=== PATIENT | male | born 1965 | race Hispanic/Latino ===

== ENCOUNTER 2019-07-21 13:05 | Emergency (ER) | payer SELFPAY ==
--- NOTE | 2019-07-21 15:08 | RAD REPORT ---
EXAM DESCRIPTION: US - Scrotum Testicles - 07/21/2019 2:03 pm CLINICAL HISTORY: Left testicular pain COMPARISON: None FINDINGS: Right testicle measures 4.5 x 2.3 x 3.3 centimeters. Echotexture is homogeneous. Normal bl ood flow Left testicle measures 4.3 x 2 x 3.4 centimeters. Echotexture is homogeneous. Normal blood flow The epididymides are normal in size and echotexture. Normal blood flow is seen. 7 millimeter right spermatocele. 8 millimeter isoechoic structure is present between the right testic le and right epididymis. It likely represents the epididymal appendage. Increased vascularity surroun ding the periphery of this is not present. Also the patient does not have pain in this region. This i s not considered significant. Small bilateral hydroceles IMPRESSION: Small bilateral hydroceles 7 millimeter right spermatocele The exam was discussed with Vanessa Reed
--- NOTE | 2019-07-21 15:46 | EDPHYS ---
Physician Documentation [facility] Name: Quintin Koenig Age: 54 yrs Sex: Male : 1965 Arrival Date: 07/21/2019 Time: 13:07 Bed 14 Private MD: ED Physician Conrado Cosme HPI: 07/21 15:05 This 54 yrs old Male presents to ER via Ambulatory with complaints of kb Testicular Pain. 15:05 The patient presents with scrotal pain, of the left side, tenderness, that is moderate. kb Onset: The symptoms/episode began/occurred 2 week(s) ago. Modifying factors: The symptoms are alleviated by nothing, the symptoms are aggravated by nothing. Associated signs and symptoms: The patient has no apparent associated signs or symptoms. Severity of symptoms: At their worst the symptoms were moderate, in the emergency department the symptoms are unchanged. The patient has not experienced similar symptoms in the past. The patient has not recently seen a physician. Historical: - Allergies: 13:22 No Known Allergies; hb - PSHx: 13:22 None; hb - Immunization history:: Adult Immunizations up to date. - Social history:: Smoking status: Patient/guardian denies using tobacco. - Ebola Screening: : No symptoms or risks identified at this time. ROS: 15:03 Constitutional: Negative for fever, chills, and weight loss, Neck: Negative for injury, kb pain, and swelling, Cardiovascular: Negative for chest pain, palpitations, and edema, Respiratory: Negative for shortness of breath, cough, wheezing, and pleuritic chest pain, Abdomen/GI: Negative for abdominal pain, nausea, vomiting, diarrhea, and constipation, Back: Negative for injury and pain, MS/Extremity: Negative for injury and deformity, Skin: Negative for injury, rash, and discoloration, Neuro: Negative for headache, weakness, numbness, tingling, and seizure. 15:03 : Positive for testicular pain of the left testicle. Exam: 15:03 Constitutional: This is a well developed, well nourished patient who is awake, alert, kb and in no acute distress. Head/Face: Normocephalic, atraumatic. Neck: Trachea midline, no thyromegaly or masses palpated, and no cervical lymphadenopathy. Supple, full range of motion without nuchal rigidity, or vertebral point tenderness. No Meningismus. Chest/axilla: Normal chest wall appearance and motion. Nontender with no deformity. No lesions are appreciated. Cardiovascular: Regular rate and rhythm with a normal S1 and S2. No gallops, murmurs, or rubs. Normal PMI, no JVD. No pulse deficits. Respiratory: Lungs have equal breath sounds bilaterally, clear to auscultation and percussion. No rales, rhonchi or wheezes noted. No increased work of breathing, no retractions or nasal flaring. Abdomen/GI: Soft, non-tender, with normal bowel sounds. No distension or tympany. No guarding or rebound. No evidence of tenderness throughout. Back: No spinal tenderness. No costovertebral tenderness. Full range of motion. Skin: Warm, dry with normal turgor. Normal color with no rashes, no lesions, and no evidence of cellulitis. MS/ Extremity: Pulses equal, no cyanosis. Neurovascular intact. Full, normal range of motion. Neuro: Awake and alert, GCS 15, oriented to person, place, time, and situation. Cranial nerves II-XII grossly intact. Motor strength 5/5 in all extremities. Sensory grossly intact. Cerebellar exam normal. Normal gait. 15:03 : Male external genitalia: erythema, is absent, swelling, is not appreciated, tenderness, that is moderate. Vital Signs: 13:22 BP 125 / 85; Pulse 76; Resp 16; Temp 98.4; Pulse Ox 98% on R/A; Weight 122.92 kg; hb Height 5 ft. 10 in. (177.80 cm); Pain 8/10; 13:22 Body Mass Index 38.88 (122.92 kg, 177.80 cm) hb MDM: 13:26 Patient medically screened. kb 15:04 Data reviewed: vital signs, nurses notes. Data interpreted: Pulse oximetry: on room air kb is 98 %. Interpretation: normal. Counseling: I had a detailed discussion with the patient and/or guardian regarding: the historical points, exam findings, and any diagnostic results supporting the discharge/admit diagnosis, lab results, radiology results, the need for outpatient follow up, a urologist, to return to the emergency department if symptoms worsen or persist or if there are any questions or concerns that arise at home. 07/21 13:26 Order name: US Scrotum Testicles; Complete Time: 15:13 kb 07/21 15:01 Order name: Urine Dipstick-Ancillary (obtain specimen); Complete Time: 15:34 kb Administered Medications: No medications were administered Disposition: 07/22 07:21 Co-signature as Attending Physician, Conrado Cosme MD I agree with the assessment and kdr plan of care. Disposition: 07/21/19 15:46 Discharged to Home. Impression: Right Testicular Pain. - Condition is Stable. - Discharge Instructions: Scrotal Masses. - Medication Reconciliation Form, Thank You Letter, Antibiotic Education, Prescription Opioid Use form. - Follow up: Emergency Department; When: As needed; Reason: Worsening of condition. Follow up: Private Physician; When: 2 - 3 days; Reason: Recheck today's complaints, Continuance of care, Re-evaluation by your physician. Signatures: Dispatcher [employer] EDMS Vanessa Reed, KAMILLE-C KAMILLE-Zack Marcano RN RN sg Conrado Cosme MD MD [facility] Grisel Rucker RN RN Corrections: (The following items were deleted from the chart) 07/21 15:49 15:46 07/21/2019 15:46 Discharged to Home. Impression: Right Testicular Pain. Condition sg is Stable. Forms are Medication Reconciliation Form, Thank You Letter, Antibiotic Education, Prescription Opioid Use. Follow up: Emergency Department; When: As needed; Reason: Worsening of condition. Follow up: Private Physician; When: 2 - 3 days; Reason: Recheck today's complaints, Continuance of care, Re-evaluation by your physician. kb
--- NOTE | 2019-07-21 15:46 | ER ---
Nurse's Notes [facility] Name: Quintin Koenig Age: 54 yrs Sex: Male : 1965 Arrival Date: 07/21/2019 Time: 13:07 Bed 14 Private MD: Diagnosis: Right Testicular Pain Presentation: 07/21 13:21 Presenting complaint: Left sided testicular pain x 2 weeks. Denies swelling or injury. hb Transition of care: patient was not received from another setting of care. Onset of symptoms was June 2019. Risk Assessment: Do you want to hurt yourself or someone else? Patient reports no desire to harm self or others. Initial Sepsis Screen: Does the patient meet any 2 criteria? No. Patient's initial sepsis screen is negative. Does the patient have a suspected source of infection? No. Patient's initial sepsis screen is negative. Care prior to arrival: None. 13:21 Method Of Arrival: Ambulatory hb 13:21 Acuity: MIGUEL 3 hb Historical: - Allergies: 13:22 No Known Allergies; hb - PSHx: 13:22 None; hb - Immunization history:: Adult Immunizations up to date. - Social history:: Smoking status: Patient/guardian denies using tobacco. - Ebola Screening: : No symptoms or risks identified at this time. Screenin:00 Abuse screen: Denies threats or abuse. Denies injuries from another. Nutritional sg screening: No deficits noted. Tuberculosis screening: No symptoms or risk factors identified. Never had TB. Fall Risk None identified. Assessment: 14:00 General: Appears in no apparent distress. well groomed, well developed, well nourished, sg Behavior is calm, cooperative, appropriate for age. Pain: Complains of pain in left testicle Quality of pain is described as aching, tender. Neuro: Level of Consciousness is awake, alert, obeys commands, Oriented to person, place, time, situation, Moves all extremities. Speech is normal, Facial symmetry appears normal. Cardiovascular: Capillary refill is brisk in bilateral fingers Patient's skin is warm and dry. Chest pain is denied. Respiratory: Airway is patent Respiratory effort is even, unlabored, Respiratory pattern is regular, symmetrical. GI: Abdomen is flat, non-distended, Reports normal bowel habits, tolerance of fluids, tolerance of food. : Genitalia appear normal. : Reports pain in left testicle. EENT: No signs and/or symptoms were reported regarding the EENT system. Derm: Skin is pink, warm \T\ dry. Musculoskeletal: Circulation, motion, and sensation intact. Range of motion: intact in all extremities, Reports. Vital Signs: 13:22 BP 125 / 85; Pulse 76; Resp 16; Temp 98.4; Pulse Ox 98% on R/A; Weight 122.92 kg; hb Height 5 ft. 10 in. (177.80 cm); Pain 8/10; 13:22 Body Mass Index 38.88 (122.92 kg, 177.80 cm) hb ED Course: 13:07 Patient arrived in ED. mr 13:22 Triage completed. hb 13:22 Arm band placed on. hb 13:26 [facility]C [facility] kb 13:26 Conrado Cosme MD is Attending Physician. kb 14:00 Patient has correct armband on for positive identification. Bed in low position. Call sg light in reach. Side rails up X2. Pulse ox on. NIBP on. 14:02 Patient moved back from ultrasound. sg 14:06 US Scrotum Testicles In Process Unspecified. EDMS 14:07 Zack Bangura, RN is Primary Nurse. sg 15:46 No provider procedures requiring assistance completed. Patient did not have IV access sg during this emergency room visit. Administered Medications: No medications were administered Outcome: 15:46 Discharge ordered by MD. kb 15:46 Discharged to home ambulatory, with family. sg 15:46 Condition: good 15:46 Discharge instructions given to patient, Instructed on discharge instructions, follow up and referral plans. safety practices, Demonstrated understanding of instructions, follow-up care. 15:49 Patient left the ED. sg Signatures: Dispatcher [employer] EDMS Vanessa Reed FNP-C FNP-Zack Marcano, RN SHAWNA Florencia Vaca mr Grisel Rucker, SHAWNA MATOS
[2019-07-21 15:58] VITALS: BP 125/85; TEMP 98.4; O2SAT 98
[2019-07-21 16:19] LABS: Urine Blood NEGATIVE (NEG); Urine Glucose NEGATIVE (NEG); Urine Protein NEGATIVE (NEG); Urine pH 5.5 (5.0-7.0)
== END 2019-07-21 15:49 | disposition home or self-care (01) ==
LOC: ER 13:05
DX: N50.811 Right testicular pain (principal)
CPT/HCPCS: 76870; 81003; 99284

== ENCOUNTER 2019-11-09 10:09 | Emergency (ER) | payer SELFPAY ==
--- NOTE | 2019-11-09 10:57 | EDPHYS ---
Physician Documentation [facility] Name: Quintin Koenig Age: 54 yrs Sex: Male : 1965 Arrival Date: 11/09/2019 Time: 10:25 Bed 7 Private MD: ED Physician Behzad Durand HPI: 11/09 10:53 This 54 yrs old Male presents to ER via Wheelchair with complaints of Back ma2 Pain, Leg Pain. 10:53 The patient presents with pain that is acute. The symptoms are located in the low back. ma2 Onset: The symptoms/episode began/occurred gradually, 5 day(s) ago. Associated signs and symptoms: Pertinent positives: Pertinent negatives: chest pain, hematuria, nausea, tingling. Severity of symptoms: At their worst the symptoms were mild, in the emergency department the symptoms are unchanged. The patient has not experienced similar symptoms in the past. Historical: - Allergies: 10:34 No Known Allergies; hb - PSHx: 10:34 None; hb - Immunization history:: Adult Immunizations up to date. - Coronavirus screen:: The patient has NOT traveled to [place] in the past 14 days. The patient has NOT had contact with known/suspected case of Coronavirus? Proceed with normal triage procedures. - Social history:: Patient/guardian denies using alcohol, street drugs, The patient lives with family, Smoking status: Patient denies any tobacco usage or history of. - Family history:: not pertinent. - Ebola Screening: : No symptoms or risks identified at this time. ROS: 10:53 Constitutional: Negative for fever, chills, and weight loss. ma2 10:53 All other systems are negative. Exam: 10:53 Constitutional: This is a well developed, well nourished patient who is awake, alert, ma2 and in no acute distress. Chest/axilla: Normal chest wall appearance and motion. Nontender with no deformity. No lesions are appreciated. Cardiovascular: Regular rate and rhythm with a normal S1 and S2. No gallops, murmurs, or rubs. Normal PMI, no JVD. No pulse deficits. Respiratory: Lungs have equal breath sounds bilaterally, clear to auscultation and percussion. No rales, rhonchi or wheezes noted. No increased work of breathing, no retractions or nasal flaring. Abdomen/GI: Soft, non-tender, with normal bowel sounds. No distension or tympany. No guarding or rebound. No evidence of tenderness throughout. Back: left para spinal tenderness. No costovertebral tenderness. Full range of motion. Skin: Warm, dry with normal turgor. Normal color with no rashes, no lesions, and no evidence of cellulitis. MS/ Extremity: Pulses equal, no cyanosis. Neurovascular intact. Full, normal range of motion. Neuro: Awake and alert, GCS 15, oriented to person, place, time, and situation. Cranial nerves II-XII grossly intact. Motor strength 5/5 in all extremities. Sensory grossly intact. Cerebellar exam normal. Normal gait. Vital Signs: 10:34 BP 145 / 88; Pulse 97; Resp 16; Temp 97.9; Pulse Ox 100% on R/A; Weight 124.74 kg; hb Height 5 ft. 10 in. (177.80 cm); Pain 10/10; 10:34 Body Mass Index 39.46 (124.74 kg, 177.80 cm) hb MDM: 10:36 Patient medically screened. ma2 10:53 Differential diagnosis: Obesity Osteoarthritis sprain, vertebral fracture. Data ma2 reviewed: vital signs, nurses notes. Counseling: I had a detailed discussion with the patient and/or guardian regarding: the historical points, exam findings, and any diagnostic results supporting the discharge/admit diagnosis, the presence of at least one elevated blood pressure reading (>120/80) during this emergency department visit, the need for outpatient follow up. Response to treatment: the patient's symptoms have mildly improved after treatment. 11/09 11:07 Order name: Lumbar Spine 3 Views EDOR Administered Medications: 11:05 Drug: MethylPREDNISolone Sodium Succinate 125 mg Route: IM; Site: right gluteus; 11:56 Follow up: Response: No adverse reaction 11:06 Drug: TORadol 60 mg Route: IM; Site: left gluteus; 11:56 Follow up: Response: No adverse reaction Disposition: 11/09/19 10:55 Discharged to Home. Impression: Low back pain. - Condition is Stable. - Discharge Instructions: Back Pain, Adult. - Prescriptions for Tylenol- Codeine #3 300-30 mg Oral Tablet - take 2 tablet by ORAL route every 6 hours As needed; 30 tablet. Cyclobenzaprine 10 mg Oral Tablet - take 1 tablet by ORAL route every 8 hours As needed; 30 tablet. Medrol ([place]man) 4 mg Oral Tablets, Dose Pack - take 1 tablet by ORAL route as directed - follow package instructions; 1 packet. - Medication Reconciliation Form, Thank You Letter, Antibiotic Education, Prescription Opioid Use form. - Follow up: Private Physician; When: Tomorrow; Reason: Continuance of care. Signatures: Dispatcher [employer] [facility] Grisel Rucker, SHAWNA RN Behzad Durand MD MD ma2 Essie Goff RN RN Corrections: (The following items were deleted from the chart) 11:05 10:50 Lumbar Spine Single View+[email or web address] ordered. [facility] 11:57 10:55 11/09/2019 10:55 Discharged to Home. Impression: Low back pain. Condition is ah Stable. Forms are Medication Reconciliation Form, Thank You Letter, Antibiotic Education, Prescription Opioid Use. Follow up: Private Physician; When: Tomorrow; Reason: Continuance of care. ma2
--- NOTE | 2019-11-09 10:57 | ER ---
Nurse's Notes [facility] Name: Quintin Koenig Age: 54 yrs Sex: Male : 1965 Arrival Date: 11/09/2019 Time: 10:25 Bed 7 Private MD: Diagnosis: Low back pain Presentation: 11/09 10:33 Presenting complaint: Left sided low back pain that radiates to left leg x 1 week, hb worse over last 3 days. Reports he is having difficulty walking today. Denies injury. Transition of care: patient was not received from another setting of care. Onset of symptoms was November 03, 2019. Risk Assessment: Do you want to hurt yourself or someone else? Patient reports no desire to harm self or others. Care prior to arrival: Medication(s) given: Aleve at 0800. 10:33 Method Of Arrival: Wheelchair hb 10:33 Acuity: MIGUEL 3 hb 11:15 Initial Sepsis Screen: Does the patient meet any 2 criteria? No. Patient's initial sepsis screen is negative. Does the patient have a suspected source of infection? No. Patient's initial sepsis screen is negative. Historical: - Allergies: 10:34 No Known Allergies; hb - PSHx: 10:34 None; hb - Immunization history:: Adult Immunizations up to date. - Coronavirus screen:: The patient has NOT traveled to [place] in the past 14 days. The patient has NOT had contact with known/suspected case of Coronavirus? Proceed with normal triage procedures. - Social history:: Patient/guardian denies using alcohol, street drugs, The patient lives with family, Smoking status: Patient denies any tobacco usage or history of. - Family history:: not pertinent. - Ebola Screening: : No symptoms or risks identified at this time. Screenin:30 Abuse screen: Denies threats or abuse. Nutritional screening: No deficits noted. Tuberculosis screening: No symptoms or risk factors identified. Fall Risk None identified. Assessment: 11:05 General: Appears uncomfortable, Behavior is calm, cooperative. Pain: Complains of pain ah in left flank and left low back Pain radiates to down left buttocks and left leg Pain at worst was 9 out of 10 on a pain scale. Quality of pain is described as sharp, Pain began 1 weekk ago, getting worse the last 2 days Is intermittent. Neuro: Level of Consciousness is awake, alert, Oriented to person, place, time, situation, [employer] are equal bilaterally. Cardiovascular: Heart tones S1 S2 present Capillary refill < 3 seconds Patient's skin is warm and dry. Respiratory: Airway is patent Respiratory effort is even, unlabored, Respiratory pattern is regular, symmetrical, Breath sounds are clear bilaterally. GI: No signs and/or symptoms were reported involving the gastrointestinal system. : No signs and/or symptoms were reported regarding the genitourinary system. EENT:. Derm: Skin is intact, is fragile. Musculoskeletal: Circulation, motion, and sensation intact. Capillary refill < 3 seconds. Vital Signs: 10:34 BP 145 / 88; Pulse 97; Resp 16; Temp 97.9; Pulse Ox 100% on R/A; Weight 124.74 kg; hb Height 5 ft. 10 in. (177.80 cm); Pain 10/10; 10:34 Body Mass Index 39.46 (124.74 kg, 177.80 cm) hb ED Course: 10:25 Patient arrived in ED. mr 10:34 Triage completed. hb 10:34 Arm band placed on. hb 10:36 Behzad Durand MD is Attending Physician. ma 10:55 Essie Goff, RN is Primary Nurse. ah 11:00 Patient has correct armband on for positive identification. Bed in low position. Call light in reach. Side rails up X 1. Adult w/ patient. 11:27 Lumbar Spine 3 Views In Process Unspecified. EDMS 11:54 No provider procedures requiring assistance completed. Patient did not have IV access during this emergency room visit. Administered Medications: 11:05 Drug: MethylPREDNISolone Sodium Succinate 125 mg Route: IM; Site: right gluteus; 11:56 Follow up: Response: No adverse reaction 11:06 Drug: TORadol 60 mg Route: IM; Site: left gluteus; 11:56 Follow up: Response: No adverse reaction Outcome: 10:55 Discharge ordered by . ma2 11:20 Discharged to home via wheelchair. 11:20 Condition: good 11:20 Discharge instructions given to patient, family, Instructed on discharge instructions, follow up and referral plans. medication usage, Demonstrated understanding of instructions, follow-up care, medications, Prescriptions given X 1, 2, 3. 11:57 Patient left the ED. Signatures: Dispatcher [employer] Florencia Hayden Heather, RN RN Behzad Durand MD MD sc2 Essie Goff RN RN
[2019-11-09] MEDS ORDERED: METHYLPREDNISOLONE 125 MG INJ ONE (11:03)
[2019-11-09] MEDS ORDERED: KETOROLAC 30 MG/ML INJ ONE (11:03)
--- NOTE | 2019-11-09 11:30 | RAD REPORT ---
EXAM DESCRIPTION: RAD - Lumbar Spine 3 Views - 11/09/2019 11:23 am CLINICAL HISTORY: PAIN Radiculopathy COMPARISON: No comparisons FINDINGS: Vertebral body heights appear maintained. No compression fracture noted. Mild disc thinnin g with posterior osteophyte formation is present L3-4, L4-5 and L5-S1. No spondylolysis or spondyloli sthesis. Facet arthrosis is present at L5-S1. IMPRESSION: Mild lower lumbar spondylosis.
[2019-11-09 12:21] VITALS: BP 145/88; TEMP 97.9; O2SAT 100
== END 2019-11-09 11:57 | disposition home or self-care (01) ==
LOC: ER 10:09
DX: M54.5 Low back pain (principal)
CPT/HCPCS: 72100; 96372; 99283; J2930

== ENCOUNTER 2020-01-03 12:46 | Emergency (ER) | payer SELFPAY ==
[2020-01-03] MEDS ORDERED: MEPERIDINE HCL 50 MG/ML ONE (13:09)
[2020-01-03] MEDS ORDERED: dexAMETHasone 10 MG/ML VIAL ONE (13:09)
--- NOTE | 2020-01-03 13:09 | ER ---
Nurse's Notes [facility] Name: Quintin Koenig Age: 54 yrs Sex: Male : 1965 Arrival Date: 01/03/2020 Time: 12:48 Bed 7 Private MD: Diagnosis: Radiculopathy, lumbosacral region Presentation: 01/02 12:56 Chief complaint: Patient states: right low back pain radiating to right leg X 3 weeks, iw worse since Saturday, had a diclofenac shot yesterday from a friend. Coronavirus screen: Proceed with normal triage. Patient denies a cough. Patient denies shortness of breath or difficulty breathing. Patient denies measured and/or subjective temperature greater than 100.4F prior to today's visit. Patient denies travel on a cruise ship or to a country the [facility] currently lists as an affected area. Patient denies contact with known and/or suspected case of COVID-19. Ebola Screen: Patient negative for fever greater than or equal to 101.5 degrees Fahrenheit, and additional compatible Ebola Virus Disease symptoms Patient denies exposure to infectious person. Patient denies travel to an Ebola-affected area in the 21 days before illness onset. No symptoms or risks identified at this time. Initial Sepsis Screen: Does the patient meet any 2 criteria? No. Patient's initial sepsis screen is negative. Does the patient have a suspected source of infection? No. Patient's initial sepsis screen is negative. Risk Assessment: Do you want to hurt yourself or someone else? Patient reports no desire to harm self or others. Onset of symptoms was December 12, 2019. 12:56 Method Of Arrival: Ambulatory iw 12:56 Acuity: MIGUEL 4 iw Historical: - Allergies: 13:01 No Known Allergies; iw - Home Meds: 13: metformin 500 mg Oral Tb24 1 tab 2 times per day [Active]; Lisinopril 15 mg Oral once iw daily [Active]; - PMHx: 13:01 Diabetes - NIDDM; Hypertension; iw - Immunization history:: Adult Immunizations not up to date. - Social history:: Smoking status: Patient denies any tobacco usage or history of. - Family history:: not pertinent. - Hospitalizations: : No recent hospitalization is reported. Screenin:00 Abuse screen: Denies threats or abuse. Denies injuries from another. Nutritional jl7 screening: No deficits noted. Tuberculosis screening: No symptoms or risk factors identified. Fall Risk None identified. Assessment: 13:00 General: Appears in no apparent distress. uncomfortable, Behavior is calm, cooperative, jl7 appropriate for age. Pain: Complains of pain in right low back Pain radiates to right leg Pain currently is 9 out of 10 on a pain scale. Pain began 2-3 days ago. Is continuous. Neuro: Level of Consciousness is awake, alert, obeys commands, Oriented to person, place, time, situation. Cardiovascular: Patient's skin is warm and dry. Respiratory: Airway is patent Respiratory effort is even, unlabored, Respiratory pattern is regular, symmetrical. Derm: Skin is pink, warm \T\ dry. 13:12 Reassessment: Pt will be discharged once shot time is up. jl7 Vital Signs: 12:56 BP 159 / 93; Pulse 78; Resp 16; Temp 97.6; Pulse Ox 99% on R/A; Weight 127.01 kg; iw Height 5 ft. 10 in. (177.80 cm); Pain 9/10; 13:30 BP 137 / 91; Pulse 70; Resp 19 S; Pulse Ox 98% on R/A; jl7 12:56 Body Mass Index 40.18 (127.01 kg, 177.80 cm) ED Course: 12:48 Patient arrived in ED. ag5 12:55 Donnie Cantu MD is Attending Physician. rn 12:55 Joi Hilario, SHAWNA is Primary Nurse. ca1 13:00 Triage completed. iw 13:00 Patient has correct armband on for positive identification. Bed in low position. Call jl7 light in reach. Side rails up X 1. Pulse ox on. NIBP on. 13:01 Arm band placed on. iw 13:10 Raffi Samson, SHAWNA is Primary Nurse. jl7 13:40 No provider procedures requiring assistance completed. Patient did not have IV access jl7 during this emergency room visit. Administered Medications: 13:09 Drug: Decadron 10 mg Route: IM; Site: right deltoid; jl7 13:40 Follow up: Response: No adverse reaction; Pain is decreased jl7 13:10 Drug: Demerol 50 mg Route: IM; Site: left deltoid; jl7 13:40 Follow up: Response: No adverse reaction; Pain is decreased jl7 Outcome: 13:08 Discharge ordered by . rn 13:41 Discharged to home via wheelchair. sunil 13:41 Condition: stable 13:41 Discharge instructions given to patient, Instructed on discharge instructions, follow up and referral plans. medication usage, Demonstrated understanding of instructions, follow-up care, medications, Prescriptions given X 3. 13:41 Patient left the ED. jl7 Signatures: Ivory Holden RN RN iw Nieto, Roman, MD MD rn Leal, Jahala, RN RN jl7 Joi Hilario RN RN ca1 [place], Ajare [facility]
--- NOTE | 2020-01-03 13:09 | EDPHYS ---
Physician Documentation [facility] Name: Quintin Koenig Age: 54 yrs Sex: Male : 1965 Arrival Date: 01/03/2020 Time: 12:48 Bed 7 Private MD: ED Physician Donnie Cantu HPI: 01/02 13:02 This 54 yrs old Male presents to ER via Ambulatory with complaints of Leg rn Pain, Low Back Pain. 13:03 The patient presents with pain that is chronic. The symptoms are located in the low rn back. Onset: The symptoms/episode began/occurred at an unknown time. The pain radiates to the right leg. Associated signs and symptoms: Pertinent negatives: abdominal pain, constipation, dysuria, fever, incontinence, nausea, numbness, tingling, urinary retention, vomiting, weakness. Modifying factors: The patient symptoms are alleviated by nothing, the patient symptoms are aggravated by any movement. Severity of symptoms: At their worst the symptoms were moderate, in the emergency department the symptoms are unchanged. The patient has experienced similar episodes in the past. Reports has been having problems with sciatica on left side for some time, now more recently having pain down right leg, no trauma, no fever, no bowel/bladder incontinence. No weakness of legs.. Historical: - Allergies: 13:01 No Known Allergies; iw - Home Meds: 13:01 metformin 500 mg Oral Tb24 1 tab 2 times per day [Active]; Lisinopril 15 mg Oral once iw daily [Active]; - PMHx: 13:01 Diabetes - NIDDM; Hypertension; iw - Immunization history:: Adult Immunizations not up to date. - Social history:: Smoking status: Patient denies any tobacco usage or history of. - Family history:: not pertinent. - Hospitalizations: : No recent hospitalization is reported. ROS: 13:03 Constitutional: Negative for fever, chills, and weight loss, Eyes: Negative for injury, rn pain, redness, and discharge, Neck: Negative for injury, pain, and swelling, Cardiovascular: Negative for chest pain, palpitations, and edema, Respiratory: Negative for shortness of breath, cough, wheezing, and pleuritic chest pain, Abdomen/GI: Negative for abdominal pain, nausea, vomiting, diarrhea, and constipation, Back: + low back pain : Negative for injury, bleeding, discharge, and swelling, MS/Extremity: Negative for injury and deformity, Skin: Negative for injury, rash, and discoloration, Neuro: Negative for headache, weakness, numbness, tingling, and seizure. Exam: 13:03 Constitutional: This is a well developed, well nourished patient who is awake, alert, rn and in no acute distress. Abdomen/GI: soft, non-tender Skin: Warm, dry MS/ Extremity: Pulses equal, no cyanosis. Neurovascular intact. Full, normal range of motion. Equal circumference. Neuro: Awake and alert, GCS 15, oriented to person, place, time, and situation. Cranial nerves II-XII grossly intact. Motor strength 5/5 in all extremities. Sensory grossly intact. Cerebellar exam normal. Ambulatory to bed. Vital Signs: 12:56 BP 159 / 93; Pulse 78; Resp 16; Temp 97.6; Pulse Ox 99% on R/A; Weight 127.01 kg; iw Height 5 ft. 10 in. (177.80 cm); Pain 9/10; 13:30 BP 137 / 91; Pulse 70; Resp 19 S; Pulse Ox 98% on R/A; jl7 12:56 Body Mass Index 40.18 (127.01 kg, 177.80 cm) iw MDM: 12:55 Patient medically screened. rn 13:03 Differential diagnosis: arthritis, chronic back pain, radiculopathy, disc rn bulge/herniation, neuropathy. Data reviewed: vital signs, nurses notes, and as a result, I will discharge patient. Counseling: I had a detailed discussion with the patient and/or guardian regarding: the historical points, exam findings, and any diagnostic results supporting the discharge/admit diagnosis, the need for outpatient follow up, to return to the emergency department if symptoms worsen or persist or if there are any questions or concerns that arise at home. 13:07 ED course: [place] score 120/060/000/200. No active prescriptions, has had this rn problem before, will dc home with muscle relaxers and pain meds with pcp f/u for MRI.No signs of cord compression. . Administered Medications: 13:09 Drug: Decadron 10 mg Route: IM; Site: right deltoid; jl7 13:40 Follow up: Response: No adverse reaction; Pain is decreased jl7 13:10 Drug: Demerol 50 mg Route: IM; Site: left deltoid; jl7 13:40 Follow up: Response: No adverse reaction; Pain is decreased jl7 Disposition: 01/03/20 13:08 Discharged to Home. Impression: Radiculopathy, lumbosacral region. - Condition is Stable. - Discharge Instructions: Lumbosacral Radiculopathy. - Prescriptions for Ultram 50 mg Oral Tablet - take 1 tablet by ORAL route every 6 hours As needed; 15 tablet. Cyclobenzaprine 10 mg Oral Tablet - take 1 tablet by ORAL route every 8 hours As needed; 15 tablet. Medrol (Osman) 4 mg Oral Tablets, Dose Pack - take 1 tablet by ORAL route as directed - follow package instructions; 1 packet. - Medication Reconciliation Form, Thank You Letter, Antibiotic Education, Prescription Opioid Use form. - Follow up: Private Physician; When: As needed; Reason: Recheck today's complaints, Re-evaluation by your physician. - Problem is an ongoing problem. - Symptoms have improved. Signatures: Ivory Holden RN RN iw Nieto, Roman, MD MD rn Leal, Jahala, RN RN jl7 Corrections: (The following items were deleted from the chart) 13:41 13:08 01/03/2020 13:08 Discharged to Home. Impression: Radiculopathy, lumbosacral jl7 region. Condition is Stable. Forms are Medication Reconciliation Form, Thank You Letter, Antibiotic Education, Prescription Opioid Use. Follow up: Private Physician; When: As needed; Reason: Recheck today's complaints, Re-evaluation by your physician. Problem is an ongoing problem. Symptoms have improved. rn
[2020-01-03 13:47] VITALS: TEMP 97.6
[2020-01-03 13:48] VITALS: BP 137/91; O2SAT 98
== END 2020-01-03 13:41 | disposition home or self-care (01) ==
LOC: ER 12:46
DX: M54.17 Radiculopathy, lumbosacral region (principal); I10 Essential (primary) hypertension; E11.9 Type 2 diabetes mellitus without complications
CPT/HCPCS: 96372; 99283; J1100; J2175

== ENCOUNTER 2020-04-26 20:03 | Inpatient (IN) | payer OTHER, SELFPAY ==
[2020-04-26] MEDS ORDERED: NA CHLORIDE 0.9% 1,000 ML ONE (20:49)
[2020-04-26 20:59] LABS: Absolute Lymphocytes (CBC) 2.3 K/uL (0.7-4.9); Basophils % 1.2 % (0-1.3); Hematocrit 43.5 % (39.6-49.0); Lymphocytes % 15.8 % (15.3-44.8); MPV 10.7 fL (7.6-11.3); RBC Red Blood Cell Count 5.03 M/uL (4.33-5.43)
[2020-04-26 21:04] LABS: Protime INR 1.02
[2020-04-26 21:32] LABS: ALT/SGPT 33 U/L (12-78); AST/SGOT 27 U/L (15-37); Albumin 4.4 g/dL (3.4-5.0); Alkaline Phosphatase 67 U/L (45-117); BUN Blood Urea Nitrogen 23 mg/dL (7-18); Bicarbonate 22 mmol/L (21-32); Bilirubin Direct 0.2 mg/dL (0-0.2); Bilirubin Total 1.2 mg/dL (0.2-1.0); Ferritin 449.2 ng/mL (26-388); Glucose Level 107 mg/dL (74-106); Lipase 196 U/L (73-393); Potassium 4.8 mmol/L (3.5-5.1); Protein, Total 8.6 g/dL (6.4-8.2); Sodium Level 139 mmol/L (136-145); Troponin (Emerg Dept Use Only) < 0.02 ng/mL (0.0-0.045)
[2020-04-26 21:39] LABS: Urine Blood NEGATIVE (NEG); Urine Glucose NEGATIVE (NEG); Urine Protein 2+ (NEG)
[2020-04-26 21:40] LABS: C-Reactive Protein < 2.90 mg/L (<3.00)
--- NOTE | 2020-04-26 21:42 | RAD REPORT ---
EXAM DESCRIPTION: RAD - Chest Single View - 04/26/2020 9:33 pm CLINICAL HISTORY: COUGH Chest pain. COMPARISON: CHEST SINGLE VIEW dated 01/13/2015; CHEST SINGLE VIEW dated 09/12/2011 FINDINGS: Portable technique limits examination quality. The lungs are grossly clear. The heart is normal in size. No displaced fractures. IMPRESSION: No acute intrathoracic process suspected.
--- NOTE | 2020-04-26 21:57 | EDPHYS ---
Physician Documentation [facility] Name: Quintin Koenig Age: 54 yrs Sex: Male : 1965 Arrival Date: 04/26/2020 Time: 20:05 Bed 13 Private MD: ED Physician Remberto Woodall HPI: 04/26 20:26 This 54 yrs old Male presents to ER via Ambulatory with complaints of covid +, tw4 Breathing Difficulty. 20:26 The patient has shortness of breath with light activity. Onset: The symptoms/episode tw4 began/occurred today. Duration: The symptoms are continuous, and are unchanged since they started. The patient's shortness of breath has no apparent modifying factors. Associated signs and symptoms: The patient has no apparent associated signs or symptoms. Severity of symptoms: At their worst the symptoms were moderate in the emergency department the symptoms are unchanged. The patient has not experienced similar symptoms in the past. Historical: - Allergies: 20:08 No Known Drug Allergies; jd3 - PMHx: 20:08 Diabetes - NIDDM; Hypertension; jd3 - Immunization history:: Adult Immunizations up to date. - Social history:: Smoking status: unknown. ROS: 20:26 Constitutional: Negative for fever, chills, and weight loss, Eyes: Negative for injury, tw4 pain, redness, and discharge, Cardiovascular: Negative for chest pain, palpitations, and edema, Abdomen/GI: Negative for abdominal pain, nausea, vomiting, diarrhea, and constipation, Back: Negative for injury and pain, MS/Extremity: Negative for injury and deformity, Skin: Negative for injury, rash, and discoloration, Neuro: Negative for headache, weakness, numbness, tingling, and seizure. 20:26 Respiratory: Positive for cough, shortness of breath. Exam: 20:26 Constitutional: This is a well developed, well nourished patient who is awake, alert, tw4 and in no acute distress. Head/Face: Normocephalic, atraumatic. Chest/axilla: Normal chest wall appearance and motion. Nontender with no deformity. No lesions are appreciated. Cardiovascular: Regular rate and rhythm with a normal S1 and S2. No gallops, murmurs, or rubs. Normal PMI, no JVD. No pulse deficits. Respiratory: Lungs have equal breath sounds bilaterally, clear to auscultation and percussion. No rales, rhonchi or wheezes noted. No increased work of breathing, no retractions or nasal flaring. Abdomen/GI: Soft, non-tender, with normal bowel sounds. No distension or tympany. No guarding or rebound. No evidence of tenderness throughout. Back: No spinal tenderness. No costovertebral tenderness. Full range of motion. MS/ Extremity: Pulses equal, no cyanosis. Neurovascular intact. Full, normal range of motion. Neuro: Awake and alert, GCS 15, oriented to person, place, time, and situation. Cranial nerves II-XII grossly intact. Motor strength 5/5 in all extremities. Sensory grossly intact. Cerebellar exam normal. Normal gait. Vital Signs: 20:09 BP 88 / 69; Pulse 103; Resp 18; Temp 98.3; Pulse Ox 98% on R/A; Pain 8/10; jd3 21:03 BP 98 / 72; Pulse 86; Resp 19 S; Pulse Ox 97% on R/A; Weight 113.4 kg (R); jd3 22:05 BP 101 / 80; Pulse 84; Resp 18 S; Pulse Ox 100% on R/A; jd3 22:40 BP 115 / 71; Pulse 89; Resp 19 S; Temp 97.9(O); Pulse Ox 100% on R/A; jd3 08/12 12:43 BP 120 / 77; Pulse 76; Resp 18; Temp 98.2(O); Pulse Ox 94% on R/A; Pain 0/10; jr10 MDM: 04/26 20:09 Patient medically screened. tw4 23:11 Differential diagnosis: Anemia Myocardial Infarction pneumonia, reactive airway tw4 disease, Unstable Angina. Data reviewed: vital signs, nurses notes, EMS record. Data interpreted: Pulse oximetry: Interpretation: normal. Counseling: I had a detailed discussion with the patient and/or guardian regarding: the historical points, exam findings, and any diagnostic results supporting the discharge/admit diagnosis, the presence of at least one elevated blood pressure reading (>120/80) during this emergency department visit, lab results. Special discussion: I discussed with the patient/guardian in detail that at this point there is no indication for admission to the hospital. It is understood, however, that if the symptoms persist or worsen the patient needs to return immediately for re-evaluation. 04/26 20:10 Order name: Blood Culture Adult (2) 04/26 20:10 Order name: BMP; Complete Time: 21:48 04/26 21:48 Interpretation: Normal except: GLUC 107; GFR 27; CRE 2.52; BUN 23. 04/26 20:10 Order name: C-Reactive Protein; Complete Time: 21:48 04/26 21:49 Interpretation: Within normal limits: C-REACTIVE PROT < 2.90. 04/26 20:10 Order name: CBC with Diff; Complete Time: 21:48 04/26 21:49 Interpretation: Normal except: WBC 14.4; JOANA% 74.2; NEUT A 10.7. 04/26 20:10 Order name: COVID-19 04/26 20:10 Order name: D-Dimer; Complete Time: 21:48 04/26 21:50 Interpretation: Within normal limits: D-DIMER 292. 04/26 20:10 Order name: Ferritin; Complete Time: 21:48 04/26 21:49 Interpretation: Normal except: ERNESTO 449.2. 04/26 20:10 Order name: Flu; Complete Time: 21:48 [facility] 04/26 20:10 Order name: Lactate; Complete Time: 21:48 04/26 21:49 Interpretation: LAC 2.5. 04/26 20:10 Order name: LFT's; Complete Time: 21:48 [facility] 04/26 21:49 Interpretation: Normal except: BILIT 1.2; TP 8.6; GLOB 4.2; A/G 1.0. 04/26 20:10 Order name: Lipase; Complete Time: 21:48 04/26 20:10 Order name: Procalcitonin 04/26 20:10 Order name: PT-INR; Complete Time: 21:48 04/26 20:10 Order name: Ptt, Activated; Complete Time: 21:48 04/26 20:10 Order name: Strep 04/26 20:10 Order name: Troponin (emerg Dept Use Only); Complete Time: 21:48 04/26 20:10 Order name: CXR XRAY; Complete Time: 21:48 tw4 04/26 21:31 Order name: Urine Microscopic Only tt3 04/26 21:31 Order name: Urine Dipstick--Ancillary (enter results); Complete Time: 21:48 tt3 04/26 21:49 Interpretation: Normal except: UKET 1+; UPROT 2+; UESTR TRACE. tw4 04/26 21:49 Order name: Throat Culture EDMD 04/27 00:23 Order name: Lactate Sepsis 2 HR Follow-up EDMD 04/27 04:40 Order name: CBC with Automated Diff EDMS 04/27 04:43 Order name: Hemoglobin A1c EDMD 04/27 04:48 Order name: Basic Metabolic Panel EDMD 04/27 04:48 Order name: Magnesium EDMD 04/27 09:13 Order name: Glucose, Ancillary Testing EDMD 04/27 11:53 Order name: Basic Metabolic Panel EDMD 04/26 20:10 Order name: EKG; Complete Time: 20:11 tw4 04/26 20:10 Order name: Cardiac monitoring; Complete Time: 21:02 tw4 04/26 20:10 Order name: Document PUI#; Complete Time: 21:02 tw4 04/26 20:10 Order name: Droplet/Contact Precautions; Complete Time: 20:34 tw4 04/26 20:10 Order name: EKG - Nurse/Tech; Complete Time: 21:25 tw4 04/26 20:10 Order name: IV Start; Complete Time: 20:34 tw4 04/26 20:10 Order name: Labs collected and sent; Complete Time: 20:34 tw4 04/26 20:10 Order name: Notify Health Dept [phone]/ ; Complete Time: 21:01 tw4 04/26 20:10 Order name: O2 Per Protocol; Complete Time: 21:01 tw4 04/26 20:10 Order name: O2 Sat Monitoring; Complete Time: 20:34 tw4 04/26 20:10 Order name: Urine Dipstick-Ancillary (obtain specimen); Complete Time: 21:02 tw4 04/26 23:09 Order name: CONS Physician Consult EDMS EC:12 Rate is 84 beats/min. Rhythm is regular. QRS [place] is Normal. [place] interval is normal. QRS tw4 interval is normal. QT interval is normal. No Q waves. T waves are Inverted in lead III. No ST changes noted. Clinical impression: NSR w/ Non-specific ST/T Changes. Interpreted by me. Reviewed by me. Administered Medications: 20:45 Drug: NS 0.9% 1000 ml Route: IV; Rate: 1 bolus; Site: right antecubital; jd3 21:45 Follow up: Response: No adverse reaction; IV Status: Completed infusion; IV Intake: jd3 1000ml 22:05 Drug: NS 0.9% (30 ml/kg) 30 ml/kg Route: IV; Rate: bolus; Site: right antecubital; jd3 22:39 Drug: Rocephin - (cefTRIAXone) 1 grams Route: IVPB; Infused Over: 30 mins; Site: right jd3 antecubital; 22:39 Follow up: Response: No adverse reaction; IV Status: Completed infusion; IV Intake: jd3 10ml ; given IV push per verbal order 22:39 Drug: AZITHromycin 500 mg Route: IVPB; Infused Over: 1 hrs; Site: right antecubital; jd3 Disposition: 04/26/20 21:56 Hospitalization ordered by Bk Koroma for Inpatient Admission. Preliminary diagnosis is Sepsis, unspecified organism. - Bed requested for [facility] ER HOLD. - Status is Inpatient Admission. jr10 - Condition is Stable. - Problem is new. - Symptoms are unchanged. Signatures: Dispatcher [employer] EDMS Jasmine Garcia RN RN kl Garcia, Cindy, RN RN cg Davies, Jonathon, RN RN jd3 Wadley, Terrence, MD MD tw Humera Vaca RN RN jr10 Corrections: (The following items were deleted from the chart) 21:24 20:10 Hassan ordered. tw4 jd3 04/27 00:10 04/26 21:56 Hospitalization Ordered by Bk ZIMMERMAN for Inpatient Admission. Preliminary diagnosis is Sepsis, unspecified organism. Bed requested for Telemetry/MedSurg (Inpatient). Status is Inpatient Admission. Condition is Stable. Problem is new. Symptoms are unchanged. tw4 04/27 08:39 00:10 04/26/2020 21:56 Hospitalization Ordered by Bk ZIMMERMAN for Inpatient kl Admission. Preliminary diagnosis is Sepsis, unspecified organism. Bed requested for [facility] ER HOLD. Status is Inpatient Admission. Condition is Stable. Problem is new. Symptoms are unchanged. 09:05 08:39 04/26/2020 21:56 Hospitalization Ordered by Bk ZIMMERMAN for Inpatient kl Admission. Preliminary diagnosis is Sepsis, unspecified organism. Bed requested for Intensive Care Unit. Status is Inpatient Admission. Condition is Stable. Problem is new. Symptoms are unchanged. kl 09:05 09:05 04/26/2020 21:56 Hospitalization Ordered by Bk ZIMMERMAN for Inpatient kl Admission. Preliminary diagnosis is Sepsis, unspecified organism. Bed requested for [facility] ER HOLD. Status is Inpatient Admission. Condition is Stable. Problem is new. Symptoms are unchanged. 14:08 09:05 04/26/2020 21:56 Hospitalization Ordered by Bk ZIMMERMAN for Inpatient jr10 Admission. Preliminary diagnosis is Sepsis, unspecified organism. Bed requested for [facility] ER HOLD. Status is Inpatient Admission. Condition is Stable. Problem is new. Symptoms are unchanged.
--- NOTE | 2020-04-26 21:57 | ER ---
Nurse's Notes [facility] Name: Quintin Koenig Age: 54 yrs Sex: Male : 1965 Arrival Date: 04/26/2020 Time: 20:05 Bed 13 [facility] MD: Diagnosis: Sepsis, unspecified organism Presentation: 04/26 20:09 Chief complaint: Patient states: SOB started today while working out in the heat. SOB jd3 continues, even now with rest. No cough or fevers recently. Had 3 positive covid tests since March 26. Coronavirus screen: Client denies travel out of the [place] in the last 14 days. Client presents with at least one sign or symptom that may indicate coronavirus-19. Standard/surgical mask placed on the client. Client reports previous positive COVID test result. Ebola Screen: Patient denies travel to an Ebola-affected area in the 21 days before illness onset. Initial Sepsis Screen: Does the patient meet any 2 criteria?. Initial Sepsis Screen: Does the patient meet any 2 criteria? Systolic BP < 90 mmHg. HR > 90 bpm. Yes Does the patient have a suspected source of infection? Yes: Other: covid positive. Risk Assessment: Do you want to hurt yourself or someone else? Patient reports no desire to harm self or others. Onset of symptoms is unknown. 20:09 Method Of Arrival: Ambulatory jd3 20:09 Acuity: MIGUEL 2 jd3 Historical: - Allergies: 20:08 No Known Drug Allergies; jd3 - PMHx: 20:08 Diabetes - NIDDM; Hypertension; jd3 - Immunization history:: Adult Immunizations up to date. - Social history:: Smoking status: unknown. Screenin:09 Abuse screen: Denies threats or abuse. Nutritional screening: No deficits noted. jd3 Tuberculosis screening: No symptoms or risk factors identified. Fall Risk Ambulatory Aid- None/Bed Rest/Nurse Assist (0 pts). Gait- Normal/Bed Rest/Wheelchair (0 pts) Mental Status- Oriented to own ability (0 pts). Total Hernandez Fall Scale indicates No Risk (0-24 pts). Assessment: 21:06 General: Appears in no apparent distress. uncomfortable, Behavior is calm, cooperative, jd3 appropriate for age. Pain: Complains of pain in chest. Neuro: Level of Consciousness is awake, alert, obeys commands, Oriented to person, place, time, situation. Cardiovascular: Capillary refill < 3 seconds Patient's skin is warm and dry. Rhythm is regular. Respiratory: Reports shortness of breath at rest Airway is patent Respiratory effort is even, labored, Respiratory pattern is regular, symmetrical, Denies cough. GI: No signs and/or symptoms were reported involving the gastrointestinal system. : No signs and/or symptoms were reported regarding the genitourinary system. EENT: No signs and/or symptoms were reported regarding the EENT system. Derm: Skin is intact, Skin is dry, Skin is normal, Skin temperature is warm. Musculoskeletal: Circulation, motion, and sensation intact. Range of motion: intact in all extremities. 22:09 Reassessment: No changes from previously documented assessment. Patient and/or family jd3 updated on plan of care and expected duration. Pain level reassessed. Patient is alert, oriented x 3, equal unlabored respirations, skin warm/dry/pink. Vital Signs: 20:09 BP 88 / 69; Pulse 103; Resp 18; Temp 98.3; Pulse Ox 98% on R/A; Pain 8/10; jd3 21:03 BP 98 / 72; Pulse 86; Resp 19 S; Pulse Ox 97% on R/A; Weight 113.4 kg (R); jd3 22:05 BP 101 / 80; Pulse 84; Resp 18 S; Pulse Ox 100% on R/A; jd3 22:40 BP 115 / 71; Pulse 89; Resp 19 S; Temp 97.9(O); Pulse Ox 100% on R/A; jd3 0812 12:43 BP 120 / 77; Pulse 76; Resp 18; Temp 98.2(O); Pulse Ox 94% on R/A; Pain 0/10; jr10 ED Course: 04/26 20:05 Patient arrived in ED. am2 20:08 Arm band placed on Patient placed in an exam room, on a stretcher. jd3 20:09 Remberto Woodall MD is Attending Physician. tw4 20:19 Triage completed. jd3 20:35 Inserted saline lock: 20 gauge in right antecubital area, using aseptic technique. jd3 Blood collected. placed by Ada MATOS. 21:01 Herbert Diehl RN is Primary Nurse. jd3 21:10 Patient has correct armband on for positive identification. Bed in low position. Call jd3 light in reach. Side rails up X 1. environmental monitoring technician on. Pulse ox on. NIBP on. 21:32 CXR XRAY In Process Unspecified. EDMD 21:54 Bk Koroma PA is Hospitalizing Provider. tw4 04/27 14:02 No provider procedures requiring assistance completed. IV discontinued, intact, jr10 bleeding controlled, No redness/swelling at site. Pressure dressing applied. Administered Medications: 04/26 20:45 Drug: NS 0.9% 1000 ml Route: IV; Rate: 1 bolus; Site: right antecubital; jd3 21:45 Follow up: Response: No adverse reaction; IV Status: Completed infusion; IV Intake: jd3 1000ml 22:05 Drug: NS 0.9% (30 ml/kg) 30 ml/kg Route: IV; Rate: bolus; Site: right antecubital; jd3 22:39 Drug: Rocephin - (cefTRIAXone) 1 grams Route: IVPB; Infused Over: 30 mins; Site: right jd3 antecubital; 22:39 Follow up: Response: No adverse reaction; IV Status: Completed infusion; IV Intake: jd3 10ml ; given IV push per verbal order 22:39 Drug: AZITHromycin 500 mg Route: IVPB; Infused Over: 1 hrs; Site: right antecubital; jd3 Intake: 21:45 IV: 1000ml; Total: 1000ml. jd3 22:39 IV: 10ml; Total: 1010ml. jd3 Outcome: 21:56 Decision to Hospitalize by Provider. tw4 04/27 14:02 Discharged to home ambulatory. jr10 Condition: improved Discharge instructions given to patient, Instructed on discharge instructions, follow up and referral plans. Demonstrated understanding of instructions, follow-up care, medications, see [facility] charting for additional documentation 14:08 Patient left the ED. jr10 Signatures: Dispatcher [employer] EDMD Kylie Bella Jonathon, RN RN jd3 Remberto Woodall MD MD tw4 Tammy Barnes RN RN ks7 Humera Vaca RN RN jr10 Corrections: (The following items were deleted from the chart) 04/26 21:58 21:03 BP 98 / 72; Pulse 86bpm; Resp 19bpm; Spontaneous; Pulse Ox 97% RA; jd3 jd3 22:42 22:40 Pulse 89bpm; Resp 19bpm; Spontaneous; Pulse Ox 100% RA; Temp 97.9F Oral; jd3 jd3 04/27 14:09 12:43 BP 120 / 77; Pulse 48bpm; Resp 18bpm; Pulse Ox 94% RA; Temp 98.2F Oral; Pain jr10 0/10; ks7
[2020-04-26] MEDS ORDERED: NA CHLORIDE 0.9% 2,000 ML ONE (22:10)
[2020-04-26 22:13] LABS: Calcium Oxalate Crystals- Ur MANY (NONE SEEN); Urine Amorphous Sediment 2+ /HPF (NONE SEEN); Urine Bacteria <20 /HPF (NONE SEEN); Urine Culture Reflex Order NOT NEEDED; Urine Mucus 3+ /HPF (NONE SEEN); Urine RBC <5 /HPF (NONE SEEN)
[2020-04-26] MEDS ORDERED: NA CHLORIDE 0.9% 250 ML ONE (22:24)
[2020-04-26] MEDS ORDERED: AZITHROMYCIN 500 MG INJ IVPB ONE (22:24)
[2020-04-26] MEDS ORDERED: CEFTRIAXONE/SWI 1gm 1 GM/10 ML SYR ONE (22:25)
--- NOTE | 2020-04-27 00:07 | P.HP ---
Certification for Inpatient With expected LOS: >2 Midnights Patient will require the following post-hospital care: None Practitioner: I am a practitioner with admitting privileges, knowledge of patient current condition, hospital course, and medical plan of care. Services: Services provided to patient in accordance with Admission requirements found in Title 42 Section 412.3 of the Code of Federal Regulations <Bk Koroma - Last Filed: 04/27/20 00:00> Patient History Date of Service: 04/27/20 Reason for admission: Covid pneumonia/sepsis/hypotension History of Present Illness: 54-year-old male with a past medical history of diabetes and hypertension presents to the emergency room complaining of shortness of breath that started today after working outside in the heat. Patient states that he had 3 positive covid tests since March 26. With his last test at the beginning of April. He was told to quarantine for 21 days. Patient's has also tested positive. In the emergency room patient is found to be hypotensive with initial blood pressure of 88/69, pulse rate of 103, respiratory rate of 18 and a temperature of 98.3. Room air oxygen saturations are 98%. Sepsis protocol was started in the emergency room on this patient. He received IV fluids per protocol. Patient improved after fluid bolus and on latest vitals patient's blood pressure has remained stable did 98/72 with a pulse rate of 86 and a respiratory rate of 19. Oxygen saturations of 97% on room air. Chest x-ray shows no acute pathology but patient has been on oral antibiotics prior to the arrival to the ED. Emergency room blood work shows a white cell count of 14.4, lactic acid of 2.5. Normal procalcitonin and normal CRP. Creatinine level is 2.52 with a GFR of 27. Patient denies any prior renal issues. On exam patient is calm and pleasant. He is alert and oriented and in no distress. He states he was working outside today and started feeling nauseous. Came in the lowers. Drank some water. Took a shower and lay down. States he could not feel better and kept feeling worse. Patient came to the emergency room. Patient will be admitted and further evaluated. Home medications list reviewed: No - Past Medical/Surgical History Has patient received pneumonia vaccine in the past: No Diabetic: Yes -: Type 2 diabetes -: Essential hypertension -: None Psychosocial/ Personal History: . Lives at home with . - Family History Family History: Reviewed- Non-Contributory - Social History Smoking Status: Never smoker Alcohol use: No CD- Drugs: No Caffeine use: No Place of Residence: Home <Bk Koroma - Last Filed: 04/27/20 00:00> Date of Service: 04/27/20 <Babatunde Fontana - Last Filed: 04/27/20 06:09> Allergies No Known Drug Allergies Allergy (Verified 04/27/20 04:20) Unknown Home Medications: Atorvastatin Calcium [Lipitor*] 10 04/27/20 Lisinopril [Zestril] 10 mg PO BID 04/27/20 Metformin HCl [Glucophage*] 500 mg PO BID 04/27/20 Review of Systems General: As per HPI Eyes: Unremarkable ENT: Unremarkable Cardiovascular: Unremarkable Gastrointestinal: Nausea, As per HPI Genitourinary: Unremarkable Musculoskeletal: Unremarkable Integumentary: Unremarkable Neurological: Weakness, As per HPI Lymphatics: Unremarkable <Bk Koroma - Last Filed: 04/27/20 00:00> Physical Examination - Vital Signs Temperature: 98.3 F Blood Pressure: 88/69 Pulse: 103 Respirations: 18 Pulse Ox (%): 97 (RA) - Physical Exam General: Alert, In no apparent distress, Oriented x3 HEENT: Atraumatic, Normocephalic, PERRLA Neck: Supple, Other (Trachea midline) Respiratory: Clear to auscultation bilaterally, Normal air movement Cardiovascular: No edema, Normal pulses, Other (Tachycardia) Capillary refill: <2 Seconds Gastrointestinal: Normal bowel sounds, Soft and benign, Non-distended Musculoskeletal: No swelling, No contractures, No erythema Integumentary: No rashes, No breakdown, No significant lesion Neurological: Normal gait, Normal speech, Normal strength at 5/5 x4 extr, Normal tone - Studies Laboratory Data (last 24 hrs) 04/26/20 20:25: PT 12.0, INR 1.02, APTT 29.0 04/26/20 20:25: WBC 14.4 H, Hgb 14.5, Hct 43.5, Plt Count 208 04/26/20 20:25: Sodium 139, Potassium 4.8, BUN 23 H, Creatinine 2.52 H, Glucose 107 H, Total Bilirubin 1.2 H, AST 27, ALT 33, Alkaline Phosphatase 67, Lipase 196 Microbiology Data (last 24 hrs): 04/26/20 20:40 Throat Group A Streptococcus Rapid Screen - Final 04/26/20 20:40 Nasopharnyx Influenza Type A Antigen Screen - Final 04/26/20 20:40 Nasopharnyx Influenza Type B Antigen Screen - Final <Bk Koroma - Last Filed: 04/27/20 00:00> - Studies Laboratory Data (last 24 hrs) 04/26/20 20:25: PT 12.0, INR 1.02, APTT 29.0 04/26/20 20:25: WBC 14.4 H, Hgb 14.5, Hct 43.5, Plt Count 208 04/26/20 20:25: Sodium 139, Potassium 4.8, BUN 23 H, Creatinine 2.52 H, Glucose 107 H, Total Bilirubin 1.2 H, AST 27, ALT 33, Alkaline Phosphatase 67, Lipase 196 Microbiology Data (last 24 hrs): 04/26/20 20:40 Throat Group A Streptococcus Rapid Screen - Final 04/26/20 20:40 Nasopharnyx Influenza Type A Antigen Screen - Final 04/26/20 20:40 Nasopharnyx Influenza Type B Antigen Screen - Final <Babatunde Fontana - Last Filed: 04/27/20 06:09> Assessment and Plan - Plan Impression: Sepsis likely secondary to Covid pneumonia complicated by hypotension: Acute renal failure: Type 2 diabetes mellitus: Essential hypertension: Plan: Sepsis likely secondary to Covid pneumonia complicated by hypotension: Patient was found to have an elevated white cell count of 14.4, elevated pulse rate of 103, hypotensive on arrival to ED in a lactic acid of 2.5. Patient had also been on oral antibiotics prior to arrival to ED. Chest x-ray does not show significant pathology. Sepsis protocol was initiated in the ED. Patient received IV fluids and his blood pressure improved. Will continue IV fluids. Will start IV antibiotics of IV Rocephin and IV azithromycin. Will monitor vitals. Patient has had 3 positive Covid tests with the latest 1 being at the beginning of April. Patient was instructed to quarantine for 21 days. Acute renal failure: Patient has no history of renal disease. In the ED creatinine levels were noted to be 2.5. Will consult Nephrology. Continue gentle IV hydration. Type 2 diabetes mellitus: History of type 2 diabetes. Will continue Accu-Cheks a.c. HS and moderate sliding scale insulin. Will order hemoglobin A1c. Essential hypertension: Will resume all medications as verified. Discharge Plan: Home Plan to discharge in: Greater than 2 days - Advance Directives Does patient have a Living Will: No Does patient have a Durable POA for Healthcare: No - Code Status/Comfort Care Code Status Assessed: Yes Time Spent Managing Pts Care (In Minutes): 55 <Bk Koroma - Last Filed: 04/27/20 00:00> - Plan Case discussed in detail with physician branch assistant. Agree with evaluation, assessment and plan of care. Will continued to monitor the patient closely. Will reassess today. <Babatunde Fontana - Last Filed: 04/27/20 06:09>
[2020-04-27 00:35] VITALS: BMI 36.6
[2020-04-27] MEDS ORDERED: NA CHLORIDE 0.9% 1,000 ML IV SCH (00:43)
[2020-04-27] MEDS ORDERED: ACETAMINOPHEN 500 MG TAB PO PRN (00:43)
[2020-04-27] MEDS ORDERED: METHYLPREDNISOLONE 40 MG INJ IV SCH (01:00)
[2020-04-27] MEDS ORDERED: NA CHLORIDE 0.9% 1,000 ML ONE (02:00)
[2020-04-27] MEDS ORDERED: METHYLPREDNISOLONE 40 MG INJ ONE (02:00)
[2020-04-27] MEDS ORDERED: HEPARIN 5000 UNIT/ML 1 ML VIAL ONE (02:00)
[2020-04-27] MEDS: HEPARIN 5000 UNIT/ML 1 ML VIAL SQ SCH ×2 (02:30→09:00)
[2020-04-27 04:38] LABS: Absolute Lymphocytes (CBC) 1.4 K/uL (0.7-4.9); Basophils % 0.5 % (0-1.3); Hematocrit 39.7 % (39.6-49.0); Lymphocytes % 18.3 % (15.3-44.8); MPV 10.1 fL (7.6-11.3); RBC Red Blood Cell Count 4.59 M/uL (4.33-5.43)
[2020-04-27 04:46] LABS: Magnesium 2.1 mg/dL (1.8-2.4); Potassium 4.7 mmol/L (3.5-5.1)
--- NOTE | 2020-04-27 05:31 | P.INFCA ---
Sepsis Focused Assessment - Focused Assessment Complete? Sepsis Focused Assessment Completed?: Yes - Sepsis Screen Result Severe Sepsis: Negative Septic Shock: Negative - Evaluation Current stage of sepsis: Severe sepsis - Vital Signs Reviewed: Yes Temperature: 97.2 F Heart rate: 77 Blood Pressure: 130/62 Respiratory Rate: 18 O2 Sat by Pulse Oximetry: 98 - Examination Date exam was performed: 04/27/20 (0350) Heart: Regular rate/rhythm Lungs: Clear bilaterally Peripheral pulses: 3+ Normal Peripheral pulse location: Posterior tibial Capillary refill: <2 Seconds Skin examination: Normal turgor, Unremarkable
[2020-04-27] MEDS: INSULIN -REGULAR HUMAN 50 UNIT/0.5 ML ML SQ SCH ×2 (07:30→11:30)
[2020-04-27] MEDS ORDERED: PNEUMOCOCCAL VACCINE 0.5 ML IMVAC ONE ×2 (08:00→13:49)
[2020-04-27] MEDS ORDERED: CEFTRIAXONE 1 GM/NS 50 ML 1 GM/50 ML BAG IV SCH (09:00)
[2020-04-27] MEDS ORDERED: AZITHROMYCIN IV 500 MG in NA CHLORIDE 0.9% 250 ML IVPB SCH (09:00)
[2020-04-27] MEDS ORDERED: THIAMINE HCL 100 MG TABLET PO SCH (09:00)
[2020-04-27] MEDS ORDERED: ASCORBIC ACID 500 MG TABLET PO SCH (09:00)
[2020-04-27 11:52] LABS: Potassium 4.9 mmol/L (3.5-5.1)
--- NOTE | 2020-04-27 12:11 | P.DS ---
Admission Date: 04/26/20 Discharge Date: 04/27/20 Primary Care Provider: none Disposition: ROUTINE DISCHARGE Discharge Condition: GOOD Reason for Admission: Covid pneumonia/sepsis/hypotension Consultations: none Procedures: CXR: FINDINGS: Portable technique limits examination quality. The lungs are grossly clear. The heart is normal in size. No displaced fractures. IMPRESSION: No acute intrathoracic process suspected. Medical Problem List: Acute renal insufficiency secondary to dehydration/medication complicated likely from heat exhaustion Diabetes mellitus type 2 [id number] Hypertension Hyperlipidemia History of COVID 19, currently asymptomatic Brief History of Present Illness: 54-year-old male with history of diabetes, hypertension. Patient also with history of COVID 19 diagnosis March 26. Patient reported that he was outside yesterday in the heat. He was mowing the grass. The patient became severely dehydrated. He fell very weak and tired. He came to the ER for further evaluation. Patient found to have acute renal failure likely from severe dehydration and heat exhaustion. Patient also takes medications including lisinopril and metformin. Hospital Course: Patient presented with acute renal insufficiency secondary to dehydration and medications. This was likely from heat exhaustion. There was some suspicion of sepsis. But this was ruled out. Patient received IV fluids during the course of his stay with improvement. At discharge patient without significant abnormalities. Renal function near baseline. At discharge will recommend to continue to hold metformin and lisinopril for at least 1 week. He is to keep track of his blood pressures closely. Recommend to maintain blood pressure less than 140/90. If consistently above 140/90 then the patient can restart lisinopril at 10 mg daily. As for his metformin, his A1c is very well controlled at 6.0. Patient may continue with a 2000 ADA diet. Recommend to monitor blood sugars at least twice daily. Recommend to maintain blood sugar less than 140 fasting and less than 200 after meals. If his blood sugars remain above 200 then metformin can be restarted at 500 mg twice daily. I will recommend that the patient establish care with a PCP to follow up this hospitalization. Will recommend to recheck lab-BMP in 1 week monitor resolution. Education on heat exhaustion will be provided. Encourage oral intake. Encourage to take multiple breaks when working outside. Recommend to limit exposure to the sun especially if hot outside. Patient with hypertension. As recommended above. Lisinopril has been held. This was due to his acute renal insufficiency. Recommend to monitor his blood pressures at least once daily. Recommend to maintain blood pressure less 140/90. If his blood pressures remain above 140/90 then lisinopril 10 mg can be restarted. Recommend to follow up with a PCP to further monitor and adjust medication. Patient with diabetes mellitus type 2 [id number]. A1c 6.0. At discharge will recommend to hold metformin as recommended above due to renal insufficiency. Recommend to monitor blood sugar at least twice daily. Recommend to maintain blood sugar less than 140 fasting and less than 200 after meals. If his blood sugars remain above 200 consistently then metformin can be restarted at 500 mg 1 pill twice daily. Recommend follow up with a PCP to further monitor and address. Patient with hyperlipidemia. At discharge patient may continue with Lipitor 10 mg daily. Recommend follow up with PCP to further monitor and adjust. Patient with history of COVID 19. He was diagnosed March 26. He had symptoms for about 5 days. Since that time the Department of Health has been following up on his progress. His follow up tests have come back positive. He is to be retested here soon. Patient asymptomatic at this time. Recommend follow up with the health department as directed. Recommend CDC guidelines which includes face mask, hand washing and social distancing. Vital Signs/Physical Exam: Temp Pulse Resp BP Pulse Ox 97.2 F 77 18 130/62 98 04/27/20 05:31 04/27/20 05:31 04/27/20 05:31 04/27/20 05:31 04/27/20 05:31 General: Alert, In no apparent distress, Oriented x3, Cooperative HEENT: Atraumatic Neck: Supple Respiratory: Clear to auscultation bilaterally, Normal air movement Cardiovascular: Normal pulses, Regular rate/rhythm Gastrointestinal: Normal bowel sounds, Soft and benign, Non-distended, No masses, No rebound, No guarding Neurological: Normal speech, Normal strength at 5/5 x4 extr, Normal tone, Normal affect Laboratory Data at Discharge: WBC 7.7 K/uL (4.3-10.9) D 04/27/20 04:13 Hgb 13.4 g/dL (13.6-17.9) L 04/27/20 04:13 Hct 39.7 % (39.6-49.0) 04/27/20 04:13 Plt Count 142 K/uL (152-406) L D 04/27/20 04:13 PT 12.0 SECONDS (9.5-12.5) 04/26/20 20:25 INR 1.02 04/26/20 20:25 APTT 29.0 SECONDS (24.3-36.9) 04/26/20 20:25 Sodium 139 mmol/L (136-145) 04/27/20 11:19 Potassium 4.9 mmol/L (3.5-5.1) 04/27/20 11:19 BUN 19 mg/dL (7-18) H 04/27/20 11:19 Creatinine 1.38 mg/dL (0.55-1.3) H 04/27/20 11:19 Glucose 134 mg/dL (74-106) H 04/27/20 11:19 Magnesium 2.1 mg/dL (1.8-2.4) 04/27/20 04:13 Total Bilirubin 1.2 mg/dL (0.2-1.0) H 04/26/20 20:25 AST 27 U/L (15-37) 04/26/20 20:25 ALT 33 U/L (12-78) 04/26/20 20:25 Alkaline Phosphatase 67 U/L (45-117) 04/26/20 20:25 Lipase 196 U/L (73-393) 04/26/20 20:25 Home Medications: Atorvastatin Calcium [Lipitor*] 10 04/27/20 Lisinopril [Zestril] 10 mg PO DAILY #30 04/27/20 Metformin HCl [Glucophage*] 500 mg PO BID 04/27/20 New Medications: Lisinopril [Zestril] 10 mg PO DAILY #30 Patient Discharge Instructions: 1. Recommend follow up with PCP in 1 week. 2. Patient presented with acute renal insufficiency secondary to dehydration and medications. This was likely from heat exhaustion. There was some suspicion of sepsis. But this was ruled out. Patient received IV fluids during the course of his stay with improvement. At discharge patient without significant abnormalities. Renal function near baseline. At discharge will recommend to continue to hold metformin, lisinopril for at least 1 week. He is to keep track of his blood pressures closely. Recommend to maintain blood pressure less than 140/90. If consistently above 140/90 then the patient can restart lisinopril at 10 mg daily. As for his metformin his A1c is very well controlled at 6.0. Patient may continue with a 2000 ADA diet. Recommend to monitor blood sugars at least twice daily. Recommend to maintain blood sugar less than 140 fasting and less than 200 after meals. If his blood sugars remain above 200 then metformin can be restarted at 500 mg twice daily. I will recommend that the patient establish care with a PCP. Will recommend to recheck lab-BMP in 1 week monitor resolution. Education on heat exhaustion will be provided. Encourage oral intake. Encourage to take multiple breaks when working outside. Recommend to limit exposure to the sun especially if hot outside. 3. Patient with hypertension. As recommended above. Lisinopril has been held. This was due to his acute renal insufficiency. Recommend to monitor his blood pressures at least once daily. Recommend to maintain blood pressure less 140/90. If his blood pressures remain above 140/90 then lisinopril 10 mg can be restarted. Recommend to follow up with a PCP to further monitor and adjust medication. 4. Patient with diabetes mellitus type 2 [id number]. A1c 6.0. At discharge will recommend to hold metformin as recommended above due to renal insufficiency. Recommend to monitor blood sugar at least twice daily. Recommend to maintain blood sugar less than 140 fasting and less than 200 after meals. If his blood sugars remain above 200 consistently then metformin can be restarted at 500 mg 1 pill twice daily. Recommend follow up with a PCP to further monitor and address. 5. Patient with hyperlipidemia. At discharge patient may continue with Lipitor 10 mg daily. Recommend follow up with PCP to further monitor and adjust. 6. Patient with history of COVID 19. He was diagnosed March 26. He had symptoms for about 5 days. Since that time the Department of Health has been following up on his progress. His follow up tests have come back positive. He is to be retested here soon. Patient asymptomatic at this time. Recommend follow up with the health department as directed. Recommend CDC guidelines which includes face mask, hand washing and social distancing. Diet: ADA Activity: Ad fabienne Time spent managing pt's care (in minutes): 55
--- NOTE | 2020-04-27 12:36 | EKG ---
Test Date: 2020-04-26 Test Time: 21:10:24 Horticultural Nursery Assistant: RONDA MEASUREMENT RESULTS: Intervals: Rate: 84 MD: 190 QRSD: 92 QT: 352 QTc: 415 Riggins: P: 0 MD: 190 QRS: 2 T: 14 INTERPRETIVE STATEMENTS: Normal sinus rhythm Inferior infarct, age undetermined Possible Anterior infarct, age undetermined Abnormal ECG Compared to ECG 01/13/2015 18:51:12 Myocardial infarct finding now present First degree AV block no longer present Left bundle-branch block no longer present Electronically Signed On 04-27-20 12:35:26 CDT by Apolinar Warren
[2020-04-27 14:06] VITALS: BP 120/77; TEMP 98.2
[2020-04-27 14:20] VITALS: O2SAT 94
[2020-04-27] MEDS ORDERED: MELATONIN 3 MG TABLET PO SCH (21:00)
== END 2020-04-27 14:07 | disposition home or self-care (01) | DRG 684 ==
LOC: ER 20:03 → ERHOLD 23:07
PROVIDERS: ADMIT Family Medicine; ATTEND Family Medicine
DX: N17.9 Acute kidney failure, unspecified (principal); E11.9 Type 2 diabetes mellitus without complications; I10 Essential (primary) hypertension; E86.0 Dehydration; E78.5 Hyperlipidemia, unspecified; T50.905A Adverse effect of unspecified drugs, medicaments and biological substances, initial encounter; T67.5XXA Heat exhaustion, unspecified, initial encounter; Z79.84 Long term (current) use of oral hypoglycemic drugs; Z79.899 Other long term (current) drug therapy; Z86.19 Personal history of other infectious and parasitic diseases
CPT/HCPCS: 36415; 71045; 80048; 80076; 81003; 81015; 82728; 82947; 83036; 83605; 83690; 83735; 84145; 84484; 85025; 85379; 85610; 85730; 86140; 87040; 87070; 87081; 87804; 90471; 90670; 93005; 96361; 96374; 96375; 99284; J0456; J0696; J1644; J2920; J7030; J7050

== ENCOUNTER 2021-12-06 21:01 | Emergency (ER) | payer SELFPAY ==
--- OUTSIDE RECORDS SUMMARY | 2021-12-06 21:03 | XMS REPORT | Continuity of Care Document ---
:1965 Author Organization [facility] t Address [address] [place] [address] Care Team Providers Name Role Phone Unavailable Unavailable Unavailable Problems This patient has no known problems. Allergies, Adverse Reactions, Alerts This patient has no known allergies or adverse reactions. Medications This patient has no known medications. Procedures This patient has no known procedures. Results Test Description Test Time Test Comments Results Result Comments Source PSA, TOTAL 2021-11-20 01:49:26 Test Item Value Reference Range Interpretation Comme nts PSA, TOTAL (test code 1.38 NG/ML See_Comment NO TE: Methodology is Fabian Stephania = 2606) Electrochemilum inescence Immunoassay traceable to O reference standard 96/760. UNLESS OTHERWISE INDICATED, ALL TESTING PERFORMED [employer] [facility]. [address] [place] [address] LABORATORY DIR CHERYL: Porfirio MORANIA NUMBER [id number] [place]. [id number] [Autom ated message] The system which generated this result transmitted reference range : <=4.00. The reference range was not u sed to interpret this result as betty l/abnormal. HIV 1/2 4TH GEN, RFLX [id number] 04:36:58 Test Item Value Reference Range Interpretation Comments HIV 1/2 4TH GEN, NON-REACTIVE NON-REACTIVE UNLE SS OTHERWISE RFLX CONF (test INDICATED, A LL TESTING code = 3514) PER[facility]MED [facility]. [address] [place] [address] 4 LABORATORY DIRE CTOR: STORM HERNANDEZ M.D. CLIA NUMBER [id number] [place]. [id number] LIPID [id number] 02:49:15 Test Item Value Reference Range Interpretation Comments CHOLESTEROL (test 147 MG/DL <200 code = 2210) TRIGLYCERIDES (test 228 MG/DL <150 H code = 2232) HDL CHOLESTEROL (test 33 MG/DL >39 L code = 2220) CALC LDL CHOL (test 82 MG/DL <100 NOTE: C ALCULATED LDL code = 2237) IS BASED ON ARTHUR-WYNN METHOD WHICHINCLUDES ADJUSTABLE TRIGLYCERIDE:VL DL CHOLESTEROL RAT IO.THIS FACTOR VARIES B Y MEASURED TRIGLY CERIDE AND NON-HDLCHOL ESTEROL CONCENTRATIONS WITH INCREASED CALCU LATED LDL SEENIN HIGH ER TRIGLYCERIDE OR LOWER NON-HDL SPECIME NS. FOR MOREINFORMATION , SEE CLIENT ANNOUNCE MENT AT [email or web address] RISK RATIO LDL/HDL 2.48 RATIO <3.55 (test code = 2238) COMPREHENSIVE METABOLIC [id number] 02:49:15 Test Item Value Reference Range Interpretation Comments GLUCOSE (test code = 97 MG/DL 70-99 2216) BUN (test code = 21 MG/DL 6-20 H 2207) CREATININE (test 1.28 MG/DL 0.80-1.40 code = 2214) eGFR (2020 CKD-EPI) 67 ML/MIN/1.73 >60 (test code = 11366) CALC BUN/CREAT (test 16 RATIO 6-28 code = 2235) SODIUM (test code = 141 MEQ/L 370-046 1657) POTASSIUM (test code 4.3 MEQ/L 3.5-5.4 = 2227) CHLORIDE (test code 101 MEQ/L 95-107 = 2215) CARBON DIOXIDE (test 22 MEQ/L 19-31 code = 2206) CALCIUM (test code = 9.4 MG/DL 8.5-10.5 2208) PROTEIN, TOTAL (test 7.9 G/DL 6.1-8.3 code = 2229) ALBUMIN (test code = 4.6 G/DL 3.5-5.2 2200) CALC GLOBULIN (test 3.3 G/DL 1.9-3.7 code = 2240) CALC A/G RATIO (test 1.4 RATIO 1.0-2.6 code = 2234) BILIRUBIN, TOTAL 0.5 MG/DL See_Comment [Automated message] (test code = 2207) The syste m which generated this result transmit jerrod reference range : <=1.2. The refe rence range was not u sed to interpret th is result as normal/abnormal . ALKALINE PHOSPHATASE 102 U/L 40-121 (test code = 2204) AST (test code = 28 U/L 2217) ALT (test code = 26 U/L 2218) HEMOGLOBIN [id number] 05:50:17 Test Item Value Reference Range Interpretation Comments HEMOGLOBIN A1c (test 6.7 % 4.2-5.6 H TUVALUAN DIABETES code = 67676) ASSOCIATION IDELINES FOR HGB A1C: PREDIABETES/INC REASED RISK . . . . . . . 5.7 -6.4% DIAGNOSIS OF D IABETES . . . . . . . . . > =6.5% WITH CONFIRM ATION OR APPROPRIATE SYM PTOMS NOTE: ASSAY MAY BE AFFECTED BY HEMOGLOBINOP ATHIES (SICKLE ROGER L ANEMIA, S-C DISEASE, OTHERS ) OR ARTIFICIALLY LO WERED BY DECREASED RED C ELL SURVIVAL (HEMOLYTIC ANEM IAS, BLOOD LOSS, ETC.) . CONSIDER ALTERNATE TESTI NG OR LABORATORY CONS ULTATION. SARS-CoV-2 (COVID-19), RT-PCR/[id number] 15:44:19 Test Item Value Reference Interpretation Comments Range SARS-CoV-2 POSITIVE SEE NOTE A SARS-CoV-2 RNA INTERPRETATION DETECTEDPosit bruce results (test code = 78328) are bety cative of the presence of CHAPO S-CoV-2 RNA;clinical co rrelation with patient hi story and other diagnosticinfor mation is necessary to de termine patient infecti on status.Positive results do not rule out bacterial infection or co-infectionwit h other viruses. Positi ve and negative predic tive values oftestin g are highly dependen t on prevalence. SOURCE (test code = NOT SPECIFIED Note: [place] [address]) Fabian Stephania Kate l-Time RT-PCR. The exp ected result or refer ence range is NEGATIVE (No t Detected). For more information reg arding COVID-19 testin g to include clinicalinforma tion, methodology det ail, intended use, F DA authorization andrecommended fact sheets for candice ents or healthcare prov iders, see NewTest Announc ement: SARS-CoV-2 (COV ID-19) by NAAT at URL bel ow (note,fact shee ts are provided by [facility] [place] given in report:[email or web address] [email or web address] Alternatively, see downloadable PD F fact sheet at:[email or web address] CR UNLESS OTHERWIS E INDICATED, ALL TESTING PERFORMED [facility]Y [facility], [facility]. [address] [place] [address] 4 LABORATORY DIRE CTOR: STORM HERNANDEZ M.D. CLIA NUMBER [id number] [facility] [place]. [id number]
[2021-12-06 23:59] LABS: Absolute Lymphocytes (CBC) 2.5 K/uL (0.7-4.9); Hematocrit 44.6 % (39.6-49.0); Lymphocytes % 23.7 % (15.3-44.8); MPV 9.6 fL (7.6-11.3); RBC Red Blood Cell Count 5.25 M/uL (4.33-5.43)
[2021-12-07] LABS: Protime INR 1.05
[2021-12-07] MEDS ORDERED: CEFTRIAXONE 1000 MG/VIAL ONE (00:07)
[2021-12-07] MEDS ORDERED: LORazepam 2 MG/ML VIAL ONE (00:07)
[2021-12-07] MEDS ORDERED: NA CHLORIDE 0.9% 1,000 ML ONE ×2 (00:07→01:18)
[2021-12-07 00:16] LABS: Albumin 4.1 g/dL (3.4-5.0); Bilirubin Direct 0.2 mg/dL (0-0.2); Bilirubin Total 0.6 mg/dL (0.2-1.0); Potassium 4.6 mmol/L (3.5-5.1); Protein, Total 8.4 g/dL (6.4-8.2); Troponin High Sensitivity 11.5 pg/mL (<58.9)
[2021-12-07] MEDS ORDERED: Levofloxacin 750mg IV 750 MG/150 ML BAG IV ONE (00:29)
[2021-12-07] MEDS ORDERED: metroNIDAZOLE 500 MG TABLET ONE (00:29)
[2021-12-07] MEDS ORDERED: ACETYLCYST 6,000 MG/30 ML VIAL ONE (00:33)
[2021-12-07 02:02] LABS: Urine Blood Negative (Negative); Urine Glucose Negative (Negative); Urine Protein Negative (Negative); Urine pH 5.5 (5.0-7.0)
[2021-12-07] MEDS ORDERED: TAMSULOSIN 0.4 MG SR CAP ONE (02:17)
--- NOTE | 2021-12-07 02:35 | ER ---
Nurse's Notes [facility] Name: Quintin Koenig Age: 56 yrs Sex: Male : 1965 Arrival Date: 12/06/2021 Time: 21:02 Bed 8 Private MD: Diagnosis: Pelvic and perineal pain-CYST;Bipolar disorder, unspecified;Type 2 diabetes mellitus with hyperglycemia;Unspecified kidney failure-INSUFFICENCY;Hydrocele, unspecified;Hydronephrosis with renal and ureteral calculous obstruction-7 MM UVJ, MILD RIGHT HYDRO Presentation: 12/06 21:30 Chief complaint: Patient states: "I've got pain in my testicles." Pt states it has been ab2 going on for months, but getting worse. Pt states there is an abscess like growth on his testicles that is getting bigger. Pt states he is also having kidney pain. Coronavirus screen: Vaccine status: Patient reports receiving the 2nd dose of the covid vaccine. Client denies travel out of the [place] in the last 14 days. At this time, the client does not indicate any symptoms associated with coronavirus-19. Ebola Screen: Patient negative for fever greater than or equal to 101.5 degrees Fahrenheit, and additional compatible Ebola Virus Disease symptoms Patient denies exposure to infectious person. Patient denies travel to an Ebola-affected area in the 21 days before illness onset. No symptoms or risks identified at this time. Initial Sepsis Screen: Does the patient meet any 2 criteria? No. Patient's initial sepsis screen is negative. Does the patient have a suspected source of infection? No. Patient's initial sepsis screen is negative. Risk Assessment: Do you want to hurt yourself or someone else? Patient reports no desire to harm self or others. Onset of symptoms is unknown. 21:30 Method Of Arrival: Ambulatory ab2 21:30 Acuity: MIGUEL 3 ab2 Triage Assessment: 21:33 General: Appears in no apparent distress. uncomfortable, Behavior is calm, cooperative, ab2 appropriate for age. Pain: Complains of pain in pelvis Pain currently is 10 out of 10 on a pain scale. Historical: - Allergies: 21:33 No Known Allergies; ab2 - Home Meds: 12/07 01:32 Lisinopril 15 mg Oral once daily [Active]; metformin 500 mg Oral Tb24 1 tab 2 times per kd3 day [Active]; - PMHx: 12/06 21:33 Diabetes - NIDDM; Hypertension; ab2 12/07 01:32 Bipolar disorder; kd3 - PSHx: 12/06 21:33 None; ab2 - Immunization history:: Adult Immunizations up to date. - Social history:: Smoking status: Patient denies any tobacco usage or history of. - Family history:: not pertinent. Screenin:24 Abuse screen: Denies threats or abuse. Denies injuries from another. Nutritional kd3 screening: No deficits noted. Tuberculosis screening: No symptoms or risk factors identified. 12/07 01:32 Fall Risk IV access (20 points). kd3 Vital Signs: 12/06 21:30 BP 134 / 93; Pulse 93; Resp 18; Temp 98.3; Pulse Ox 99% on R/A; Weight 125.65 kg; ab2 Height 5 ft. 10 in. (177.80 cm); Pain 10/10; 12/07 03:24 BP 145 / 85; Pulse 84; Resp 17; Pulse Ox 100% on R/A; kd3 12/06 21:30 Body Mass Index 39.74 (125.65 kg, 177.80 cm) ab2 ED Course: 12/06 21:02 Patient arrived in ED. ja2 21:33 Triage completed. ab2 21:33 Arm band placed on right wrist. ab2 22:24 Kiersten Dunn, RN is Primary Nurse. kd3 22:31 Mateo Bray MD is Attending Physician. wilfrido 22:57 XRAY Chest (1 view) In Process Unspecified. EDMS 12/07 00:01 US Scrotum Testicles In Process Unspecified. EDMS 00:47 CT Abd/Pelvis - IV Contrast Only: THROUGH SCROTUM In Process Unspecified. EDMS 01:32 Patient has correct armband on for positive identification. Bed in low position. Call kd3 light in reach. 02:33 Angelo Olea MD is Referral Physician. wilfrido 02:34 Sanjeev De Jesus PA is PHCP. jr8 03:11 US Extremity Venous W Compression Tino In Process Unspecified. EDMS 03:23 No provider procedures requiring assistance completed. IV discontinued, intact, kd3 bleeding controlled, No redness/swelling at site. Pressure dressing applied. Administered Medications: 00:17 Drug: Rocephin (cefTRIAXone) 1 grams Route: IV; Rate: per protocol; Site: right 3 antecubital; 03:26 Follow up: IV Status: Completed infusion kd3 00:19 Drug: Ativan (LORazepam) 1 mg Route: IVP; Site: right antecubital; kd3 03:26 Follow up: Response: No adverse reaction kd3 00:22 CANCELLED (Duplicate Order): NS 0.9% 500 ml IV at bolus once wilfrido 00:46 Drug: Flagyl (metroNIDAZOLE) 500 mg Route: PO; kd3 03:25 Follow up: Response: No adverse reaction kd3 00:46 Drug: NS 0.9% 1000 ml Route: IV; Rate: 1 bolus; Site: right antecubital; kd3 03:25 Follow up: Rate change 1000 ml; IV Status: Completed infusion kd3 00:46 Drug: Mucomyst - Acetylcysteine 600 mg Route: PO; kd3 03:25 Follow up: Response: No adverse reaction kd3 00:47 Drug: levofloxacin 750 mg Volume: 150 ml; Route: IVPB; Infused Over: 90 mins; Site: [facility] right antecubital; 03:25 Follow up: Response: No adverse reaction; IV Status: Completed infusion kd3 01:15 Drug: NS 0.9% 1000 ml Route: IV; Rate: 75 ml/hr; Site: right antecubital; kd3 03:26 Follow up: IV Status: Completed infusion kd3 02:38 Drug: Flomax (tamsulosin) 0.4 mg Route: PO; kd3 03:25 Follow up: Response: No adverse reaction kd3 Outcome: 02:34 Discharge ordered by MD. anna 03:24 Discharged to home ambulatory. kd3 03:24 Condition: stable 03:24 Discharge instructions given to patient, family, Instructed on discharge instructions, follow up and referral plans. Demonstrated understanding of instructions, follow-up care, medications, Prescriptions given X 4. 03:26 Patient left the ED. kd3 Signatures: Dispatcher [employer] EDMateo Marie MD MD cha Roszak, Josh, PA PA jr8 Humera Pearl2 Kiersten Dunn RN RN kd3 Russell Loaiza2 Corrections: (The following items were deleted from the chart) 00:47 00:17 NS 0.9% 1000 ml IV at 75 ml/hr in right antecubital kd3 kd3
--- NOTE | 2021-12-07 02:35 | EDPHYS ---
Physician Documentation [facility] Name: Quintin Koenig Age: 56 yrs Sex: Male : 1965 Arrival Date: 12/06/2021 Time: 21:02 Bed 8 Private MD: ED Physician Mateo Bray HPI: 12/07 00:04 This 56 yrs old Male presents to ER via Ambulatory with complaints of wilfrido Testicular Pain. 00:04 The patient presents with swelling, that is moderate, of the perineum. Onset: The wilfrido symptoms/episode began/occurred 3 year(s) ago. Modifying factors: The symptoms are alleviated by nothing, the symptoms are aggravated by nothing. Associated signs and symptoms: The patient has no apparent associated signs or symptoms. Severity of symptoms: At their worst the symptoms were mild, in the emergency department the symptoms are unchanged. The patient has experienced similar episodes in the past, multiple times. Historical: - Allergies: 12/06 21:33 No Known Allergies; ab2 - Home Meds: 12/07 01:32 Lisinopril 15 mg Oral once daily [Active]; metformin 500 mg Oral Tb24 1 tab 2 times per kd3 day [Active]; - PMHx: 12/06 21:33 Diabetes - NIDDM; Hypertension; ab2 12/07 01:32 Bipolar disorder; kd3 - PSHx: 12/06 21:33 None; ab2 - Immunization history:: Adult Immunizations up to date. - Social history:: Smoking status: Patient denies any tobacco usage or history of. - Family history:: not pertinent. ROS: 12/07 00:04 Constitutional: Negative for fever, chills, and weight loss, Eyes: Negative for injury, wilfrido pain, redness, and discharge, ENT: Negative for injury, pain, and discharge, Neck: Negative for injury, pain, and swelling, Cardiovascular: Negative for chest pain, palpitations, and edema, Respiratory: Negative for shortness of breath, cough, wheezing, and pleuritic chest pain, Abdomen/GI: Negative for abdominal pain, nausea, vomiting, diarrhea, and constipation, Back: Negative for injury and pain, : Negative for injury, bleeding, discharge, and swelling, MS/Extremity: Negative for injury and deformity, Neuro: Negative for headache, weakness, numbness, tingling, and seizure, Psych: Negative for depression, anxiety, suicide ideation, homicidal ideation, and hallucinations, Allergy/Immunology: Negative for hives, rash, and allergies, Endocrine: Negative for neck swelling, polydipsia, polyuria, polyphagia, and marked weight changes, Hematologic/Lymphatic: Negative for swollen nodes, abnormal bleeding, and unusual bruising. Skin: Positive for swelling, of the perineum. 02:30 MS/extremity: Negative for acute changes, pain, swelling, tenderness. wilfrido Exam: 00:04 Constitutional: This is a well developed, well nourished patient who is awake, alert, wilfrido and in no acute distress. Head/Face: Normocephalic, atraumatic. Eyes: Pupils equal round and reactive to light, extra-ocular motions intact. Lids and lashes normal. Conjunctiva and sclera are non-icteric and not injected. Cornea within normal limits. Periorbital areas with no swelling, redness, or edema. ENT: Nares patent. No nasal discharge, no septal abnormalities noted. Tympanic membranes are normal and external auditory canals are clear. Oropharynx with no redness, swelling, or masses, exudates, or evidence of obstruction, uvula midline. Mucous membranes moist. Neck: Trachea midline, no thyromegaly or masses palpated, and no cervical lymphadenopathy. Supple, full range of motion without nuchal rigidity, or vertebral point tenderness. No Meningismus. Chest/axilla: Normal chest wall appearance and motion. Nontender with no deformity. No lesions are appreciated. Cardiovascular: Regular rate and rhythm with a normal S1 and S2. No gallops, murmurs, or rubs. Normal PMI, no JVD. No pulse deficits. Respiratory: Lungs have equal breath sounds bilaterally, clear to auscultation and percussion. No rales, rhonchi or wheezes noted. No increased work of breathing, no retractions or nasal flaring. Abdomen/GI: Soft, non-tender, with normal bowel sounds. No distension or tympany. No guarding or rebound. No evidence of tenderness throughout. Back: No spinal tenderness. No costovertebral tenderness. Full range of motion. Skin: Warm, dry with normal turgor. Normal color with no rashes, no lesions, and no evidence of cellulitis. MS/ Extremity: Pulses equal, no cyanosis. Neurovascular intact. Full, normal range of motion. Neuro: Awake and alert, GCS 15, oriented to person, place, time, and situation. Cranial nerves II-XII grossly intact. Motor strength 5/5 in all extremities. Sensory grossly intact. Cerebellar exam normal. Normal gait. Psych: Awake, alert, with orientation to person, place and time. Behavior, mood, and affect are within normal limits. 00:04 : CVA tenderness, is absent, Male external genitalia: normal, Bladder: is normal, Rectal exam: is normal, Sexual behavior: the patient is sexually active, and reports a single partner. 00:10 ECG was reviewed by the Attending Physician. wilfrido 02:30 Musculoskeletal/extremity: ROM: no acute changes, intact in all extremities, full wilfrido active range of motion, full passive range of motion, Circulation is intact in all extremities. Sensation intact. Compartment Syndrome exam of affected extremity: is normal. no pain, no numbness, no tingling, no sensation deficit, no palor, no weak pulses, DVT Exam: No signs of deep vein thrombosis. no pain, no swelling, no tenderness, negative Homans' sign noted on exam, no appreciated bluish discoloration, no erythema, no increased warmth. Vital Signs: 12/06 21:30 BP 134 / 93; Pulse 93; Resp 18; Temp 98.3; Pulse Ox 99% on R/A; Weight 125.65 kg; ab2 Height 5 ft. 10 in. (177.80 cm); Pain 10/10; 12/07 03:24 BP 145 / 85; Pulse 84; Resp 17; Pulse Ox 100% on R/A; kd3 12/06 21:30 Body Mass Index 39.74 (125.65 kg, 177.80 cm) ab2 MDM: 12/06 22:31 Patient medically screened. wilfrido 12/07 00:04 Differential diagnosis: nonspecific abdominal pain, prostatitis, urethritis. Data [facility] reviewed: vital signs, nurses notes, lab test result(s), EKG, radiologic studies, CT scan, plain films, ultrasound. Data interpreted: monitoring and evaluation advisor: not applicable for this patient encounter. rate is 93 beats/min, Pulse oximetry: on room air is 99 %. Test interpretation: by ED physician or midlevel provider: ECG, plain radiologic studies. Counseling: I had a detailed discussion with the patient and/or guardian regarding: the historical points, exam findings, and any diagnostic results supporting the discharge/admit diagnosis, lab results, radiology results, the need for outpatient follow up, for definitive care, a family practitioner, a urologist. 02:31 ED course: NO HOMANS , NO CORDS, N0 HX PE, NO HX DVT , NO TRAUMA, NO STASIS, NO CP AND wilfrido NO SOB. 12/06 22:32 Order name: Basic Metabolic Panel; Complete Time: 00:21 [facility] 12/06 22:32 Order name: CBC with Diff; Complete Time: 00:21 [facility] 12/06 22:32 Order name: LFT's; Complete Time: 00:21 [facility] 12/06 22:32 Order name: Magnesium; Complete Time: 00:21 [facility] 12/06 22:32 Order name: NT PRO-BNP; Complete Time: 00:21 [facility] 12/06 22:32 Order name: PT-INR; Complete Time: 00:02 [facility] 12/06 22:32 Order name: Troponin HS; Complete Time: 00:21 [facility] 12/06 22:32 Order name: XRAY Chest (1 view) [facility] 12/06 22:32 Order name: US Scrotum Testicles [facility] 12/06 22:32 Order name: Urine Culture [facility] 12/06 22:32 Order name: AMMONIA; Complete Time: 00:52 [facility] 12/07 00:04 Order name: CT Abd/Pelvis - IV Contrast Only: THROUGH SCROTUM [facility] 12/07 01:55 Order name: US Extremity Venous W Compression Tino [facility] 12/07 02:02 Order name: Urine Dipstick-Ancillary [facility] 12/06 22:32 Order name: EKG; Complete Time: 22:33 [facility] 12/06 22:32 Order name: Cardiac monitoring; Complete Time: 00:57 [facility] 12/06 22:32 Order name: EKG - Nurse/Tech; Complete Time: 00:20 [facility] 12/06 22:32 Order name: IV Saline Lock; Complete Time: 00:20 [facility] 12/06 22:32 Order name: Labs collected and sent; Complete Time: 00:20 [facility] 12/06 22:32 Order name: O2 Per Protocol; Complete Time: 02:15 [facility] 12/06 22:32 Order name: O2 Sat Monitoring; Complete Time: 00:57 [facility] 12/06 22:32 Order name: Urine Dipstick-Ancillary (obtain specimen); Complete Time: 02:15 wilfrido EC:10 Rate is 100 beats/min. Rhythm is regular. QRS [place] is Normal. UT interval is normal. wilfrido QRS interval is normal. QT interval is normal. No Q waves. T waves are Normal. No ST changes noted. Clinical impression: Normal ECG and No evidence of ischemia. Interpreted by me. Reviewed by me. Administered Medications: 00:17 Drug: Rocephin (cefTRIAXone) 1 grams Route: IV; Rate: per protocol; Site: right kd3 antecubital; 03:26 Follow up: IV Status: Completed infusion kd3 00:19 Drug: Ativan (LORazepam) 1 mg Route: IVP; Site: right antecubital; kd3 03:26 Follow up: Response: No adverse reaction kd3 00:22 CANCELLED (Duplicate Order): NS 0.9% 500 ml IV at bolus once wilfrido 00:46 Drug: Flagyl (metroNIDAZOLE) 500 mg Route: PO; kd3 03:25 Follow up: Response: No adverse reaction kd3 00:46 Drug: NS 0.9% 1000 ml Route: IV; Rate: 1 bolus; Site: right antecubital; kd3 03:25 Follow up: Rate change 1000 ml; IV Status: Completed infusion kd3 00:46 Drug: Mucomyst - Acetylcysteine 600 mg Route: PO; kd3 03:25 Follow up: Response: No adverse reaction kd3 00:47 Drug: levofloxacin 750 mg Volume: 150 ml; Route: IVPB; Infused Over: 90 mins; Site: kd3 right antecubital; 03:25 Follow up: Response: No adverse reaction; IV Status: Completed infusion kd3 01:15 Drug: NS 0.9% 1000 ml Route: IV; Rate: 75 ml/hr; Site: right antecubital; kd3 03:26 Follow up: IV Status: Completed infusion kd3 02:38 Drug: Flomax (tamsulosin) 0.4 mg Route: PO; kd3 03:25 Follow up: Response: No adverse reaction kd3 Disposition Summary: 12/07/21 02:34 Discharge Ordered Location: Home wilfrido Problem: new wilfrido Symptoms: have improved wilfrido Condition: Stable wilfrido Diagnosis - Pelvic and perineal pain - CYST wilfrido - Bipolar disorder, unspecified wilfrido - Type 2 diabetes mellitus with hyperglycemia wilfrido - Unspecified kidney failure - INSUFFICENCY wilfrido - Hydrocele, unspecified wilfrido - Hydronephrosis with renal and ureteral calculous obstruction - 7 MM UVJ, MILD RIGHT wilfrido HYDRO Followup: wilfrido - With: Private Physician - When: 2 - 3 days - Reason: Recheck today's complaints, Continuance of care, Re-evaluation by your physician Followup: wilfrido - With: - When: 2 - 3 days - Reason: Recheck today's complaints, Re-evaluation by your physician Discharge Instructions: - Discharge Summary Sheet wilfrido - Type 2 Diabetes Mellitus, Diagnosis, Adult wilfrido - Hyperglycemia wilfrido - Bipolar 1 Disorder wilfrido - How to Take a Sitz Bath wilfrido - Kidney Stones wilfrido - Scrotal Swelling wilfrido - Kidney Stones, Qlad-kc-Lpar wilfrido - Hydronephrosis wilfrido Forms: - Medication Reconciliation Form wilfrido - Thank You Letter wilfrido - Antibiotic Education wilfrido - Prescription Opioid Use wilfrido Prescriptions: - Flagyl 500 mg Oral Tablet - take 1 tablet by ORAL route every 6 hours for 10 days; 40 tablet; Refills: 0, wilfrido Product Selection Permitted - levofloxacin 750 mg Oral Tablet - take 1 tablet by ORAL route once daily; 9 tablet; Refills: 0, Product Selection wilfrido Permitted - Flomax 0.4 mg Oral capsule - take 1 capsule by ORAL route once daily 1/2 hour following the same meal each jr8 day; 30 capsule; Refills: 0, Product Selection Permitted - Tylenol-Codeine #3 300 mg-30 mg Oral - take 2 tablet by ORAL route every 6 hours; 20 tablet; Refills: 0, Product wilfrido Selection Permitted Signatures: Dispatcher [employer] EDMateo Marie MD MD cha Doucette, Kyli RN RN kd3 Russell Loaiza2 Corrections: (The following items were deleted from the chart) 00:22 00:04 NS 0.9% 500 ml IV at bolus once ordered. wilfrido wilfrido
[2021-12-07 04:06] VITALS: TEMP 98.3
[2021-12-07 04:07] VITALS: BP 145/85; O2SAT 100
--- NOTE | 2021-12-07 07:43 | EKG ---
Test Date: 2021-12-06 Test Time: 23:48:50 Barometers Calibrator: MEASUREMENT RESULTS: Intervals: Rate: 100 KS: 172 QRSD: 98 QT: 334 QTc: 430 [place]: P: -9 KS: 172 QRS: 57 T: -18 INTERPRETIVE STATEMENTS: Normal sinus rhythm T wave abnormality, consider inferior ischemia Abnormal ECG Compared to ECG 12/06/2021 23:47:32 T-wave abnormality now present Possible ischemia now present Myocardial infarct finding no longer present Electronically Signed On 12-07-21 07:41:18 CDT by Apolinar Warren
--- NOTE | 2021-12-07 07:43 | EKG ---
Test Date: 2021-12-06 Test Time: 23:47:32 [employer]: MEASUREMENT RESULTS: Intervals: Rate: 89 GA: 182 QRSD: 100 QT: 350 QTc: 425 Constantia: P: -7 GA: 182 QRS: 33 T: -23 INTERPRETIVE STATEMENTS: Normal sinus rhythm Inferior infarct, age undetermined Abnormal ECG Compared to ECG 04/26/2020 21:10:24 No significant changes Electronically Signed On 12-07-21 07:41:19 CDT by Apolinar Warren
--- NOTE | 2021-12-07 16:14 | RAD REPORT ---
EXAM DESCRIPTION: RAD - Chest Single View - 12/06/2021 10:55 pm CLINICAL HISTORY: COUGH COMPARISON: None. FINDINGS: Single frontal radiograph view of the chest. Cardiomediastinal silhouette: Normal size and contour. Lungs: No consolidation, pneumothorax, or pleural effusion. Bones: No acute osseous abnormality. Upper abdomen: No abnormality identified. IMPRESSION: 1. No acute pulmonary process identified. Electronically signed by: Virgil Agosto 12/06/2021 11:13 PM CDT Due to temporary technical issues with the PACS/Fluency reporting system, reports are being signed by the in house radiologists without review as a courtesy to insure prompt reporting. The interpreting radiologist is fully responsible for the content of the report.
--- NOTE | 2021-12-07 18:26 | RAD REPORT ---
EXAM DESCRIPTION: CT - Abdomen Pelvis W Contrast - 12/07/2021 6:31 am ADDENDUM #1 Results were verbally communicated to ELSIE De Jesus by Ravi Gaspar and report receipt was conf irmed by ELSIE De Jesus on 12/07/2021 1:43 AM CDT. Electronically signed by: Nathanael Kaiser MD 12/07/2021 1:56 AM CDT EXAM DESCRIPTION: CT Abdomen and Pelvis With Intravenous Contrast CLINICAL HISTORY: The patient is 56 years old and is Male; ABD PAIN TECHNIQUE: Axial computed tomography images of the abdomen and pelvis with intravenous contrast. S agittal and coronal reformatted images were created and reviewed. This CT exam was performed using one or more of the following dose reduction techniques: automated exposure control, adjustment of t he mA and/or kV according to patient size, and/or use of iterative reconstruction technique. COMPARISON: No relevant prior studies available. FINDINGS: Lung bases: See below. ABDOMEN: Liver: Unremarkable. No mass. Gallbladder and bile ducts: Unremarkable. No calcified stones. No ductal dilation. Pancreas: Unremarkable. No mass. No ductal dilation. Spleen: Unremarkable. No splenomegaly. Adrenals: Unremarkable. No mass. Kidneys and ureters: 7 mm stone in the lower right ureter near the right UVJ. Mild right hydronep hrosis. Nonobstructing calcification in the right kidney. Stomach and bowel: Scattered colonic diverticula. No obstruction. No mucosal thickening. PELVIS: Appendix: No findings to suggest acute appendicitis. Bladder: Unremarkable. No mass. Reproductive: There is a 5 x 9 x 10 cm cystic lesion possibly with a small septum inferiorly whic h is located in the scrotal region posterior to the testicles. Bilateral hydroceles. ABDOMEN and PELVIS: Intraperitoneal space: Unremarkable. No free air. No significant fluid collection. Bones/joints: Disc space narrowing with degenerative endplate changes in the spine. No acute fracture. No dislocation. Soft tissues: 3.5 cm nonspecific subcutaneous cystic lesion in the soft tissues of the medial lef t thigh. Vasculature: There is the suggestion of a possible filling defect in one pulmonary arterial branc hes of the right lower lobe which is partially visualized, series 401 image 9. No abdominal aortic aneurysm. Lymph nodes: Unremarkable. No enlarged lymph nodes. IMPRESSION: 1. 7 mm stone in the lower right ureter near the right UVJ. Mild right hydronephrosis. 2. There is the suggestion of a possible filling defect in one pulmonary arterial branches of the r ight lower lobe which is partially visualized, series [address] angiography of the c hest to evaluate for pulmonary embolism if clinically indicated. 3. 3.5 cm nonspecific subcutaneous cystic lesion in the soft tissues of the medial left thigh. 4. There is a 5 x 9 x 10 cm cystic lesion possibly with a small septum inferiorly which is located in the scrotal region posterior to the testicles. 5. Bilateral hydroceles. 6. Scattered colonic diverticula. Electronically signed by: Nathanael Kaiser MD 12/07/2021 1:36 AM CDT Due to temporary technical issues with the PACS/Fluency reporting system, reports are being signed by the in house radiologists without review as a courtesy to insure prompt reporting. The interpreting radiologist is fully responsible for the content of the report.
--- NOTE | 2021-12-07 19:49 | RAD REPORT ---
EXAM DESCRIPTION: US - Extrem Venous W Compress Tino - 12/07/2021 3:09 am CLINICAL HISTORY: The patient is 56 years old and is Male; PAIN TECHNIQUE: Real-time duplex ultrasound scan of the bilateral lower extremity veins integrating B-mod e two-dimensional vascular structure, Doppler spectral analysis, color flow Doppler imaging and compr ession. COMPARISON: No relevant prior studies available. FINDINGS: RIGHT DEEP VEINS: Unremarkable. No DVT in the right common femoral, femoral, proximal deep femoral, popliteal, or posterior tibial veins. The veins demonstrate normal color flow, are no rmally compressible, with normal phasic flow and/or augmentation response. RIGHT SUPERFICIAL VEINS: Unremarkable. No thrombus in the visualized right great saphenous vein . LEFT DEEP VEINS: Unremarkable. No DVT in the left common femoral, femoral, proximal deep femora l, popliteal, or posterior tibial veins. The veins demonstrate normal color flow, are normally comp ressible, with normal phasic flow and/or augmentation response. LEFT SUPERFICIAL VEINS: Unremarkable. No thrombus in the visualized left great saphenous vein. SOFT TISSUES: No acute findings. No popliteal cyst. IMPRESSION: Normal bilateral lower extremity duplex venous ultrasound. Electronically signed by: Medina Fuentes MD 12/07/2021 3:58 AM CDT Due to temporary technical issues with the PACS/Fluency reporting system, reports are being signed by the in house radiologists without review as a courtesy to insure prompt reporting. The interpreting radiologist is fully responsible for the content of the report.
== END 2021-12-07 03:26 | disposition home or self-care (01) ==
LOC: ER 21:01
DX: N13.2 Hydronephrosis with renal and ureteral calculous obstruction (principal); N43.3 Hydrocele, unspecified; E11.65 Type 2 diabetes mellitus with hyperglycemia; N19 Unspecified kidney failure; F31.9 Bipolar disorder, unspecified; I10 Essential (primary) hypertension
CPT/HCPCS: 36415; 71045; 74177; 76870; 80048; 80076; 81003; 82140; 83735; 83880; 84484; 85025; 85610; 87086; 87088; 93005; 93970; 96365; 96366; 96375; 99283; J7030; Q9967

== ENCOUNTER 2021-12-10 16:28 | Emergency (ER) | payer SELFPAY ==
--- OUTSIDE RECORDS SUMMARY | 2021-12-10 16:31 | XMS REPORT | Continuity of Care Document ---
:1965 Author Organization [facility] t Address [address] [place] [address] [address]. [address] [place] [address] Care Team Providers Name Role Phone Unavailable [...] 96/760. UNLESS OTHERWISE INDICATED, ALL TESTING PERFORMED [facility] [employer]. [address] [place] [address] LABORATORY DIR CHERYL: STORM FONTANEZ M.D. CLIA NUMBER [id number] [place]. [id number] [Autom ated message] The system which generated this result transmitted reference range : <=4.00. The reference range was not u sed to interpret this result as betty l/abnormal. HIV 1/2 4TH GEN, RFLX [id number] 04:36:58 Test Item Value Reference Range Interpretation Comments HIV 1/2 4TH GEN, NON-REACTIVE NON-REACTIVE UNLE SS OTHERWISE RFLX CONF (test INDICATED, A LL TESTING code = 3514) [facility] [employer]. [address] [place] [address] LABORATORY DIRE CTOR: STORM HERNANDEZ M.D. CLIA NUMBER [id number] [place]. [id number] LIPID [id number] 02:49:15 Test Item Value Reference Range Interpretation [...] MOREINFORMATION , SEE CLIENT ANNOUNCE MENT AT [email or web address] RISK RATIO LDL/HDL 2.48 RATIO <3.55 (test code = 2238) COMPREHENSIVE METABOLIC [id number] 02:49:15 Test Item Value Reference Range Interpretation Comments GLUCOSE (test code = 97 MG/DL 70-99 2216) BUN (test code = 21 MG/DL 6-20 H 2207) CREATININE (test 1.28 MG/DL 0.80-1.40 code = 2214) eGFR (2020 CKD-EPI) 67 ML/MIN/1.73 >60 (test code = 43822) CALC BUN/CREAT (test 16 RATIO 6-28 code = 2235) SODIUM (test code = 141 MEQ/L [phone]) POTASSIUM (test code 4.3 MEQ/L 3.5-5.4 = 222) CHLORIDE (test code 101 MEQ/L 95-107 = [...] (test code = 26 U/L 2218) HEMOGLOBIN [id number] 05:50:17 Test Item Value Reference Range Interpretation Comments HEMOGLOBIN A1c (test 6.7 % 4.2-5.6 H AZERBAIJANI DIABETES code = 59488) ASSOCIATION [employer] FOR HGB A1C: PREDIABETES/INC REASED [...] NG OR LABORATORY CONS ULTATION. SARS-CoV-2 (COVID-19), RT-PCR/[id number] 15:44:19 Test Item Value Reference Interpretation Comments Range SARS-CoV-2 POSITIVE SEE NOTE A SARS-CoV-2 RNA INTERPRETATION DETECTEDPosit bruce results (test code = 20381) are bety cative of the presence of [...] code = NOT SPECIFIED Note: [place] [address]) Fabian Stephania Kate l-Time RT-PCR. The exp [...] (note,fact shee ts are provided by met hod given in report:https:// www.[email or web address]/clinician s/client-c ommunications/ Alternatively, see downloadable PD F fact sheet at:https://www. [employer] [email or web address] CR UNLESS OTHERWIS E INDICATED, ALL TESTING PERFORMED [facility] NICAL PATHOLOGY [facility], [facility]. [address] [place] [address] 4 LABORATORY DIRE CTOR: STORM HERNANDEZ M.D. CLIA NUMBER [id number] [facility] [place]. [id number]
[2021-12-10 17:15] LABS: Absolute Lymphocytes (CBC) 1.5 K/uL (0.7-4.9); Hematocrit 40.6 % (39.6-49.0); Lymphocytes % 16.2 % (15.3-44.8); MPV 9.8 fL (7.6-11.3); RBC Red Blood Cell Count 4.78 M/uL (4.33-5.43)
[2021-12-10] MEDS ORDERED: NA CHLORIDE 0.9% 1,000 ML ONE (17:42)
[2021-12-10 17:49] LABS: Protime INR 1.11
[2021-12-10 17:58] LABS: SARS-COV-2 RT PCR NEGATIVE (NEGATIVE)
[2021-12-10 18:04] LABS: Albumin 3.5 g/dL (3.4-5.0); Bilirubin Direct 0.3 mg/dL (0-0.2); Bilirubin Total 0.8 mg/dL (0.2-1.0); Magnesium 2.1 mg/dL (1.8-2.4); Potassium 4.5 mmol/L (3.5-5.1); Protein, Total 7.2 g/dL (6.4-8.2)
--- NOTE | 2021-12-10 19:46 | RAD REPORT ---
EXAM DESCRIPTION: Kandy Single View12/10/2021 6:39 pm CLINICAL HISTORY: Hypertension COMPARISON: December 06, 2021 FINDINGS: The lungs appear clear of acute infiltrate. The heart is normal size IMPRESSION: No acute abnormalities displayed
[2021-12-10 20:32] LABS: Urine Blood Negative (Negative); Urine Glucose Negative (Negative); Urine Protein Negative (Negative); Urine Specific Gravity >=1.030 (1.005-1.030)
--- NOTE | 2021-12-10 21:18 | ER ---
Nurse's Notes [facility] Name: Quintin Koenig Age: 56 yrs Sex: Male : 1965 Arrival Date: 12/10/2021 Time: 16:30 Bed 3 Private MD: Diagnosis: Hypotension due to drugs Presentation: 12/10 16:35 Chief complaint: Patient states: "I've been keeping a log of my BP and today it was ab2 low." Pt c/o headache, SOB and dizziness. Coronavirus screen: Vaccine status: Patient reports receiving the 2nd dose of the covid vaccine. Client denies travel out of the [place] in the last 14 days. At this time, the client does not indicate any symptoms associated with coronavirus-19. Ebola Screen: Patient negative for fever greater than or equal to 101.5 degrees Fahrenheit, and additional compatible Ebola Virus Disease symptoms Patient denies exposure to infectious person. Patient denies travel to an Ebola-affected area in the 21 days before illness onset. No symptoms or risks identified at this time. Initial Sepsis Screen: Does the patient meet any 2 criteria? Systolic BP < 90 mmHg. No. Patient's initial sepsis screen is negative. Does the patient have a suspected source of infection? No. Patient's initial sepsis screen is negative. Risk Assessment: Do you want to hurt yourself or someone else? Patient reports no desire to harm self or others. Onset of symptoms is unknown. 16:35 Method Of Arrival: Ambulatory ab2 16:35 Acuity: MIGUEL 3 ab2 Triage Assessment: 16:37 General: Appears in no apparent distress. uncomfortable, Behavior is calm, cooperative, ab2 appropriate for age. Pain: Complains of pain in head. 16:37 Neuro: Reports dizziness, headache. Respiratory: Reports shortness of breath. ab2 Historical: - Allergies: 16:37 No Known Allergies; ab2 - PMHx: 16:37 Bipolar disorder; Hypertension; Diabetes - NIDDM; ab2 - PSHx: 16:37 None; ab2 - Immunization history:: Adult Immunizations up to date. - Social history:: Smoking status: Patient denies any tobacco usage or history of. Screenin:50 Abuse screen: Denies threats or abuse. Nutritional screening: No deficits noted. 6 Tuberculosis screening: No symptoms or risk factors identified. Fall Risk None identified. Assessment: 16:48 General: Appears in no apparent distress. Behavior is calm, cooperative. Pain: jh6 Complains of pain in forehead Pain currently is 3 out of 10 on a pain scale. Quality of pain is described as dull, Pain began suddenly. Neuro: Reports headache frontal area. 18:02 Reassessment: No changes from previously documented assessment. Patient and/or family 6 updated on plan of care and expected duration. Pain level reassessed. 19:24 General: Appears in no apparent distress. Behavior is cooperative, appropriate for age. sm5 Pain: Denies pain. Neuro: No deficits noted. Level of Consciousness is awake, alert, obeys commands, Oriented to person, place, time, situation. Cardiovascular: No deficits noted. Capillary refill < 3 seconds Patient's skin is warm and dry. Respiratory: No deficits noted. Airway is patent Trachea midline Respiratory effort is even, unlabored. 22:07 Reassessment: Patient is alert, oriented x 3, equal unlabored respirations, skin bb warm/dry/pink. BP is 107/60 Mateo ZIMMERMAN at bedside for discussion of recommendations pt to monitor blood pressure if it stays low return to the ED otherwise call his PCP in the morning to notify of his ED visit. Pt verbalized understanding of and agrees to plan of care discharge instructions given pt ambulated with steady gait to exit accompanied by family. Vital Signs: 16:35 BP 88 / 51; Pulse 78; Resp 17; Temp 98.1; Pulse Ox 98% on R/A; Weight 123.83 kg; Height ab2 5 ft. 10 in. (177.80 cm); Pain 8/10; 16:49 BP 114 / 44; Pulse 77; Resp 18; Pulse Ox 98% ; Weight 2.27 kg; jh6 18:02 BP 92 / 56; Pulse 68; Resp 17; Pulse Ox 100% ; Pain 0/10; jh6 19:30 BP 116 / 84; Pulse 72; Resp 17; Pulse Ox 100% on R/A; sm5 20:16 BP 113 / 85; Pulse 66; Resp 16 S; Pulse Ox 100% on R/A; bb 22:10 BP 107 / 60; Pulse 71; Resp 16 S; Temp 97.6(TE); Pulse Ox 100% on R/A; bb 16:49 Body Mass Index 0.72 (2.27 kg, 177.80 cm) 6 Vitals: 16:49 Cardiac Rhythm Assessment Regular Sinus rhythm. 6 ED Course: 16:30 Patient arrived in ED. ds1 16:37 Triage completed. ab2 16:37 Arm band placed on right wrist. ab2 16:44 Mateo Gamino PA is PHCP. cp 16:44 Mateo Bray MD is Attending Physician. cp 16:50 No provider procedures requiring assistance completed. Initial lab(s) drawn, by fl, jh6 sent to lab. EKG done, by ED staff, reviewed by Mateo Bray MD. 18:02 Sharon De La Rosa, SHAWNA is Primary Nurse. 6 18:41 XRAY Chest (1 view) In Process Unspecified. EDWY 19:16 Primary Nurse role handed off by Sharon De La Rosa, SHAWNA mw2 19:17 Lisa Downs RN is Primary Nurse. 5 20:24 Urine collected: clean catch specimen, clear. bb 22:11 Patient has correct armband on for positive identification. Adult w/ patient. bb 22:11 IV discontinued, intact, bleeding controlled, No redness/swelling at site. Pressure bb dressing applied. Administered Medications: 17:41 Drug: NS 0.9% 1000 ml Route: IV; Rate: 1 bolus; Site: right antecubital; 6 19:19 Follow up: IV Status: Completed infusion; IV Intake: 1000ml sm5 Intake: 19:19 IV: 1000ml; Total: 1000ml. 5 Outcome: 21:18 Discharge ordered by MD. cp 22:11 Discharged to home ambulatory, with family. bb 22:11 Condition: stable 22:11 Discharge instructions given to patient, Instructed on discharge instructions, follow up and referral plans. Demonstrated understanding of instructions, follow-up care. 22:11 Patient left the ED. bb Signatures: Dispatcher [employer] [facility] WynnStephania ds1 Nilam Louis RN RN bb Mateo Gamino PA PA cp Bo Soler mw2 Sharon De La Rosa RN RN 6 Lisa Downs RN RN 5 Russell Loaiza ab2 Corrections: (The following items were deleted from the chart) 16:38 16:35 Chief complaint: Patient states: "I've been keeping a log of my BP and today it ab2 was low." Pt c/o headache and dizziness. ab2
--- NOTE | 2021-12-10 21:18 | EDPHYS ---
Physician Documentation [facility] Name: Quintin Koenig Age: 56 yrs Sex: Male : 1965 Arrival Date: 12/10/2021 Time: 16:30 Bed 3 Private MD: ED Physician Mateo Bray HPI: 12/10 16:50 This 56 yrs old Male presents to ER via Ambulatory with complaints of Low cp Blood Pressure. 16:50 Onset: The symptoms/episode began/occurred today. cp 16:50 Associated signs and symptoms: Pertinent positives: dizziness, headache, cp lightheadedness, weakness, Pertinent negatives: chest pain, visual changes, vomiting. Severity of symptoms: in the emergency department the blood pressure is unchanged, despite EMS interventions. Patient reports he was recently started on propanolol blood pressure medication with first dose last night. Historical: - Allergies: 16:37 No Known Allergies; ab2 - PMHx: 16:37 Bipolar disorder; Hypertension; Diabetes - NIDDM; ab2 - PSHx: 16:37 None; ab2 - Immunization history:: Adult Immunizations up to date. - Social history:: Smoking status: Patient denies any tobacco usage or history of. ROS: 16:55 Constitutional: Negative for body aches, chills, fever, poor PO intake. cp 16:55 Eyes: Negative for injury, pain, redness, and discharge. cp 16:55 ENT: Negative for drainage from ear(s), ear pain, sore throat, difficulty swallowing, difficulty handling secretions. 16:55 Cardiovascular: Negative for chest pain, edema, palpitations. 16:55 Respiratory: Negative for cough, shortness of breath, wheezing. 16:55 Abdomen/GI: Negative for abdominal pain, vomiting, diarrhea, constipation. 16:55 Back: Negative for pain at rest, pain with movement. 16:55 : Negative for urinary symptoms. 16:55 Neuro: Positive for dizziness, headache, weakness, Negative for altered mental status, numbness, seizure activity, syncope. 16:55 All other systems are negative. Exam: 16:52 ECG was reviewed by the Attending Physician. cp 17:00 Constitutional: The patient appears in no acute distress, alert, awake, cp non-diaphoretic, non-toxic, well developed, well nourished. 17:00 Head/Face: Normocephalic, atraumatic. cp 17:00 Eyes: Periorbital structures: appear normal, Pupils: equal, round, and reactive to light and accomodation, Extraocular movements: intact throughout, Conjunctiva: normal, no exudate, no injection, Sclera: no appreciated abnormality, Lids and lashes: appear normal, bilaterally. 17:00 ENT: External ear(s): are unremarkable, Nose: is normal, Mouth: Lips: moist, Oral mucosa: pink and intact, moist, Posterior pharynx: is normal, airway is patent, no erythema, no exudate. 17:00 Neck: ROM/movement: is normal, is supple, without pain, no range of motions limitations, no meningismus. 17:00 Chest/axilla: Inspection: normal, Palpation: is normal, no crepitus, no tenderness. 17:00 Cardiovascular: Rate: normal, Rhythm: regular, Edema: is not appreciated, JVD: is not appreciated. 17:00 Respiratory: the patient does not display signs of respiratory distress, Respirations: normal, no use of accessory muscles, no retractions, labored breathing, is not present, Breath sounds: are clear throughout, no decreased breath sounds, no stridor, no wheezing. 17:00 Abdomen/GI: Inspection: abdomen appears normal, Palpation: abdomen is soft and non-tender, in all quadrants. 17:00 Back: pain, is absent, ROM is normal. 17:00 Skin: cellulitis, is not appreciated, no rash present. 17:00 Neuro: Orientation: to person, place \\T\\ time. Mentation: is normal, Cerebellar function: Romberg testing is negative, Motor: moves all fours, strength is normal, Sensation: is normal. Vital Signs: 16:35 BP 88 / 51; Pulse 78; Resp 17; Temp 98.1; Pulse Ox 98% on R/A; Weight 123.83 kg; Height ab2 5 ft. 10 in. (177.80 cm); Pain 8/10; 16:49 BP 114 / 44; Pulse 77; Resp 18; Pulse Ox 98% ; Weight 2.27 kg; jh6 18:02 BP 92 / 56; Pulse 68; Resp 17; Pulse Ox 100% ; Pain 0/10; jh6 19:30 BP 116 / 84; Pulse 72; Resp 17; Pulse Ox 100% on R/A; sm5 20:16 BP 113 / 85; Pulse 66; Resp 16 S; Pulse Ox 100% on R/A; bb 22:10 BP 107 / 60; Pulse 71; Resp 16 S; Temp 97.6(TE); Pulse Ox 100% on R/A; bb 16:49 Body Mass Index 0.72 (2.27 kg, 177.80 cm) 6 MDM: 16:52 Patient medically screened. [facility] 21:18 Data reviewed: vital signs, nurses notes, lab test result(s), EKG, radiologic studies, cp CT scan, plain films. 21:18 Test interpretation: by ED physician or midlevel provider: ECG, plain radiologic cp studies. Counseling: I had a detailed discussion with the patient and/or guardian regarding: the historical points, exam findings, and any diagnostic results supporting the discharge/admit diagnosis, lab results, radiology results, the need for outpatient follow up, a family practitioner, an mannequin decorator, to return to the emergency department if symptoms worsen or persist or if there are any questions or concerns that arise at home. Response to treatment: the patient's symptoms have markedly improved after treatment, VSS. Patient instructed to stop propanolol and continue to monitor blood pressure and f/u with pcp. 12/10 16:46 Order name: Basic Metabolic Panel; Complete Time: 19: 12/10 19:01 Interpretation: Normal except: GLUC 117; BUN 34; CRE 1.60; GFR 45; CA 8.4. 12/10 16:46 Order name: CBC with Diff; Complete Time: 18:04 12/10 18:04 Interpretation: Normal except: EOSINOPHIL % 5.9. 12/10 16:46 Order name: LFT's; Complete Time: 19:01 12/10 20:13 Interpretation: Normal except: AST 74; BILID 0.3; GLOB 3.7; A/G 0.9. 12/10 16:46 Order name: Magnesium; Complete Time: 19:01 cp 12/10 16:46 Order name: NT PRO-BNP; Complete Time: 19:01 12/10 16:46 Order name: PT-INR; Complete Time: 18:04 cp 12/10 16:46 Order name: Troponin HS; Complete Time: 19: cp 12/10 16:46 Order name: XRAY Chest (1 view); Complete Time: 20:12 12/10 20:12 Interpretation: Report review. 12/10 16:46 Order name: COVID-19/FLU A+B (Document "Date of Onset" if Symptomatic); Complete Time: cp 18:04 12/10 16:56 Order name: Procalcitonin; Complete Time: 18:04 12/10 16:56 Order name: Lactate; Complete Time: 18:04 12/10 16:56 Order name: Blood Culture Adult (2) 12/10 20:32 Order name: Urine Dipstick-Ancillary; Complete Time: 20:49 EDMS 12/10 20:50 Interpretation: Reviewed. 12/10 16:46 Order name: Urine Dipstick-Ancillary (obtain specimen); Complete Time: 20:23 12/10 16:46 Order name: Cardiac monitoring; Complete Time: 19:20 12/10 16:46 Order name: EKG - Nurse/Tech; Complete Time: 19:22 12/10 16:46 Order name: IV Saline Lock; Complete Time: 19:20 12/10 16:46 Order name: Labs collected and sent; Complete Time: 19:20 12/10 16:46 Order name: O2 Per Protocol; Complete Time: 19:20 12/10 16:46 Order name: O2 Sat Monitoring; Complete Time: 19:20 12/10 17:18 Order name: Labs - recollect needed: recollect the blue top and green top/ hemolyzed; eb Complete Time: 17:41 EC:52 Rate is 70 beats/min. Rhythm is regular. AL interval is normal. QRS interval is cp prolonged at 102 msec. QT interval is normal. T waves are Inverted in leads III, aVR. Interpreted by me. Reviewed by me. Administered Medications: 17:41 Drug: NS 0.9% 1000 ml Route: IV; Rate: 1 bolus; Site: right antecubital; jh6 19:19 Follow up: IV Status: Completed infusion; IV Intake: 1000ml sm5 Disposition Summary: 12/10/21 21:18 Discharge Ordered Location: Home cp Problem: new cp Symptoms: have improved cp Condition: Stable cp Diagnosis - Hypotension due to drugs cp Followup: cp - With: Private Physician - When: 1 - 2 days - Reason: Recheck today's complaints Discharge Instructions: - Discharge Summary Sheet cp - Hypotension cp Forms: - Medication Reconciliation Form cp - Thank You Letter cp - Antibiotic Education cp - Prescription Opioid Use cp Addendum: 12/13/2021 07:18 Co-signature as Attending Physician, Mateo Bray MD I agree with the assessment and c phelps plan of care. Signatures: Dispatcher [employer] EDMateo Marie MD MD cha Page, Corey, PA PA cp Botello, Elizabeth eb Hastedt, Jennifer RN RN jh6 Russell Loaiza Lisa Downs RN sm5 Corrections: (The following items were deleted from the chart) 12/11 16:48 12/10 16:50 Associated signs and symptoms: Pertinent positives: dizziness, cp lightheadedness, weakness, Pertinent negatives: chest pain, headache, vomiting, cp
[2021-12-10 23:09] VITALS: O2SAT 100
[2021-12-10 23:13] VITALS: BP 107/60; TEMP 97.6
== END 2021-12-10 22:11 | disposition home or self-care (01) ==
LOC: ER 16:28
DX: I95.89 Other hypotension (principal); I10 Essential (primary) hypertension; E11.9 Type 2 diabetes mellitus without complications; F31.9 Bipolar disorder, unspecified; Z20.822 Contact with and (suspected) exposure to COVID-19
CPT/HCPCS: 0240U; 36415; 71045; 80048; 80076; 81003; 83605; 83735; 83880; 84145; 84484; 85025; 85610; 87040; 87205; 96360; 96361; 99284; J7030

== ENCOUNTER 2021-12-11 17:05 | Emergency (ER) | payer SELFPAY ==
--- OUTSIDE RECORDS SUMMARY | 2021-12-11 17:07 | XMS REPORT | Continuity of Care Document ---
:1965 Author Organization [facility] t Address [address] [place] [address] Care Team Providers Name Role Phone Unavailable [...] 96/760. UNLESS OTHERWISE INDICATED, ALL TESTING PERFORMED [facility]. [address] [place] [id number] LABORATORY DIR CHERYL: Porfirio MORANIA NUMBER [id number] [place]. [id number] [Autom ated message] The system which generated this result transmitted reference range : <=4.00. The reference range was not u sed to interpret this result as betty l/abnormal. HIV 1/2 4TH GEN, RFLX [id number] 04:36:58 Test Item Value Reference Range Interpretation Comments HIV 1/2 4TH GEN, NON-REACTIVE NON-REACTIVE UNLE SS OTHERWISE RFLX CONF (test INDICATED, A LL TESTING code = 3514) PERFORMED [facility]. [address] [place] [address] 4 LABORATORY DIRE CTOR: STORM HERNANDEZ M.D. CLIA NUMBER [id number] [place] [id number] LIPID [id number] 02:49:15 Test Item Value Reference Range Interpretation [...] MOREINFORMATION , SEE CLIENT ANNOUNCE MENT AT [email or web address] RISK RATIO LDL/HDL 2.48 RATIO <3.55 (test code = 2238) COMPREHENSIVE METABOLIC [id number] 02:49:15 Test Item Value Reference Range Interpretation Comments GLUCOSE (test code = 97 MG/DL 70-99 2216) BUN (test code = 21 MG/DL 6-20 H 2207) CREATININE (test 1.28 MG/DL 0.80-1.40 code = 2214) eGFR (2020 CKD-EPI) 67 ML/MIN/1.73 >60 (test code = 47148) CALC BUN/CREAT (test 16 RATIO 6-28 code = 2235) SODIUM (test code = 141 MEQ/L 945-242 5876) POTASSIUM (test code 4.3 MEQ/L 3.5-5.4 = [...] (test code = 26 U/L 2218) HEMOGLOBIN [id number] 05:50:17 Test Item Value Reference Range Interpretation Comments HEMOGLOBIN A1c (test 6.7 % 4.2-5.6 H [facility] DI[facility]ETES code = 59803) ASSOCIATION [employer] FOR HGB A1C: PREDIABETES/INC REASED [...] NG OR LABORATORY CONS ULTATION. SARS-CoV-2 (COVID-19), RT-[id number] 15:44:19 Test Item Value Reference Interpretation Comments Range SARS-CoV-2 POSITIVE SEE NOTE A SARS-CoV-2 RNA INTERPRETATION DETECTEDPosit bruce results (test code = 62079) are bety cative of the presence of [...] code = NOT SPECIFIED Note: [place] [address]) Fabian Stephania Kate l-Time RT-PCR. The exp [...] provided by [facility] given in report:https:// [email or web address]/clinician s/client-c ommunications/ Alternatively, see downloadable PD F fact sheet at:https://www. [employer].Intellution m/[email or web address] CR UNLESS OTHERWIS E INDICATED, ALL TESTING PERFORMED [facility], [facility]. [address] [place] [address] 4 LABORATORY DIRE CTOR: STORM HERNANDEZ M.D. CLIA NUMBER [id number] [facility] [place]. [id number]
--- NOTE | 2021-12-11 18:02 | RAD REPORT ---
EXAM DESCRIPTION: CT - Head Brain Wo Cont - 12/11/2021 5:51 pm CLINICAL HISTORY: DIZZINESS COMPARISON: No comparisons TECHNIQUE: Axial 5 mm thick images of the head were obtained without IV contrast. All CT scans are performed using dose optimization technique as appropriate and may include automated exposure control or mA/KV adjustment according to patient size. FINDINGS: No intracranial hemorrhage, mass, edema or shift of mid-line structures. No acute infarcti on changes seen. No abnormal extra-axial fluid collections. Ventricles are normal. Mastoid air cells and visualized portions of the paranasal sinuses are clear. No acute bony findings. IMPRESSION: Negative non-contrast CT head examination.
[2021-12-11 18:22] LABS: Hematocrit 40.4 % (39.6-49.0); Lymphocytes % 24.8 % (15.3-44.8); MPV 9.7 fL (7.6-11.3); RBC Red Blood Cell Count 4.67 M/uL (4.33-5.43)
[2021-12-11 18:40] LABS: Protime INR 1.12
[2021-12-11 18:55] LABS: Albumin 3.5 g/dL (3.4-5.0); Bilirubin Direct 0.2 mg/dL (0-0.2); Bilirubin Total 0.7 mg/dL (0.2-1.0); CKMB Creatine Kinase MB 24.6 ng/mL (1.0-3.6); Potassium 3.6 mmol/L (3.5-5.1); Protein, Total 7.3 g/dL (6.4-8.2)
[2021-12-11] MEDS ORDERED: NA CHLORIDE 0.9% 2,000 ML ONE (19:29)
[2021-12-11 19:45] LABS: Urine Blood Negative (Negative); Urine Glucose Negative (Negative); Urine Protein Negative (Negative); Urine pH 5.5 (5.0-7.0)
--- NOTE | 2021-12-11 20:28 | ER ---
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 i am very sleepy. 17:14 Coronavirus screen: At this time, the client does not indicate any symptoms associated tw2 with coronavirus-19. Ebola Screen: Patient denies travel to an Ebola-affected area in the 21 days before illness onset. Initial Sepsis Screen: Does the patient meet any 2 criteria? No. Patient's initial sepsis screen is negative. Does the patient have a suspected source of infection? No. Patient's initial sepsis screen is negative. Risk Assessment: Do you want to hurt yourself or someone else? Patient reports no desire to harm self or others. Onset of symptoms was December 11, 2021. 17:14 Method Of Arrival: Ambulatory tw2 17:14 Acuity: MIGUEL 3 tw2 Triage Assessment: 17:15 General: Appears in no apparent distress. Behavior is calm, cooperative, appropriate tw2 for age. Pain: Denies pain. Neuro: Reports dizziness, "sleepy". Respiratory: Reports shortness of breath at rest. Respiratory: Onset: The symptoms/episode began/occurred today, the patient has mild shortness of breath. Historical: - Allergies: 17:15 No Known Drug Allergies; tw2 - Home Meds: 17:15 Hydrocodone-Acetaminophen 300 mg - 30 mg Oral 1 cap every 4-6 hours [Active]; tw2 metronidazole 500 mg Oral tab 1 tab every 6 hours [Active]; Lisinopril 15 mg Oral once daily [Active]; metformin 500 mg Oral Tb24 1 tab 2 times per day [Active]; - PMHx: 17:15 Bipolar disorder; Diabetes - NIDDM; Hypertension; abscess on my testicles; tw2 - Immunization history:: Client reports receiving the 2nd dose of the Covid vaccine. - Social history:: Smoking status: Patient denies any tobacco usage or history of. Patient uses alcohol, occasionally. Screenin:42 Abuse screen: Denies threats or abuse. Nutritional screening: No deficits noted. tw2 Tuberculosis screening: No symptoms or risk factors identified. Fall Risk None identified. Assessment: 18:10 General: Appears in no apparent distress. comfortable, Behavior is calm, cooperative. jh6 Pain: Complains of pain in right leg and left leg Pain radiates to right leg and left leg Pain currently is 6 out of 10 on a pain scale. Quality of pain is described as aching, shooting, Pain began 2-3 days ago. 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 Cardiovascular: Reports fatigue, Rhythm is regular. Respiratory: Airway is patent Trachea midline Respiratory effort is even, unlabored, Respiratory pattern is regular, symmetrical, Breath sounds are clear. 19:35 Pain: Complains of pain in right knee and left knee Pain currently is 7 out of 10 on a tw5 pain scale. Neuro: No deficits noted. 20:40 Reassessment: Patient states feeling better. Patient states symptoms have improved. tw5 Vital Signs: 17:14 BP 127 / 84; Pulse 74; Resp 17; Temp 97.8(TE); Pulse Ox 98% on R/A; tw2 18:00 BP 113 / 68; Pulse 70; Resp 18; Pulse Ox 100% ; jh6 19:05 BP 116 / 77 Supine; Pulse 61; ll1 19:05 BP 119 / 76 Sitting; Pulse 66; ll1 19:05 BP 117 / 66 Standing; Pulse 68; ll1 19:34 BP 111 / 72; Pulse 63; Resp 18; Pulse Ox 100% on R/A; Pain 7/10; tw5 20:17 BP 113 / 82; Pulse 74; Resp 18; Pulse Ox 100% on R/A; kd3 20:40 BP 122 / 66; Pulse 72; Resp 18; Pulse Ox 100% on R/A; tw5 ED Course: 17:05 Patient arrived in ED. as 17:18 Arm band placed on. tw2 17:19 Bed in low position. Call light in reach. tw2 17:23 Patient placed in an exam room, on a stretcher. ll1 17:27 Vanessa Reed FNP-C is [facility]. kb 17:27 Mateo Bray MD is Attending Physician. kb 17:38 Homa Garcia RN is Primary Nurse. ll1 17:39 Triage completed. tw2 17:40 X-ray(s) taken. jh6 17:40 No provider procedures requiring assistance completed. jh6 17:53 CT Head Brain wo Cont In Process Unspecified. EDMS 18:00 Patient moved back from CT. jh6 18:00 Inserted saline lock: 22 gauge in left hand, using aseptic technique. Blood collected. jh6 19:09 Primary Nurse role handed off by Homa Garcai, RN tw5 19:09 Gila Ayala is Primary Nurse. tw5 19:28 Attending Physician role handed off by Mateo Bray MD rn 19:28 Donnie Cantu MD is Attending Physician. rn 19:34 Awaiting: awaiting on NS infusion. tw5 19:35 Pulse ox on. NIBP on. Door closed. Noise minimized. Moved to private room. Warm blanket tw5 given. Verbal reassurance given. 20:40 IV discontinued, intact, bleeding controlled, No redness/swelling at site. Pressure tw5 dressing applied. Administered Medications: 19:34 Drug: NS 0.9% 1000 ml Route: IV; Rate: 1000 ml; Site: left hand; tw5 20:40 Follow up: Response: No adverse reaction; IV Status: Order to discontinue infusion; IV tw5 Intake: 300ml 19:34 Drug: NS 0.9% 1000 ml Route: IV; Rate: 1000 ml; Site: left hand; tw5 20:39 Follow up: Response: No adverse reaction; IV Status: Completed infusion; IV Intake: tw5 1000ml Intake: 20:39 IV: 1000ml; Total: 1000ml. tw5 20:40 IV: 300ml; Total: 1300ml. tw5 Outcome: 20:28 Discharge ordered by . kb 20:40 Discharged to home ambulatory, with family. tw5 20:40 Condition: improved 20:40 Discharge instructions given to patient, Instructed on discharge instructions, follow up and referral plans. increase fluids Demonstrated understanding of instructions, follow-up care. 20:43 Patient left the ED. tw5 Signatures: Dispatcher [employer] EDME Vanessa Reed FNP-C FNP-Anna Alfonso Roman, MD MD rn Maurice, Bina, RN RN tw2 Homa Garcia, RN RN ll1 Gila Ayala tw5 Kiersten Dunn RN RN kd3 Sharon De La Rosa RN RN jh6
--- NOTE | 2021-12-11 20:29 | EDPHYS ---
Physician Documentation [facility] Name: Quintin Koenig Age: 56 yrs Sex: Male : 1965 Arrival Date: 12/11/2021 Time: 17:05 Bed 7 Private MD: ED Physician Donnie Cantu HPI: 12/11 19:11 This 56 yrs old Male presents to ER via Ambulatory with complaints of kb Dizziness, Shortness Of Breath. 19:11 The patient presents with dizziness, lightheadedness. Onset: The symptoms/episode kb began/occurred at 15:30. Context: occurred at work, occurred while the patient was working, just prior to the episode the patient experienced no apparent symptoms. Modifying factors: The symptoms are alleviated by nothing, the symptoms are aggravated by nothing. Associated signs and symptoms: Pertinent positives: dizziness, lightheadedness, shortness of breath, fatigue. Severity of symptoms: At their worst the symptoms were moderate in the emergency department the symptoms are unchanged. Patient's baseline: Neuro: alert and fully oriented, Motor: no deficits, Ambulation: walks without assistance, Speech: normal. The patient has not experienced similar symptoms in the past. The patient has been recently seen at the [facility] Emergency Department, yesterday. Pt reports fatigue, dizziness, shortness of breath that started around 1530. States he has been working outside all day, took 2 tylenol with codeine around 1100 for joint pain and then symptoms began this afternoon. States he was having a hard time staying awake at work, but that seems to be better now. Historical: - Allergies: 17:15 No Known Drug Allergies; tw2 - Home Meds: 17:15 Hydrocodone-Acetaminophen 300 mg - 30 mg Oral 1 cap every 4-6 hours [Active]; tw2 metronidazole 500 mg Oral tab 1 tab every 6 hours [Active]; Lisinopril 15 mg Oral once daily [Active]; metformin 500 mg Oral Tb24 1 tab 2 times per day [Active]; - PMHx: 17:15 Bipolar disorder; Diabetes - NIDDM; Hypertension; abscess on my testicles; tw2 - Immunization history:: Client reports receiving the 2nd dose of the Covid vaccine. - Social history:: Smoking status: Patient denies any tobacco usage or history of. Patient uses alcohol, occasionally. ROS: 19:11 Cardiovascular: Negative for chest pain, palpitations, and edema. kb 19:11 Constitutional: Positive for fatigue. 19:11 Respiratory: Positive for shortness of breath. 19:11 Neuro: Positive for dizziness. 19:11 All other systems are negative. Exam: 19:10 Constitutional: This is a well developed, well nourished patient who is awake, alert, kb and in no acute distress. Head/Face: Normocephalic, atraumatic. Eyes: Pupils equal round and reactive to light, extra-ocular motions intact. Lids and lashes normal. Conjunctiva and sclera are non-icteric and not injected. Cornea within normal limits. Periorbital areas with no swelling, redness, or edema. ENT: Moist Mucous membranes Cardiovascular: Regular rate and rhythm with a normal S1 and S2. No gallops, murmurs, or rubs. No pulse deficits. Respiratory: Respirations even and unlabored. No increased work of breathing. Talking in full sentences Abdomen/GI: Soft, non-tender. No distention Skin: Warm, dry with normal turgor. Normal color. MS/ Extremity: Pulses equal, no cyanosis. Neurovascular intact. Full, normal range of motion. Neuro: Awake and alert, GCS 15, oriented to person, place, time, and situation. Moves all extremities. Normal gait. Psych: Awake, alert, with orientation to person, place and time. Behavior, mood, and affect are within normal limits. 19:10 ECG was reviewed by the Attending Physician. Vital Signs: 17:14 BP 127 / 84; Pulse 74; Resp 17; Temp 97.8(TE); Pulse Ox 98% on R/A; tw2 18:00 BP 113 / 68; Pulse 70; Resp 18; Pulse Ox 100% ; jh6 19:05 BP 116 / 77 Supine; Pulse 61; ll1 19:05 BP 119 / 76 Sitting; Pulse 66; ll1 19:05 BP 117 / 66 Standing; Pulse 68; ll1 19:34 BP 111 / 72; Pulse 63; Resp 18; Pulse Ox 100% on R/A; Pain 7/10; tw5 20:17 BP 113 / 82; Pulse 74; Resp 18; Pulse Ox 100% on R/A; kd3 20:40 BP 122 / 66; Pulse 72; Resp 18; Pulse Ox 100% on R/A; tw5 MDM: 17:28 Patient medically screened. kb 19:11 Data reviewed: vital signs, nurses notes. Data interpreted: Pulse oximetry: on room air kb is 100 %. Interpretation: normal. 20:24 Counseling: I had a detailed discussion with the patient and/or guardian regarding: the kb historical points, exam findings, and any diagnostic results supporting the discharge/admit diagnosis, lab results, radiology results, the need for outpatient follow up, a family practitioner, to return to the emergency department if symptoms worsen or persist or if there are any questions or concerns that arise at home. ED course: Pt is feeling better. Discussed HPI and diagnostics with ERP, recommends hydration and discharge. 12/11 17:34 Order name: Basic Metabolic Panel; Complete Time: 19:08 kb 12/11 17:34 Order name: CBC with Diff; Complete Time: 18:28 kb 12/11 17:34 Order name: CPK; Complete Time: 19:08 kb 12/11 17:34 Order name: Ckmb; Complete Time: 19:08 kb 12/11 17:34 Order name: Hepatic Function; Complete Time: 19:08 kb 12/11 17:34 Order name: Lipase; Complete Time: 19:08 kb 12/11 17:34 Order name: Magnesium; Complete Time: 19:08 kb 12/11 17:34 Order name: Protime (+inr); Complete Time: 18:41 kb 12/11 17:34 Order name: Ptt, Activated; Complete Time: 18:41 kb 12/11 17:34 Order name: CT Head Brain wo Cont; Complete Time: 18:05 kb 12/11 19:45 Order name: Urine Dipstick-Ancillary; Complete Time: 19:52 EDMS 12/11 17:34 Order name: EKG; Complete Time: 17:35 kb 12/11 17:34 Order name: Cardiac monitoring; Complete Time: 19:02 kb 12/11 17:34 Order name: EKG - Nurse/Tech; Complete Time: 19:02 kb 12/11 17:34 Order name: IV Saline Lock; Complete Time: 18:25 kb 12/11 17:34 Order name: Labs collected and sent; Complete Time: 18:25 kb 12/11 17:34 Order name: NPO; Complete Time: 18:25 kb 12/11 17:34 Order name: O2 Per Protocol; Complete Time: 18:25 kb 12/11 17:34 Order name: O2 Sat Monitoring; Complete Time: 18:25 kb 12/11 17:34 Order name: Urine Dipstick-Ancillary (obtain specimen); Complete Time: 19:39 kb 12/11 17:34 Order name: Orthostatics; Complete Time: 19:02 kb EC:10 Rate is 66 beats/min. Rhythm is regular. QRS [place] is Normal. DE interval is normal at kb 212 msec. QRS interval is normal at 106 msec. QT interval is normal at 394 msec. Administered Medications: 19:34 Drug: NS 0.9% 1000 ml Route: IV; Rate: 1000 ml; Site: left hand; tw5 20:40 Follow up: Response: No adverse reaction; IV Status: Order to discontinue infusion; IV tw5 Intake: 300ml 19:34 Drug: NS 0.9% 1000 ml Route: IV; Rate: 1000 ml; Site: left hand; tw5 20:39 Follow up: Response: No adverse reaction; IV Status: Completed infusion; IV Intake: tw5 1000ml Disposition: 21:47 Co-signature as Attending Physician, Donnie Cantu MD I agree with the assessment and rn plan of care. Attestation: The patient's history, exam findings, diagnostics, and a summary of any interventions or procedures was reviewed in detail with Vanessa SLOAN. Disposition Summary: 12/11/21 20:28 Discharge Ordered Location: Home kb Condition: Stable kb Diagnosis - Rhabdomyolysis kb - Dehydration kb Followup: kb - With: Emergency Department - When: As needed - Reason: Worsening of condition Followup: kb - With: Private Physician - When: 2 - 3 days - Reason: Recheck today's complaints, Continuance of care, Re-evaluation by your physician Discharge Instructions: - Discharge Summary Sheet kb - Rhabdomyolysis kb - Dehydration, Adult, Adtu-vz-Fiky kb Forms: - Medication Reconciliation Form kb - Thank You Letter kb - Antibiotic Education kb - Prescription Opioid Use kb Signatures: Dispatcher [employer] Vanessa Mcgrath FNP-C FNP-Donnie Alvarado MD MD rn Wise, Tara, RN RN leslie2 Gila Ayala tw5 Corrections: (The following items were deleted from the chart) 18:02 17:35 COVID-19/FLU A+B+MOL.LAB.BRZ ordered. EDMS EDMS
[2021-12-11 21:56] VITALS: TEMP 97.8
[2021-12-11 21:58] VITALS: O2SAT 100
[2021-12-11 22:09] VITALS: BP 122/66
--- NOTE | 2021-12-12 12:34 | EKG ---
Test Date: 2021-12-11 Test Time: 19:01:42 Special Education Professor: ALECIA MEASUREMENT RESULTS: Intervals: Rate: 66 CO: 212 QRSD: 106 QT: 394 QTc: 413 [place]: P: -2 CO: 212 QRS: 45 T: -11 INTERPRETIVE STATEMENTS: Sinus rhythm with 1st degree AV block Incomplete left bundle branch block T wave abnormality, consider inferior ischemia Abnormal ECG Compared to ECG 12/06/2021 23:48:50 First degree AV block now present Left bundle-branch block now present T-wave abnormality still present Possible ischemia still present Electronically Signed On 12-12-21 12:33:09 CDT by Apolinar Warren
--- NOTE | 2021-12-12 12:38 | EKG ---
Test Date: 2021-12-10 Test Time: 16:45:31 Skate Shop Attendant: XANDER MEASUREMENT RESULTS: Intervals: Rate: 70 VT: 192 QRSD: 102 QT: 388 QTc: 419 [place]: P: 8 VT: 192 QRS: 15 T: 15 INTERPRETIVE STATEMENTS: Normal sinus rhythm Cannot rule out Anterior infarct, age undetermined Abnormal ECG Compared to ECG 12/06/2021 23:48:50 Myocardial infarct finding now present T-wave abnormality no longer present Possible ischemia no longer present Electronically Signed On 12-12-21 12:33:37 CDT by Apolinar Warren
== END 2021-12-11 20:43 | disposition home or self-care (01) ==
LOC: ER 17:05
DX: E86.0 Dehydration (principal); M62.82 Rhabdomyolysis; E11.9 Type 2 diabetes mellitus without complications; F31.9 Bipolar disorder, unspecified; I10 Essential (primary) hypertension
CPT/HCPCS: 36415; 70450; 80048; 80076; 81003; 82550; 82553; 83690; 83735; 85025; 85610; 85730; 93005; 96360; 99284; J7030

== ENCOUNTER 2022-01-03 13:45 | Emergency (ER) | payer SELFPAY ==
--- OUTSIDE RECORDS SUMMARY | 2022-01-03 13:48 | XMS REPORT | Continuity of Care Document ---
:1965 Author Organization [facility] t Address [address] [place] [address] Care Team Providers Name Role Phone Unavailable [...] 96/760. UNLESS OTHERWISE INDICATED, ALL TESTING PERFORMED [email or web address] [facility]. [address] [place] [id number] LABORATORY DIR CHERYL: Porfirio MORANIA NUMBER [id number] [place]. [id number] [Autom ated message] The system which generated this result transmitted reference range : <=4.00. The reference range was not u sed to interpret this result as betty l/abnormal. HIV 1/2 4TH GEN, RFLX [id number] 04:36:58 Test Item Value Reference Range Interpretation Comments HIV 1/2 4TH GEN, NON-REACTIVE NON-REACTIVE UNLE SS OTHERWISE RFLX CONF (test INDICATED, A LL TESTING code = 3514) PERFORMED [facility]. [address] [place] [address] LABORATORY DIRE CTOR: STORM HERNANDEZ M.D. CLIA NUMBER [id number] [place]. [id number] LIPID [id number] 02:49:15 Test Item Value Reference Range Interpretation [...] MOREINFORMATION , SEE CLIENT ANNOUNCE MENT AT [email or web address] [email or web address] RATIO LDL/HDL 2.48 RATIO <3.55 (test code = 2238) COMPREHENSIVE METABOLIC [id number] 02:49:15 Test Item Value Reference Range Interpretation Comments GLUCOSE (test code = 97 MG/DL 70-99 2216) BUN (test code = 21 MG/DL 6-20 H 2207) CREATININE (test 1.28 MG/DL 0.80-1.40 code = 2214) eGFR (2020 CKD-EPI) 67 ML/MIN/1.73 >60 (test code = 41428) CALC BUN/CREAT (test 16 RATIO 6-28 code = 2235) SODIUM (test code = 141 MEQ/L [phone]) POTASSIUM (test code 4.3 MEQ/L 3.5-5.4 = [...] (test code = 26 U/L 2218) HEMOGLOBIN [id number] 05:50:17 Test Item Value Reference Range Interpretation Comments HEMOGLOBIN A1c (test 6.7 % 4.2-5.6 H [employer]ES code = 55879) ASSOCIATION IDELINES FOR HGB A1C: PREDIABETES/INC REASED [...] NG OR LABORATORY CONS ULTATION. SARS-CoV-2 (COVID-19), RT-PCR/[id number] 15:44:19 Test Item Value Reference Interpretation Comments Range SARS-CoV-2 POSITIVE SEE NOTE A SARS-CoV-2 RNA INTERPRETATION DETECTEDPosit bruce results (test code = 43083) are bety cative of the presence of [...] code = NOT SPECIFIED Note: [place] [address]) Fabian Stephania Kate l-Time RT-PCR. The exp [...] provided by [facility] [place] given in report:[email or web address] [email or web address]/ Alternatively, see downloadable PD F fact sheet at:[email or web address] CR UNLESS OTHERWIS E INDICATED, ALL TESTING PERFORMED [facility]. [address] [place] [address] 4 LABORATORY DIRE CTOR: STORM HERNANDEZ M.D. CLIA NUMBER [id number] [facility] [place]. [id number]
[2022-01-03] MEDS ORDERED: NA CHLORIDE 0.9% 0 ML ONE (14:07)
[2022-01-03] MEDS ORDERED: NA CHLORIDE 0.9% 1,000 ML ONE ×2 (14:36→15:34)
[2022-01-03] MEDS ORDERED: ACETAMINOPHEN 500 MG TAB ONE (14:36)
[2022-01-03] MEDS ORDERED: ONDANSETRON 4 MG/2 ML VIAL ONE (14:36)
[2022-01-03 14:37] LABS: Absolute Lymphocytes (CBC) 1.4 K/uL (0.7-4.9); Hematocrit 41.9 % (39.6-49.0); MPV 9.5 fL (7.6-11.3)
[2022-01-03 15:20] LABS: Magnesium 2.1 mg/dL (1.8-2.4); Potassium 4.1 mmol/L (3.5-5.1); Troponin High Sensitivity 12.6 pg/mL (<58.9)
--- NOTE | 2022-01-03 16:09 | RAD REPORT ---
EXAM DESCRIPTION: Kandy Single View01/03/2022 3:39 pm CLINICAL HISTORY: sob COMPARISON: November 2021 FINDINGS: The lungs appear clear of acute infiltrate. The heart is normal size IMPRESSION: No acute abnormalities displayed
--- NOTE | 2022-01-03 17:04 | ER ---
Nurse's Notes [facility] Name: Quintin Koenig Age: 56 yrs Sex: Male : 1965 Arrival Date: 01/03/2022 Time: 13:46 Bed 11 Private MD: Diagnosis: Rhabdomyolysis;Dehydration Presentation: 01/03 14:04 Chief complaint: Patient states: was at work on a ladder when had a sudden onset of vg1 dizziness and SOB; also states nausea and Left sided flank pain. Denies chest pain. Coronavirus screen: Vaccine status: Patient reports receiving the 2nd dose of the covid vaccine. Client denies travel out of the [place] in the last 14 days. Ebola Screen: Patient negative for fever greater than or equal to 101.5 degrees Fahrenheit, and additional compatible Ebola Virus Disease symptoms. Initial Sepsis Screen: Does the patient meet any 2 criteria? No. Patient's initial sepsis screen is negative. Does the patient have a suspected source of infection? No. Patient's initial sepsis screen is negative. Risk Assessment: Do you want to hurt yourself or someone else? Patient reports no desire to harm self or others. Onset of symptoms was January 03, 2022. 14:04 Method Of Arrival: Ambulatory vg1 14:04 Acuity: MIGUEL 3 vg1 Triage Assessment: 14:07 General: Appears in no apparent distress. uncomfortable, Behavior is calm, cooperative. vg1 Pain: Complains of pain in left mid back. Musculoskeletal: Circulation, motion, and sensation intact. Historical: - Allergies: 14:07 No Known Allergies; vg1 - Home Meds: 14:07 Lisinopril 15 mg Oral once daily [Active]; metformin 500 mg Oral Tb24 1 tab 2 times per vg1 day [Active]; atorvastatin oral [Active]; - PMHx: 14:07 abscess on my testicles; Bipolar disorder; Diabetes - NIDDM; Hypertension; vg1 - Immunization history:: Client reports receiving the 2nd dose of the Covid vaccine. - Social history:: Smoking status: Patient denies any tobacco usage or history of. Screenin:18 Abuse screen: Denies threats or abuse. Denies injuries from another. Nutritional ab2 screening: No deficits noted. Tuberculosis screening: No symptoms or risk factors identified. Fall Risk None identified. Assessment: 14:17 General: Appears in no apparent distress. comfortable, Behavior is calm, cooperative, ab2 appropriate for age. Pain: Complains of pain in left mid back. Neuro: Level of Consciousness is awake, alert, obeys commands, Oriented to person, place, time, situation, Appropriate for age Kettle Tender are equal bilaterally Moves all extremities. Gait is steady, Speech is normal, Facial symmetry appears normal, Intact. Cardiovascular: Reports lightheadedness, shortness of breath, Heart tones S1 S2 present Patient's skin is warm and dry. Respiratory: No deficits noted. Airway is patent Respiratory effort is even, unlabored, Respiratory pattern is regular, symmetrical, Breath sounds are clear bilaterally. GI: Abdomen is round obese. : No deficits noted. No signs and/or symptoms were reported regarding the genitourinary system. EENT: No deficits noted. No signs and/or symptoms were reported regarding the EENT system. Derm: Skin is intact, is healthy with good turgor, Skin is pink, warm \T\ dry. 15:53 Reassessment: Patient appears in no apparent distress at this time. No changes from ab2 previously documented assessment. Vital Signs: 14:04 BP 119 / 84; Pulse 79; Resp 16; Temp 98.3; Pulse Ox 99% on R/A; Weight 115.67 kg; vg1 Height 5 ft. 10 in. (177.80 cm); Pain 8/10; 15:49 BP 132 / 85; Pulse 77; Resp 18; Pulse Ox 100% on R/A; ab2 16:53 BP 122 / 70; Pulse 78; Resp 17; Pulse Ox 100% ; ab2 14:04 Body Mass Index 36.59 (115.67 kg, 177.80 cm) vg1 NIH Stroke Scale Scores: 14:42 NIHSS Score: 0 la1 ED Course: 13:46 Patient arrived in ED. am2 13:47 Jared Nino FNP-C is [facility]. la1 13:47 Mateo Bray MD is Attending Physician. la1 14:07 Triage completed. vg1 14:07 Arm band placed on. vg1 14:12 Russell Loaiza is Primary Nurse. ab2 14:18 No provider procedures requiring assistance completed. ab2 14:19 Patient has correct armband on for positive identification. Bed in low position. Call ab2 light in reach. Side rails up X2. 15:41 XRAY Chest (1 view) In Process Unspecified. EDMS Administered Medications: 14:34 Drug: Zofran (Ondansetron) 4 mg Route: IVP; Site: right antecubital; ab2 15:53 Follow up: Response: No adverse reaction ab2 14:35 Drug: NS 0.9% 1000 ml Route: IV; Rate: 1000 ml; Site: right antecubital; ab2 15:53 Follow up: Response: No adverse reaction; IV Status: Completed infusion ab2 14:35 Drug: Tylenol 1000 mg Route: PO; ab2 15:53 Follow up: Response: No adverse reaction ab2 15:32 Drug: NS 0.9% 1000 ml Route: IV; Rate: 1000 ml; Site: right antecubital; ab2 Outcome: 17:04 Discharge ordered by MD. hogue 17:45 Patient left the ED. iw NIH Stroke Scale - NIH Stroke Score Date: 01/03/2022 Time: 14:42 Total Score = 0 1a. Level of Consciousness (LOC) - 0(Alert) 1b. Level of Consciousness (LOC) (Month \T\ Age) - 0(Both) 1c. LOC Commands (Open \T\ Closes Eyes/Business Office Director) - 0(Both) 2. Best Gaze (Lateral Gaze Paresis) - 0(Normal) 3. Visual Field Loss - 0(No visual loss) 4. Facial Palsy - 0(Normal) 5a. Left Arm: Motor (10-second hold) - 0(No drift) 5b. Right Arm: Motor (10-second hold) - 0(No drift) 6a. Left Leg: Motor (5-second hold - always test supine) - 0(No drift) 6b. Right Leg: Motor (5-second hold - always test supine) - 0(No drift) 7. Limb Ataxia (finger/nose \T\ heel/ferris - test with eyes open) - 0(Absent) 8. Sensory Loss (pinprick arms/legs/face) - 0(Normal) 9. Best Language: Aphasia (description/naming/reading) - 0(No aphasia) 10. Dysarthria (speech clarity - read or repeat words) - 0(Normal) 11. Extinction and Inattention (visual/tactile/auditory/spatial/personal) - 0(No abnormality) Initials: lennie Signatures: Dispatcher [employer] Ivory López, RN RN iw Jared Nino, YEAST WASHER-C YEAST WASHER-Cla1 Kylie Bella Victoria, RN RN vg1 Russell Loaiza
--- NOTE | 2022-01-03 17:04 | EDPHYS ---
Physician Documentation [facility] Name: Quintin Koenig Age: 56 yrs Sex: Male : 1965 Arrival Date: 01/03/2022 Time: 13:46 Bed 11 Private MD: JULIETH Physician Mateo Bray HPI: 01/03 14:40 This 56 yrs old Male presents to ER via Ambulatory with complaints of Back la1 Pain, Dizziness, Shortness Of Breath. 14:40 The patient presents with pain that is acute, with no known mechanism of injury. The la1 symptoms are located in the Left flank area. Onset: The symptoms/episode began/occurred today. The pain does not radiate. Associated signs and symptoms: Pertinent positives: nausea. 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 Modifying factors: The patient symptoms are alleviated by remaining still, the patient symptoms are aggravated by movement. Severity of symptoms: At their worst the symptoms were moderate, in the emergency department the symptoms have improved. The patient has not experienced similar symptoms in the past. 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 Patient reports that this time his dizziness has greatly improved almost subsided, feels like his breathing is improved as well as the left flank pain.. Historical: - Allergies: 14:07 No Known Allergies; vg1 - Home Meds: 14:07 Lisinopril 15 mg Oral once daily [Active]; metformin 500 mg Oral Tb24 1 tab 2 times per vg1 day [Active]; atorvastatin oral [Active]; - PMHx: 14:07 abscess on my testicles; Bipolar disorder; Diabetes - NIDDM; Hypertension; vg1 - Immunization history:: Client reports receiving the 2nd dose of the Covid vaccine. - Social history:: Smoking status: Patient denies any tobacco usage or history of. ROS: 14:42 Constitutional: Negative for fever, chills, and weight loss, Eyes: Negative for injury, la1 pain, redness, and discharge, ENT: Negative for injury, pain, and discharge. 14:42 Back: Negative for injury and pain, MS/Extremity: Negative for injury and deformity, Skin: Negative for injury, rash, and discoloration, Neuro: Positive for dizziness, lightheadedness 14:42 Cardiovascular: Negative for chest pain, orthopnea. 14:42 Respiratory: Positive for shortness of breath. 14:42 Abdomen/GI: Positive for Left flank pain. Exam: 14:42 Constitutional: This is a well developed, well nourished patient who is awake, alert, la1 and in no acute distress. Head/Face: Normocephalic, atraumatic. Eyes: Pupils equal round and reactive to light, extra-ocular motions intact. Lids and lashes normal. Conjunctiva and sclera are non-icteric and not injected. Cornea within normal limits. Periorbital areas with no swelling, redness, or edema. ENT: Nares patent. No nasal discharge, no septal abnormalities noted. Neck: Trachea midline, no thyromegaly or masses palpated, and no cervical lymphadenopathy. Supple, full range of motion without nuchal rigidity, or vertebral point tenderness. No Meningismus. Chest/axilla: Normal chest wall appearance and motion. Nontender with no deformity. No lesions are appreciated. Cardiovascular: Regular rate and rhythm with a normal S1 and S2. No gallops, murmurs, or rubs. Normal PMI, no JVD. No pulse deficits. Respiratory: Lungs have equal breath sounds bilaterally, clear to auscultation and percussion. Abdomen/GI: Soft, non-tender, with normal bowel sounds. Back: No spinal tenderness. No costovertebral tenderness. Full range of motion. 14:42 Skin: Appearance: Moisture: dry. 14:42 Neuro: Orientation: is normal, to person, place, time \T\ situation. Mentation: is normal, Memory: is normal, Cranial nerves: CN II- XII are normal as tested, extraocular movements are intact, Facial palsy and sensory deficits are absent. Nystagmus is absent. Cerebellar function: is grossly normal, normal finger to nose testing, Sensation: is normal. Vital Signs: 14:04 BP 119 / 84; Pulse 79; Resp 16; Temp 98.3; Pulse Ox 99% on R/A; Weight 115.67 kg; vg1 Height 5 ft. 10 in. (177.80 cm); Pain 8/10; 15:49 BP 132 / 85; Pulse 77; Resp 18; Pulse Ox 100% on R/A; ab2 16:53 BP 122 / 70; Pulse 78; Resp 17; Pulse Ox 100% ; ab2 14:04 Body Mass Index 36.59 (115.67 kg, 177.80 cm) vg1 NIH Stroke Scale Scores: 14:42 NIHSS Score: 0 la1 MDM: 14:13 Patient medically screened. la1 16:12 Data reviewed: vital signs, nurses notes, lab test result(s), EKG, radiologic studies. la1 Data interpreted: Pulse oximetry: on room air is 100 %. Interpretation: normal. Counseling: I had a detailed discussion with the patient and/or guardian regarding: the historical points, exam findings, and any diagnostic results supporting the discharge/admit diagnosis, lab results, radiology results, the need for outpatient follow up, a family practitioner, to return to the emergency department if symptoms worsen or persist or if there are any questions or concerns that arise at home. 01/03 14:18 Order name: Basic Metabolic Panel; Complete Time: 15:26 01/03 14:18 Order name: CBC with Diff; Complete Time: 14:44 01/03 14:18 Order name: Magnesium; Complete Time: 15:26 01/03 14:18 Order name: Troponin HS; Complete Time: 15:26 01/03 14:18 Order name: XRAY Chest (1 view); Complete Time: 16:11 01/03 14:18 Order name: CPK; Complete Time: 15:26 01/03 14:18 Order name: EKG; Complete Time: 14:19 01/03 14:18 Order name: Cardiac monitoring; Complete Time: 14:34 01/03 14:18 Order name: EKG - Nurse/Tech; Complete Time: 14:34 01/03 14:18 Order name: IV Saline Lock; Complete Time: 14:34 01/03 14:18 Order name: Labs collected and sent; Complete Time: 14:34 01/03 14:18 Order name: O2 Per Protocol; Complete Time: 14:34 01/03 14:18 Order name: O2 Sat Monitoring; Complete Time: 14:34 la Administered Medications: 14:34 Drug: Zofran (Ondansetron) 4 mg Route: IVP; Site: right antecubital; ab2 15:53 Follow up: Response: No adverse reaction ab2 14:35 Drug: NS 0.9% 1000 ml Route: IV; Rate: 1000 ml; Site: right antecubital; ab2 15:53 Follow up: Response: No adverse reaction; IV Status: Completed infusion ab2 14:35 Drug: Tylenol 1000 mg Route: PO; ab2 15:53 Follow up: Response: No adverse reaction ab2 15:32 Drug: NS 0.9% 1000 ml Route: IV; Rate: 1000 ml; Site: right antecubital; ab2 Disposition Summary: 01/03/22 17:04 Discharge Ordered Location: Home la1 Problem: new la1 Symptoms: have improved la1 Condition: Stable la1 Diagnosis - Rhabdomyolysis la1 - Dehydration la1 Followup: la1 - With: Private Physician - When: 2 - 3 days - Reason: Recheck today's complaints, Re-evaluation by your physician Followup: la1 - With: Emergency Department - When: As needed - Reason: If symptoms return, Worsening of condition Discharge Instructions: - Discharge Summary Sheet la1 - Dehydration, Adult la1 - Rhabdomyolysis la1 Forms: - Medication Reconciliation Form la1 - Thank You Letter la1 - Work release form la1 NIH Stroke Scale - NIH Stroke Score Date: 01/03/2022 Time: 14:42 Total Score = 0 1a. Level of Consciousness (LOC) - 0(Alert) 1b. Level of Consciousness (LOC) (Month \T\ Age) - 0(Both) 1c. LOC Commands (Open \T\ Closes Eyes/Adobe Block Maker) - 0(Both) 2. Best Gaze (Lateral Gaze Paresis) - 0(Normal) 3. Visual Field Loss - 0(No visual loss) 4. Facial Palsy - 0(Normal) 5a. Left Arm: Motor (10-second hold) - 0(No drift) 5b. Right Arm: Motor (10-second hold) - 0(No drift) 6a. Left Leg: Motor (5-second hold - always test supine) - 0(No drift) 6b. Right Leg: Motor (5-second hold - always test supine) - 0(No drift) 7. Limb Ataxia (finger/nose \T\ heel/ferris - test with eyes open) - 0(Absent) 8. Sensory Loss (pinprick arms/legs/face) - 0(Normal) 9. Best Language: Aphasia (description/naming/reading) - 0(No aphasia) 10. Dysarthria (speech clarity - read or repeat words) - 0(Normal) 11. Extinction and Inattention (visual/tactile/auditory/spatial/personal) - 0(No abnormality) Initials: la1 Addendum: 01/05/2022 07:49 Co-signature as Attending Physician, Mateo Bray MD I agree with the wilfrido assessment and plan of care. Signatures: Dispatcher [employer] EDMateo Marie MD MD cha Attema, Lee, PADDED PRODU[employer] FINISHER-C P[employer]ED [employer]ODUCTS FINISHER-Cla1 Brianda Adams, RN RN vg1 Russell Loaiza
[2022-01-04 00:45] VITALS: TEMP 98.3
[2022-01-04 00:46] VITALS: O2SAT 100
[2022-01-04 00:48] VITALS: BP 122/70
== END 2022-01-03 17:45 | disposition home or self-care (01) ==
LOC: ER 13:45
DX: M62.82 Rhabdomyolysis (principal); E86.0 Dehydration; E11.9 Type 2 diabetes mellitus without complications; I10 Essential (primary) hypertension; F31.9 Bipolar disorder, unspecified; R29.700 NIHSS score 0
CPT/HCPCS: 36415; 71045; 80048; 82550; 83735; 84484; 85025; 93005; 96361; 96374; 99283; J2405; J7030

== ENCOUNTER 2022-03-30 07:48 | Observation (INO) | payer SELFPAY ==
[2022-03-30 08:38] LABS: Urine Blood Negative (Negative); Urine Glucose Negative (Negative); Urine Protein 1+ (Negative); Urine pH 6.5 (5.0-7.0)
[2022-03-30] MEDS ORDERED: ONDANSETRON 4 MG/2 ML VIAL ONE (08:44)
[2022-03-30] MEDS ORDERED: NA CHLORIDE 0.9% 1,000 ML ONE ×2 (08:44→13:00)
--- NOTE | 2022-03-30 09:00 | RAD REPORT ---
EXAM DESCRIPTION: CT - Abdomen Pelvis Wo Contrast - 03/30/2022 8:40 am CLINICAL HISTORY: Abdominal pain, post-op COMPARISON: Abdomen Pelvis W Contrast dated 12/07/2021; CTSTONE PROTOCOL dated 01/17/2014 TECHNIQUE: Axial [address] imaging of the abdomen and pelvis was performed without IV contrast. No IV contrast was given because of allergy, abnormal renal function, patient refusal or physician re quest. No oral contrast was administered. All CT scans are performed using dose optimization technique as appropriate and may include automated exposure control or mA/KV adjustment according to patient size. FINDINGS: No suspicious findings in the lung bases. The liver, spleen and pancreas show no suspicious focal findings on non-contrast imaging. A few promi nent veins are seen in the upper abdomen. There is subtle nodularity to the liver capsule. This is no t clearly different. Liver capsule appearance is a subtle finding but could reflect underlying hepati c parenchymal disease. Correlation can be made with any abnormal liver function studies. Gallbladder and biliary tree are also without suspicious finding. No splenic abnormality. No hydronephrosis is present. A 5 mm calcification is present lower pole calyx right kidney unchanged from November examination. In the pelvic floor at or near the UVJ there is an 8 millimeter calcificatio n. Calcification measured 7 mm on the November examination. This calcification was not present on the comparison. This could be a nonobstructing distal right ureteral calcification. The right ureter i s not dilated. There is no edema or stranding around the right kidney. No left-sided kidney or ureter finding. No significant adrenal finding. Isodense renal masses and pyelonephritis cannot be excluded in the absence of IV contrast. The urinary bladder is without significant finding. No dilated bowel loops or bowel wall thickening. Appendix is normal. A few small nonspecific mesenter ic lymph nodes are present. No free air, free fluid or inflammatory stranding. No new hernia, mass or bulky lymphadenopathy. No suspicious bony findings. IMPRESSION: CT abdomen and pelvis imaging shows no acute or emergent finding. The suspected distal right ureteral calcification detailed on the November CT examination has enlarged s lightly. There is no dilatation of the right ureter to indicate obstruction. A few small nonspecific mesenteric lymph nodes are present. No acute bowel finding. Full assessment is limited is the absence of IV contrast.
[2022-03-30 09:10] LABS: Absolute Lymphocytes (CBC) 1.2 K/uL (0.7-4.9); Hematocrit 45.6 % (39.6-49.0); Lymphocytes % 13.6 % (15.3-44.8); MCV 85.6 fL (80-100); MPV 8.8 fL (7.6-11.3); RBC Red Blood Cell Count 5.32 M/uL (4.33-5.43)
[2022-03-30 09:12] LABS: Protime INR 1.07
[2022-03-30 09:36] LABS: Albumin 4.2 g/dL (3.4-5.0); Bilirubin Direct 0.3 mg/dL (0-0.2); Bilirubin Total 1.1 mg/dL (0.2-1.0); Magnesium 2.6 mg/dL (1.8-2.4); Potassium 4.1 mmol/L (3.5-5.1); Protein, Total 8.5 g/dL (6.4-8.2); Troponin High Sensitivity 5.9 pg/mL (<58.9)
[2022-03-30 09:44] LABS: Urine Bacteria 20-50 /HPF (<20); Urine RBC <5 /HPF (None Seen)
--- NOTE | 2022-03-30 09:49 | RAD REPORT ---
EXAM DESCRIPTION: RAD - Chest Single View - 03/30/2022 8:50 am CLINICAL HISTORY: ABDOMINAL DISTENTION COMPARISON: Portable 01/03/2022 TECHNIQUE: AP portable chest image was obtained 03/30/2022 8:50 am . FINDINGS: Lungs are clear. Heart and vasculature are normal. No measurable pleural effusion and no p neumothorax. No acute bony abnormality seen. No acute aortic findings suspected. IMPRESSION: No acute cardiopulmonary process. No significant change from comparison study.
[2022-03-30] MEDS ORDERED: FAMOTIDINE 20 MG/2 ML VIAL IV ONE (10:05)
--- NOTE | 2022-03-30 10:08 | ER ---
Nurse's Notes [facility] Name: Quintin Koenig Age: 56 yrs Sex: Male : 1965 Arrival Date: 03/30/2022 Time: 07:50 Bed 13 Private MD: Diagnosis: Epigastric abdominal tenderness;Type 2 diabetes mellitus with hyperglycemia;Vomiting;Hypotension, unspecified;Bradycardia, unspecified;Bipolar disorder, unspecified-stable;Acute kidney failure, unspecified-on chronic Presentation: 03/30 07:54 Chief complaint: Patient states: been having upper abd pain and vomiting X 3 days. iw Coronavirus screen: At this time, the client does not indicate any symptoms associated with coronavirus-19. Ebola Screen: Patient negative for fever greater than or equal to 101.5 degrees Fahrenheit, and additional compatible Ebola Virus Disease symptoms Patient denies exposure to infectious person. Patient denies travel to an Ebola-affected area in the 21 days before illness onset. No symptoms or risks identified at this time. Initial Sepsis Screen: Does the patient meet any 2 criteria? No. Patient's initial sepsis screen is negative. Does the patient have a suspected source of infection? No. Patient's initial sepsis screen is negative. Risk Assessment: Do you want to hurt yourself or someone else?. Onset of symptoms was March 27, 2022. 07:54 Method Of Arrival: Ambulatory iw 07:54 Acuity: MIGUEL 3 iw Historical: - Allergies: 07:56 No Known Allergies; iw - PMHx: 07:56 abscess on my testicles; Bipolar disorder; Diabetes - NIDDM; Hypertension; iw - Immunization history:: Client reports receiving the 2nd dose of the Covid vaccine. - Social history:: Smoking status: Patient denies any tobacco usage or history of. Screenin:00 Abuse screen: Denies threats or abuse. Denies injuries from another. Nutritional jl7 screening: No deficits noted. Tuberculosis screening: No symptoms or risk factors identified. Fall Risk IV access (20 points). Total Hernandez Fall Scale indicates No Risk (0-24 pts). Assessment: 08:20 General: Appears in no apparent distress. uncomfortable, Behavior is calm, cooperative, jl7 appropriate for age. Pain: Complains of pain in abdomen diffusely Pain currently is 8 out of 10 on a pain scale. Quality of pain is described as sharp, Pain began x1 week. Neuro: Level of Consciousness is awake, alert, obeys commands, Oriented to person, place, time, situation. Cardiovascular: Patient's skin is warm and dry. Respiratory: Airway is patent Respiratory effort is even, unlabored, Respiratory pattern is regular, symmetrical. GI: Abdomen is round non-distended, Reports nausea, vomiting. Derm: Skin is pink, warm \T\ dry. 09:41 Reassessment: Pt refused COVID swab, reports he was tested yesterday and it was jl7 negative, ERD notified. 19:27 Reassessment: report called to Karine RN for room 224. bb Vital Signs: 07:54 BP 99 / 68; Pulse 79; Resp 16; Temp 97.4; Pulse Ox 100% on R/A; Weight 108.41 kg; iw Height 5 ft. 10 in. (177.80 cm); Pain 8/10; 09:00 BP 96 / 59; Pulse 71; Resp 15; Pulse Ox 100% ; jl7 09:59 BP 97 / 72; Pulse 49; Resp 15; Pulse Ox 100% ; jl7 10:37 BP 106 / 65; Pulse 57; Resp 15; Pulse Ox 100% ; jl7 07:54 Body Mass Index 34.29 (108.41 kg, 177.80 cm) iw ED Course: 07:50 Patient arrived in ED. mr 07:56 Triage completed. iw 07:57 Arm band placed on. iw 08:04 Mateo Bray MD is Attending Physician. wilfrido 08:16 Raffi Samson, SHAWNA is Primary Nurse. jl7 08:40 CT Abd/Pelvis - Without Contrast In Process Unspecified. EDMS 08:51 XRAY Chest (1 view) In Process Unspecified. EDMS 09:00 Patient has correct armband on for positive identification. Placed in gown. Bed in low jl7 position. Call light in reach. Side rails up X 1. Client placed on continuous cardiac and pulse oximetry monitoring. NIBP monitoring applied. 09:00 Initial lab(s) drawn, by me, sent to lab. Urine collected: clean catch specimen, clear, jl7 EKG done, by ED staff, reviewed by Mateo Bray MD. Inserted saline lock: 20 gauge in right antecubital area, using aseptic technique. Blood collected. 10:06 Behzad Quiroz MD is Hospitalizing Provider. wilfrido 10:23 US Abdomen Limited In Process Unspecified. EDMS Administered Medications: 08:56 Drug: NS 0.9% 500 ml Route: IV; Rate: bolus; Site: right antecubital; jl7 10:00 Follow up: Response: No adverse reaction; IV Status: Completed infusion; IV Intake: jl7 500ml 08:56 Drug: Zofran (Ondansetron) 4 mg Route: IVP; Site: right antecubital; jl7 09:15 Follow up: Response: No adverse reaction; Nausea is decreased jl7 09:59 Drug: Pepcid (famotidine) 20 mg Route: IVP; Site: right antecubital; jl7 10:36 Follow up: Response: No adverse reaction jl7 10:00 Drug: NS 0.9% 1000 ml Route: IV; Rate: 125 ml/hr; Site: right antecubital; jl7 10:37 Follow up: Response: No adverse reaction; IV Status: Infusion continued upon admission jl7 Medication: 09:00 VIS not applicable for this client. jl7 Intake: 10:00 IV: 500ml; Total: 500ml. jl7 Outcome: 10:07 Decision to Hospitalize by Provider. wilfrido 19:57 Patient left the ED. kd3 Signatures: Dispatcher [employer] EDMS Mateo Bray MD MD cha Rivera, Florencia mr LouisNilam, RN Ivory Lopez, Raffi Dubose RN, RN RN jl7 Doucette, Kyli, RN RN kd3
--- NOTE | 2022-03-30 10:08 | EDPHYS ---
Physician Documentation [facility] Name: Quintin Koenig Age: 56 yrs Sex: Male : 1965 Arrival Date: 03/30/2022 Time: 07:50 Bed 13 Private MD: JULIETH Physician Mateo Bray HPI: 03/30 10:02 This 56 yrs old Male presents to ER via Ambulatory with complaints of wilfrido Abdominal Pain, Vomiting. 10:02 The patient presents to the emergency department with nausea, vomiting, that is wilfrido intermittent, described as clear fluid. Onset: The symptoms/episode began/occurred 3 day(s) ago. Possible causes: unknown. The symptoms are aggravated by food , The symptoms are alleviated by nothing. Associated signs and symptoms: Pertinent positives: abdominal pain, nausea, vomiting. Severity of symptoms: At their worst the symptoms were moderate in the emergency department the symptoms have improved mildly. The patient has not experienced similar symptoms in the past. Historical: - Allergies: 07:56 No Known Allergies; iw - PMHx: 07:56 abscess on my testicles; Bipolar disorder; Diabetes - NIDDM; Hypertension; iw - Immunization history:: Client reports receiving the 2nd dose of the Covid vaccine. - Social history:: Smoking status: Patient denies any tobacco usage or history of. ROS: 10:03 Constitutional: Negative for fever, chills, and weight loss, Eyes: Negative for injury, wilfrido pain, redness, and discharge, ENT: Negative for injury, pain, and discharge, Neck: Negative for injury, pain, and swelling, Cardiovascular: Negative for chest pain, palpitations, and edema, Respiratory: Negative for shortness of breath, cough, wheezing, and pleuritic chest pain, Back: Negative for injury and pain, : Negative for injury, bleeding, discharge, and swelling, MS/Extremity: Negative for injury and deformity, Skin: Negative for injury, rash, and discoloration, Neuro: Negative for headache, weakness, numbness, tingling, and seizure, Psych: Negative for depression, anxiety, suicide ideation, homicidal ideation, and hallucinations, Allergy/Immunology: Negative for hives, rash, and allergies, Endocrine: Negative for neck swelling, polydipsia, polyuria, polyphagia, and marked weight changes, Hematologic/Lymphatic: Negative for swollen nodes, abnormal bleeding, and unusual bruising. 10:03 Abdomen/GI: Positive for abdominal pain, of the epigastric area, right upper quadrant and left upper quadrant. Exam: 10:03 Constitutional: This is a well developed, well nourished patient who is awake, alert, wilfrido and in no acute distress. Head/Face: Normocephalic, atraumatic. Eyes: Pupils equal round and reactive to light, extra-ocular motions intact. Lids and lashes normal. Conjunctiva and sclera are non-icteric and not injected. Cornea within normal limits. Periorbital areas with no swelling, redness, or edema. ENT: Nares patent. No nasal discharge, no septal abnormalities noted. Tympanic membranes are normal and external auditory canals are clear. Oropharynx with no redness, swelling, or masses, exudates, or evidence of obstruction, uvula midline. Mucous membranes moist. Neck: Trachea midline, no thyromegaly or masses palpated, and no cervical lymphadenopathy. Supple, full range of motion without nuchal rigidity, or vertebral point tenderness. No Meningismus. Chest/axilla: Normal chest wall appearance and motion. Nontender with no deformity. No lesions are appreciated. Cardiovascular: Regular rate and rhythm with a normal S1 and S2. No gallops, murmurs, or rubs. Normal PMI, no JVD. No pulse deficits. Respiratory: Lungs have equal breath sounds bilaterally, clear to auscultation and percussion. No rales, rhonchi or wheezes noted. No increased work of breathing, no retractions or nasal flaring. Back: No spinal tenderness. No costovertebral tenderness. Full range of motion. Male : Normal genitalia with no discharge or lesions. Skin: Warm, dry with normal turgor. Normal color with no rashes, no lesions, and no evidence of cellulitis. MS/ Extremity: Pulses equal, no cyanosis. Neurovascular intact. Full, normal range of motion. Neuro: Awake and alert, GCS 15, oriented to person, place, time, and situation. Cranial nerves II-XII grossly intact. Motor strength 5/5 in all extremities. Sensory grossly intact. Cerebellar exam normal. Normal gait. Psych: Awake, alert, with orientation to person, place and time. Behavior, mood, and affect are within normal limits. 10:03 ECG was reviewed by the Attending Physician. 10:03 Abdomen/GI: Inspection: abdomen appears normal, Bowel sounds: normal, Palpation: mild abdominal tenderness, in the epigastric area, right upper quadrant and left upper quadrant, Liver: no appreciated palpable abnormalities, Hernia: not appreciated. Vital Signs: 07:54 BP 99 / 68; Pulse 79; Resp 16; Temp 97.4; Pulse Ox 100% on R/A; Weight 108.41 kg; iw Height 5 ft. 10 in. (177.80 cm); Pain 8/10; 09:00 BP 96 / 59; Pulse 71; Resp 15; Pulse Ox 100% ; jl7 09:59 BP 97 / 72; Pulse 49; Resp 15; Pulse Ox 100% ; jl7 10:37 BP 106 / 65; Pulse 57; Resp 15; Pulse Ox 100% ; jl7 07:54 Body Mass Index 34.29 (108.41 kg, 177.80 cm) iw MDM: 08:04 Patient medically screened. wilfrido 10:05 Differential diagnosis: Nonspecific abd pain, gastritis, cholecystitis, pancreatitis, wilfrido viral gastroenteritis, gastroenteritis. Data reviewed: vital signs, nurses notes, lab test result(s), EKG, radiologic studies, CT scan, plain films, ultrasound. Data interpreted: monitoring manager: rate is 49 beats/min, rhythm is regular, Pulse oximetry: on room air is 100 %. Test interpretation: by ED physician or midlevel provider: ECG, plain radiologic studies. Counseling: I had a detailed discussion with the patient and/or guardian regarding: the historical points, exam findings, and any diagnostic results supporting the discharge/admit diagnosis, lab results, radiology results, the need for further work-up and treatment in the hospital. 03/30 08:06 Order name: Basic Metabolic Panel; Complete Time: 09:50 wilfrido 03/30 08:06 Order name: CBC with Diff; Complete Time: 09:50 [facility] 03/30 08:06 Order name: LFT's; Complete Time: 09:50 [facility] 03/30 08:06 Order name: Magnesium; Complete Time: 09:50 [facility] 03/30 08:06 Order name: NT PRO-BNP; Complete Time: 09:50 [facility] 03/30 08:06 Order name: PT-INR; Complete Time: 09:50 [facility] 03/30 08:06 Order name: Troponin HS; Complete Time: 09:50 [facility] 03/30 08:06 Order name: Lipid Profile; Complete Time: 09:50 [facility] 03/30 08:06 Order name: SARS-COV-2 RT PCR (Document "Date of Onset" if Symptomatic) [facility] 03/30 08:39 Order name: Urine Dipstick-Ancillary [facility] 03/30 08:46 Order name: Urine Microscopic Only; Complete Time: 09:50 jl7 03/30 09:47 Order name: Urine Culture [facility] 03/30 09:53 Order name: Urine Dipstick--Ancillary (enter results) 03/30 10:47 Order name: CBC with Automated Diff [facility] 03/30 08:06 Order name: XRAY Chest (1 view); Complete Time: 09:50 [facility] 03/30 08:06 Order name: CT Abd/Pelvis - Without Contrast; Complete Time: 09:50 [facility] 03/30 09:51 Order name: US Abdomen Limited [facility] 03/30 10:47 Order name: CBC with Automated Diff [facility] 03/30 10:47 Order name: Comprehensive Metabolic Panel [facility] 03/30 10:47 Order name: Comprehensive Metabolic Panel [facility] 03/30 10:47 Order name: Lipid Profile [facility] 03/30 10:47 Order name: Lipid Profile [facility] 03/30 10:47 Order name: Hemoglobin A1c [facility] 03/30 10:47 Order name: Lipase [facility] 03/30 10:47 Order name: Magnesium [facility] 03/30 10:47 Order name: NT PRO-BNP [facility] 03/30 10:47 Order name: Troponin High Sensitivity [facility] 03/30 10:48 Order name: Vitamin B12 Level [facility] 03/30 08:06 Order name: EKG; Complete Time: 08:07 [facility] 03/30 08:06 Order name: Cardiac monitoring; Complete Time: 09:13 [facility] 03/30 08:06 Order name: EKG - Nurse/Tech; Complete Time: 09:13 [facility] 03/30 08:06 Order name: IV Saline Lock; Complete Time: 09:13 [facility] 03/30 08:06 Order name: Labs collected and sent; Complete Time: 09:13 [facility] 03/30 08:06 Order name: O2 Per Protocol; Complete Time: 09:13 [facility] 03/30 08:06 Order name: O2 Sat Monitoring; Complete Time: 09:13 [facility] 03/30 08:06 Order name: Urine Dipstick-Ancillary (obtain specimen); Complete Time: 09:13 [facility] 03/30 10:47 Order name: CONS Physician Consult [facility] 03/30 10:47 Order name: Clear Liquid [facility] EC:03 Rate is 53 beats/min. Rhythm is regular. QRS [place] is Normal. FL interval is normal. QRS wilfrido interval is normal. QT interval is normal. No Q waves. T waves are Normal. No ST changes noted. Clinical impression: 1st degree heart block, Sinus bradycardia, and No evidence of ischemia. Interpreted by me. Reviewed by me. Administered Medications: 08:56 Drug: NS 0.9% 500 ml Route: IV; Rate: bolus; Site: right antecubital; jl7 10:00 Follow up: Response: No adverse reaction; IV Status: Completed infusion; IV Intake: jl7 500ml 08:56 Drug: Zofran (Ondansetron) 4 mg Route: IVP; Site: right antecubital; jl7 09:15 Follow up: Response: No adverse reaction; Nausea is decreased jl7 09:59 Drug: Pepcid (famotidine) 20 mg Route: IVP; Site: right antecubital; jl7 10:36 Follow up: Response: No adverse reaction jl7 10:00 Drug: NS 0.9% 1000 ml Route: IV; Rate: 125 ml/hr; Site: right antecubital; jl7 10:37 Follow up: Response: No adverse reaction; IV Status: Infusion continued upon admission jl7 Disposition Summary: 03/30/22 10:07 Hospitalization Ordered Hospitalization Status: Observation wilfrido Provider: Behzad Quiroz wilfrido Condition: Fair wilfrido Problem: new wilfrido Symptoms: have improved wilfrido Bed/Room Type: Standard wilfrido Location: Telemetry/MedSurg (observation)(03/30/22 18:37) Room Assignment: 224(03/30/22 18:37) Diagnosis - Epigastric abdominal tenderness wilfrido - Type 2 diabetes mellitus with hyperglycemia wilfrido - Vomiting wilfrido - Hypotension, unspecified wilfrido - Bradycardia, unspecified wilfrido - Bipolar disorder, unspecified - stable wilfrido - Acute kidney failure, unspecified - on chronic wilfrido Forms: - Medication Reconciliation Form wilfrido - SBAR form wilfrido Signatures: Dispatcher [employer] [facility] Adrianne Olmstead RN RN dw Anderson, Corey, MD MD cha Williams, Irene, RN RN iw Leal, Jahala, RN RN jl7 Botello Jolynn eb Corrections: (The following items were deleted from the chart) 15:44 10:07 Telemetry/MedSurg (observation) [facility] 15:44 10:07 [facility] 15:45 15:44 eb 18:37 15:44 [facility] ER HOLD eb dw 18:37 15:45 ERHOLD- eb dw
--- NOTE | 2022-03-30 10:30 | RAD REPORT ---
EXAM DESCRIPTION: US - Abdomen Exam Limited - 03/30/2022 10:21 am CLINICAL HISTORY: ABD PAIN COMPARISON: Abdomen Pelvis Wo Contrast dated 03/30/2022 FINDINGS: No gallstones, sludge or other abnormalities within the gallbladder lumen. There is no wal l thickening or pericholecystic fluid. No common duct stone or biliary tree dilatation identified. IMPRESSION: Normal gallbladder and biliary tree ultrasound.
[2022-03-30] MEDS ORDERED: ACETAMINOPHEN 500 MG TAB PO PRN (10:43)
[2022-03-30] MEDS ORDERED: MORPHINE 2 MG/ML SYR IV PRN (10:43)
--- NOTE | 2022-03-30 10:49 | P.HP ---
Certification for Inpatient Patient admitted to: Observation With expected LOS: <2 Midnights Patient will require the following post-hospital care: None Practitioner: I am a practitioner with admitting privileges, knowledge of patient current condition, hospital course, and medical plan of care. Services: Services provided to patient in accordance with Admission requirements found in Title 42 Section 412.3 of the Code of Federal Regulations Patient History Date of Service: 03/30/22 Reason for admission: Epigastric tenderness; intractable nausea vomiting History of Present Illness: Patient is a 56-year-old gentleman with a history of diabetes and hypertension. Patient states his diabetes is well controlled. He has been having intractable nausea and vomiting over the last few days. He states his symptoms started on Saturday. He uses ibuprofen for pain but he states that he does go some days without taking it. He denies drinking alcohol. The pain was mainly in the epigastric region and he started having nausea and vomiting. He decided to come into the emergency room as his symptoms were not improving and he was feeling really dehydrated. Patient has been giving IV hydration in the ER. He still not able to keep anything down. He had a food challenge but he was unsuccessful on drinking his liquids. At this time, he will be admitted to the hospital for IV hydration. He is in acute renal insufficiency. We will hydrate him aggressively and get GI consultation as well. We will put him on Protonix twice a day as well. Patient will be admitted for observation. Allergies No Known Drug Allergies Allergy (Verified 04/27/20 04:20) Unknown Home Medications: Atorvastatin Calcium [Lipitor*] 10 04/27/20 Lisinopril [Zestril] 10 mg PO DAILY #30 04/27/20 Metformin HCl [Glucophage*] 500 mg PO BID 04/27/20 - Past Medical/Surgical History Diabetic: Yes -: Type 2 diabetes -: Essential hypertension -: High Cholesterol -: None Psychosocial/ Personal History: . Lives at home with . - Social History Smoking Status: Former smoker Alcohol use: No CD- Drugs: No Caffeine use: No Review of Systems 10-point ROS is otherwise unremarkable Physical Examination - Vital Signs Temperature: 98 F Blood Pressure: 140/70 Pulse: 88 Respirations: 18 Pulse Ox (%): 98 - Physical Exam General: Alert, In no apparent distress, Oriented x3 HEENT: Atraumatic, PERRLA, Mucous membr. moist/pink, EOMI, Sclerae nonicteric Neck: Supple, 2+ carotid pulse no bruit, No LAD, Without JVD or thyroid abnormality Respiratory: Clear to auscultation bilaterally, Normal air movement Cardiovascular: Regular rate/rhythm, Normal S1 S2 Gastrointestinal: Normal bowel sounds, Non-distended, No rebound, No guarding, Tenderness Musculoskeletal: No clubbing, No swelling, No tenderness Integumentary: No rashes Neurological: Normal gait, Normal speech, Normal strength at 5/5 x4 extr, Normal tone, Normal affect Lymphatics: No axilla or inguinal lymphadenopathy - Studies Laboratory Data (last 24 hrs) 03/30/22 08:45: PT 11.8, INR 1.07 03/30/22 08:45: WBC 9.0, Hgb 15.5, Hct 45.6, Plt Count 183 03/30/22 08:45: Sodium 134 L, Potassium 4.1, BUN 36 H, Creatinine 1.75 H, Glucose 112 H, Magnesium 2.6 H D, Total Bilirubin 1.1 H, AST 14 L, ALT 20, Alkaline Phosphatase 77, Triglycerides 130, Cholesterol 114, HDL Cholesterol 41, Cholesterol/HDL Ratio 2.78 Assessment & Plan - Problems (Diagnosis) (1) Abdominal pain Current Visit: Yes Status: Acute (2) Intractable nausea and vomiting Current Visit: Yes Status: Acute (3) History of diabetes mellitus Current Visit: Yes Status: Acute (4) Patient takes NSAID (non-steroid anti-inflammatory drug) Current Visit: Yes Status: Acute (5) History of hypertension Current Visit: Yes Status: Acute - Plan -Pain control -IV fluids -GI consultation -CBC, CMP, lipase, stool cultures -Clear liquid diet -Monitor renal function closely -Antiemetics Discharge Plan: Home Plan to discharge in: 24 Hours - Advance Directives Does patient have a Living Will: No Does patient have a Durable POA for Healthcare: No - Code Status/Comfort Care Code Status Assessed: Yes Code Status: Full Code Critical Care: No Time Spent Managing PTS Care (In Minutes): 45
[2022-03-30] MEDS ORDERED: SODIUM CHLORIDE 0.9% 10ML INJ IV PRN (10:50)
[2022-03-30] MEDS ORDERED: PANTOPRAZOLE 40 MG INJ IVP ONE (10:50)
[2022-03-30] MEDS: NA CHLORIDE 0.9% 1,000 ML IV SCH ×2 (11:00→21:00)
[2022-03-30] MEDS ORDERED: PANTOPRAZOLE 40 MG INJ ONE (12:59)
[2022-03-30 13:19] VITALS: BMI 34.2
[2022-03-30 14:50] LABS: Urine pH 6.5 (5.0-7.0)
[2022-03-30] MEDS: ONDANSETRON 4 MG/2 ML VIAL IV PRN (21:08)
[2022-03-30] MEDS: D5 0.45 NS 1,000 ML IV SCH (22:31)
[2022-03-31 02:57] VITALS: O2SAT 94
[2022-03-31] MEDS: ONDANSETRON 4 MG/2 ML VIAL IV PRN (04:39)
[2022-03-31 06:30] LABS: Absolute Lymphocytes (CBC) 1.1 K/uL (0.7-4.9); Hematocrit 40.6 % (39.6-49.0); Lymphocytes % 11.5 % (15.3-44.8); MCV 85.5 fL (80-100); MPV 8.8 fL (7.6-11.3); RBC Red Blood Cell Count 4.75 M/uL (4.33-5.43)
[2022-03-31 06:47] LABS: Albumin 3.5 g/dL (3.4-5.0); Bilirubin Total 1.1 mg/dL (0.2-1.0); Potassium 3.7 mmol/L (3.5-5.1); Protein, Total 7.2 g/dL (6.4-8.2)
[2022-03-31 07:13] LABS: Troponin High Sensitivity 6.6 pg/mL (<58.9)
[2022-03-31] MEDS ORDERED: PANTOPRAZOLE 40 MG INJ IVP SCH (09:00)
[2022-03-31] MEDS: D5 0.45 NS 1,000 ML IV SCH (09:47)
[2022-03-31] MEDS ORDERED: METOCLOPRAMIDE 10 MG/2mL INJ IV ONE (10:00)
[2022-03-31] MEDS: METOCLOPRAMIDE 10 MG/2mL INJ IV SCH ×2 (12:07→16:17)
--- NOTE | 2022-03-31 13:47 | P.DS ---
Discharge Date: 03/31/22 Disposition: ROUTINE DISCHARGE Discharge Condition: GOOD Reason for Admission: Epigastric tenderness; intractable nausea vomiting - Problems (1) Abdominal pain Current Visit: Yes Status: Acute (2) Intractable nausea and vomiting Current Visit: Yes Status: Acute (3) History of diabetes mellitus Current Visit: Yes Status: Acute (4) Patient takes NSAID (non-steroid anti-inflammatory drug) Current Visit: Yes Status: Acute (5) History of hypertension Current Visit: Yes Status: Acute Brief History of Present Illness: Patient is a 56-year-old gentleman with a history of diabetes and hypertension. Patient states his diabetes is well controlled. He has been having intractable nausea and vomiting over the last few days. He states his symptoms started on Saturday. He uses ibuprofen for pain but he states that he does go some days without taking it. He denies drinking alcohol. The pain was mainly in the epigastric region and he started having nausea and vomiting. He decided to come into the emergency room as his symptoms were not improving and he was feeling really dehydrated. Patient has been giving IV hydration in the ER. He still not able to keep anything down. He had a food challenge but he was unsuccessful on drinking his liquids. At this time, he will be admitted to the hospital for IV hydration. He is in acute renal insufficiency. We will hydrate him aggressively and get GI consultation as well. We will put him on Protonix twice a day as well. Patient will be admitted for observation. Hospital Course: Patient is tolerating diet today. He is done well with his clear liquid diet. We will advance him to a soft diet. If he does well with this we will discharge him home. Vital Signs/Physical Exam: Temp Pulse Resp BP Pulse Ox 97.5 F 57 16 108/61 98 03/31/22 12:00 03/31/22 12:00 03/31/22 12:00 03/31/22 12:00 03/31/22 12:00 General: Alert, In no apparent distress, Oriented x3 Laboratory Data at Discharge: WBC 9.4 K/uL (4.3-10.9) 03/31/22 06:00 Hgb 13.8 g/dL (13.6-17.9) 03/31/22 06:00 Hct 40.6 % (39.6-49.0) 03/31/22 06:00 Plt Count 175 K/uL (152-406) 03/31/22 06:00 PT 11.8 SECONDS (9.5-12.5) 03/30/22 08:45 INR 1.07 03/30/22 08:45 Sodium 133 mmol/L (136-145) L 03/31/22 06:00 Potassium 3.7 mmol/L (3.5-5.1) 03/31/22 06:00 BUN 26 mg/dL (7-18) H 03/31/22 06:00 Creatinine 1.31 mg/dL (0.55-1.3) H 03/31/22 06:00 Glucose 116 mg/dL (74-106) H 03/31/22 06:00 Magnesium Cancelled 03/30/22 10:45 Total Bilirubin 1.1 mg/dL (0.2-1.0) H 03/31/22 06:00 AST 14 U/L (15-37) L 03/31/22 06:00 ALT 17 U/L (12-78) 03/31/22 06:00 Alkaline Phosphatase 72 U/L (45-117) 03/31/22 06:00 Triglycerides 102 mg/dL (<150) 03/31/22 06:00 Cholesterol 99 mg/dL (<200) 03/31/22 06:00 HDL Cholesterol 36 mg/dL (40-60) L 03/31/22 06:00 Cholesterol/HDL Ratio 2.75 03/31/22 06:00 Lipase 293 U/L (73-393) 03/31/22 06:00 Home Medications: Atorvastatin Calcium [Lipitor*] 10 mg PO DAILY 04/27/20 Trazodone [Desyrel*] 50 mg PO BEDTIME 03/30/22 Metoclopramide HCl [Reglan] 5 mg PO ACHS #120 tablet 03/31/22 Ondansetron [Zofran] 4 mg PO Q6H PRN #30 tab 03/31/22 Pantoprazole [Protonix Tab] 40 mg PO DAILY #30 tab 03/31/22 New Medications: Pantoprazole [Protonix Tab] 40 mg PO DAILY #30 tab Metoclopramide HCl [Reglan] 5 mg PO ACHS #120 tablet Ondansetron [Zofran] 4 mg PO Q6H PRN #30 tab PRN Reason: Nausea / Vomiting Physician Discharge Instructions: -DC IV and DC home -Follow-up with PCP in 1 to 2 weeks -Follow-up with, GI, Dr. Almendarez, in 1 to 2 weeks -Please call Dr. Quiroz at [phone] if any questions regarding hospital stay -Please call nursing station at [phone] if any nursing or medication questions -Return to the emergency room if symptoms worsen Diet: soft Activity: Fall precautions Followup: NONE,NONE [Primary Care Provider] - Time spent managing pt's care (in minutes): 35
[2022-03-31 16:53] VITALS: BP 92/50; TEMP 97.9
--- NOTE | 2022-04-01 14:43 | EKG ---
Test Date: 2022-03-30 Test Time: 09:05:25 Rail Track Layer: CINDY MEASUREMENT RESULTS: Intervals: Rate: 53 PA: 260 QRSD: 126 QT: 424 QTc: 397 [place]: P: 25 PA: 260 QRS: 23 T: 42 INTERPRETIVE STATEMENTS: Sinus bradycardia with 1st degree AV block Nonspecific intraventricular block Abnormal ECG Compared to ECG 01/03/2022 14:19:53 First degree AV block now present Sinus rhythm no longer present Left bundle-branch block no longer present Electronically Signed On 04-01-22 14:41:26 CDT by Apolinar Warren
--- OUTSIDE RECORDS SUMMARY | 2022-04-05 06:39 | XMS REPORT | Continuity of Care Document ---
:1965 Author Organization [facility] t Address [address] [place] [address] Care Team Providers Name Role Phone PCP, DOES NOT HAVE A Primary Care Physician Unavailable Mo HARRIS, S Attending Clinician Marlys CHEUNG Attending Clinician Unavailable Payers Payer Name Policy Type Policy Number Effective Date Expiration Date S ource Problems Condition Condition Condition Status Onset Resolution Last Treating Co mments Source Name Details Category Date Date Treatment Clinician Date No known No known Disease Unive rs active active ity of problems problems [facility] Allergies, Adverse Reactions, Alerts Allergy Allergy Status Severity Reaction(s) Onset Inactive Treating Comm ents Source Name Type Date Date Clinician No Known DA Active U [facility] Drug 5-21 Allergie 00:00: s 00 NO KNOWN Drug Active Univers ALLERGIE Class ity of S [facility] Social History Social Habit Start Date Stop Date Quantity Comments Source Exposure to 2021-12-30 2022-01-09 Not sure [facility] SARS-CoV-2 (event) 00:00:00 10:34:00 Medica l Branch Tobacco use and 2015-01-15 2015-01-15 Never used [facility] [employer] [facility] exposure 00:00:00 00:00:00 Medical Branch Sex Ass[birth year] At [birth year] [facility] 00:00:00 00:00:00 Medical Branch Smoking Status Start Date Stop Date Source Never smoker [facility] Medications Ordered Filled Start Stop Current Ordering Indication Dosage Frequency Signature Comments Components Source Medication Medication Date Date Medication? Clinician (SIG) Name Name TAKE 1 2021-0 No 800 TABLET 3 7-14 TIMES DAILY 00:00: WITH FOOD 00 NEEDED. Dose 2021-0 No Unknown 7-14 00:00: 00 TAKE 1 2021-0 No 8 TABLET 7-14 EVERY 8 00:00: HOURS 00 NEEDED FOR NAUSEA AND VOMITING. TAKE 1 2021-0 No 250 TABLET 7-01 DAILY. 00:00: 00 TAKE 1 2-0 No 250 TABLET 7-01 DAILY. 00:00: 00 triamcinolo 2022-0 No 1% ne 5-17 acetonide 00:00: 0.1 % 00 topical cream Risperdal 2-0 No 1mg 0.5 mg 5-17 tablet 00:00: 00 triamcinolo 2022-0 No 1% ne 5-17 acetonide 00:00: 0.1 % 00 topical cream Risperdal 2-0 No 1mg 0.5 mg 5-17 tablet 00:00: 00 Seroquel 2022-0 No 1mg 200 mg 5-05 tablet 00:00: 00 Dose 2022-0 No Unknown 5-05 00:00: 00 Seroquel 2022-0 No 1mg 200 mg 5-05 tablet 00:00: 00 Dose 2022-0 No Unknown 5-05 00:00: 00 Dose 2022-0 No Unknown 5-02 00:00: 00 Dose 2022-0 No Unknown 5-02 00:00: 00 Dose 2022-0 No Unknown 5-02 00:00: 00 Dose 2022-0 No Unknown 5-02 00:00: 00 Dose 2022-0 No Unknown 5-02 00:00: 00 Dose 2022-0 No Unknown 5-02 00:00: 00 Dose 2022-0 No Unknown 5-01 00:00: 00 Dose 2022-0 No Unknown 5-01 00:00: 00 Dose 2022-0 No Unknown 5-01 00:00: 00 Dose 2022-0 No Unknown 5-01 00:00: 00 Dose 2022-0 No Unknown 5-01 00:00: 00 Dose 2022-0 No Unknown 5- 00:00: 00 Dose 2022-0 No Unknown 5- 00:00: 00 Dose 2022-0 No Unknown 5- 00:00: 00 Dose 2022-0 No Unknown 5- 00:00: 00 Dose 2022-0 No Unknown 5- 00:00: 00 Seroquel 2022-0 No 1mg 100 mg 4-27 tablet 00:00: 00 Dose 2022-0 No Unknown 4-27 00:00: 00 Seroquel 2022-0 No 1mg 100 mg 4-27 tablet 00:00: 00 Dose 2022-0 No Unknown 4-27 00:00: 00 triamcinolo 2022-0 No 1% ne 4-26 acetonide 00:00: 0.1 % 00 topical cream ezetimibe 2-0 No 1mg 10 mg 4-26 tablet 00:00: 00 metformin 2022-0 No 1mg 500 mg 4-26 tablet 00:00: 00 lisinopril 2022-0 No 1mg 10 mg 4-26 tablet 00:00: 00 hydrochloro 2022-0 No 1mg thiazide 4-26 12.5 mg 00:00: capsule 00 Dose 2022-0 No Unknown 4-26 00:00: 00 Dose 2022-0 No Unknown 4-26 00:00: 00 Dose 2022-0 No Unknown 4-26 00:00: 00 Dose 2022-0 No Unknown 4-26 00:00: 00 Dose 2022-0 No Unknown 4-26 00:00: 00 Dose 2022-0 No Unknown 4-26 00:00: 00 Dose 2022-0 No Unknown 4-26 00:00: 00 Dose 2022-0 No Unknown 4-26 00:00: 00 Dose 2022-0 No Unknown 4-26 00:00: 00 Dose 2022-0 No Unknown 4-26 00:00: 00 Dose 2022-0 No Unknown 4-26 00:00: 00 Dose 2022-0 No Unknown 4-26 00:00: 00 Dose 2022-0 No Unknown 4-26 00:00: 00 Dose 2022-0 No Unknown 4-26 00:00: 00 Dose 2022-0 No Unknown 4-26 00:00: 00 Dose 2022-0 No Unknown 4- 00:00: 00 Dose 2022-0 No Unknown 4- 00:00: 00 Dose 2022-0 No Unknown 4- 00:00: 00 Dose 2022-0 No Unknown 4- 00:00: 00 Dose 2022-0 No Unknown 4- 00:00: 00 Dose 2022-0 No Unknown 4- 00:00: 00 Dose 2022-0 No Unknown 4- 00:00: 00 Dose 2022-0 No Unknown 4- 00:00: 00 Dose 2022-0 No Unknown 4- 00:00: 00 Dose 2022-0 No Unknown 4- 00:00: 00 Dose 2022-0 No Unknown 4- 00:00: 00 Dose 2022-0 No Unknown 4- 00:00: 00 Dose 2022-0 No Unknown 4- 00:00: 00 Dose 2022-0 No Unknown 4- 00:00: 00 Dose 2022-0 No Unknown 4- 00:00: 00 Dose 2022-0 No Unknown 4- 00:00: 00 Dose 2022-0 No Unknown 4- 00:00: 00 Dose 2022-0 No Unknown 4- 00:00: 00 Dose 2022-0 No Unknown 4- 00:00: 00 Dose 2022-0 No Unknown 4- 00:00: 00 Dose 2022-0 No Unknown 4- 00:00: 00 Dose 2022-0 No Unknown 4- 00:00: 00 Dose 2022-0 No Unknown 4- 00:00: 00 Dose 2022-0 No Unknown 4- 00:00: 00 Dose 2022-0 No Unknown 4- 00:00: 00 Dose 2022-0 No Unknown 4- 00:00: 00 Dose 2022-0 No Unknown 4- 00:00: 00 Dose 2022-0 No Unknown 4- 00:00: 00 Dose 2022-0 No Unknown 4- 00:00: 00 Dose 2022-0 No Unknown 4- 00:00: 00 Dose 2022-0 No Unknown 4- 00:00: 00 Dose 2022-0 No Unknown 4- 00:00: 00 Dose 2022-0 No Unknown 4- 00:00: 00 Dose 2022-0 No Unknown 4-26 00:00: 00 Dose 2022-0 No Unknown 4- 00:00: 00 Dose 2022-0 No Unknown 4- 00:00: 00 Dose 2022-0 No Unknown 4- 00:00: 00 Dose 2022-0 No Unknown 4- 00:00: 00 Dose 2022-0 No Unknown 4- 00:00: 00 Dose 2022-0 No Unknown 4- 00:00: 00 Dose 2022-0 No Unknown 4- 00:00: 00 Dose 2022-0 No Unknown 4- 00:00: 00 Dose 2022-0 No Unknown 4- 00:00: 00 Dose 2022-0 No Unknown 4- 00:00: 00 Dose 2022-0 No Unknown 4- 00:00: 00 Dose 2022-0 No Unknown 4- 00:00: 00 Dose 2022-0 No Unknown 4- 00:00: 00 Dose 2022-0 No Unknown 4- 00:00: 00 Dose 2022-0 No Unknown 4- 00:00: 00 Dose 2022-0 No Unknown 4- 00:00: 00 Dose 2022-0 No Unknown 4- 00:00: 00 Dose 2022-0 No Unknown 4- 00:00: 00 Dose 2022-0 No Unknown 4- 00:00: 00 Dose 2022-0 No Unknown 4- 00:00: 00 Dose 2022-0 No Unknown 4- 00:00: 00 Dose 2022-0 No Unknown 4- 00:00: 00 Dose 2022-0 No Unknown 4- 00:00: 00 Dose 2022-0 No Unknown 4- 00:00: 00 Dose 2022-0 No Unknown 4- 00:00: 00 Dose 2022-0 No Unknown 4- 00:00: 00 Dose 2022-0 No Unknown 4- 00:00: 00 Dose 2022-0 No Unknown 4- 00:00: 00 Dose 2022-0 No Unknown 4- 00:00: 00 Dose 2022-0 No Unknown 4- 00:00: 00 Dose 2022-0 No Unknown 4- 00:00: 00 Dose 2022-0 No Unknown 4- 00:00: 00 Dose 2022-0 No Unknown 4- 00:00: 00 Dose 2022-0 No Unknown 4- 00:00: 00 Dose 2022-0 No Unknown 4- 00:00: 00 Dose 2022-0 No Unknown 4- 00:00: 00 Dose 2022-0 No Unknown 4- 00:00: 00 Dose 2022-0 No Unknown 4- 00:00: 00 Dose 2022-0 No Unknown 4- 00:00: 00 Dose 2022-0 No Unknown 4- 00:00: 00 Dose 2022-0 No Unknown 4- 00:00: 00 Dose 2022-0 No Unknown 4- 00:00: 00 Dose 2022-0 No Unknown 4- 00:00: 00 Dose 2022-0 No Unknown 4- 00:00: 00 Dose 2022-0 No Unknown 4- 00:00: 00 Dose 2022-0 No Unknown 4- 00:00: 00 Dose 2022-0 No Unknown 4- 00:00: 00 Dose 2022-0 No Unknown 4- 00:00: 00 Dose 2022-0 No Unknown 4- 00:00: 00 Dose 2022-0 No Unknown 4- 00:00: 00 Dose 2022-0 No Unknown 4- 00:00: 00 Dose 2022-0 No Unknown 4- 00:00: 00 Dose 2022-0 No Unknown 4- 00:00: 00 Dose 2022-0 No Unknown 4- 00:00: 00 Dose 2022-0 No Unknown 4- 00:00: 00 Dose 2022-0 No Unknown 4- 00:00: 00 Dose 2022-0 No Unknown 4- 00:00: 00 Dose 2022-0 No Unknown 4- 00:00: 00 Dose 2022-0 No Unknown 4- 00:00: 00 Dose 2022-0 No Unknown 4- 00:00: 00 Dose 2022-0 No Unknown 4- 00:00: 00 Dose 2022-0 No Unknown 4- 00:00: 00 Dose 2022-0 No Unknown 4- 00:00: 00 Dose 2022-0 No Unknown 4- 00:00: 00 Dose 2022-0 No Unknown 4- 00:00: 00 Dose 2022-0 No Unknown 4- 00:00: 00 Dose 2022-0 No Unknown 4-26 00:00: 00 Dose 2022-0 No Unknown 4-26 00:00: 00 Dose 2022-0 No Unknown 4-26 00:00: 00 Dose 2022-0 No Unknown 4-26 00:00: 00 Dose 2022-0 No Unknown 4-26 00:00: 00 triamcinolo 2022-0 No 1% ne 4-26 acetonide 00:00: 0.1 % 00 topical cream ezetimibe 2-0 No 1mg 10 mg 4-26 tablet 00:00: 00 metformin 2022-0 No 1mg 500 mg 4-26 tablet 00:00: 00 lisinopril 2022-0 No 1mg 10 mg 4-26 tablet 00:00: 00 hydrochloro 2022-0 No 1mg thiazide 26 12.5 mg 00:00: capsule 00 Dose 2022-0 No Unknown 4- 00:00: 00 Dose 2022-0 No Unknown 4-26 00:00: 00 Dose 2022-0 No Unknown 4-26 00:00: 00 Dose 2022-0 No Unknown 4-26 00:00: 00 Dose 2022-0 No Unknown 4- 00:00: 00 Dose 2022-0 No Unknown 4-26 00:00: 00 Dose 2022-0 No Unknown 4-26 00:00: 00 Dose 2022-0 No Unknown 4-26 00:00: 00 Dose 2022-0 No Unknown 4- 00:00: 00 Dose 2022-0 No Unknown 4-26 00:00: 00 Dose 2022-0 No Unknown 4-26 00:00: 00 Dose 2022-0 No Unknown 4-26 00:00: 00 Dose 2022-0 No Unknown 4-26 00:00: 00 Dose 2022-0 No Unknown 4-26 00:00: 00 Dose 2022-0 No Unknown 4-26 00:00: 00 Dose 2022-0 No Unknown 4-26 00:00: 00 Dose 2022-0 No Unknown 4-26 00:00: 00 Dose 2022-0 No Unknown 4-26 00:00: 00 Dose 2022-0 No Unknown 4-26 00:00: 00 Dose 2022-0 No Unknown 4-26 00:00: 00 Dose 2022-0 No Unknown 4-26 00:00: 00 Dose 2022-0 No Unknown 4- 00:00: 00 Dose 2022-0 No Unknown 4- 00:00: 00 Dose 2022-0 No Unknown 4- 00:00: 00 Dose 2022-0 No Unknown 4- 00:00: 00 Dose 2022-0 No Unknown 4- 00:00: 00 Dose 2022-0 No Unknown 4- 00:00: 00 Dose 2022-0 No Unknown 4- 00:00: 00 Dose 2022-0 No Unknown 4- 00:00: 00 Dose 2022-0 No Unknown 4- 00:00: 00 Dose 2022-0 No Unknown 4- 00:00: 00 Dose 2022-0 No Unknown 4- 00:00: 00 Dose 2022-0 No Unknown 4- 00:00: 00 Dose 2022-0 No Unknown 4- 00:00: 00 Dose 2022-0 No Unknown 4- 00:00: 00 Dose 2022-0 No Unknown 4- 00:00: 00 Dose 2022-0 No Unknown 4- 00:00: 00 Dose 2022-0 No Unknown 4- 00:00: 00 Dose 2022-0 No Unknown 4- 00:00: 00 Dose 2022-0 No Unknown 4- 00:00: 00 Dose 2022-0 No Unknown 4- 00:00: 00 Dose 2022-0 No Unknown 4- 00:00: 00 Dose 2022-0 No Unknown 4- 00:00: 00 Dose 2022-0 No Unknown 4- 00:00: 00 Dose 2022-0 No Unknown 4- 00:00: 00 Dose 2022-0 No Unknown 4- 00:00: 00 Dose 2022-0 No Unknown 4- 00:00: 00 Dose 2022-0 No Unknown 4- 00:00: 00 Dose 2022-0 No Unknown 4- 00:00: 00 Dose 2022-0 No Unknown 4- 00:00: 00 Dose 2022-0 No Unknown 4- 00:00: 00 Dose 2022-0 No Unknown 4- 00:00: 00 Dose 2022-0 No Unknown 4- 00:00: 00 Dose 2022-0 No Unknown 4- 00:00: 00 Dose 2022-0 No Unknown 4- 00:00: 00 Dose 2022-0 No Unknown 4- 00:00: 00 Dose 2022-0 No Unknown 4- 00:00: 00 Dose 2022-0 No Unknown 4- 00:00: 00 Dose 2022-0 No Unknown 4- 00:00: 00 Dose 2022-0 No Unknown 4- 00:00: 00 Dose 2022-0 No Unknown 4- 00:00: 00 Dose 2022-0 No Unknown 4- 00:00: 00 Dose 2022-0 No Unknown 4- 00:00: 00 Dose 2022-0 No Unknown 4- 00:00: 00 Dose 2022-0 No Unknown 4- 00:00: 00 Dose 2022-0 No Unknown 4- 00:00: 00 Dose 2022-0 No Unknown 4- 00:00: 00 Dose 2022-0 No Unknown 4- 00:00: 00 Dose 2022-0 No Unknown 4- 00:00: 00 Dose 2022-0 No Unknown 4- 00:00: 00 Dose 2022-0 No Unknown 4- 00:00: 00 Dose 2022-0 No Unknown 4- 00:00: 00 Dose 2022-0 No Unknown 4- 00:00: 00 Dose 2022-0 No Unknown 4- 00:00: 00 Dose 2022-0 No Unknown 4- 00:00: 00 Dose 2022-0 No Unknown 4- 00:00: 00 Dose 2022-0 No Unknown 4- 00:00: 00 Dose 2022-0 No Unknown 4- 00:00: 00 Dose 2022-0 No Unknown 4- 00:00: 00 Dose 2022-0 No Unknown 4- 00:00: 00 Dose 2022-0 No Unknown 4- 00:00: 00 Dose 2022-0 No Unknown 4- 00:00: 00 Dose 2022-0 No Unknown 4- 00:00: 00 Dose 2022-0 No Unknown 4- 00:00: 00 Dose 2022-0 No Unknown 4- 00:00: 00 Dose 2022-0 No Unknown 4- 00:00: 00 Dose 2022-0 No Unknown 4- 00:00: 00 Dose 2022-0 No Unknown 4-26 00:00: 00 Dose 2022-0 No Unknown 4-26 00:00: 00 Dose 2022-0 No Unknown 4-26 00:00: 00 Dose 2022-0 No Unknown 4- 00:00: 00 Dose 2022-0 No Unknown 4- 00:00: 00 Dose 2022-0 No Unknown 4- 00:00: 00 Dose 2022-0 No Unknown 4- 00:00: 00 Dose 2022-0 No Unknown 4- 00:00: 00 Dose 2022-0 No Unknown 4- 00:00: 00 Dose 2022-0 No Unknown 4- 00:00: 00 Dose 2022-0 No Unknown 4- 00:00: 00 Dose 2022-0 No Unknown 4- 00:00: 00 Dose 2022-0 No Unknown 4- 00:00: 00 Dose 2022-0 No Unknown 4- 00:00: 00 Dose 2022-0 No Unknown 4- 00:00: 00 Dose 2022-0 No Unknown 4- 00:00: 00 Dose 2022-0 No Unknown 4- 00:00: 00 Dose 2022-0 No Unknown 4- 00:00: 00 Dose 2022-0 No Unknown 4- 00:00: 00 Dose 2022-0 No Unknown 4- 00:00: 00 Dose 2022-0 No Unknown 4- 00:00: 00 Dose 2022-0 No Unknown 4- 00:00: 00 Dose 2022-0 No Unknown 4- 00:00: 00 Dose 2022-0 No Unknown 4- 00:00: 00 Dose 2022-0 No Unknown 4- 00:00: 00 Dose 2022-0 No Unknown 4- 00:00: 00 Dose 2022-0 No Unknown 4- 00:00: 00 Dose 2022-0 No Unknown 4-26 00:00: 00 Dose 2022-0 No Unknown 4-26 00:00: 00 Dose 2022-0 No Unknown 4- 00:00: 00 Dose 2022-0 No Unknown 4- 00:00: 00 Dose 2022-0 No Unknown 4-26 00:00: 00 Dose 2022-0 No Unknown 4-26 00:00: 00 tamsulosin 2022-0 No 1mg 0.4 mg 4-02 capsule 00:00: 00 tamsulosin 2022-0 No 1mg 0.4 mg 4-02 capsule 00:00: 00 Dose 2022-0 No Unknown 3-24 00:00: 00 Dose 2022-0 No Unknown 3-24 00:00: 00 Dose 2022-0 No Unknown 3-24 00:00: 00 Dose 2022-0 No Unknown 3-24 00:00: 00 Dose 2022-0 No Unknown 3-23 00:00: 00 Dose 2022-0 No Unknown 3-23 00:00: 00 Dose 2022-0 No Unknown 3-23 00:00: 00 Dose 2022-0 No Unknown 3-23 00:00: 00 Dose 2-0 No Unknown 3-19 00:00: 00 Dose 2-0 No Unknown 3-19 00:00: 00 Dose 2022-0 No Unknown 3-19 00:00: 00 Dose 2022-0 No Unknown 3-19 00:00: 00 Dose 2-0 No Unknown 3-19 00:00: 00 Dose 2-0 No Unknown 3-19 00:00: 00 Dose 2022-0 No Unknown 3-19 00:00: 00 Dose 2022-0 No Unknown 3-19 00:00: 00 Dose 2-0 No Unknown 3-19 00:00: 00 Dose 2-0 No Unknown 3-19 00:00: 00 Dose 2022-0 No Unknown 3-19 00:00: 00 Dose 2022-0 No Unknown 3-19 00:00: 00 Dose 2022-0 No Unknown 3-19 00:00: 00 Dose 2022-0 No Unknown 3-19 00:00: 00 Dose 2022-0 No Unknown 3-19 00:00: 00 Dose 2022-0 No Unknown 3-19 00:00: 00 Dose 2022-0 No Unknown 3-19 00:00: 00 Dose 2022-0 No Unknown 3-19 00:00: 00 Dose 2022-0 No Unknown 3-19 00:00: 00 Dose 2022-0 No Unknown 3-19 00:00: 00 Dose 2022-0 No Unknown 3-19 00:00: 00 Dose 2022-0 No Unknown 3-19 00:00: 00 Dose 2022-0 No Unknown 3-19 00:00: 00 Dose 2022-0 No Unknown 3-19 00:00: 00 Dose 2022-0 No Unknown 3-19 00:00: 00 Dose 2022-0 No Unknown 3-19 00:00: 00 Dose 2022-0 No Unknown 3-19 00:00: 00 Dose 2022-0 No Unknown 3-19 00:00: 00 Dose 2022-0 No Unknown 3-19 00:00: 00 Dose 2022-0 No Unknown 3-19 00:00: 00 Dose 2022-0 No Unknown 3-19 00:00: 00 Dose 2022-0 No Unknown 3-19 00:00: 00 Dose 2022-0 No Unknown 3-19 00:00: 00 Dose 2022-0 No Unknown 3-19 00:00: 00 Dose 2022-0 No Unknown 3-19 00:00: 00 Dose 2022-0 No Unknown 3-19 00:00: 00 Dose 2022-0 No Unknown 3-19 00:00: 00 Dose 2022-0 No Unknown 3-19 00:00: 00 Dose 2022-0 No Unknown 3-19 00:00: 00 Dose 2022-0 No Unknown 3-19 00:00: 00 Dose 2022-0 No Unknown 3-19 00:00: 00 Dose 2022-0 No Unknown 3-19 00:00: 00 Dose 2022-0 No Unknown 3-19 00:00: 00 Dose 2022-0 No Unknown 3-19 00:00: 00 Dose 2022-0 No Unknown 3-19 00:00: 00 Dose 2022-0 No Unknown 3-19 00:00: 00 Dose 2022-0 No Unknown 3-19 00:00: 00 Dose 2022-0 No Unknown 3-19 00:00: 00 Dose 2022-0 No Unknown 3-19 00:00: 00 Dose 2022-0 No Unknown 3-19 00:00: 00 Dose 2022-0 No Unknown 3-19 00:00: 00 Dose 2022-0 No Unknown 3-19 00:00: 00 Dose 2022-0 No Unknown 3-19 00:00: 00 Dose 2022-0 No Unknown 3-19 00:00: 00 Dose 2022-0 No Unknown 3-19 00:00: 00 Dose 2022-0 No Unknown 3-19 00:00: 00 Dose 2022-0 No Unknown 3-19 00:00: 00 Dose 2022-0 No Unknown 3-19 00:00: 00 Dose 2022-0 No Unknown 3-19 00:00: 00 Dose 2022-0 No Unknown 3-19 00:00: 00 Dose 2022-0 No Unknown 3-19 00:00: 00 Dose 2022-0 No Unknown 3-19 00:00: 00 Dose 2022-0 No Unknown 3-19 00:00: 00 Dose 2022-0 No Unknown 3-19 00:00: 00 Dose 2022-0 No Unknown 3-19 00:00: 00 Dose 2022-0 No Unknown 3-19 00:00: 00 Dose 2022-0 No Unknown 3-19 00:00: 00 Dose 2022-0 No Unknown 3-19 00:00: 00 Dose 2022-0 No Unknown 3-19 00:00: 00 Dose 2022-0 No Unknown 3-19 00:00: 00 Dose 2022-0 No Unknown 3-19 00:00: 00 Dose 2022-0 No Unknown 3-19 00:00: 00 Dose 2022-0 No Unknown 3-19 00:00: 00 Dose 2022-0 No Unknown 3-19 00:00: 00 Dose 2022-0 No Unknown 3-19 00:00: 00 Dose 2022-0 No Unknown 3-19 00:00: 00 Dose 2022-0 No Unknown 3-19 00:00: 00 Dose 2022-0 No Unknown 3-19 00:00: 00 Dose 2022-0 No Unknown 3-19 00:00: 00 Dose 2022-0 No Unknown 3-19 00:00: 00 Dose 2022-0 No Unknown 3-19 00:00: 00 Dose 2022-0 No Unknown 3-19 00:00: 00 Dose 2022-0 No Unknown 3-19 00:00: 00 Dose 2022-0 No Unknown 3-19 00:00: 00 Dose 2022-0 No Unknown 3-19 00:00: 00 Dose 2022-0 No Unknown 3-19 00:00: 00 Dose 2022-0 No Unknown 3-19 00:00: 00 Dose 2022-0 No Unknown 3-19 00:00: 00 Dose 2022-0 No Unknown 3-19 00:00: 00 Dose 2022-0 No Unknown 3-19 00:00: 00 Dose 2022-0 No Unknown 3-19 00:00: 00 Dose 2022-0 No Unknown 3-19 00:00: 00 metformin 2022-0 No 1mg 500 mg 3-19 tablet 00:00: 00 hydroxyzine 2022-0 No 1mg HCl 25 mg 3-19 tablet 00:00: 00 Dose 2022-0 No Unknown 3-19 00:00: 00 hydrochloro 2022-0 No 1mg thiazide 3-19 12.5 mg 00:00: capsule 00 Dose 2022-0 No Unknown 3-19 00:00: 00 Dose 2022-0 No Unknown 3-19 00:00: 00 Dose 2022-0 No Unknown 3-19 00:00: 00 Dose 2022-0 No Unknown 3-19 00:00: 00 Dose 2022-0 No Unknown 3-19 00:00: 00 Dose 2022-0 No Unknown 3-19 00:00: 00 metformin 2022-0 No 1mg 500 mg 3-19 tablet 00:00: 00 hydroxyzine 2022-0 No 1mg HCl 25 mg 3-19 tablet 00:00: 00 Dose 2022-0 No Unknown 3-19 00:00: 00 hydrochloro 2022-0 No 1mg thiazide 3-19 12.5 mg 00:00: capsule 00 Dose 2022-0 No Unknown 3-19 00:00: 00 Dose 2022-0 No Unknown 3-19 00:00: 00 Dose 2022-0 No Unknown 3-19 00:00: 00 Dose 2022-0 No Unknown 3-19 00:00: 00 Dose 2022-0 No Unknown 3-19 00:00: 00 Dose 2022-0 No Unknown 3-19 00:00: 00 Dose 2022-0 No Unknown 3-19 00:00: 00 Dose 2022-0 No Unknown 3-19 00:00: 00 Dose 2022-0 No Unknown 3-19 00:00: 00 Dose 2022-0 No Unknown 3-19 00:00: 00 Dose 2022-0 No Unknown 3-19 00:00: 00 Dose 2022-0 No Unknown 3-19 00:00: 00 Dose 2022-0 No Unknown 3-19 00:00: 00 Dose 2022-0 No Unknown 3-19 00:00: 00 Dose 2022-0 No Unknown 3-19 00:00: 00 Dose 2022-0 No Unknown 3-19 00:00: 00 Dose 2022-0 No Unknown 3-19 00:00: 00 Dose 2022-0 No Unknown 3-19 00:00: 00 Dose 2022-0 No Unknown 3-19 00:00: 00 Dose 2022-0 No Unknown 3-19 00:00: 00 Dose 2022-0 No Unknown 3-19 00:00: 00 Dose 2022-0 No Unknown 3-19 00:00: 00 Dose 2022-0 No Unknown 3-19 00:00: 00 Dose 2022-0 No Unknown 3-19 00:00: 00 Dose 2022-0 No Unknown 3-19 00:00: 00 Dose 2022-0 No Unknown 3-19 00:00: 00 Dose 2022-0 No Unknown 3-19 00:00: 00 Dose 2022-0 No Unknown 3-19 00:00: 00 Dose 2022-0 No Unknown 3-19 00:00: 00 Dose 2022-0 No Unknown 3-19 00:00: 00 Dose 2022-0 No Unknown 3-19 00:00: 00 Dose 2022-0 No Unknown 3-19 00:00: 00 Dose 2022-0 No Unknown 3-19 00:00: 00 Dose 2022-0 No Unknown 3-19 00:00: 00 Dose 2022-0 No Unknown 3-19 00:00: 00 Dose 2022-0 No Unknown 3-19 00:00: 00 Dose 2022-0 No Unknown 3-19 00:00: 00 Dose 2022-0 No Unknown 3-19 00:00: 00 Dose 2022-0 No Unknown 3-19 00:00: 00 Dose 2022-0 No Unknown 3-19 00:00: 00 Dose 2022-0 No Unknown 3-19 00:00: 00 Dose 2022-0 No Unknown 3-19 00:00: 00 Dose 2022-0 No Unknown 3-19 00:00: 00 Dose 2022-0 No Unknown 3-19 00:00: 00 Dose 2022-0 No Unknown 3-19 00:00: 00 Dose 2022-0 No Unknown 3-19 00:00: 00 Dose 2022-0 No Unknown 3-19 00:00: 00 Dose 2022-0 No Unknown 3-19 00:00: 00 Dose 2022-0 No Unknown 3-19 00:00: 00 Dose 2022-0 No Unknown 3-19 00:00: 00 Dose 2022-0 No Unknown 3-19 00:00: 00 Dose 2022-0 No Unknown 3-19 00:00: 00 Dose 2022-0 No Unknown 3-19 00:00: 00 Dose 2022-0 No Unknown 3-19 00:00: 00 Dose 2022-0 No Unknown 3-19 00:00: 00 Dose 2022-0 No Unknown 3-19 00:00: 00 Dose 2022-0 No Unknown 3-19 00:00: 00 Dose 2022-0 No Unknown 3-19 00:00: 00 Dose 2022-0 No Unknown 3-19 00:00: 00 Dose 2022-0 No Unknown 3-19 00:00: 00 Dose 2022-0 No Unknown 3-19 00:00: 00 Dose 2022-0 No Unknown 3-19 00:00: 00 Dose 2022-0 No Unknown 3-19 00:00: 00 Dose 2022-0 No Unknown 3-19 00:00: 00 Dose 2022-0 No Unknown 3-19 00:00: 00 Dose 2022-0 No Unknown 3-19 00:00: 00 Dose 2022-0 No Unknown 3-19 00:00: 00 Dose 2022-0 No Unknown 3-19 00:00: 00 Dose 2022-0 No Unknown 3-19 00:00: 00 Dose 2022-0 No Unknown 3-19 00:00: 00 Dose 2022-0 No Unknown 3-19 00:00: 00 Dose 2022-0 No Unknown 3-19 00:00: 00 Dose 2022-0 No Unknown 3-19 00:00: 00 Dose 2022-0 No Unknown 3-19 00:00: 00 Dose 2022-0 No Unknown 3-19 00:00: 00 Dose 2022-0 No Unknown 3-19 00:00: 00 Dose 2022-0 No Unknown 3-19 00:00: 00 Dose 2022-0 No Unknown 3-19 00:00: 00 Dose 2022-0 No Unknown 3-19 00:00: 00 Dose 2022-0 No Unknown 3-19 00:00: 00 Dose 2022-0 No Unknown 3-19 00:00: 00 Dose 2022-0 No Unknown 3-19 00:00: 00 Dose 2022-0 No Unknown 3-19 00:00: 00 Dose 2022-0 No Unknown 3-19 00:00: 00 Dose 2022-0 No Unknown 3-19 00:00: 00 Dose 2022-0 No Unknown 3-19 00:00: 00 Dose 2022-0 No Unknown 3-19 00:00: 00 Dose 2022-0 No Unknown 3-19 00:00: 00 Dose 2022-0 No Unknown 3-19 00:00: 00 Dose 2022-0 No Unknown 3-19 00:00: 00 Dose 2022-0 No Unknown 3-19 00:00: 00 Dose 2022-0 No Unknown 3-19 00:00: 00 Dose 2022-0 No Unknown 3-19 00:00: 00 Dose 2022-0 No Unknown 3-19 00:00: 00 Dose 2022-0 No Unknown 3-19 00:00: 00 Dose 2022-0 No Unknown 3-19 00:00: 00 Dose 2022-0 No Unknown 3-19 00:00: 00 Dose 2022-0 No Unknown 3-19 00:00: 00 Dose 2022-0 No Unknown 3-19 00:00: 00 Dose 2022-0 No Unknown 3-19 00:00: 00 Dose 2022-0 No Unknown 3-19 00:00: 00 Dose 2022-0 No Unknown 3-19 00:00: 00 Dose 2022-0 No Unknown 3-19 00:00: 00 Dose 2022-0 No Unknown 3-19 00:00: 00 Dose 2022-0 No Unknown 3-19 00:00: 00 Dose 2022-0 No Unknown 3-19 00:00: 00 Dose 2022-0 No Unknown 3-19 00:00: 00 Dose 2022-0 No Unknown 3-19 00:00: 00 Dose 2022-0 No Unknown 3-19 00:00: 00 Dose 2022-0 No Unknown 3-19 00:00: 00 Dose 2022-0 No Unknown 3-19 00:00: 00 Dose 2022-0 No Unknown 3-19 00:00: 00 Dose 2022-0 No Unknown 3-19 00:00: 00 Dose 2022-0 No Unknown 3-19 00:00: 00 Dose 2022-0 No Unknown 3-19 00:00: 00 Dose 2022-0 No Unknown 3-19 00:00: 00 Dose 2022-0 No Unknown 3-19 00:00: 00 Dose 2022-0 No Unknown 3-19 00:00: 00 Dose 2022-0 No Unknown 3-19 00:00: 00 Dose 2022-0 No Unknown 3-19 00:00: 00 Dose 2022-0 No Unknown 3-19 00:00: 00 Dose 2022-0 No Unknown 3-19 00:00: 00 Dose 2022-0 No Unknown 3-19 00:00: 00 Dose 2022-0 No Unknown 3-19 00:00: 00 Dose 2022-0 No Unknown 3-19 00:00: 00 Dose 2022-0 No Unknown 3-19 00:00: 00 Dose 2022-0 No Unknown 3-19 00:00: 00 Dose 2022-0 No Unknown 3-19 00:00: 00 Dose 2022-0 No Unknown 3-19 00:00: 00 Dose 2022-0 No Unknown 3-19 00:00: 00 Dose 2022-0 No Unknown 3-19 00:00: 00 Dose 2022-0 No Unknown 3-19 00:00: 00 Dose 2022-0 No Unknown 3-19 00:00: 00 Dose 2022-0 No Unknown 3-19 00:00: 00 Dose 2022-0 No Unknown 3-19 00:00: 00 Dose 2022-0 No Unknown 3-19 00:00: 00 Dose 2022-0 No Unknown 3-19 00:00: 00 Dose 2022-0 No Unknown 3-19 00:00: 00 Dose 2022-0 No Unknown 3-19 00:00: 00 Dose 2022-0 No Unknown 3-19 00:00: 00 Dose 2022-0 No Unknown 3-19 00:00: 00 Dose 2022-0 No Unknown 3-19 00:00: 00 Dose 2022-0 No Unknown 3-19 00:00: 00 Dose 2022-0 No Unknown 3-19 00:00: 00 Dose 2022-0 No Unknown 3-19 00:00: 00 Dose 2022-0 No Unknown 3-19 00:00: 00 Dose 2022-0 No Unknown 3-19 00:00: 00 Dose 2022-0 No Unknown 3-19 00:00: 00 Dose 2022-0 No Unknown 3-19 00:00: 00 Dose 2022-0 No Unknown 3-19 00:00: 00 Dose 2022-0 No Unknown 3-19 00:00: 00 Dose 2022-0 No Unknown 3-19 00:00: 00 Dose 2022-0 No Unknown 3-19 00:00: 00 Dose 2022-0 No Unknown 3-19 00:00: 00 Dose 2022-0 No Unknown 3-19 00:00: 00 Dose 2022-0 No Unknown 3-19 00:00: 00 Dose 2022-0 No Unknown 3-19 00:00: 00 Dose 2022-0 No Unknown 3-19 00:00: 00 Dose 2022-0 No Unknown 3-19 00:00: 00 Dose 2022-0 No Unknown 3-19 00:00: 00 Dose 2022-0 No Unknown 3-19 00:00: 00 Dose 2022-0 No Unknown 3-19 00:00: 00 Dose 2022-0 No Unknown 3-19 00:00: 00 Dose 2022-0 No Unknown 3-19 00:00: 00 Dose 2022-0 No Unknown 3-19 00:00: 00 Dose 2022-0 No Unknown 3-19 00:00: 00 Dose 2022-0 No Unknown 3-19 00:00: 00 Dose 2022-0 No Unknown 3-19 00:00: 00 Dose 2022-0 No Unknown 3-19 00:00: 00 Dose 2022-0 No Unknown 3-19 00:00: 00 Dose 2022-0 No Unknown 3-19 00:00: 00 Dose 2022-0 No Unknown 3-19 00:00: 00 Dose 2022-0 No Unknown 3-19 00:00: 00 Dose 2022-0 No Unknown 3-19 00:00: 00 Dose 2022-0 No Unknown 3-19 00:00: 00 Dose 2022-0 No Unknown 3-19 00:00: 00 Dose 2022-0 No Unknown 3-19 00:00: 00 Dose 2022-0 No Unknown 3-19 00:00: 00 Dose 2022-0 No Unknown 3-19 00:00: 00 Dose 2022-0 No Unknown 3-19 00:00: 00 Dose 2022-0 No Unknown 3-19 00:00: 00 Dose 2022-0 No Unknown 3-19 00:00: 00 Dose 2022-0 No Unknown 3-19 00:00: 00 Dose 2022-0 No Unknown 3-19 00:00: 00 Dose 2022-0 No Unknown 3-19 00:00: 00 Dose 2022-0 No Unknown 3-19 00:00: 00 Dose 2022-0 No Unknown 3-19 00:00: 00 Dose 2022-0 No Unknown 3-19 00:00: 00 Dose 2022-0 No Unknown 3-19 00:00: 00 Dose 2022-0 No Unknown 3-19 00:00: 00 Dose 2022-0 No Unknown 3-19 00:00: 00 Dose 2022-0 No Unknown 3-19 00:00: 00 Dose 2022-0 No Unknown 3-19 00:00: 00 Dose 2022-0 No Unknown 3-19 00:00: 00 Dose 2022-0 No Unknown 3-19 00:00: 00 Dose 2022-0 No Unknown 3-19 00:00: 00 Dose 2022-0 No Unknown 3-19 00:00: 00 Dose 2022-0 No Unknown 3-19 00:00: 00 Dose 2022-0 No Unknown 3-19 00:00: 00 Dose 2022-0 No Unknown 3-19 00:00: 00 Dose 2022-0 No Unknown 3-19 00:00: 00 Dose 2022-0 No Unknown 3-19 00:00: 00 Dose 2022-0 No Unknown 3-19 00:00: 00 Dose 2022-0 No Unknown 3-19 00:00: 00 Dose 2022-0 No Unknown 3-19 00:00: 00 Dose 2022-0 No Unknown 3-19 00:00: 00 Dose 2022-0 No Unknown 3-19 00:00: 00 Dose 2022-0 No Unknown 3-19 00:00: 00 Dose 2022-0 No Unknown 3-19 00:00: 00 Dose 2022-0 No Unknown 3-19 00:00: 00 Dose 2022-0 No Unknown 3-19 00:00: 00 Dose 2022-0 No Unknown 3-19 00:00: 00 Dose 2022-0 No Unknown 3-19 00:00: 00 Dose 2022-0 No Unknown 3-19 00:00: 00 Dose 2022-0 No Unknown 3-19 00:00: 00 Dose 2022-0 No Unknown 3-19 00:00: 00 Dose 2022-0 No Unknown 3-19 00:00: 00 Dose 2022-0 No Unknown 3-19 00:00: 00 Dose 2022-0 No Unknown 3-19 00:00: 00 Dose 2022-0 No Unknown 3-19 00:00: 00 Dose 2022-0 No Unknown 3-19 00:00: 00 Dose 2022-0 No Unknown 3-19 00:00: 00 Dose 2022-0 No Unknown 3-19 00:00: 00 Dose 2022-0 No Unknown 3-19 00:00: 00 Dose 2022-0 No Unknown 3-19 00:00: 00 Dose 2022-0 No Unknown 3-19 00:00: 00 Dose 2022-0 No Unknown 3-19 00:00: 00 Dose 2022-0 No Unknown 3-19 00:00: 00 Dose 2022-0 No Unknown 3-19 00:00: 00 Dose 2022-0 No Unknown 3-19 00:00: 00 Dose 2022-0 No Unknown 3-19 00:00: 00 Dose 2022-0 No Unknown 3-19 00:00: 00 Dose 2022-0 No Unknown 3-19 00:00: 00 Dose 2022-0 No Unknown 3-19 00:00: 00 Dose 2022-0 No Unknown 3-19 00:00: 00 Dose 2022-0 No Unknown 3-19 00:00: 00 Dose 2022-0 No Unknown 3-19 00:00: 00 Dose 2022-0 No Unknown 3-19 00:00: 00 Dose 2022-0 No Unknown 3-19 00:00: 00 Dose 2022-0 No Unknown 3-19 00:00: 00 Dose 2022-0 No Unknown 3-19 00:00: 00 Dose 2022-0 No Unknown 3-19 00:00: 00 Dose 2022-0 No Unknown 3-19 00:00: 00 Dose 2022-0 No Unknown 3-19 00:00: 00 Dose 2022-0 No Unknown 3-19 00:00: 00 Dose 2022-0 No Unknown 3-19 00:00: 00 Dose 2022-0 No Unknown 3-19 00:00: 00 Dose 2022-0 No Unknown 3-19 00:00: 00 Dose 2022-0 No Unknown 3-19 00:00: 00 Dose 2022-0 No Unknown 3-19 00:00: 00 Dose 2022-0 No Unknown 3-19 00:00: 00 Dose 2022-0 No Unknown 3-19 00:00: 00 Dose 2022-0 No Unknown 3-19 00:00: 00 Dose 2022-0 No Unknown 3-19 00:00: 00 Dose 2022-0 No Unknown 3-19 00:00: 00 Dose 2022-0 No Unknown 3-19 00:00: 00 Dose 2022-0 No Unknown 3-19 00:00: 00 Dose 2022-0 No Unknown 3-19 00:00: 00 Dose 2022-0 No Unknown 3-19 00:00: 00 Dose 2022-0 No Unknown 3-19 00:00: 00 Dose 2022-0 No Unknown 3-19 00:00: 00 Dose 2022-0 No Unknown 3-19 00:00: 00 Dose 2022-0 No Unknown 3-19 00:00: 00 Dose 2022-0 No Unknown 3-19 00:00: 00 Dose 2022-0 No Unknown 3-19 00:00: 00 Dose 2022-0 No Unknown 3-19 00:00: 00 Dose 2022-0 No Unknown 3-19 00:00: 00 Dose 2022-0 No Unknown 3-19 00:00: 00 Dose 2022-0 No Unknown 3-19 00:00: 00 Dose 2022-0 No Unknown 3-19 00:00: 00 Dose 2022-0 No Unknown 3-19 00:00: 00 Dose 2022-0 No Unknown 3-19 00:00: 00 Dose 2022-0 No Unknown 3-19 00:00: 00 Dose 2022-0 No Unknown 3-19 00:00: 00 Dose 2022-0 No Unknown 3-19 00:00: 00 Dose 2022-0 No Unknown 3-19 00:00: 00 Dose 2022-0 No Unknown 3-19 00:00: 00 Dose 2022-0 No Unknown 3-19 00:00: 00 Dose 2022-0 No Unknown 3-19 00:00: 00 Dose 2022-0 No Unknown 3-19 00:00: 00 Dose 2022-0 No Unknown 3-19 00:00: 00 Dose 2022-0 No Unknown 3-19 00:00: 00 Dose 2022-0 No Unknown 3-19 00:00: 00 Dose 2022-0 No Unknown 3-19 00:00: 00 Dose 2022-0 No Unknown 3-19 00:00: 00 Dose 2022-0 No Unknown 3-19 00:00: 00 Dose 2022-0 No Unknown 3-19 00:00: 00 Dose 2022-0 No Unknown 3-19 00:00: 00 Dose 2022-0 No Unknown 3-19 00:00: 00 Dose 2022-0 No Unknown 3-19 00:00: 00 Dose 2022-0 No Unknown 3-19 00:00: 00 Dose 2022-0 No Unknown 3-19 00:00: 00 Dose 2022-0 No Unknown 3-19 00:00: 00 Dose 2022-0 No Unknown 3-19 00:00: 00 Dose 2022-0 No Unknown 3-19 00:00: 00 Dose 2022-0 No Unknown 3-19 00:00: 00 Dose 2022-0 No Unknown 3-19 00:00: 00 Dose 2022-0 No Unknown 3-19 00:00: 00 Dose 2022-0 No Unknown 3-19 00:00: 00 Dose 2022-0 No Unknown 3-19 00:00: 00 Dose 2022-0 No Unknown 3-19 00:00: 00 Dose 2022-0 No Unknown 3-19 00:00: 00 Dose 2022-0 No Unknown 3-19 00:00: 00 Dose 2022-0 No Unknown 3-19 00:00: 00 Dose 2022-0 No Unknown 3-19 00:00: 00 Dose 2022-0 No Unknown 3-19 00:00: 00 Dose 2022-0 No Unknown 3-19 00:00: 00 Dose 2022-0 No Unknown 3-19 00:00: 00 Dose 2022-0 No Unknown 3-19 00:00: 00 Dose 2022-0 No Unknown 3-19 00:00: 00 Dose 2022-0 No Unknown 3-19 00:00: 00 Dose 2022-0 No Unknown 3-19 00:00: 00 Dose 2022-0 No Unknown 3-19 00:00: 00 Dose 2022-0 No Unknown 3-19 00:00: 00 Dose 2022-0 No Unknown 3-19 00:00: 00 Dose 2022-0 No Unknown 3-19 00:00: 00 Dose 2022-0 No Unknown 3-19 00:00: 00 Dose 2022-0 No Unknown 3-19 00:00: 00 Dose 2022-0 No Unknown 3-19 00:00: 00 Dose 2022-0 No Unknown 3-19 00:00: 00 Dose 2022-0 No Unknown 3-19 00:00: 00 Dose 2022-0 No Unknown 3-19 00:00: 00 Dose 2022-0 No Unknown 3-19 00:00: 00 Dose 2022-0 No Unknown 3-19 00:00: 00 Dose 2022-0 No Unknown 3-19 00:00: 00 Dose 2022-0 No Unknown 3-19 00:00: 00 Dose 2022-0 No Unknown 3-19 00:00: 00 Dose 2022-0 No Unknown 3-19 00:00: 00 Dose 2022-0 No Unknown 3-19 00:00: 00 Dose 2022-0 No Unknown 3-19 00:00: 00 Dose 2022-0 No Unknown 3-19 00:00: 00 Dose 2022-0 No Unknown 3-19 00:00: 00 Dose 2022-0 No Unknown 3-19 00:00: 00 Dose 2022-0 No Unknown 3-19 00:00: 00 Dose 2022-0 No Unknown 3-19 00:00: 00 Dose 2022-0 No Unknown 3-19 00:00: 00 Dose 2022-0 No Unknown 3-19 00:00: 00 Dose 2022-0 No Unknown 3-19 00:00: 00 Dose 2022-0 No Unknown 3-19 00:00: 00 Dose 2022-0 No Unknown 3-19 00:00: 00 Dose 2022-0 No Unknown 3-19 00:00: 00 Dose 2022-0 No Unknown 3-19 00:00: 00 Dose 2022-0 No Unknown 3-19 00:00: 00 Dose 2022-0 No Unknown 3-19 00:00: 00 Dose 2022-0 No Unknown 3-19 00:00: 00 Dose 2022-0 No Unknown 3-19 00:00: 00 Dose 2022-0 No Unknown 3-19 00:00: 00 Dose 2022-0 No Unknown 3-19 00:00: 00 Dose 2022-0 No Unknown 3-19 00:00: 00 Dose 2022-0 No Unknown 3-19 00:00: 00 Dose 2022-0 No Unknown 3-19 00:00: 00 Dose 2022-0 No Unknown 3-19 00:00: 00 Dose 2022-0 No Unknown 3-19 00:00: 00 Dose 2022-0 No Unknown 3-19 00:00: 00 Dose 2022-0 No Unknown 3-19 00:00: 00 Dose 2022-0 No Unknown 3-19 00:00: 00 Dose 2022-0 No Unknown 3-19 00:00: 00 Dose 2022-0 No Unknown 3-19 00:00: 00 Dose 2022-0 No Unknown 3-19 00:00: 00 Dose 2022-0 No Unknown 3-19 00:00: 00 Dose 2022-0 No Unknown 3-19 00:00: 00 Dose 2022-0 No Unknown 3-19 00:00: 00 Dose 2022-0 No Unknown 3-19 00:00: 00 Dose 2022-0 No Unknown 3-19 00:00: 00 Dose 2022-0 No Unknown 3-19 00:00: 00 Dose 2022-0 No Unknown 3-19 00:00: 00 Dose 2022-0 No Unknown 3-19 00:00: 00 Dose 2022-0 No Unknown 3-19 00:00: 00 Dose 2022-0 No Unknown 3-19 00:00: 00 Dose 2022-0 No Unknown 3-19 00:00: 00 Dose 2022-0 No Unknown 3-19 00:00: 00 Dose 2022-0 No Unknown 3-19 00:00: 00 Dose 2022-0 No Unknown 3-19 00:00: 00 Dose 2022-0 No Unknown 3-19 00:00: 00 Dose 2022-0 No Unknown 3-19 00:00: 00 Dose 2022-0 No Unknown 3-19 00:00: 00 Dose 2022-0 No Unknown 3-19 00:00: 00 Dose 2022-0 No Unknown 3-19 00:00: 00 Dose 2022-0 No Unknown 3-19 00:00: 00 Dose 2022-0 No Unknown 3-19 00:00: 00 Dose 2022-0 No Unknown 3-19 00:00: 00 Dose 2022-0 No Unknown 3-19 00:00: 00 Dose 2022-0 No Unknown 3-19 00:00: 00 Dose 2022-0 No Unknown 3-19 00:00: 00 Dose 2022-0 No Unknown 3-19 00:00: 00 Dose 2022-0 No Unknown 3-19 00:00: 00 Dose 2022-0 No Unknown 3-19 00:00: 00 Dose 2022-0 No Unknown 3-19 00:00: 00 Dose 2022-0 No Unknown 3-19 00:00: 00 Dose 2022-0 No Unknown 3-19 00:00: 00 Dose 2022-0 No Unknown 3-19 00:00: 00 Dose 2022-0 No Unknown 3-19 00:00: 00 Dose 2022-0 No Unknown 3-19 00:00: 00 Dose 2022-0 No Unknown 3-19 00:00: 00 Dose 2022-0 No Unknown 3-19 00:00: 00 Dose 2022-0 No Unknown 3-19 00:00: 00 Dose 2022-0 No Unknown 3-19 00:00: 00 Dose 2022-0 No Unknown 3-19 00:00: 00 Dose 2022-0 No Unknown 3-19 00:00: 00 Dose 2022-0 No Unknown 3-19 00:00: 00 Dose 2022-0 No Unknown 3-19 00:00: 00 Dose 2022-0 No Unknown 3-19 00:00: 00 Dose 2022-0 No Unknown 3-19 00:00: 00 Dose 2022-0 No Unknown 3-19 00:00: 00 Dose 2022-0 No Unknown 3-19 00:00: 00 Dose 2022-0 No Unknown 3-19 00:00: 00 Dose 2022-0 No Unknown 3-19 00:00: 00 Dose 2022-0 No Unknown 3-19 00:00: 00 Dose 2022-0 No Unknown 3-19 00:00: 00 Dose 2022-0 No Unknown 3-19 00:00: 00 Dose 2022-0 No Unknown 3-19 00:00: 00 Dose 2022-0 No Unknown 3-19 00:00: 00 Dose 2022-0 No Unknown 3-19 00:00: 00 Dose 2022-0 No Unknown 3-19 00:00: 00 Dose 2022-0 No Unknown 3-19 00:00: 00 Dose 2022-0 No Unknown 3-19 00:00: 00 Dose 2022-0 No Unknown 3-19 00:00: 00 Dose 2022-0 No Unknown 3-19 00:00: 00 Dose 2022-0 No Unknown 3-19 00:00: 00 Dose 2022-0 No Unknown 3-19 00:00: 00 Dose 2022-0 No Unknown 3-19 00:00: 00 Dose 2022-0 No Unknown 3-19 00:00: 00 Dose 2022-0 No Unknown 3-19 00:00: 00 Dose 2022-0 No Unknown 3-19 00:00: 00 Dose 2022-0 No Unknown 3-19 00:00: 00 Dose 2022-0 No Unknown 3-19 00:00: 00 Dose 2022-0 No Unknown 3-19 00:00: 00 Dose 2022-0 No Unknown 3-19 00:00: 00 Dose 2022-0 No Unknown 3-19 00:00: 00 Dose 2022-0 No Unknown 3-19 00:00: 00 Dose 2022-0 No Unknown 3-19 00:00: 00 Dose 2022-0 No Unknown 3-19 00:00: 00 Dose 2022-0 No Unknown 3-19 00:00: 00 Dose 2022-0 No Unknown 3-19 00:00: 00 Dose 2022-0 No Unknown 3-19 00:00: 00 Dose 2022-0 No Unknown 3-19 00:00: 00 Dose 2022-0 No Unknown 3-19 00:00: 00 Dose 2022-0 No Unknown 3-19 00:00: 00 Dose 2022-0 No Unknown 3-19 00:00: 00 Dose 2022-0 No Unknown 3-19 00:00: 00 Dose 2022-0 No Unknown 3-19 00:00: 00 Dose 2022-0 No Unknown 3-19 00:00: 00 Dose 2022-0 No Unknown 3-19 00:00: 00 Dose 2022-0 No Unknown 3-19 00:00: 00 Dose 2022-0 No Unknown 3-19 00:00: 00 Dose 2022-0 No Unknown 3-19 00:00: 00 Dose 2022-0 No Unknown 3-19 00:00: 00 Dose 2022-0 No Unknown 3-19 00:00: 00 Dose 2022-0 No Unknown 3-19 00:00: 00 Dose 2022-0 No Unknown 3-19 00:00: 00 Dose 2022-0 No Unknown 3-19 00:00: 00 Dose 2022-0 No Unknown 3-19 00:00: 00 Dose 2022-0 No Unknown 3-19 00:00: 00 Dose 2022-0 No Unknown 3-19 00:00: 00 Dose 2022-0 No Unknown 3-19 00:00: 00 Dose 2022-0 No Unknown 3-19 00:00: 00 Dose 2022-0 No Unknown 3-19 00:00: 00 Dose 2022-0 No Unknown 3-19 00:00: 00 Dose 2022-0 No Unknown 3-19 00:00: 00 Dose 2022-0 No Unknown 3-19 00:00: 00 Dose 2022-0 No Unknown 3-19 00:00: 00 Dose 2022-0 No Unknown 3-19 00:00: 00 Dose 2022-0 No Unknown 3-19 00:00: 00 Dose 2022-0 No Unknown 3-19 00:00: 00 Dose 2022-0 No Unknown 3-19 00:00: 00 Dose 2022-0 No Unknown 3-19 00:00: 00 Dose 2022-0 No Unknown 3-19 00:00: 00 Dose 2022-0 No Unknown 3-19 00:00: 00 Dose 2022-0 No Unknown 3-19 00:00: 00 Dose 2022-0 No Unknown 3-19 00:00: 00 Dose 2022-0 No Unknown 3-19 00:00: 00 Dose 2022-0 No Unknown 3-19 00:00: 00 Dose 2022-0 No Unknown 3-19 00:00: 00 Dose 2022-0 No Unknown 3-19 00:00: 00 Dose 2022-0 No Unknown 3-19 00:00: 00 Dose 2022-0 No Unknown 3-19 00:00: 00 Dose 2022-0 No Unknown 3-19 00:00: 00 Dose 2022-0 No Unknown 3-19 00:00: 00 Dose 2022-0 No Unknown 3-19 00:00: 00 Dose 2022-0 No Unknown 3-19 00:00: 00 Dose 2022-0 No Unknown 3-19 00:00: 00 Dose 2022-0 No Unknown 3-19 00:00: 00 Dose 2022-0 No Unknown 3-19 00:00: 00 Dose 2022-0 No Unknown 3-19 00:00: 00 Dose 2022-0 No Unknown 3-19 00:00: 00 Dose 2022-0 No Unknown 3-19 00:00: 00 Dose 2022-0 No Unknown 3-19 00:00: 00 Dose 2022-0 No Unknown 3-19 00:00: 00 Dose 2022-0 No Unknown 3-19 00:00: 00 Dose 2022-0 No Unknown 3-19 00:00: 00 Dose 2022-0 No Unknown 3-19 00:00: 00 Dose 2022-0 No Unknown 3-19 00:00: 00 Dose 2022-0 No Unknown 3-19 00:00: 00 Dose 2022-0 No Unknown 3-19 00:00: 00 Dose 2022-0 No Unknown 3-19 00:00: 00 Dose 2022-0 No Unknown 3-19 00:00: 00 Dose 2022-0 No Unknown 3-19 00:00: 00 Dose 2022-0 No Unknown 3-19 00:00: 00 Dose 2022-0 No Unknown 3-19 00:00: 00 Dose 2022-0 No Unknown 3-19 00:00: 00 Dose 2022-0 No Unknown 3-19 00:00: 00 Dose 2022-0 No Unknown 3-19 00:00: 00 Dose 2022-0 No Unknown 3-19 00:00: 00 Dose 2022-0 No Unknown 3-19 00:00: 00 Dose 2022-0 No Unknown 3-19 00:00: 00 Dose 2022-0 No Unknown 3-19 00:00: 00 Dose 2022-0 No Unknown 3-19 00:00: 00 Dose 2022-0 No Unknown 3-19 00:00: 00 Dose 2022-0 No Unknown 3-19 00:00: 00 Dose 2022-0 No Unknown 3-19 00:00: 00 Dose 2022-0 No Unknown 3-19 00:00: 00 Dose 2022-0 No Unknown 3-19 00:00: 00 Dose 2022-0 No Unknown 3-19 00:00: 00 Dose 2022-0 No Unknown 3-19 00:00: 00 Dose 2022-0 No Unknown 3-19 00:00: 00 Dose 2022-0 No Unknown 3-19 00:00: 00 Dose 2022-0 No Unknown 3-19 00:00: 00 Dose 2022-0 No Unknown 3-19 00:00: 00 Dose 2022-0 No Unknown 3-19 00:00: 00 Dose 2022-0 No Unknown 3-19 00:00: 00 Dose 2022-0 No Unknown 3-19 00:00: 00 Dose 2022-0 No Unknown 3-19 00:00: 00 Dose 2022-0 No Unknown 3-19 00:00: 00 Dose 2022-0 No Unknown 3-19 00:00: 00 Dose 2022-0 No Unknown 3-19 00:00: 00 Dose 2022-0 No Unknown 3-19 00:00: 00 Dose 2022-0 No Unknown 3-19 00:00: 00 Dose 2022-0 No Unknown 3-19 00:00: 00 Dose 2022-0 No Unknown 3-19 00:00: 00 Dose 2022-0 No Unknown 3-19 00:00: 00 Dose 2022-0 No Unknown 3-19 00:00: 00 Dose 2022-0 No Unknown 3-19 00:00: 00 Dose 2022-0 No Unknown 3-19 00:00: 00 Dose 2022-0 No Unknown 3-19 00:00: 00 Dose 2022-0 No Unknown 3-19 00:00: 00 Dose 2022-0 No Unknown 3-19 00:00: 00 Dose 2022-0 No Unknown 3-19 00:00: 00 Dose 2022-0 No Unknown 3-19 00:00: 00 Dose 2022-0 No Unknown 3-19 00:00: 00 Dose 2022-0 No Unknown 3-19 00:00: 00 Dose 2022-0 No Unknown 3-19 00:00: 00 Dose 2022-0 No Unknown 3-19 00:00: 00 Dose 2022-0 No Unknown 3-19 00:00: 00 Dose 2022-0 No Unknown 3-19 00:00: 00 Dose 2022-0 No Unknown 3-19 00:00: 00 Dose 2022-0 No Unknown 3-19 00:00: 00 Dose 2022-0 No Unknown 3-19 00:00: 00 Dose 2022-0 No Unknown 3-19 00:00: 00 Dose 2022-0 No Unknown 3-19 00:00: 00 Dose 2022-0 No Unknown 3-19 00:00: 00 Dose 2022-0 No Unknown 3-19 00:00: 00 Dose 2022-0 No Unknown 3-19 00:00: 00 Dose 2022-0 No Unknown 3-19 00:00: 00 Dose 2022-0 No Unknown 3-19 00:00: 00 Dose 2022-0 No Unknown 3-19 00:00: 00 Dose 2022-0 No Unknown 3-19 00:00: 00 Dose 2022-0 No Unknown 3-19 00:00: 00 Dose 2022-0 No Unknown 3-19 00:00: 00 Dose 2022-0 No Unknown 3-19 00:00: 00 Dose 2022-0 No Unknown 3-19 00:00: 00 Dose 2022-0 No Unknown 3-19 00:00: 00 Dose 2022-0 No Unknown 3-19 00:00: 00 Dose 2022-0 No Unknown 3-19 00:00: 00 Dose 2022-0 No Unknown 3-19 00:00: 00 Dose 2022-0 No Unknown 3-19 00:00: 00 Dose 2022-0 No Unknown 3-19 00:00: 00 Dose 2022-0 No Unknown 3-19 00:00: 00 Dose 2022-0 No Unknown 3-19 00:00: 00 Dose 2022-0 No Unknown 3-19 00:00: 00 Dose 2022-0 No Unknown 3-19 00:00: 00 Dose 2022-0 No Unknown 3-19 00:00: 00 Dose 2022-0 No Unknown 3-19 00:00: 00 Dose 2022-0 No Unknown 3-19 00:00: 00 Dose 2022-0 No Unknown 3-19 00:00: 00 Dose 2022-0 No Unknown 3-19 00:00: 00 Dose 2022-0 No Unknown 3-19 00:00: 00 Dose 2022-0 No Unknown 3-19 00:00: 00 Dose 2022-0 No Unknown 3-19 00:00: 00 Dose 2022-0 No Unknown 3-19 00:00: 00 Dose 2022-0 No Unknown 3-19 00:00: 00 Dose 2022-0 No Unknown 3-19 00:00: 00 Dose 2022-0 No Unknown 3-19 00:00: 00 Dose 2022-0 No Unknown 3-19 00:00: 00 Dose 2022-0 No Unknown 3-19 00:00: 00 Dose 2022-0 No Unknown 3-19 00:00: 00 Dose 2022-0 No Unknown 3-19 00:00: 00 Dose 2022-0 No Unknown 3-19 00:00: 00 Dose 2022-0 No Unknown 3-19 00:00: 00 Dose 2022-0 No Unknown 3-19 00:00: 00 Dose 2022-0 No Unknown 3-19 00:00: 00 Dose 2022-0 No Unknown 3-19 00:00: 00 Dose 2022-0 No Unknown 3-19 00:00: 00 Dose 2022-0 No Unknown 3-19 00:00: 00 Dose 2022-0 No Unknown 3-19 00:00: 00 Dose 2022-0 No Unknown 3-19 00:00: 00 Dose 2022-0 No Unknown 3-19 00:00: 00 Dose 2022-0 No Unknown 3-19 00:00: 00 Dose 2022-0 No Unknown 3-19 00:00: 00 Dose 2022-0 No Unknown 3-19 00:00: 00 Dose 2022-0 No Unknown 3-19 00:00: 00 Dose 2022-0 No Unknown 3-19 00:00: 00 Dose 2022-0 No Unknown 3-19 00:00: 00 Dose 2022-0 No Unknown 3-19 00:00: 00 Dose 2022-0 No Unknown 3-19 00:00: 00 Dose 2022-0 No Unknown 3-19 00:00: 00 Dose 2022-0 No Unknown 3-19 00:00: 00 Dose 2022-0 No Unknown 3-19 00:00: 00 Dose 2022-0 No Unknown 3-19 00:00: 00 Dose 2022-0 No Unknown 3-19 00:00: 00 Dose 2022-0 No Unknown 3-19 00:00: 00 Dose 2022-0 No Unknown 3-19 00:00: 00 Dose 2022-0 No Unknown 3-19 00:00: 00 Dose 2022-0 No Unknown 3-19 00:00: 00 Dose 2022-0 No Unknown 3-19 00:00: 00 Dose 2022-0 No Unknown 3-19 00:00: 00 Dose 2022-0 No Unknown 3-19 00:00: 00 Dose 2022-0 No Unknown 3-19 00:00: 00 Dose 2022-0 No Unknown 3-19 00:00: 00 Dose 2022-0 No Unknown 3-19 00:00: 00 Dose 2022-0 No Unknown 3-19 00:00: 00 Dose 2022-0 No Unknown 3-19 00:00: 00 Dose 2022-0 No Unknown 3-19 00:00: 00 Dose 2022-0 No Unknown 3-19 00:00: 00 Dose 2022-0 No Unknown 3-19 00:00: 00 Dose 2022-0 No Unknown 3-19 00:00: 00 Dose 2022-0 No Unknown 3-19 00:00: 00 Dose 2022-0 No Unknown 3-19 00:00: 00 Dose 2022-0 No Unknown 3-19 00:00: 00 Dose 2022-0 No Unknown 3-19 00:00: 00 Dose 2022-0 No Unknown 3-19 00:00: 00 Dose 2022-0 No Unknown 3-19 00:00: 00 Dose 2022-0 No Unknown 3-19 00:00: 00 Dose 2022-0 No Unknown 3-19 00:00: 00 Dose 2022-0 No Unknown 3-19 00:00: 00 Dose 2022-0 No Unknown 3-19 00:00: 00 Dose 2022-0 No Unknown 3-19 00:00: 00 Dose 2022-0 No Unknown 3-19 00:00: 00 Dose 2022-0 No Unknown 3-19 00:00: 00 Dose 2022-0 No Unknown 3-19 00:00: 00 Dose 2022-0 No Unknown 3-19 00:00: 00 Dose 2022-0 No Unknown 3-19 00:00: 00 Dose 2022-0 No Unknown 3-19 00:00: 00 Dose 2022-0 No Unknown 3-19 00:00: 00 Dose 2022-0 No Unknown 3-19 00:00: 00 Dose 2022-0 No Unknown 3-19 00:00: 00 Dose 2022-0 No Unknown 3-19 00:00: 00 Dose 2022-0 No Unknown 3-19 00:00: 00 Dose 2022-0 No Unknown 3-19 00:00: 00 Dose 2022-0 No Unknown 3-19 00:00: 00 Dose 2022-0 No Unknown 3-19 00:00: 00 Dose 2022-0 No Unknown 3-19 00:00: 00 Dose 2022-0 No Unknown 3-19 00:00: 00 Dose 2022-0 No Unknown 3-19 00:00: 00 Dose 2022-0 No Unknown 3-19 00:00: 00 Dose 2022-0 No Unknown 3-19 00:00: 00 Dose 2022-0 No Unknown 3-19 00:00: 00 Dose 2022-0 No Unknown 3-19 00:00: 00 Dose 2022-0 No Unknown 3-19 00:00: 00 Dose 2022-0 No Unknown 3-15 00:00: 00 Dose 2022-0 No Unknown 3-15 00:00: 00 Dose 2022-0 No Unknown 3-15 00:00: 00 Dose 2022-0 No Unknown 3-15 00:00: 00 Dose 2022-0 No Unknown 3-15 00:00: 00 Dose 2022-0 No Unknown 3-15 00:00: 00 lisinopril 2022-0 No 1mg 10 mg 3-05 tablet 00:00: 00 lisinopril 2022-0 No 1mg 10 mg 3-05 tablet 00:00: 00 lisinopril 2022-0 No 1mg 10 mg 2-19 tablet 00:00: 00 metformin 2022-0 No 1mg 500 mg 2-19 tablet 00:00: 00 Dose 2022-0 No Unknown 2-19 00:00: 00 hydrochloro 2022-0 No 1mg thiazide 2-19 12.5 mg 00:00: capsule 00 lisinopril 2022-0 No 1mg 10 mg 2-19 tablet 00:00: 00 metformin 2022-0 No 1mg 500 mg 2-19 tablet 00:00: 00 Dose 2022-0 No Unknown 2-19 00:00: 00 hydrochloro 2022-0 No 1mg thiazide 2-19 12.5 mg 00:00: capsule 00 Dose 2021-1 No Unknown 2-27 00:00: 00 Dose 2021-1 No Unknown 2-27 00:00: 00 Dose 2021-1 No Unknown 2-27 00:00: 00 Dose 2021-1 No Unknown 2-27 00:00: 00 Dose 2021-1 No Unknown 2- 00:00: 00 Dose 2021-1 No Unknown 2- 00:00: 00 Dose 2021-1 No Unknown 2- 00:00: 00 Dose 1-1 No Unknown 2- 00:00: 00 lisinopril 2021-0 No 1mg 10 mg 9-23 tablet 00:00: 00 metformin 2021-0 No 1mg 500 mg 9-23 tablet 00:00: 00 atorvastati 2021-0 No 1mg n 80 mg 9-23 tablet 00:00: 00 hydrochloro 2021-0 No 1mg thiazide 9-23 12.5 mg 00:00: capsule 00 lisinopril 2021-0 No 1mg 10 mg 9-23 tablet 00:00: 00 metformin 2021-0 No 1mg 500 mg 9-23 tablet 00:00: 00 atorvastati 2021-0 No 1mg n 80 mg 9-23 tablet 00:00: 00 hydrochloro 2021-0 No 1mg thiazide 9-23 12.5 mg 00:00: capsule 00 atorvastati 2021-0 No 1mg n 80 mg 6-22 tablet 00:00: 00 atorvastati 2021-0 No 1mg n 80 mg 6-22 tablet 00:00: 00 atorvastati 2021-0 No 1mg n 20 mg 6-19 tablet 00:00: 00 lisinopril 2021-0 No 1mg 10 mg 6-19 tablet 00:00: 00 metformin 2021-0 No 1mg 500 mg 6-19 tablet 00:00: 00 lisinopril 2021-0 No 1mg 5 mg tablet 6-19 00:00: 00 hydrochloro 2021-0 No 1mg thiazide 6-19 12.5 mg 00:00: capsule 00 atorvastati 2021-0 No 1mg n 20 mg 6-19 tablet 00:00: 00 lisinopril 2021-0 No 1mg 10 mg 6-19 tablet 00:00: 00 metformin 2021-0 No 1mg 500 mg 6-19 tablet 00:00: 00 lisinopril 2021-0 No 1mg 5 mg tablet 6-19 00:00: 00 hydrochloro 2021-0 No 1mg thiazide 6-19 12.5 mg 00:00: capsule 00 lisinopril 2020-1 No 1mg 10 mg 2-12 tablet 00:00: 00 atorvastati 2020-1 No 1mg n 20 mg 2-12 tablet 00:00: 00 metformin 2020-1 No 1mg 500 mg 2-12 tablet 00:00: 00 ibuprofen 2020-1 No 1mg 600 mg 2-12 tablet 00:00: 00 lisinopril 2019-1 No 1mg 5 mg tablet 2-12 00:00: 00 hydrochloro 2020-1 No 1mg thiazide 2-12 12.5 mg 00:00: capsule 00 lisinopril 2019-1 No 1mg 10 mg 2-12 tablet 00:00: 00 atorvastati 2019-1 No 1mg n 20 mg 2-12 tablet 00:00: 00 metformin 2019-1 No 1mg 500 mg 2-12 tablet 00:00: 00 ibuprofen 2019-1 No 1mg 600 mg 2-12 tablet 00:00: 00 lisinopril 2019-1 No 1mg 5 mg tablet 2-12 00:00: 00 hydrochloro 2019-1 No 1mg thiazide 2-12 12.5 mg 00:00: capsule 00 lisinopril 2019-1 No 1mg 5 mg tablet 0-19 00:00: 00 lisinopril 2019-1 No 1mg 5 mg tablet 0-19 00:00: 00 doxycycline 2020-0 No 1mg monohydrate 9-02 100 mg 00:00: capsule 00 doxycycline 2020-0 No 1mg monohydrate 9-02 100 mg 00:00: capsule 00 Zofran 4 mg 2020-0 No 1mg tablet 8-07 00:00: 00 Zofran 4 mg 2020-0 No 1mg tablet 8-07 00:00: 00 lisinopril 2020-0 No 1mg 10 mg 6-10 tablet 00:00: 00 hydrochloro 2020-0 No 1mg thiazide 6-10 12.5 mg 00:00: capsule 00 lisinopril 2020-0 No 1mg 10 mg 6-10 tablet 00:00: 00 hydrochloro 2020-0 No 1mg thiazide 6-10 12.5 mg 00:00: capsule 00 atorvastati 2020-0 No 1mg n 20 mg 6-09 tablet 00:00: 00 atorvastati 2020-0 No 1mg n 20 mg 6-09 tablet 00:00: 00 lisinopril 2020-0 No 1mg 10 6-06 mg-hydrochl 00:00: orothiazide 00 12.5 mg tablet metformin 2020-0 No 1mg 500 mg 6-06 tablet 00:00: 00 cyclobenzap 2020-0 No 1mg rine 10 mg 6-06 tablet 00:00: 00 lisinopril 2020-0 No 1mg 5 mg tablet 6-06 00:00: 00 lisinopril 2020-0 No 1mg 10 6-06 mg-hydrochl 00:00: orothiazide 00 12.5 mg tablet metformin 2020-0 No 1mg 500 mg 6-06 tablet 00:00: 00 cyclobenzap 2020-0 No 1mg rine 10 mg 6-06 tablet 00:00: 00 lisinopril 2020-0 No 1mg 5 mg tablet 6-06 00:00: 00 gabapentin 2020-0 No 1mg 600 mg 5-15 tablet 00:00: 00 cyclobenzap 2020-0 No 1mg rine 10 mg 5-15 tablet 00:00: 00 ibuprofen 2020-0 No 1mg 600 mg 5-15 tablet 00:00: 00 gabapentin 2020-0 No 1mg 600 mg 5-15 tablet 00:00: 00 cyclobenzap 2020-0 No 1mg rine 10 mg 5-15 tablet 00:00: 00 ibuprofen 2020-0 No 1mg 600 mg 5-15 tablet 00:00: 00 cyclobenzap 2020-0 No 1mg rine 10 mg 5-04 tablet 00:00: 00 cyclobenzap 2020-0 No 1mg rine 10 mg 5-04 tablet 00:00: 00 cyclobenzap 2020-0 No 1mg rine 7.5 mg 4-27 tablet 00:00: 00 ibuprofen 2020-0 No 1mg 600 mg 4-27 tablet 00:00: 00 gabapentin 2020-0 No 1mg 300 mg 4-27 capsule 00:00: 00 cyclobenzap 2020-0 No 1mg rine 7.5 mg 4-27 tablet 00:00: 00 ibuprofen 2020-0 No 1mg 600 mg 4-27 tablet 00:00: 00 gabapentin 2020-0 No 1mg 300 mg 4-27 capsule 00:00: 00 Voltaren 1 2020-0 No 1% % topical 1-18 gel 00:00: 00 cyclobenzap 2020-0 No 1mg rine 10 mg 1-18 tablet 00:00: 00 Voltaren 1 2020-0 No 1% % topical 1-18 gel 00:00: 00 cyclobenzap 2020-0 No 1mg rine 10 mg 1-18 tablet 00:00: 00 tamsulosin 2019-1 No 1mg 0.4 mg 1-12 capsule 00:00: 00 tamsulosin 2019-1 No 1mg 0.4 mg 1-12 capsule 00:00: 00 lisinopril 2019-1 No 1mg 10 1-05 mg-hydrochl 00:00: orothiazide 00 12.5 mg tablet metformin 2018-1 No 1mg 500 mg 1-05 tablet 00:00: 00 lisinopril 2019-1 No 1mg 5 mg tablet 1-05 00:00: 00 lisinopril 2018-1 No 1mg 10 1-05 mg-hydrochl 00:00: orothiazide 00 12.5 mg tablet metformin 2018-1 No 1mg 500 mg 1-05 tablet 00:00: 00 lisinopril 2018-1 No 1mg 5 mg tablet 105 00:00: 00 Trileptal 2019-0 No 1mg 300 mg 5-07 tablet 00:00: 00 Risperdal 2 2019-0 No 1mg mg tablet 507 00:00: 00 lisinopril 2019-0 No 1mg 10 5-07 mg-hydrochl 00:00: orothiazide 00 12.5 mg tablet metformin 2019-0 No 1mg 500 mg 5-07 tablet 00:00: 00 lisinopril 2019-0 No 1mg 5 mg tablet 5-07 00:00: 00 hydroxyzine 2019-0 No 1mg HCl 25 mg 5-07 tablet 00:00: 00 fluoxetine 2019-0 No 1mg 40 mg 5-07 capsule 00:00: 00 Trileptal 2019-0 No 1mg 300 mg 5-07 tablet 00:00: 00 Risperdal 2 2019-0 No 1mg mg tablet 5-07 00:00: 00 lisinopril 2019-0 No 1mg 10 5-07 mg-hydrochl 00:00: orothiazide 00 12.5 mg tablet metformin 2019-0 No 1mg 500 mg 5-07 tablet 00:00: 00 lisinopril 2019-0 No 1mg 5 mg tablet 5-07 00:00: 00 hydroxyzine 2019-0 No 1mg HCl 25 mg 5-07 tablet 00:00: 00 fluoxetine 2019-0 No 1mg 40 mg 5-07 capsule 00:00: 00 lisinopril 2018-1 No 1mg 10 2-18 mg-hydrochl 00:00: orothiazide 00 12.5 mg tablet metformin 2018-1 No 1mg 500 mg 2-18 tablet 00:00: 00 lisinopril 2018-1 No 1mg 5 mg tablet 2-18 00:00: 00 lisinopril 2018-1 No 1mg 10 2-18 mg-hydrochl 00:00: orothiazide 00 12.5 mg tablet metformin 2018-1 No 1mg 500 mg 2-18 tablet 00:00: 00 lisinopril 2018-1 No 1mg 5 mg tablet 218 00:00: 00 lisinopril 2018-0 No 1mg 10 9-25 mg-hydrochl 00:00: orothiazide 00 12.5 mg tablet metformin 2018-0 No 1mg 500 mg 9-25 tablet 00:00: 00 lisinopril 2018-0 No 1mg 5 mg tablet 925 00:00: 00 lisinopril 2018-0 No 1mg 10 9-25 mg-hydrochl 00:00: orothiazide 00 12.5 mg tablet metformin 2018-0 No 1mg 500 mg 9-25 tablet 00:00: 00 lisinopril 2018-0 No 1mg 5 mg tablet 925 00:00: 00 lisinopril 2018-0 No 1mg 10 6-26 mg-hydrochl 00:00: orothiazide 00 12.5 mg tablet lisinopril 2018-0 No 1mg 10 6-26 mg-hydrochl 00:00: orothiazide 00 12.5 mg tablet metformin 2018-0 No 1mg 500 mg 6-26 tablet 00:00: 00 metformin 2018-0 No 1mg 500 mg 6-26 tablet 00:00: 00 lisinopril 2018-0 No 1mg 10 mg 6-26 tablet 00:00: 00 lisinopril 2018-0 No 1mg 10 6-26 mg-hydrochl 00:00: orothiazide 00 12.5 mg tablet lisinopril 2018-0 No 1mg 10 6-26 mg-hydrochl 00:00: orothiazide 00 12.5 mg tablet metformin No 1mg 500 mg - tablet 00:00: 00 metformin No 1mg 500 mg - tablet 00:00: 00 lisinopril No 1mg 10 mg - tablet 00:00: 00 lisinopril No 1mg 5 mg tablet 03-11 00:00: 00 hydrochloro No 1mg thiazide 03-11 12.5 mg 00:00: capsule 00 lisinopril No 1mg 5 mg tablet 03-11 00:00: 00 hydrochloro No 1mg thiazide 03-11 12.5 mg 00:00: capsule 00 ALPRAZolam Yes .5mg Take 0.5 Uni vers (XANAX) 0.5 5-03 mg by ity of mg tablet 13:03: mouth 3 [place] 16 (three) Medical times Branch daily as needed (anxiety). aspirin 81 Yes 81mg Take 1 Tab U nivers mg chewable 5-03 by mouth ity of tablet 00:00: daily. [address] amLODIPine Yes 5mg Take 1 Tab U nivers (NORVASC) 5 5-03 by mouth ity of mg tablet 00:00: daily. [address] Immunizations Ordered Filled Immunization Date Status Comments [facility] e Immunization Name Name Fide COVID-19 2021-09-14 Completed Vaccine 00:00:00 Fide COVID-19 2021-09-14 Completed Vaccine 00:00:00 SARS-COV-2 COVID-19 2020-12-10 Completed Unive rsity of FIDE/J&J VACCINE 00:00:00 [facility] Vital Signs Vital Name Observation Time Observation Value Comments Source Systolic blood 2022-01-09 15:52:00 162 mm[Hg] Univer sity of pressure [facility] Diastolic blood 2022-01-09 15:52:00 82 mm[Hg] Unive rsity of pressure [facility] Heart rate 2022-01-09 15:52:00 75 /min [facility] Body temperature 2022-01-09 15:52:[address] [facility] 2022-01-09 15:52:00 18 /min [facility] Body weight 2022-01-09 15:52:00 136.079 kg [facility] BMI 2022-01-09 15:52:00 41.84 kg/m2 [facility] Oxygen saturation in 2022-01-09 15:52:00 75 /min [facility] blood by [facility] Pulse oximetry Branch BP Systolic 2022-03-29 09:59:00 92 mm[Hg] BP Diastolic 2022-03-29 09:59:00 61 mm[Hg] Weight Measured 2022-03-29 09:59:00 229.00 pounds Height Measured 2022-03-29 09:59:00 72.00 inches Body Temperature 2022-03-29 09:59:00 97.90 degrees Heart Rate 2022-03-29 09:59:00 69.00 /min Respiratory Rate 2022-03-29 09:59:00 24.00 /min BP Systolic 2022-03-15 11:43:00 85 mm[Hg] BP Diastolic 2022-03-15 11:43:00 49 mm[Hg] Weight Measured 2022-03-15 11:43:00 242.40 pounds Height Measured 2022-03-15 11:43:00 72.00 inches Body Temperature 2022-03-15 11:43:00 98.90 degrees Heart Rate 2022-03-15 11:43:00 62.00 /min Respiratory Rate 2022-03-15 11:43:00 BP Systolic 2022-01-30 09:25:00 124 mm[Hg] BP Diastolic 2022-01-30 09:25:00 75 mm[Hg] Weight Measured 2022-01-30 09:25:00 236.20 pounds Height Measured 2022-01-30 09:25:00 72.00 inches Body Temperature 2022-01-30 09:25:00 97.50 degrees Heart Rate 2022-01-30 09:25:00 72.00 /min Respiratory Rate 2022-01-30 09:25:00 BP Systolic 2022-01-09 17:23:00 BP Diastolic 2022-01-09 17:23:00 Weight Measured 2022-01-09 17:23:00 249.20 pounds Height Measured 2022-01-09 17:23:00 72.00 inches Body Temperature 2022-01-09 17:23:00 Heart Rate 2022-01-09 17:23:00 Respiratory Rate 2022-01-09 17:23:00 BP Systolic 2022-01-09 17:21:00 118 mm[Hg] BP Diastolic 2022-01-09 17:21:00 56 mm[Hg] Weight Measured 2022-01-09 17:21:00 249.20 pounds Height Measured 2022-01-09 17:21:00 72.00 inches Body Temperature 2022-01-09 17:21:00 97.20 degrees Heart Rate 2022-01-09 17:21:00 90.00 /min Respiratory Rate 2022-01-09 17:21:00 21.00 /min BP Systolic 2021-12-16 16:30:00 121 mm[Hg] BP Diastolic 2021-12-16 16:30:00 69 mm[Hg] Weight Measured 2021-12-16 16:30:00 268.40 pounds Height Measured 2021-12-16 16:30:00 72.00 inches Body Temperature 2021-12-16 16:30:00 97.90 degrees Heart Rate 2021-12-16 16:30:00 78.00 /min Respiratory Rate 2021-12-16 16:30:00 BP Systolic 2021-12-06 16:04:00 149 mm[Hg] BP Diastolic 2021-12-06 16:04:00 106 mm[Hg] Weight Measured 2021-12-06 16:04:00 273.20 pounds Height Measured 2021-12-06 16:04:00 72.00 inches Body Temperature 2021-12-06 16:04:00 Heart Rate 2021-12-06 16:04:00 99.00 /min Respiratory Rate 2021-12-06 16:04:00 BP Systolic 2021-12-02 11:28:00 89 mm[Hg] BP Diastolic 2021-12-02 11:28:00 60 mm[Hg] Weight Measured 2021-12-02 11:28:00 286.00 pounds Height Measured 2021-12-02 11:28:00 72.00 inches Body Temperature 2021-12-02 11:28:00 98.20 degrees Heart Rate 2021-12-02 11:28:00 91.00 /min Respiratory Rate 2021-12-02 11:28:00 16.00 /min BP Systolic 2021-11-18 10:13:00 123 mm[Hg] BP Diastolic 2021-11-18 10:13:00 82 mm[Hg] Weight Measured 2021-11-18 10:13:00 284.20 pounds Height Measured 2021-11-18 10:13:00 72.00 inches Body Temperature 2021-11-18 10:13:00 98.40 degrees Heart Rate 2021-11-18 10:13:00 72.00 /min Respiratory Rate 2021-11-18 10:13:00 16.00 /min BP Systolic 2021-11-04 13:28:00 134 mm[Hg] BP Diastolic 2021-11-04 13:28:00 90 mm[Hg] Weight Measured 2021-11-04 13:28:00 288.40 pounds Height Measured 2021-11-04 13:28:00 72.00 inches Body Temperature 2021-11-04 13:28:00 98.40 degrees Heart Rate 2021-11-04 13:28:00 63.00 /min Respiratory Rate 2021-11-04 13:28:00 BP Systolic 2021-10-06 14:59:00 BP Diastolic 2021-10-06 14:59:00 Weight Measured 2021-10-06 14:59:00 287.00 pounds Height Measured 2021-10-06 14:59:00 72.10 inches Body Temperature 2021-10-06 14:59:00 Heart Rate 2021-10-06 14:59:00 Respiratory Rate 2021-10-06 14:59:00 Procedures Procedure Date / Time Performed Performing Clinician [facility] e CONSENT/REFUSAL FOR 2022-01-09 15:34:31 Doctor Unassigned, No Un iversity [facility] DIAGNOSIS AND Name Medical Branch TREATMENT NOTICE OF PRIVACY 2022-01-09 15:34:19 Doctor Unassigned, No Univ ersity [facility] PRACTICES Name Medical Branch Ear Lavage 2019-05-04 00:00:00 Plan of Care Planned Activity Planned Date Details Comments Source Goal Plan of Care Note [code = 02516-5] Goal Plan of Care Note [code = 54906-4] Goal Plan of Care Note [code = 67969-3] Goal Plan of Care Note [code = 69781-7] Goal Plan of Care Note [code = 83125-1] Goal Plan of Care Note [code = 75932-5] Goal Plan of Care Note [code = 49303-0] Goal Plan of Care Note [code = 90662-4] Goal Plan of Care Note [code = 96435-3] Goal Plan of Care Note [code = 29017-6] Goal Plan of Care Note [code = 25025-8] Goal Plan of Care Note [code = 66683-7] Goal Plan of Care Note [code = 05238-2] Goal Plan of Care Note [code = 43812-9] Goal Plan of Care Note [code = 27235-4] Goal Plan of Care Note [code = 89917-1] Goal Plan of Care Note [code = 92398-7] Goal Plan of Care Note [code = 89142-3] Goal Plan of Care Note [code = 27067-8] Goal Plan of Care Note [code = 85141-7] Goal Plan of Care Note [code = 17950-9] Goal Plan of Care Note [code = 95054-1] Goal Plan of Care Note [code = 81885-5] Goal Plan of Care Note [code = 28338-1] Goal Plan of Care Note [code = 28378-0] Goal Plan of Care Note [code = 14560-2] Goal Plan of Care Note [code = 13756-3] Goal Plan of Care Note [code = 72372-1] Goal Plan of Care Note [code = 62893-8] Goal Plan of Care Note [code = 55735-7] Goal Plan of Care Note [code = 39084-9] Goal Plan of Care Note [code = 38663-4] Goal Plan of Care Note [code = 57703-3] Goal Plan of Care Note [code = 23271-0] Goal Plan of Care Note [code = 42384-6] Goal Plan of Care Note [code = 17126-7] Goal Plan of Care Note [code = 92429-5] Goal Plan of Care Note [code = 36109-4] Goal Plan of Care Note [code = 70908-1] Goal Plan of Care Note [code = 62683-1] Goal Plan of Care Note [code = 92833-7] Goal Plan of Care Note [code = 11476-2] Goal Plan of Care Note [code = 84489-3] Goal Plan of Care Note [code = 16573-8] Goal Plan of Care Note [code = 72206-2] Goal Plan of Care Note [code = 37961-7] Goal Plan of Care Note [code = 18254-4] Goal Plan of Care Note [code = 32183-1] Goal Plan of Care Note [code = 99317-5] Goal Plan of Care Note [code = 94574-4] Goal Plan of Care Note [code = 51590-4] Goal Plan of Care Note [code = 52860-0] Goal Plan of Care Note [code = 99679-4] Goal Plan of Care Note [code = 84107-7] Goal Plan of Care Note [code = 37370-5] Goal Plan of Care Note [code = 62704-3] Goal Plan of Care Note [code = 11154-4] Goal Plan of Care Note [code = 15231-3] Goal Plan of Care Note [code = 51377-8] Goal Plan of Care Note [code = 61259-9] Goal Plan of Care Note [code = 37512-0] Goal Plan of Care Note [code = 87823-7] Goal Plan of Care Note [code = 00680-3] Goal Plan of Care Note [code = 99220-3] Goal Plan of Care Note [code = 94266-4] Goal Plan of Care Note [code = 87186-2] Goal Plan of Care Note [code = 82093-2] Goal Plan of Care Note [code = 29804-6] Goal Plan of Care Note [code = 01877-0] Goal Plan of Care Note [code = 11054-5] Goal Plan of Care Note [code = 10898-2] Goal Plan of Care Note [code = 19511-0] Goal Plan of Care Note [code = 33712-9] Goal Plan of Care Note [code = 15373-4] Goal Plan of Care Note [code = 88117-8] Goal Plan of Care Note [code = 43094-7] Goal Plan of Care Note [code = 34208-7] Goal Plan of Care Note [code = 72180-4] Goal Plan of Care Note [code = 62724-7] Goal Plan of Care Note [code = 09723-9] Goal Plan of Care Note [code = 66822-6] Goal Plan of Care Note [code = 68910-4] Goal Plan of Care Note [code = 63033-9] Goal Plan of Care Note [code = 09198-5] Goal Plan of Care Note [code = 61306-5] Goal Plan of Care Note [code = 22010-6] Goal Plan of Care Note [code = 43495-8] Goal Plan of Care Note [code = 20597-8] Goal Plan of Care Note [code = 58004-2] Goal Plan of Care Note [code = 53387-0] Goal Plan of Care Note [code = 54380-3] Goal Plan of Care Note [code = 41897-9] Goal Plan of Care Note [code = 26790-5] Goal Plan of Care Note [code = 97737-1] Goal Plan of Care Note [code = 47308-3] Goal Plan of Care Note [code = 50519-2] Goal Plan of Care Note [code = 78727-8] Goal Plan of Care Note [code = 23275-5] Goal Plan of Care Note [code = 09896-8] Goal Plan of Care Note [code = 01364-7] Goal Plan of Care Note [code = 54014-5] Goal Plan of Care Note [code = 53369-8] Goal Plan of Care Note [code = 27276-9] Goal Plan of Care Note [code = 81494-2] Goal Plan of Care Note [code = 74651-2] Goal Plan of Care Note [code = 68537-5] Goal Plan of Care Note [code = 27222-7] Encounters Start End Encounter Admission Attending Care Care Encounter Source Date/Time Date/Time Type Type Clinicians Facility Department ID 2022-02-03 Inpatient [facility] [id number] [facility] 12:36:00 91 2022-03-29 2022-03-29 Outpatient [id number] 00:00:00 00:00:00 Visit 3b64-77g7 i51-71s6-4 -8588-7b9 [id number] 2022-03-15 2022-03-15 Outpatient [id number] 1925ab-[id number] 00:00:00 00:00:00 Visit 24u2-4n8w 4l8-9g4f-6 -8605-bf4 [id number] 2022-01-09 2022-01-09 Emergency [facility] [id number] Univers 10:54:00 12:08:00 Nasreen Frankel ABERNATHY 350.1.13.10 i [facility] [id number] [facility] [id number] [facility] 084 Branch 2022-01-09 2022-01-09 Emergency X [facility] ERT [id number] Univers 10:54:00 12:08:00 [facility] Results Test Description Test Time Test Comments Results Result Comments Source H. PYLORI (BREATH) 2022-03-30 12:15:29 Test Item Value Reference Range Interpretation Comme nts H. PYLORI (BREATH) (test code NEGATIVE NEGATIVE UNLESS OTHERWISE INDICATED, = 95315) ALL TESTING PER FORMED ATCLINICAL PATHOLOGY LABOR [facility] [employer] [address] [place] [address] LABORATORY DIRE CTOR: STORM FONTANEZ M.D. CLIA NUMBER [id number] [facility] [place]. [id number] COMPREHENSIVE METABOLIC [id number] 06:48:21 Test Item Value Reference Range Interpretation Comments GLUCOSE (test code = 110 MG/DL 70-99 H 2216) BUN (test code = 18 MG/DL 03-05) CREATININE (test 1.09 MG/DL 0.80-1.40 code = 2214) eGFR (2020 CKD-EPI) 81 ML/MIN/1.73 >60 (test code = 10892) CALC BUN/CREAT (test 17 RATIO 03-13 code = 2235) SODIUM (test code = 140 MEQ/L 644-242 9308) POTASSIUM (test code 4.2 MEQ/L 3.5-5.4 = 2228) CHLORIDE (test code 101 MEQ/L 95-107 = 2215) CARBON DIOXIDE (test 24 MEQ/L 19-31 code = 2206) CALCIUM (test code = 8.9 MG/DL 8.5-10.5 2208) PROTEIN, TOTAL (test 7.2 G/DL 6.1-8.3 code = 222) ALBUMIN (test code = 4.4 G/DL 3.5-5.2 2200) CALC GLOBULIN (test 2.8 G/DL 1.9-3.7 code = 2240) CALC A/G RATIO (test 1.6 RATIO 1.0-2.6 code = 2234) BILIRUBIN, TOTAL 0.6 MG/DL See_Comment [Automated message] (test code = 220) The syste m which generated this result transmit jerrod reference range : <=1.2. The refe rence range was not u sed to interpret th is result as normal/abnormal . ALKALINE PHOSPHATASE 76 U/L 40-121 (test code = 2203) AST (test code = 40 U/L 9-50 2217) ALT (test code = 36 U/L 5-50 2218) LIPID [id number] 06:48:21 Test Item Value Reference Range Interpretation Comments CHOLESTEROL (test 114 MG/DL <200 code = 2210) TRIGLYCERIDES (test 89 MG/DL <150 code = 2232) HDL CHOLESTEROL (test 36 MG/DL >39 L code = 2220) CALC LDL CHOL (test 61 MG/DL <100 NOTE: C ALCULATED LDL code = 2237) IS BASED ON ARTHUR-WYNN METHOD WHICHINCLUDES ADJUSTABLE TRIGLYCERIDE:VL DL CHOLESTEROL RAT IO.THIS FACTOR VARIES B Y MEASURED TRIGLY CERIDE AND NON-HDLCHOL ESTEROL CONCENTRATIONS WITH INCREASED CALCU LATED LDL SEENIN HIGH ER TRIGLYCERIDE OR LOWER NON-HDL SPECIME NS. FOR MOREINFORMATION , SEE CLIENT ANNOUNCE MENT AT [email or web address] RISK RATIO LDL/HDL 1.69 RATIO <3.55 (test code = 2237) HEMOGLOBIN [id number] 05:43:11 Test Item Value Reference Range Interpretation Comments HEMOGLOBIN A1c (test 6.3 % 4.2-5.6 H UNLESS OTHERWISE code = 14586) INDICATED, ALL TESTING PERFORMED ATCLI NICAL PATHOLOGY LABOR [employer] [address] [place] [address], [place] [address] LABORATORY DIRE CTOR: STORM HERNANDEZ M.D. CLIA NUMBER [id number] [place] [id number] COMPREHENSIVE METABOLIC [id number] 00:00:00 Test Item Value Reference Range Interpretation Comments GLUCOSE (test code = 2217) 110 MG/DL BUN (test code = 2208) 18 MG/DL CREATININE (test code = 2214) 1.09 MG/DL eGFR (2020 CKD-EPI) (test code 81 ML/MIN/1.73 = 31882) CALC BUN/CREAT (test code = 17 RATIO 2235) SODIUM (test code = 2231) 140 MEQ/L POTASSIUM (test code = 2228) 4.2 MEQ/L CHLORIDE (test code = 2215) 101 MEQ/L CARBON DIOXIDE (test code = 24 MEQ/L 2205) CALCIUM (test code = 2209) 8.9 MG/DL PROTEIN, TOTAL (test code = 7.2 G/DL 2228) ALBUMIN (test code = 220) 4.4 G/DL CALC GLOBULIN (test code = 2.8 G/DL 2239) CALC A/G RATIO (test code = 1.6 RATIO 4) BILIRUBIN, TOTAL (test code = 0.6 MG/DL 2206) ALKALINE PHOSPHATASE (test 76 U/L code = 2204) AST (test code = 2218) 40 U/L ALT (test code = 2219) 36 U/L LIPID [id number] 00:00:00 Test Item Value Reference Range Interpretation Comments CHOLESTEROL (test code = 2210) 114 MG/DL TRIGLYCERIDES (test code = 2232) 89 MG/DL HDL CHOLESTEROL (test code = 2220) 36 MG/DL CALC LDL CHOL (test code = 2237) 61 MG/DL RISK RATIO LDL/HDL (test code = 1.69 RATIO 2238) HEMOGLOBIN [id number] 00:00:00 Test Item Value Reference Range Interpretation Comments HEMOGLOBIN A1c (test code = 99491) 6.3 % HEMOGLOBIN [id number] 00:00:00 Test Item Value Reference Range Interpretation Comments HEMOGLOBIN A1c (test code = 63977) 6.3 % COMPREHENSIVE METABOLIC [id number] 00:00:00 Test Item Value Reference Range Interpretation Comments GLUCOSE (test code = 2217) 110 MG/DL BUN (test code = 2208) 18 MG/DL CREATININE (test code = 2214) 1.09 MG/DL eGFR (2020 CKD-EPI) (test code 81 ML/MIN/1.73 = 49132) CALC BUN/CREAT (test code = 17 RATIO 2235) SODIUM (test code = 2231) 140 MEQ/L POTASSIUM (test code = 2228) 4.2 MEQ/L CHLORIDE (test code = 2215) 101 MEQ/L CARBON DIOXIDE (test code = 24 MEQ/L 2205) CALCIUM (test code = 2209) 8.9 MG/DL PROTEIN, TOTAL (test code = 7.2 G/DL 2228) ALBUMIN (test code = 2201) 4.4 G/DL CALC GLOBULIN (test code = 2.8 G/DL 2239) CALC A/G RATIO (test code = 1.6 RATIO 2233) BILIRUBIN, TOTAL (test code = 0.6 MG/DL 2206) ALKALINE PHOSPHATASE (test 76 U/L code = 2204) AST (test code = 2218) 40 U/L ALT (test code = 2219) 36 U/L LIPID [id number] 00:00:00 Test Item Value Reference Range Interpretation Comments CHOLESTEROL (test code = 2210) 114 MG/DL TRIGLYCERIDES (test code = 2232) 89 MG/DL HDL CHOLESTEROL (test code = 2220) 36 MG/DL CALC LDL CHOL (test code = 2237) 61 MG/DL RISK RATIO LDL/HDL (test code = 1.69 RATIO 2238) HEMOGLOBIN [id number] 00:00:00 Test Item Value Reference Range Interpretation Comments HEMOGLOBIN A1c (test code = 39812) 6.3 % HEMOGLOBIN [id number] 00:00:00 Test Item Value Reference Range Interpretation Comments HEMOGLOBIN A1c (test code = 56036) 6.3 % PSA, [id number] 01:49:26 Test Item Value Reference Range Interpretation Comments PSA, TOTAL 1.38 NG/ML See_Comment NOTE: Metho dology is Fabian (test code = Stephania Electroch emiluminescence 2606) Immunoassay tr aceable to WHO reference stand nick 96/760. UNLESS OTHERW ISE INDICATED, ALL TESTING PER FORMED ATCLINICAL PATH [employer] [facility] [place] [address] [place] [address] LAB[address] DIRE CTOR: STORM FONTANEZ M.D. CLIA NUMBER [id number] CAP ACCREDITATION N O. [id number] [Automated mess age] The system which generated this result transmitted ref erence range: <=4.00. The ref erence range was not used to int erpret this result as betty l/abnormal. PSA, [id number] 00:00:00 Test Item Value Reference Range Interpretation Comments PSA, TOTAL (test code = 2606) 1.38 NG/ML PSA, [id number] 00:00:00 Test Item Value Reference Range Interpretation Comments PSA, TOTAL (test code = 2606) 1.38 NG/ML PSA, [id number] 00:00:00 Test Item Value Reference Range Interpretation Comments PSA, TOTAL (test code = 2606) 1.38 NG/ML PSA, [id number] 00:00:00 Test Item Value Reference Range Interpretation Comments PSA, TOTAL (test code = 2606) 1.38 NG/ML HIV 1/2 4TH GEN, RFLX [id number] 04:36:58 Test Item Value Reference Range Interpretation Comments HIV 1/2 4TH GEN, NON-REACTIVE NON-REACTIVE UNLE SS OTHERWISE RFLX CONF (test INDICATED, A LL TESTING code = 3514) PERFORMED [facility] PATHOLOGY LABOR [facility] [address] [place] [address] 4 LABORATORY DIRE CTOR: STORM HERNANDEZ M.D. CLIA NUMBER [id number] [facility] [place] [id number] HIV AB/AG COMBO RFLX [id number] 00:00:00 Test Item Value Reference Range Interpretation Comments HIV 1/2 4TH GEN, RFLX CONF (test NON-REACTIVE code = 3514) HIV AB/AG COMBO RFLX [id number] 00:00:00 Test Item Value Reference Range Interpretation Comments HIV 1/2 4TH GEN, RFLX CONF (test NON-REACTIVE code = 3514) LIPID [id number] 02:49:15 Test Item Value Reference Range Interpretation [...] MOREINFORMATION , SEE CLIENT ANNOUNCE MENT AT [email or web address] [email or web address] RATIO LDL/HDL 2.48 RATIO <3.55 (test code = 2238) COMPREHENSIVE METABOLIC [id number] 02:49:15 Test Item Value Reference Range Interpretation Comments GLUCOSE (test code = 97 MG/DL 70-99 2216) BUN (test code = 21 MG/DL 6-20 H 2207) CREATININE (test 1.28 MG/DL 0.80-1.40 code = 221) eGFR (2020 CKD-EPI) 67 ML/MIN/1.73 >60 (test code = 91225) CALC BUN/CREAT (test 16 RATIO 6-28 code = 2235) SODIUM (test code = 141 MEQ/L 935-888 3100) POTASSIUM (test code 4.3 MEQ/L 3.5-5.4 = 2227) CHLORIDE (test code 101 MEQ/L 95-107 = 2214) CARBON DIOXIDE (test 22 MEQ/L 19-31 code = 220) CALCIUM (test code = 9.4 MG/DL 8.5-10.5 [...] 2204) AST (test code = 28 U/L 9-50 2217) ALT (test code = 26 U/L 5-50 2218) LIPID [id number] 00:00:00 Test Item Value Reference Range Interpretation Comments CHOLESTEROL (test code = 2210) 147 MG/DL TRIGLYCERIDES (test code = 2232) 228 MG/DL HDL CHOLESTEROL (test code = 2220) 33 MG/DL CALC LDL CHOL (test code = 2237) 82 MG/DL RISK RATIO LDL/HDL (test code = 2.48 RATIO 2238) COMPREHENSIVE METABOLIC [id number] 00:00:00 Test Item Value Reference Range Interpretation Comments GLUCOSE (test code = 2217) 97 MG/DL BUN (test code = 2208) 21 MG/DL CREATININE (test code = 2214) 1.28 MG/DL eGFR (2020 CKD-EPI) (test code 67 ML/MIN/1.73 = 74667) CALC BUN/CREAT (test code = 16 RATIO 2235) SODIUM (test code = 2231) 141 MEQ/L POTASSIUM (test code = 2228) 4.3 MEQ/L CHLORIDE (test code = 2215) 101 MEQ/L CARBON DIOXIDE (test code = 22 MEQ/L 2205) CALCIUM (test code = 2209) 9.4 MG/DL PROTEIN, TOTAL (test code = 7.9 G/DL 2228) ALBUMIN (test code = 2201) 4.6 G/DL CALC GLOBULIN (test code = 3.3 G/DL 2240) CALC A/G RATIO (test code = 1.4 RATIO 2234) BILIRUBIN, TOTAL (test code = 0.5 MG/DL 2206) ALKALINE PHOSPHATASE (test 102 U/L code = 2204) AST (test code = 2218) 28 U/L ALT (test code = 2219) 26 U/L LIPID [id number] 00:00:00 Test Item Value Reference Range Interpretation Comments CHOLESTEROL (test code = 2210) 147 MG/DL TRIGLYCERIDES (test code = 2232) 228 MG/DL HDL CHOLESTEROL (test code = 2220) 33 MG/DL CALC LDL CHOL (test code = 2237) 82 MG/DL RISK RATIO LDL/HDL (test code = 2.48 RATIO 2238) COMPREHENSIVE METABOLIC [id number] 00:00:00 Test Item Value Reference Range Interpretation Comments GLUCOSE (test code = 2217) 97 MG/DL BUN (test code = 2208) 21 MG/DL CREATININE (test code = 2214) 1.28 MG/DL eGFR (2020 CKD-EPI) (test code 67 ML/MIN/1.73 = 84484) CALC BUN/CREAT (test code = 16 RATIO 2234) SODIUM (test code = 2231) 141 MEQ/L POTASSIUM (test code = 2228) 4.3 MEQ/L CHLORIDE (test code = 2215) 101 MEQ/L CARBON DIOXIDE (test code = 22 MEQ/L 2205) CALCIUM (test code = 220) 9.4 MG/DL PROTEIN, TOTAL (test code = 7.9 G/DL 2228) ALBUMIN (test code = 220) 4.6 G/DL CALC GLOBULIN (test code = 3.3 G/DL 2239) CALC A/G RATIO (test code = 1.4 RATIO 2233) BILIRUBIN, TOTAL (test code = 0.5 MG/DL 2206) ALKALINE PHOSPHATASE (test 102 U/L code = 2203) AST (test code = 2218) 28 U/L ALT (test code = 221) 26 U/L HEMOGLOBIN [id number] 05:50:17 Test Item Value Reference Range Interpretation Comments HEMOGLOBIN A1c (test 6.7 % 4.2-5.6 H [employer] code = 08863) ASS[employer] FOR HGB A1C: PREDIABETES/INC REASED [...] ALTERNATE TESTI NG OR LABORATORY CONS ULTATION. HEMOGLOBIN [id number] 00:00:00 Test Item Value Reference Range Interpretation Comments HEMOGLOBIN A1c (test code = 43349) 6.7 % HEMOGLOBIN [id number] 00:00:00 Test Item Value Reference Range Interpretation Comments HEMOGLOBIN A1c (test code = 41992) 6.7 % HEMOGLOBIN [id number] 00:00:00 Test Item Value Reference Range Interpretation Comments HEMOGLOBIN A1c (test code = 77464) 6.7 % HEMOGLOBIN [id number] 00:00:00 Test Item Value Reference Range Interpretation Comments HEMOGLOBIN A1c (test code = 65404) 6.7 % SARS-CoV-2 (COVID-19), RT-PCR/[id number] 15:44:19 Test Item Value Reference Interpretation Comments Range SARS-CoV-2 POSITIVE SEE NOTE A SARS-CoV-2 RNA INTERPRETATION DETECTEDPosit bruce results (test code = 86667) are bety cative of the presence of [...] code = NOT SPECIFIED Note: [place] [address]) Fabian Stephania Kate l-Time RT-PCR. The exp [...] provided by met hod given in report:[email or web address] [email or web address] [email or web address]/ Alternatively, see downloadable PD F fact sheet at:[email or web address]://[email or web address] [email or web address] CR UNLESS OTHERWIS E INDICATED, ALL TESTING PERFORMED [facility] [employer] [address] [place] [address] [id number] 4 LABORATORY DIRE CTOR: STORM HERNANDEZ M.D. CLIA NUMBER [id number] [place]. [id number] SARS-CoV-2 (COVID-19) by RT-PCR (HIGH RISK)2021-10-08 00:00:00 Test Item Value Reference Range Interpretation Comments SARS-CoV-2 INTERPRETATION (test POSITIVE code = 91949) SOURCE (test code = 49433) NOT SPECIFIED SARS-CoV-2 (COVID-19) by RT-PCR (HIGH RISK)2021-10-08 00:00:00 Test Item Value Reference Range Interpretation Comments SARS-CoV-2 INTERPRETATION (test POSITIVE code = 74903) SOURCE (test code = 60823) NOT SPECIFIED MICROALBUMIN/CREATININE, RANDOM AND [id number] 00:00:00 Test Item Value Reference Range Interpretation Comments CREATININE, URINE, CONC. (test 163.8 MG/DL code = 2072) ALBUMIN, URINE, RANDOM (test code 5.2 MG/DL = 00915) CALC ALBUMIN/CREAT, RND (test 32 MG/G code = 63963) MICROALBUMIN/CREATININE, RANDOM AND [id number] 00:00:00 Test Item Value Reference Range Interpretation Comments CREATININE, URINE, CONC. (test 163.8 MG/DL code = 2072) ALBUMIN, URINE, RANDOM (test code 5.2 MG/DL = 03318) CALC ALBUMIN/CREAT, RND (test 32 MG/G code = 45526) LIPID [id number] 00:00:00 Test Item Value Reference Range Interpretation Comments CHOLESTEROL (test code = 2210) 123 MG/DL TRIGLYCERIDES (test code = 2232) 230 MG/DL HDL CHOLESTEROL (test code = 2220) 28 MG/DL CALC LDL CHOL (test code = 2237) 66 MG/DL RISK RATIO LDL/HDL (test code = 2.36 RATIO 2238) COMPREHENSIVE METABOLIC [id number] 00:00:00 Test Item Value Reference Range Interpretation Comments GLUCOSE (test code = 2217) 129 MG/DL BUN (test code = 2208) 23 MG/DL CREATININE (test code = 2214) 1.26 MG/DL eGFR AMER. (test code 75 ML/MIN/1.73 = 74741) eGFR NON- AMER. (test 65 ML/MIN/1.73 code = 15083) CALC BUN/CREAT (test code = 18 RATIO 2235) SODIUM (test code = 2231) 140 MEQ/L POTASSIUM (test code = 2228) 4.5 MEQ/L CHLORIDE (test code = 2215) 103 MEQ/L CARBON DIOXIDE (test code = 22 MEQ/L 2205) CALCIUM (test code = 2209) 9.8 MG/DL PROTEIN, TOTAL (test code = 7.6 G/DL 2228) ALBUMIN (test code = 2201) 4.6 G/DL CALC GLOBULIN (test code = 3.0 G/DL 2240) CALC A/G RATIO (test code = 1.5 RATIO 2234) BILIRUBIN, TOTAL (test code = 0.6 MG/DL 2206) ALKALINE PHOSPHATASE (test 72 U/L code = 2204) AST (test code = 2218) 24 U/L ALT (test code = 2219) 22 U/L LIPID [id number] 00:00:00 Test Item Value Reference Range Interpretation Comments CHOLESTEROL (test code = 2210) 123 MG/DL TRIGLYCERIDES (test code = 2232) 230 MG/DL HDL CHOLESTEROL (test code = 2220) 28 MG/DL CALC LDL CHOL (test code = 2237) 66 MG/DL RISK RATIO LDL/HDL (test code = 2.36 RATIO 2238) COMPREHENSIVE METABOLIC [id number] 00:00:00 Test Item Value Reference Range Interpretation Comments GLUCOSE (test code = 2217) 129 MG/DL BUN (test code = 2208) 23 MG/DL CREATININE (test code = 2214) 1.26 MG/DL eGFR AMER. (test code 75 ML/MIN/1.73 = 69533) eGFR NON- AMER. (test 65 ML/MIN/1.73 code = 08366) CALC BUN/CREAT (test code = 18 RATIO 2235) SODIUM (test code = 2231) 140 MEQ/L POTASSIUM (test code = 2228) 4.5 MEQ/L CHLORIDE (test code = 2215) 103 MEQ/L CARBON DIOXIDE (test code = 22 MEQ/L 2205) CALCIUM (test code = 2209) 9.8 MG/DL PROTEIN, TOTAL (test code = 7.6 G/DL 2228) ALBUMIN (test code = 2201) 4.6 G/DL CALC GLOBULIN (test code = 3.0 G/DL 2240) CALC A/G RATIO (test code = 1.5 RATIO 2234) BILIRUBIN, TOTAL (test code = 0.6 MG/DL 2206) ALKALINE PHOSPHATASE (test 72 U/L code = 2204) AST (test code = 2218) 24 U/L ALT (test code = 2219) 22 U/L CBC W/AUTO [id number] 00:00:00 Test Item Value Reference Range Interpretation Comments WBC (test code = 1001) 7.8 K/UL RBC (test code = 1002) 5.39 M/UL HEMOGLOBIN (test code = 1003) 15.6 G/DL HEMATOCRIT (test code = 1004) 46.1 % MCV (test code = 1005) 85.5 fL MCH (test code = 1006) 28.9 PG MCHC (test code = 1007) 33.8 G/DL RDW (test code = 1038) 13.2 % NEUTROPHILS (test code = 1008) 66.3 % LYMPHOCYTES (test code = 1010) 25.7 % MONOCYTES (test code = 1011) 3.9 % EOSINOPHILS (test code = 1012) 2.7 % BASOPHILS (test code = 1013) 0.6 % IMMATURE GRANULOCYTES (test 0.8 % code = 1036) NUCLEATED RBCS (test code = 0.0 /100WBC'S 1065) PLATELET COUNT (test code = 179 K/UL 1015) ABSOLUTE NEUTROPHILS (test code 5.16 K/UL = 1066) ABSOLUTE LYMPHOCYTES (test code 2.00 K/UL = 1067) ABSOLUTE MONOCYTES (test code = 0.30 K/UL 1068) ABSOLUTE EOSINOPHILS (test code 0.21 K/UL = 1040) ABSOLUTE BASOPHILS (test code = 0.05 K/UL 1069) ABS IMMATURE GRANULOCYTES (test 0.06 K/UL code = 1020) ABS NUCLEATED RBCS (test code = 0.00 K/UL 34470) CBC W/AUTO [id number] 00:00:00 Test Item Value Reference Range Interpretation Comments WBC (test code = 1001) 7.8 K/UL RBC (test code = 1002) 5.39 M/UL HEMOGLOBIN (test code = 1003) 15.6 G/DL HEMATOCRIT (test code = 1004) 46.1 % MCV (test code = 1005) 85.5 fL MCH (test code = 1006) 28.9 PG MCHC (test code = 1007) 33.8 G/DL RDW (test code = 1038) 13.2 % NEUTROPHILS (test code = 1008) 66.3 % LYMPHOCYTES (test code = 1010) 25.7 % MONOCYTES (test code = 1011) 3.9 % EOSINOPHILS (test code = 1012) 2.7 % BASOPHILS (test code = 1013) 0.6 % IMMATURE GRANULOCYTES (test 0.8 % code = 1036) NUCLEATED RBCS (test code = 0.0 /100WBC'S 1065) PLATELET COUNT (test code = 179 K/UL 1015) ABSOLUTE NEUTROPHILS (test code 5.16 K/UL = 1066) ABSOLUTE LYMPHOCYTES (test code 2.00 K/UL = 1067) ABSOLUTE MONOCYTES (test code = 0.30 K/UL 1068) ABSOLUTE EOSINOPHILS (test code 0.21 K/UL = 1040) ABSOLUTE BASOPHILS (test code = 0.05 K/UL 1069) ABS IMMATURE GRANULOCYTES (test 0.06 K/UL code = 1020) ABS NUCLEATED RBCS (test code = 0.00 K/UL 28881) HEMOGLOBIN [id number] 00:00:00 Test Item Value Reference Range Interpretation Comments HEMOGLOBIN A1c (test code = 19585) 6.3 % HEMOGLOBIN [id number] 00:00:00 Test Item Value Reference Range Interpretation Comments HEMOGLOBIN A1c (test code = 04594) 6.3 % CBC W/AUTO [id number] 00:00:00 Test Item Value Reference Range Interpretation Comments WBC (test code = 1001) 7.8 K/UL RBC (test code = 1002) 5.39 M/UL HEMOGLOBIN (test code = 1003) 15.6 G/DL HEMATOCRIT (test code = 1004) 46.1 % MCV (test code = 1005) 85.5 fL MCH (test code = 1006) 28.9 PG MCHC (test code = 1007) 33.8 G/DL RDW (test code = 1038) 13.2 % NEUTROPHILS (test code = 1008) 66.3 % LYMPHOCYTES (test code = 1010) 25.7 % MONOCYTES (test code = 1011) 3.9 % EOSINOPHILS (test code = 1012) 2.7 % BASOPHILS (test code = 1013) 0.6 % IMMATURE GRANULOCYTES (test 0.8 % code = 1036) NUCLEATED RBCS (test code = 0.0 /100WBC'S 1065) PLATELET COUNT (test code = 179 K/UL 1015) ABSOLUTE NEUTROPHILS (test code 5.16 K/UL = 1066) ABSOLUTE LYMPHOCYTES (test code 2.00 K/UL = 1067) ABSOLUTE MONOCYTES (test code = 0.30 K/UL 1068) ABSOLUTE EOSINOPHILS (test code 0.21 K/UL = 1040) ABSOLUTE BASOPHILS (test code = 0.05 K/UL 1069) ABS IMMATURE GRANULOCYTES (test 0.06 K/UL code = 1020) ABS NUCLEATED RBCS (test code = 0.00 K/UL 12236) CBC W/AUTO [id number] 00:00:00 Test Item Value Reference Range Interpretation Comments WBC (test code = 1001) 7.8 K/UL RBC (test code = 1002) 5.39 M/UL HEMOGLOBIN (test code = 1003) 15.6 G/DL HEMATOCRIT (test code = 1004) 46.1 % MCV (test code = 1005) 85.5 fL MCH (test code = 1006) 28.9 PG MCHC (test code = 1007) 33.8 G/DL RDW (test code = 1038) 13.2 % NEUTROPHILS (test code = 1008) 66.3 % LYMPHOCYTES (test code = 1010) 25.7 % MONOCYTES (test code = 1011) 3.9 % EOSINOPHILS (test code = 1012) 2.7 % BASOPHILS (test code = 1013) 0.6 % IMMATURE GRANULOCYTES (test 0.8 % code = 1036) NUCLEATED RBCS (test code = 0.0 /100WBC'S 1065) PLATELET COUNT (test code = 179 K/UL 1015) ABSOLUTE NEUTROPHILS (test code 5.16 K/UL = 1066) ABSOLUTE LYMPHOCYTES (test code 2.00 K/UL = 1067) ABSOLUTE MONOCYTES (test code = 0.30 K/UL 1068) ABSOLUTE EOSINOPHILS (test code 0.21 K/UL = 1040) ABSOLUTE BASOPHILS (test code = 0.05 K/UL 1069) ABS IMMATURE GRANULOCYTES (test 0.06 K/UL code = 1020) ABS NUCLEATED RBCS (test code = 0.00 K/UL 20252) HEMOGLOBIN [id number] 00:00:00 Test Item Value Reference Range Interpretation Comments HEMOGLOBIN A1c (test code = 32843) 6.3 % HEMOGLOBIN [id number] 00:00:00 Test Item Value Reference Range Interpretation Comments HEMOGLOBIN A1c (test code = 59936) 6.3 % SARS-CoV-2 (COVID-19) by RT-PCR (HIGH RISK)2020-05-12 00:00:00 Test Item Value Reference Range Interpretation Comments SARS-CoV-2 INTERPRETATION (test POSITIVE code = 96819) SOURCE (test code = 76623) NOT SPECIFIED SARS-CoV-2 (COVID-19) by RT-PCR (HIGH RISK)2020-05-12 00:00:00 Test Item Value Reference Range Interpretation Comments SARS-CoV-2 INTERPRETATION (test POSITIVE code = 82427) SOURCE (test code = 37280) NOT SPECIFIED SARS-CoV-2 (COVID-19) by RT-PCR (HIGH RISK)2020-04-16 00:00:00 Test Item Value Reference Range Interpretation Comments SARS-CoV-2 INTERPRETATION (test POSITIVE code = 77277) SOURCE (test code = 20593) NOT SPECIFIED SARS-CoV-2 (COVID-19) by RT-PCR (HIGH RISK)2020-04-16 00:00:00 Test Item Value Reference Range Interpretation Comments SARS-CoV-2 INTERPRETATION (test POSITIVE code = 79949) SOURCE (test code = 07228) NOT SPECIFIED SARS-CoV-2 (COVID-19) by RT-PCR (HIGH RISK)2020-04-13 00:00:00 Test Item Value Reference Range Interpretation Comments SARS-CoV-2 INTERPRETATION (test POSITIVE code = 38762) SOURCE (test code = 39962) NOT SPECIFIED SARS-CoV-2 (COVID-19) by RT-PCR (HIGH RISK)2020-04-13 00:00:00 Test Item Value Reference Range Interpretation Comments SARS-CoV-2 INTERPRETATION (test POSITIVE code = 49507) SOURCE (test code = 46619) NOT SPECIFIED SARS-CoV-2 (COVID-19) by RT-PCR (HIGH RISK)2020-04-01 00:00:00 Test Item Value Reference Range Interpretation Comments SARS-CoV-2 INTERPRETATION (test POSITIVE code = 68886) SOURCE (test code = 52865) NOT SPECIFIED SARS-CoV-2 (COVID-19) by RT-PCR (HIGH RISK)2020-04-01 00:00:00 Test Item Value Reference Range Interpretation Comments SARS-CoV-2 INTERPRETATION (test POSITIVE code = 96432) SOURCE (test code = 47654) NOT SPECIFIED COMPREHENSIVE METABOLIC [id number] 00:00:00 Test Item Value Reference Range Interpretation Comments GLUCOSE (test code = 2217) 149 MG/DL BUN (test code = 2208) 25 MG/DL CREATININE (test code = 2214) 1.12 MG/DL eGFR AMER. (test code 87 ML/MIN/1.73 = 67369) eGFR NON- AMER. (test 75 ML/MIN/1.73 code = 27575) CALC BUN/CREAT (test code = 22 RATIO 2235) SODIUM (test code = 2231) 141 MEQ/L POTASSIUM (test code = 2228) 4.3 MEQ/L CHLORIDE (test code = 2215) 102 MEQ/L CARBON DIOXIDE (test code = 22 MEQ/L 220) CALCIUM (test code = 2209) 9.1 MG/DL PROTEIN, TOTAL (test code = 7.2 G/DL 2228) ALBUMIN (test code = 2201) 4.7 G/DL CALC GLOBULIN (test code = 2.5 G/DL 224) CALC A/G RATIO (test code = 1.9 RATIO 2234) BILIRUBIN, TOTAL (test code = 0.6 MG/DL 2206) ALKALINE PHOSPHATASE (test 59 U/L code = 2204) AST (test code = 2218) 21 U/L ALT (test code = 2219) 20 U/L LIPID [id number] 00:00:00 Test Item Value Reference Range Interpretation Comments CHOLESTEROL (test code = 2210) 171 MG/DL TRIGLYCERIDES (test code = 2232) 269 MG/DL HDL CHOLESTEROL (test code = 2220) 29 MG/DL CALC LDL CHOL (test code = 2237) 104 MG/DL RISK RATIO LDL/HDL (test code = 3.59 RATIO 2238) [id number] 00:00:00 Test Item Value Reference Range Interpretation Comments TSH, THIRD GENERATION (test code 1.090 UIU/ML = 2821) [id number] 00:00:00 Test Item Value Reference Range Interpretation Comments TSH, THIRD GENERATION (test code 1.090 UIU/ML = 2821) PSA, [id number] 00:00:00 Test Item Value Reference Range Interpretation Comments PSA, TOTAL (test code = 2606) 1.59 NG/ML PSA, [id number] 00:00:00 Test Item Value Reference Range Interpretation Comments PSA, TOTAL (test code = 2606) 1.59 NG/ML COMPREHENSIVE METABOLIC [id number] 00:00:00 Test Item Value Reference Range Interpretation Comments GLUCOSE (test code = 2217) 149 MG/DL BUN (test code = 2208) 25 MG/DL CREATININE (test code = 2214) 1.12 MG/DL eGFR AMER. (test code 87 ML/MIN/1.73 = 26224) eGFR NON- AMER. (test 75 ML/MIN/1.73 code = 23264) CALC BUN/CREAT (test code = 22 RATIO 2235) SODIUM (test code = 2231) 141 MEQ/L POTASSIUM (test code = 2228) 4.3 MEQ/L CHLORIDE (test code = 2215) 102 MEQ/L CARBON DIOXIDE (test code = 22 MEQ/L 2205) CALCIUM (test code = 2209) 9.1 MG/DL PROTEIN, TOTAL (test code = 7.2 G/DL 2228) ALBUMIN (test code = 220) 4.7 G/DL CALC GLOBULIN (test code = 2.5 G/DL 2239) CALC A/G RATIO (test code = 1.9 RATIO 2233) BILIRUBIN, TOTAL (test code = 0.6 MG/DL 2206) ALKALINE PHOSPHATASE (test 59 U/L code = 2204) AST (test code = 2218) 21 U/L ALT (test code = 2219) 20 U/L LIPID [id number] 00:00:00 Test Item Value Reference Range Interpretation Comments CHOLESTEROL (test code = 2210) 171 MG/DL TRIGLYCERIDES (test code = 2232) 269 MG/DL HDL CHOLESTEROL (test code = 2220) 29 MG/DL CALC LDL CHOL (test code = 2237) 104 MG/DL RISK RATIO LDL/HDL (test code = 3.59 RATIO 2238) [id number] 00:00:00 Test Item Value Reference Range Interpretation Comments TSH, THIRD GENERATION (test code 1.090 UIU/ML = 2821) [id number] 00:00:00 Test Item Value Reference Range Interpretation Comments TSH, THIRD GENERATION (test code 1.090 UIU/ML = 2821) PSA, [id number] 00:00:00 Test Item Value Reference Range Interpretation Comments PSA, TOTAL (test code = 2606) 1.59 NG/ML PSA, [id number] 00:00:00 Test Item Value Reference Range Interpretation Comments PSA, TOTAL (test code = 2606) 1.59 NG/ML HEMOGLOBIN [id number] 00:00:00 Test Item Value Reference Range Interpretation Comments HEMOGLOBIN A1c (test code = 41497) 5.8 % HEMOGLOBIN [id number] 00:00:00 Test Item Value Reference Range Interpretation Comments HEMOGLOBIN A1c (test code = 47079) 5.8 % HEMOGLOBIN [id number] 00:00:00 Test Item Value Reference Range Interpretation Comments HEMOGLOBIN A1c (test code = 01546) 5.8 % HEMOGLOBIN [id number] 00:00:00 Test Item Value Reference Range Interpretation Comments HEMOGLOBIN A1c (test code = 96016) 5.8 % COMPREHENSIVE METABOLIC [id number] 00:00:00 Test Item Value Reference Range Interpretation Comments GLUCOSE (test code = TEST NOT PERFORMED 2216) MG/DL BUN (test code = 2207) TEST NOT PERFORMED MG/DL CREATININE (test code = TEST NOT PERFORMED 2213) MG/DL eGFR AMER. (test TEST NOT PERFORMED code = 87714) ML/MIN/1.73 eGFR NON- AMER. TEST NOT PERFORMED (test code = 33793) ML/MIN/1.73 CALC BUN/CREAT (test TEST NOT PERFORMED code = 223) RATIO SODIUM (test code = TEST NOT PERFORMED 2230) MEQ/L POTASSIUM (test code = TEST NOT PERFORMED 8) MEQ/L CHLORIDE (test code = TEST NOT PERFORMED 2214) MEQ/L CARBON DIOXIDE (test TEST NOT PERFORMED code = 2205) MEQ/L CALCIUM (test code = TEST NOT PERFORMED 2208) MG/DL PROTEIN, TOTAL (test TEST NOT PERFORMED code = 2229) G/DL ALBUMIN (test code = TEST NOT PERFORMED 2200) G/DL CALC GLOBULIN (test code TEST NOT PERFORMED = 2240) G/DL CALC A/G RATIO (test TEST NOT PERFORMED code = 2234) RATIO BILIRUBIN, TOTAL (test TEST NOT PERFORMED code = 2207) MG/DL ALKALINE PHOSPHATASE TEST NOT PERFORMED (test code = 2204) U/L AST (test code = 2218) TEST NOT PERFORMED U/L ALT (test code = 2219) TEST NOT PERFORMED U/L COMPREHENSIVE METABOLIC [id number] 00:00:00 Test Item Value Reference Range Interpretation Comments GLUCOSE (test code = TEST NOT PERFORMED 2216) MG/DL BUN (test code = 8) TEST NOT PERFORMED MG/DL CREATININE (test code = TEST NOT PERFORMED 2213) MG/DL eGFR AMER. (test TEST NOT PERFORMED code = 86942) ML/MIN/1.73 eGFR NON- AMER. TEST NOT PERFORMED (test code = ) ML/MIN/1.73 CALC BUN/CREAT (test TEST NOT PERFORMED code = 2234) RATIO SODIUM (test code = TEST NOT PERFORMED 2230) MEQ/L POTASSIUM (test code = TEST NOT PERFORMED 2227) MEQ/L CHLORIDE (test code = TEST NOT PERFORMED 2214) MEQ/L CARBON DIOXIDE (test TEST NOT PERFORMED code = 2205) MEQ/L CALCIUM (test code = TEST NOT PERFORMED 2208) MG/DL PROTEIN, TOTAL (test TEST NOT PERFORMED code = 2228) G/DL ALBUMIN (test code = TEST NOT PERFORMED 2200) G/DL CALC GLOBULIN (test code TEST NOT PERFORMED = 2240) G/DL CALC A/G RATIO (test TEST NOT PERFORMED code = 2234) RATIO BILIRUBIN, TOTAL (test TEST NOT PERFORMED code = 2206) MG/DL ALKALINE PHOSPHATASE TEST NOT PERFORMED (test code = 2203) U/L AST (test code = 221) TEST NOT PERFORMED U/L ALT (test code = 221) TEST NOT PERFORMED U/L HEMOGLOBIN [id number] 00:00:00 Test Item Value Reference Range Interpretation Comments HEMOGLOBIN A1c (test code = 66106) 6.2 % HEMOGLOBIN [id number] 00:00:00 Test Item Value Reference Range Interpretation Comments HEMOGLOBIN A1c (test code = 85450) 6.2 % HEMOGLOBIN [id number] 00:00:00 Test Item Value Reference Range Interpretation Comments HEMOGLOBIN A1c (test code = 71656) 6.2 % HEMOGLOBIN [id number] 00:00:00 Test Item Value Reference Range Interpretation Comments HEMOGLOBIN A1c (test code = 29311) 6.2 %
== END 2022-03-31 18:18 | disposition home or self-care (01) ==
LOC: ER 07:48 → ERHOLD 10:43 → 2ND 19:30
PROVIDERS: ADMIT Hospitalist; ATTEND Hospitalist
DX: R10.9 Unspecified abdominal pain (principal); R11.2 Nausea with vomiting, unspecified; N28.9 Disorder of kidney and ureter, unspecified; E11.65 Type 2 diabetes mellitus with hyperglycemia; I10 Essential (primary) hypertension; I95.9 Hypotension, unspecified; E78.00 Pure hypercholesterolemia, unspecified; R00.1 Bradycardia, unspecified; F31.9 Bipolar disorder, unspecified; Z79.1 Long term (current) use of non-steroidal anti-inflammatories (NSAID); Z79.84 Long term (current) use of oral hypoglycemic drugs; Z79.899 Other long term (current) drug therapy; Z87.891 Personal history of nicotine dependence; Z20.822 Contact with and (suspected) exposure to COVID-19
CPT/HCPCS: 36415; 71045; 74176; 76705; 80048; 80053; 80061; 80076; 81003; 81015; 82607; 82947; 83036; 83690; 83735; 83880; 84484; 85025; 85610; 87086; 87088; 93005; 96361; 96374; 96375; 99284; C9113; G0378; J2405; J2765; J3490; J7030; J7799; U0003

== ENCOUNTER 2022-04-29 23:44 | Emergency (ER) | payer SELFPAY ==
--- OUTSIDE RECORDS SUMMARY | 2022-04-29 23:54 | XMS REPORT | Continuity of Care Document ---
:1965 Author Organization [facility] t Address [address] [place] [address] Care Team Providers Name Role Phone BELKIS Castillo [facility] Primary Care P hysician Unavailable RUKHSANA REMY Attending Clinician Unavailable Rukhsana Miles Attending Clinician Doctor Unassigned, [place] Attending Clinician Unavailable Nasreen Tolbert Attending Clinician NASREEN CHEUNG Attending Clinician Unavailable RUKHSANA REMY Admitting Clinician Unavailable Payers Payer Name Policy Type Policy Number Effective Date Expiration Date S [place] MEDICAID [place] PENDING 2022 PENDING 00:00:00 Problems Condition Condition Condition Status Onset Resolution Last Treating Co mments Source Name Details Category Date Date Treatment Clinician Date No known No known Disease Unive rs active active ity of problems problems [facility] Allergies, Adverse Reactions, Alerts Allergy Allergy Status Severity Reaction(s) Onset Inactive Treating Comm ents Source Name Type Date Date Clinician No Known DA Active U [facility] Drug 5-21 Allergie 00:00: s 00 NO KNOWN Drug Active Univers ALLERGIE Class ity of S [facility] Social History Social Habit Start Date Stop Date Quantity Comments Source Exposure to 2022-03-29 2022-04-08 Not sure [facility] SARS-CoV-2 00:00:00 17:24:00 [facility] (event) [place] Tobacco use and 2015-01-15 2015-01-15 Smokeless tobacco Un iversity of exposure 00:00:00 00:00:00 non-user [facility] Sex Ass[birth year] At [birth year] Universit y of 00:00:00 00:00:00 [facility] Smoking Status Start Date Stop Date Source Never smoked tobacco [facility] Medications Ordered Filled Start Stop Current Ordering Indication Dosage Frequency Signature Comments Components Source Medication Medication Date Date Medication? Clinician (SIG) Name Name ondansetron No 4mg 4 mg, Univ ers (ZOFRAN-ODT 04-09 Oral, ity of ) 01:45: 00:44 ONCE, 1 [place] disintegrat 00 :00 dose, On Medi renee ing tablet [place] 4 mg 04/08/22 at 2044, Routine levoFLOXaci No 500mg 500 mg, U nivers n 04-09 Oral, ity of (LEVAQUIN) 00:45: 00:44 ONCE, 1 [place] tablet 500 00 :00 dose, On Medic al mg [place] 04/08/22 at 1945, ANJANA
Re ason for Anti-Infec tive: Documented Infection< br>Documen jerrod Infection Site: Pelvic
Duration of Therapy: 7 days iopamidol 2021- No [id number] 54mL 54 mL, U nivers (ISOVUE 04-09 Intravenou ity o f 300-500 mL) 00:30: 23:10 s, ONCE, 1 [place] injection 00 :00 dose, On Medica l 54 mL [place] 04/08/22 at 1930, Routine NaCl 0.9% No 1000mL at 999 Uni vers (NS) bolus 04-08 0725 mL/hr, ity of infusion 23:45: 00:27 1,000 mL, [place] 1,000 mL 00 :00 IV Medical Infusion, Branch ONCE, 1 dose, On 04/08/22 at 1845, ANJANA ondansetron 0 2021- No 4mg 4 mg, Slow Univers (ZOFRAN 04-08 07-24 IV Push, ity of (PF)) 22:45: 22:49 ONCE, 1 [place] injection 4 00 :00 dose, On Medi renee mg Sun [place] 04/08/22 at 1745, ANJANA ondansetron 2021-0 Yes [id number] 4mg Take 1 Univers 4 mg -24 tablet by ity of disintegrat 00:00: mouth [place] ing tablet 00 every 8 Medica l (eight) Branch hours as needed for Nausea and Vomiting (N/V). levoFLOXaci 2021-0 2021- Yes [id number] 500mg Take 1 Univers n 04-08 08-24 tablet by ity of (LEVAQUIN) 00:00: 04:59 mouth [place] 500 mg 00 :00 every 24 Medical tablet (twenty-fo Branch ur) hours for 30 days. magnesium 2021-0 2021- Yes [id number] 300mL Take 300 Univers citrate 04-08 07-25 mL by ity of solution 00:00: 04:59 [place] 00 :[place] now for 1 Medical dose. Branch TAKE 1 2021-0 No 800 TABLET 3 7-14 TIMES DAILY 00:00: WITH FOOD 00 NEEDED. Dose 2021-0 No Unknown -14 00:00: 00 TAKE 1 2021-0 No 8 TABLET 7-14 EVERY 8 00:00: HOURS 00 NEEDED FOR NAUSEA AND VOMITING. TAKE 1 2021-0 No 250 TABLET 7-01 DAILY. 00:00: 00 TAKE 1 2021-0 No 250 TABLET 7-01 DAILY. 00:00: 00 triamcinolo 2-0 No 1% ne 5-17 acetonide 00:00: 0.1 % 00 topical cream Risperdal 2-0 No 1mg 0.5 mg 5-17 tablet 00:00: 00 triamcinolo 2022-0 No 1% ne 5-17 acetonide 00:00: 0.1 % 00 topical cream Risperdal 2021-0 No 1mg 0.5 mg 5-17 tablet 00:00: 00 Seroquel 2-0 No 1mg 200 mg 5-05 tablet 00:00: [...] 5-02 00:00: 00 Dose 2022-0 No Unknown 5- [...] 5- 00:00: 00 Dose 2022-0 No Unknown 5-01 00:00: 00 Seroquel 2022-0 No 1mg 100 mg 4-27 tablet 00:00: 00 Dose 2022-0 No Unknown 4-27 00:00: 00 Seroquel 2022-0 No 1mg 100 mg 4-27 tablet 00:00: 00 Dose 2022-0 No Unknown 4-27 00:00: 00 triamcinolo 2-0 No 1% ne 4-26 acetonide 00:00: 0.1 [...] 4- 00:00: 00 Dose 2022-0 No Unknown 4 00:00: 00 Dose 2022-0 No Unknown 4- 00:00: 00 Dose 2022-0 No Unknown 4- 00:00: 00 Dose 2022-0 No Unknown 4 00:00: 00 Dose 2022-0 No Unknown 4 00:00: 00 Dose 2022-0 No Unknown 4 00:00: 00 Dose 2022-0 No Unknown 4 00:00: 00 Dose 2022-0 No Unknown 4 00:00: 00 Dose 2022-0 No Unknown 4 00:00: 00 Dose 2022-0 No Unknown 4 00:00: 00 Dose 2022-0 No Unknown 4 00:00: 00 Dose 2022-0 No Unknown 4 00:00: 00 Dose 2022-0 No Unknown 4 00:00: 00 Dose 2022-0 No Unknown 4 00:00: 00 triamcinolo 2-0 No 1% ne - acetonide 00:00: 0.1 % 00 topical cream ezetimibe 2-0 No 1mg 10 mg 4-26 tablet 00:00: 00 metformin 2022-0 No 1mg 500 mg 4-26 tablet 00:00: 00 lisinopril 2-0 No 1mg 10 mg 4-26 tablet 00:00: 00 hydrochloro 2022-0 No 1mg thiazide -26 12.5 mg 00:00: capsule 00 Dose 2022-0 [...] 2022-0 No Unknown 4-26 00:00: 00 Dose 2-0 No Unknown 4-26 00:00: 00 Dose 2-0 No Unknown 4-26 00:00: 00 Dose 2-0 No Unknown 4-26 00:00: 00 tamsulosin 2022-0 [...] 3-23 00:00: 00 Dose 2022-0 No Unknown 3-19 [...] Dose 2021-1 No Unknown 2-27 00:00: 00 lisinopril 2021-0 No 1mg 10 [...] 10 mg 6-19 tablet 00:00: 00 metformin 1-0 No 1mg 500 mg 6-19 tablet 00:00: 00 lisinopril 1-0 No 1mg 5 mg tablet 6-19 00:00: 00 hydrochloro 1-0 No 1mg thiazide 6-19 12.5 mg 00:00: capsule 00 atorvastati 1-0 No 1mg n 20 mg 6-19 tablet 00:00: 00 lisinopril 1-0 No 1mg 10 mg 6-19 tablet 00:00: 00 metformin 1-0 No 1mg 500 mg 6-19 tablet 00:00: 00 lisinopril 1-0 No 1mg 5 mg tablet 6-19 00:00: 00 hydrochloro 1-0 No 1mg thiazide 6-19 12.5 mg 00:00: capsule 00 lisinopril 2019-1 [...] 600 mg 2-12 tablet 00:00: 00 lisinopril 2020-1 No 1mg 5 mg tablet 2-12 00:00: 00 hydrochloro 2020-1 No 1mg thiazide 2-12 12.5 mg 00:00: capsule 00 lisinopril 2020-1 No 1mg 5 mg tablet 0-19 00:00: 00 lisinopril 2020-1 No 1mg 5 mg tablet 0-19 00:00: 00 doxycycline 2020-0 No 1mg monohydrate 9-02 100 mg 00:00: capsule 00 doxycycline 2020-0 No 1mg monohydrate 9-02 100 mg 00:00: capsule 00 Zofran 4 mg 2020-0 No 1mg tablet 8 00:00: 00 Zofran 4 mg 2020-0 No 1mg tablet 8 00:00: 00 lisinopril 2020-0 No 1mg 10 [...] 00:00: orothiazide 00 12.5 mg tablet metformin 2019-1 No 1mg 500 mg 1-05 tablet 00:00: 00 lisinopril 2019-1 No 1mg 5 mg tablet 1-05 00:00: 00 lisinopril 2019-1 No 1mg 10 1-05 mg-hydrochl 00:00: orothiazide 00 12.5 mg tablet metformin 2019-1 No 1mg 500 mg 1-05 tablet 00:00: 00 lisinopril 2019-1 No 1mg 5 mg tablet 1-05 00:00: 00 Trileptal 2019-0 No 1mg 300 mg 5-07 tablet 00:00: 00 Risperdal 2 2019-0 No 1mg mg tablet 5-07 00:00: 00 lisinopril 2019-0 No 1mg 10 5-07 mg-hydrochl 00:00: orothiazide 00 12.5 mg tablet metformin 2019-0 No 1mg 500 mg 5-07 tablet 00:00: 00 lisinopril 2019-0 No 1mg 5 mg tablet 507 00:00: 00 hydroxyzine 2019-0 No 1mg HCl 25 mg 5-07 tablet 00:00: 00 fluoxetine 2019-0 No 1mg 40 mg 5-07 capsule 00:00: 00 Trileptal 2019-0 No 1mg 300 mg 5-07 tablet 00:00: 00 Risperdal 2 2019-0 No 1mg mg tablet 5 00:00: 00 lisinopril 2019-0 No 1mg 10 5-07 mg-hydrochl 00:00: orothiazide 00 12.5 mg tablet metformin 2019-0 No 1mg 500 mg 5-07 tablet 00:00: 00 lisinopril 2019-0 No 1mg 5 mg tablet 5 00:00: 00 hydroxyzine 2019-0 No 1mg HCl [...] 5 mg tablet 2-18 00:00: 00 lisinopril 2018-0 No 1mg 10 9-25 mg-hydrochl 00:00: orothiazide 00 12.5 mg tablet metformin 2018-0 No 1mg 500 mg 9-25 tablet 00:00: 00 lisinopril 2018-0 No 1mg 5 mg tablet 9-25 00:00: 00 lisinopril 2018-0 No 1mg 10 9-25 mg-hydrochl 00:00: orothiazide 00 12.5 mg tablet metformin 2018-0 No 1mg 500 mg 9-25 tablet 00:00: 00 lisinopril 2018-0 No 1mg 5 mg tablet 9-25 00:00: 00 lisinopril 2018-0 No 1mg 10 [...] lisinopril 2018-0 No 1mg 5 mg tablet 6 00:00: 00 hydrochloro 2018-0 No 1mg thiazide 6-26 12.5 mg 00:00: capsule 00 lisinopril 2018-0 No 1mg 5 mg tablet 626 00:00: 00 hydrochloro 2018-0 No 1mg thiazide 6-26 12.5 mg 00:00: capsule 00 ALPRAZolam 2015-0 Yes .5mg Take 0.5 Uni vers (XANAX) 0.5 5-03 mg by ity of mg tablet 13:03: mouth 3 [place] 16 (three) Medical times Branch daily as needed (anxiety). ALPRAZolam 2014-0 Yes .5mg Take 0.5 Uni vers (XANAX) 0.5 5-03 mg by ity of mg tablet 13:03: mouth 3 [place] 16 (three) Medical times Branch daily as needed (anxiety). ALPRAZolam 2014-0 Yes .5mg Take 0.5 Uni vers (XANAX) 0.5 5-03 mg by ity of mg tablet 13:03: mouth 3 [place] 16 (three) Medical times Branch daily as needed (anxiety). aspirin 81 Yes 81mg Take 1 Tab U nivers mg chewable 5-03 by mouth ity of tablet 00:00: daily. [address] amLODIPine 2014-0 Yes 5mg Take 1 Tab U nivers (NORVASC) 5 5-03 by mouth ity of mg tablet 00:00: daily. [address] aspirin 81 0 Yes 81mg Take 1 Tab U nivers mg chewable 5-03 by mouth ity of tablet 00:00: daily. [address] amLODIPine 2014-0 Yes 5mg Take 1 Tab U nivers (NORVASC) 5 5-03 by mouth ity of mg tablet 00:00: daily. [address] aspirin 81 Yes 81mg Take 1 Tab U nivers mg chewable 5-03 by mouth ity of tablet 00:00: daily. [address] amLODIPine 2014- Yes 5mg Take 1 Tab U nivers (NORVASC) 5 5-03 by mouth ity of mg tablet 00:00: daily. [address] Immunizations Ordered Filled Immunization Date Status Comments [facility] Immunization Name Name Fide COVID-19 2021-09-14 Completed Vaccine 00:00:00 Fide COVID-19 2021-09-14 Completed Vaccine 00:00:00 SARS-COV-2 COVID-19 2020-12-10 Completed Unive rsity of FIDE/J&J VACCINE 00:00:00 [facility] SARS-COV-2 COVID-19 2020-12-10 Completed Unive rsity of FIDE/J&J VACCINE 00:00:00 [facility] SARS-COV-2 COVID-19 2020-12-10 Completed Unive rsity of FIDE/J&J VACCINE 00:00:00 [facility] Vital Signs Vital Name Observation Time Observation Value Comments Source Systolic blood 2022-04-09 00:00:00 118 mm[Hg] Univer sity of pressure [facility] Diastolic blood 2022-04-09 00:00:00 76 mm[Hg] Unive rsity of pressure [facility] Heart rate 2022-04-09 00:00:00 52 /min [facility] Respiratory rate 2022-04-09 00:00:00 16 /min [facility] ersity of [place] [facility] [place] Oxygen saturation in 2022-04-09 00:00:00 98 /min University of Arterial blood by [facility] Pulse oximetry Branch Body temperature 2022-04-08 22:32:00 36.94 [facility] ersity of [place] [facility] Body height 2022-04-08 22:32:00 180.3 cm Universi ty of [facility] Branch Systolic blood 2022-01-09 15:52:00 162 mm[Hg] Univer sity of pressure [place] [facility] Diastolic blood 2022-01-09 15:52:00 82 mm[Hg] Unive rsity of pressure [facility] Branch Heart rate 2022-01-09 15:52:00 75 /min Universi ty of [facility] Body temperature 2022-01-09 15:52:00 36.11 [facility] [place] [facility] Respiratory rate 2022-01-09 15:52:00 18 /min [facility] Body weight 2022-01-09 15:52:00 136.079 kg Universi ty of [place] [facility] BMI 2022-01-09 15:52:00 41.84 kg/m2 Universi ty [facility] Oxygen saturation in 2022-01-09 15:52:00 75 /min University of Arterial blood by [facility] Pulse oximetry Branch BP Systolic [...] 2021-10-06 14:59:00 Procedures Procedure Date / Time Performing Clinician Source Performed XR CHEST 1 VW 2022-04-09 00[facility]13:[facility] W 2022-04-08 23:21:00 Rukhsana Remy [facility] CONTRAST [facility] Branch LIPASE 2022-04-08 22:48:00 [facility] TROP[facility]IN I 2022-04-08 22:48:00 Sandrita [facility] COMP. METABOLIC PANEL 2022-04-08 22:48:00 Rukhsana Remy [facility] ([id number]) [facility] CBC WITH DIFF 2022-04-08 22:48:00 Sandrita [facility] PROTHROMBIN TIME / INR 2022-04-08 22:48:00 Sandrita [facility] URINALYSIS 2022-04-08 22:48:00 Sandrita [facility] N-TERMINAL PRO-BNP 2022-04-08 22:48:00 Rukhsana Remy [facility] COVID-19 (ID NOW RAPID 2022-04-08 22:48:00 Sandrita [facility] TESTING) Medical Branch CONSENT/REFUSAL FOR 2022-04-08 22:21:37 [facility], [facility] Name [facility] CONSENT/REFUSAL FOR 2022-01-09 15:34:31 Doctor Unassigned, [facility] NOTICE OF PRIVACY 2022-01-09 15:34:19 Doctor Unassigned, No [facility] PRACTICES Name [facility] Ear Lavage 2019-05-04 00:00:00 Plan of Care Planned Activity Planned Date Details Comments Source Goal Plan of Care Note [code = 32897-1] Goal Plan of Care Note [code = 91606-8] Goal Plan of Care Note [code = 94294-8] Goal Plan of Care Note [code = 52448-9] Goal Plan of Care Note [code = 16666-4] Goal Plan of Care Note [code = 90074-2] Goal Plan of Care Note [code = 92511-5] Goal Plan of Care Note [code = 84236-2] Goal Plan of Care Note [code = 24070-1] Goal Plan of Care Note [code = 93832-6] Goal Plan of Care Note [code = 01898-9] Goal Plan of Care Note [code = 51948-3] Goal Plan of Care Note [code = 65259-8] Goal Plan of Care Note [code = 95149-2] Goal Plan of Care Note [code = 73541-3] Goal Plan of Care Note [code = 43495-7] Goal Plan of Care Note [code = 92381-7] Goal Plan of Care Note [code = 72229-2] Goal Plan of Care Note [code = 23210-5] Goal Plan of Care Note [code = 43068-8] Goal Plan of Care Note [code = 47366-2] Goal Plan of Care Note [code = 17547-5] Goal Plan of Care Note [code = 25224-7] Goal Plan of Care Note [code = 47335-4] Goal Plan of Care Note [code = 97056-5] Goal Plan of Care Note [code = 03096-4] Goal Plan of Care Note [code = 32732-7] Goal Plan of Care Note [code = 16727-0] Goal Plan of Care Note [code = 63922-3] Goal Plan of Care Note [code = 72169-8] Goal Plan of Care Note [code = 66733-3] Goal Plan of Care Note [code = 47026-4] Goal Plan of Care Note [code = 96692-3] Goal Plan of Care Note [code = 37470-2] Goal Plan of Care Note [code = 09078-9] Goal Plan of Care Note [code = 78737-4] Goal Plan of Care Note [code = 24008-2] Goal Plan of Care Note [code = 49978-8] Goal Plan of Care Note [code = 09190-8] Goal Plan of Care Note [code = 24412-1] Goal Plan of Care Note [code = 98338-0] Goal Plan of Care Note [code = 93958-6] Goal Plan of Care Note [code = 09239-0] Goal Plan of Care Note [code = 25621-3] Goal Plan of Care Note [code = 42967-4] Goal Plan of Care Note [code = 77568-0] Goal Plan of Care Note [code = 21284-3] Goal Plan of Care Note [code = 97561-3] Goal Plan of Care Note [code = 26734-5] Goal Plan of Care Note [code = 75363-9] Goal Plan of Care Note [code = 77686-7] Goal Plan of Care Note [code = 36479-9] Goal Plan of Care Note [code = 37367-6] Goal Plan of Care Note [code = 35862-5] Goal Plan of Care Note [code = 40275-0] Goal Plan of Care Note [code = 67758-5] Goal Plan of Care Note [code = 40143-6] Goal Plan of Care Note [code = 43151-9] Goal Plan of Care Note [code = 85718-4] Goal Plan of Care Note [code = 88314-0] Goal Plan of Care Note [code = 58134-8] Goal Plan of Care Note [code = 71568-5] Goal Plan of Care Note [code = 28942-6] Goal Plan of Care Note [code = 72871-7] Goal Plan of Care Note [code = 26320-7] Goal Plan of Care Note [code = 70276-7] Goal Plan of Care Note [code = 91817-3] Goal Plan of Care Note [code = 29107-0] Goal Plan of Care Note [code = 00732-4] Goal Plan of Care Note [code = 74985-3] Goal Plan of Care Note [code = 22263-9] Goal Plan of Care Note [code = 74913-7] Goal Plan of Care Note [code = 29929-5] Goal Plan of Care Note [code = 92856-4] Goal Plan of Care Note [code = 52881-7] Goal Plan of Care Note [code = 78372-5] Goal Plan of Care Note [code = 93273-7] Goal Plan of Care Note [code = 55788-7] Goal Plan of Care Note [code = 77771-3] Goal Plan of Care Note [code = 60762-3] Goal Plan of Care Note [code = 99394-6] Goal Plan of Care Note [code = 05576-0] Goal Plan of Care Note [code = 79137-6] Goal Plan of Care Note [code = 28003-4] Goal Plan of Care Note [code = 54816-2] Goal Plan of Care Note [code = 64495-3] Goal Plan of Care Note [code = 03232-2] Goal Plan of Care Note [code = 74293-2] Goal Plan of Care Note [code = 56106-3] Goal Plan of Care Note [code = 79042-0] Goal Plan of Care Note [code = 78889-5] Goal Plan of Care Note [code = 35817-2] Goal Plan of Care Note [code = 54878-4] Goal Plan of Care Note [code = 29272-0] Goal Plan of Care Note [code = 47518-7] Goal Plan of Care Note [code = 33833-8] Goal Plan of Care Note [code = 57363-6] Goal Plan of Care Note [code = 46905-0] Goal Plan of Care Note [code = 78640-0] Goal Plan of Care Note [code = 39890-3] Goal Plan of Care Note [code = 64488-8] Goal Plan of Care Note [code = 56015-4] Goal Plan of Care Note [code = 13982-1] Goal Plan of Care Note [code = 81988-6] Goal Plan of Care Note [code = 70754-5] Goal Plan of Care Note [code = 85596-9] Goal Plan of Care Note [code = 06528-8] Encounters Start End Encounter Admission Attending Care Care Encounter Source Date/Time Date/Time Type Type Clinicians Facility Department ID 2022-02-03 Inpatient [facility] [id number] [facility] 12:36:00 91 2022-04-08 2022-04-08 Emergency X SANDRITA, [facility] [id number] Univers 17:38:00 20:38:00 RUKHSANA west [facility] 2022-04-08 2022-04-08 [facility] [id number] Univers 17:38:00 20:38:00 Rukhsana PERSAUD 350.1.13.10 i ty of [place] 4.2.7.2.686 [facility] [id number] [place] [id number] [place] 2022-04-08 2022-04-08 Orders Doctor SALVADOR 1.2.840.114 [id number] Univers 00:00:00 00:00:00 Only Unassigned, FROYLAN 350.1.13.10 ity of [place] [facility] 4.2.7.2.686 [facility] [id number] [place] [address] Branch 2022-03-29 2022-03-29 Outpatient [id number] 00:00:00 00:00:00 Visit 6b13-76y3 [id number] -8588-7b9 [id number] 2022-03-15 2022-03-15 Outpatient [id number] 00:00:00 00:00:00 Visit [id number] -[id number] [id number] 2022-01-09 2022-01-09 Emergency [facility] [id number] Univers 10:54:00 12:08:00 Nasreen [facility] 350.1.13.10 i ty of [place] 4.2.7.2.686 [facility] [id number] [address] 2022-01-09 2022-01-09 Emergency X [facility] ERT [id number] Univers 10:54:00 12:08:00 NASREEN west [facility] Results Test Description Test Time Test Comments Results Result Comments Source TROPONIN I 2022-04-08 23:22:56 Test Item Value Reference Range Interpretation Comme nts TROPONIN I (test code = 0.001 ng/mL See_Comment [Au tomated message] The [id number]) system which ge nerated this result tra nsmitted reference range : <=0.034. The reference r sarah was not used to int erpret this result as normal/abnormal . JOSE (test code = JOSE) Reference (Normal) Range (defined by the 99th percentile reference limit): <= 0.034 ng/mL Note: Cardiac troponin begins to rise 3-4 hours after the onset of ischemia. Repeat in 4-6 hours if the sample was drawn within 3-4 hours of the onset of the symptom and found normal. Diagnosis of myocardial injury is made with acute changes in cTn concentrations with at least one serial sample above the 99th percentile upper reference limit (URL), taken together with the patient's clinical presentation. Biotin has been reported to cause a negative bias, interpret results relative to patient's use of biotin. Lab Interpretation Normal (test code = 96767-3) [id number] 23:20:10 Test Item Value Reference Range Interpretation Comments NT-proBNP (test code 91 pg/mL See_Comment [Autom ated = [id number]) message] The system which generated this result transmitted reference range : <=125. The reference range was not used to interpret this result as normal/abnormal . JOSE (test code = JOSE) Biotin has been reported to cause a negative bias, interpret results relative to patient's use of biotin. Lab Interpretation Normal (test code = 30215-3) [facility]. METABOLIC PANEL ([id number])2022-04-08 23:13:34 Test Item Value Reference Range Interpretation Comments NA (test code = 134 mmol/L 135-145 L 7614599461) K (test code = 4.0 mmol/L 3.5-5 9501864730) CL (test code = 98 mmol/L 98-108 0908080582) CO2 TOTAL (test code = 22 mmol/L 23-31 L 2309133209) AGAP (test code = 2-16 8380608603) BUN (test code = 22 mg/dL 7-23 6488927789) GLUCOSE (test code = 128 mg/dL 70-110 H 2530716559) CREATININE (test code = 1.26 mg/dL 0.6-1.25 H 0019837679) TOTAL BILI (test code = 1.4 mg/dL 0.1-1.1 H 3019400462) CALCIUM (test code = 9.9 mg/dL 8.6-10.6 2819590515) T PROTEIN (test code = 8.1 g/dL 6.3-8.2 4785179114) ALBUMIN (test code = 4.7 g/dL 3.5-5 1694075323) ALK PHOS (test code = 107 U/L 34-122 1110239890) ALTv (test code = 17 U/L 5-50 1742-6) AST(SGOT) (test code = 26 U/L 13-40 1177181301) eGFR (test code = mL/min/1.73m2 8206097848) JOSE (test code = JOSE) Association of Glomerular Filtration Rate (GFR) and Staging of Kidney Disease* + --+ --+ ------+| GFR (mL/min/1.73 m2) ?| With Kidney Damage ?| ?Without Kidney Damage+ --------+ --------+ +| ?>90 ?| ?Stage one ?| ? Normal ?+ ---+ ---+ -------+| ?60-89 ?| ?Stage two ?| ? Decreased GFR ? + --+ --+ ------+| ?30-59 ?| ?Stage three ?| ? Stage three ? + --+ --+ ------+| ?15-29 ?| ?Stage four ? | ? Stage four ?+ ---+ ---+ -------+| ?<15 (or dialysis) ? ?| ?Stage five ? | ? Stage five ?+ ---+ ---+ -------+ *Each stage assumes the associated GFR level has been in effect for at least three months. ?Stages 1 to 5, with or without kidney disease, indicate chronic kidney disease. Notes: Determination of stages one and two (with eGFR >59mL/min/1.73 m2) requires estimation of kidney damage for at least three months as defined by structural or functional abnormalities of the kidney, manifested by either:Pathological abnormalities or Markers of kidney damage (including abnormalities in the composition of the blood or urine or abnormalities in imaging tests). Lab Interpretation Abnormal (test code = 37545-5) [facility]14 Test Item Value Reference Range Interpretation Comments LIPASE (test code = 2096693890) 233 U/L 0-220 H Lab Interpretation (test code = Abnormal 57689-4) [facility] / [id number] 23:09:32 Test Item Value Reference Range Interpretation Comments PROTIME PATIENT (test See_Comment [Auto mated message] code = 5964-2) The system wh ich generated this result transmitted ref erence range: 12.0 - 1 4.7 Seconds. The re ference range was not u sed to interpret this result as normal/abnor mal. INR (test code = 6301-6) Nor mal INR <1.1; Warfarin Therap eutic range 2.0 to 3. 0 or 2.5 to 3.5, dep ending upon the indica tions. Lab Interpretation (test Normal code = 51019-3) [facility] [id number] 22:58:35 Test Item Value Reference Range Interpretation Comments WBC (test code = See_Comment [Automated 2190-2) message] The sy stem which generated this result transmitted reference range : 4.20 - 10.70 10*3/?L. The reference range was not used to interpret this result as normal/abnormal . RBC (test code = See_Comment [Automated 439-8) message] The sy stem which generated this result transmitted reference range : 4.26 - 5.52 10*6/?L. The reference range was not used to interpret this result as normal/abnormal . HGB (test code = 15.2 g/dL 12.2-16.4 718-7) HCT (test code = 45.1 % 38.4-49.3 4544-3) MCV (test code = 84.1 fL 81.7-95.6 787-2) MCH (test code = 28.4 pg 26.1-32.7 785-6) MCHC (test code = 33.7 g/dL 31.2-35 786-4) RDW-SD (test code = 35.7 fL 38.5-51.6 L 00518-3) RDW-CV (test code = 11.8 % 12.1-15.4 L 788-0) PLT (test code = See_Comment [Automated 617-3) message] The sy stem which generated this result transmitted reference range : 150 - 328 10*3/ ?L. The reference r sarah was not used to interpret this result as normal/abnormal . MPV (test code = 11.5 fL 9.8-13 89235-4) NRBC/100 WBC (test See_Comment [Automat ed code = [id number]) message] The system which generated this result transmitted reference range : 0.0 - 10.0 /100 WBCs. The refer ence range was not u sed to interpret th is result as normal/abnormal . NRBC x10^3 (test code See_Comment [Auto mated = [id number]) message] The s ystem which generated this result transmitted reference range : 10*3/?L. The reference range was not used to interpret this result as normal/abnormal . GRAN MAT (NEUT) % 79.6 % (test code = 770-8) IMM GRAN % (test code 0.40 % = [id number]) LYMPH % (test code = 12.1 % 736-9) MONO % (test code = 5.4 % 5905-5) EOS % (test code = 2.1 % 713-8) BASO % (test code = 0.4 % 706-2) GRAN MAT x10^3(ANC) 7.36 10*3/uL 1.99-6.95 H (test code = [id number]) IMM GRAN x10^3 (test 0.04 10*3/uL 0-0.06 code = 3532622703) LYMPH x10^3 (test code 1.12 10*3/uL 1.09-3.23 = 731-0) MONO x10^3 (test code 0.50 10*3/uL 0.36-1.02 = 742-7) EOS x10^3 (test code = 0.19 10*3/uL 0.06-0.53 711-2) BASO x10^3 (test code 0.04 10*3/uL 0.01-0.09 = 704-7) Lab Interpretation Abnormal (test code = 39976-4) [facility]. PYLORI (BREATH)2022-03-30 12:15:29 Test Item Value Reference Range Interpretation Comments H. PYLORI (BREATH) NEGATIVE NEGATIVE UNLESS O THERWISE (test code = 71716) INDICATE D, ALL TESTING PERFORMED ATCLI NICAL PATHOLOGY [employer], [employer]. [address] [place] [address] ARCELIA CRUMP DIRECTOR: Porfirio MORANIA NUMBER [id number] CAP ACCREDITATION N O. [id number] LIPID [id number] 06:48:21 Test Item Value Reference Range Interpretation [...] MOREINFORMATION , SEE CLIENT ANNOUNCE MENT AT [email or web address] RISK RATIO LDL/HDL 1.69 RATIO <3.55 (test code = 2238) COMPREHENSIVE METABOLIC [id number] 06:48:21 Test Item Value Reference Range Interpretation Comments GLUCOSE (test code = 110 MG/DL 70-99 H 2216) BUN (test code = 18 MG/DL 03-05) CREATININE (test 1.09 MG/DL 0.80-1.40 code = 2214) eGFR (2020 CKD-EPI) 81 ML/MIN/1.73 >60 (test code = 75400) CALC BUN/CREAT (test 17 RATIO 03-13 code = 2235) SODIUM (test code = 140 MEQ/L 454-643 9207) POTASSIUM (test code 4.2 MEQ/L 3.5-5.4 = 2227) CHLORIDE (test code 101 MEQ/L 95-107 = 221) CARBON DIOXIDE (test 24 MEQ/L 19-31 code [...] PHOSPHATASE 76 U/L 40-121 (test code = 4) AST (test code = 40 U/L 9-50 2217) ALT (test code = 36 U/L 5-50 2218) HEMOGLOBIN [id number] 05:43:11 Test Item Value Reference Range Interpretation Comments HEMOGLOBIN A1c (test 6.3 % 4.2-5.6 H UNLESS OTHERWISE code = 26499) INDICATED, ALL TESTING PERFORMED [facility] [employer], [facility]. [address] [place] [address] DIRECTOR: STORM FONTANEZ M.D. CLIA NUMBER [id number] CAP ACCREDITATION N O. [id number] COMPREHENSIVE METABOLIC [id number] 00:00:00 Test Item Value Reference Range Interpretation Comments GLUCOSE (test code = 7) 110 MG/DL BUN (test code = 2208) 18 MG/DL CREATININE (test code = 2214) 1.09 MG/DL eGFR (2020 CKD-EPI) (test code 81 ML/MIN/1.73 = 48384) CALC BUN/CREAT (test code = 17 RATIO 2234) SODIUM (test code = 2231) 140 MEQ/L POTASSIUM (test code = 2228) 4.2 MEQ/L CHLORIDE (test code = 2215) 101 MEQ/L CARBON DIOXIDE (test code = 24 MEQ/L 2205) CALCIUM (test code = 220) 8.9 MG/DL PROTEIN, TOTAL (test code = [...] (test code = 2219) 36 U/L LIPID [id number] 00:00:00 Test Item Value Reference Range Interpretation Comments CHOLESTEROL (test code = 2210) 114 MG/DL TRIGLYCERIDES (test code = 2232) 89 MG/DL HDL CHOLESTEROL (test code = 2220) 36 MG/DL CALC LDL CHOL (test code = 2237) 61 MG/DL RISK RATIO LDL/HDL (test code = 1.69 RATIO 2238) HEMOGLOBIN [id number] 00:00:00 Test Item Value Reference Range Interpretation Comments HEMOGLOBIN A1c (test code = 37022) 6.3 % HEMOGLOBIN [id number] 00:00:00 Test Item Value Reference Range Interpretation Comments HEMOGLOBIN A1c (test code = 39337) 6.3 % COMPREHENSIVE METABOLIC [id number] 00:00:00 Test Item Value Reference Range Interpretation Comments GLUCOSE (test code = 7) 110 MG/DL BUN (test code = 2208) 18 MG/DL CREATININE (test code = 2214) 1.09 MG/DL eGFR (2020 CKD-EPI) (test code 81 ML/MIN/1.73 = 28807) CALC BUN/CREAT (test code = 17 RATIO [...] (test code = 2219) 36 U/L LIPID [id number] 00:00:00 Test Item Value Reference Range Interpretation Comments CHOLESTEROL (test code = 2210) 114 MG/DL TRIGLYCERIDES (test code = 2232) 89 MG/DL HDL CHOLESTEROL (test code = 2220) 36 MG/DL CALC LDL CHOL (test code = 2237) 61 MG/DL RISK RATIO LDL/HDL (test code = 1.69 RATIO 2238) HEMOGLOBIN [id number] 00:00:00 Test Item Value Reference Range Interpretation Comments HEMOGLOBIN A1c (test code = 86489) 6.3 % HEMOGLOBIN [id number] 00:00:00 Test Item Value Reference Range Interpretation Comments HEMOGLOBIN A1c (test code = 93176) 6.3 % PSA, [id number] 01:49:26 Test Item Value Reference Range Interpretation Comments PSA, TOTAL 1.38 NG/ML See_Comment NOTE: Methodol ogy is Fabian (test code = Stephania Electroch emiluminescence 2606) Immunoassay tra ceable to WHO reference stand nick 96/760. UNLESS OTHERWIS E INDICATED, ALL TESTING PERFORM ED ATCLINICAL PATHOLOGY [facility]. [address] [place] [address] LABORATORY DIRE CTOR: STORM FONTANEZ M.D. CLIA NUMBER [id number] [place]. [id number] [A utomated message] The sy stem which generated this result transmitted ref erence range: <=4.00. The ref erence range was not used to int erpret this result as betty l/abnormal. PSA, [id number] 00:00:00 Test Item Value Reference Range Interpretation Comments PSA, TOTAL (test code = 2606) 1.38 NG/ML PSA, [id number] 00:00:00 Test Item Value Reference Range Interpretation Comments PSA, TOTAL (test code = 2606) 1.38 NG/ML PSA, [id number] 00:00:00 Test Item Value Reference Range Interpretation Comments PSA, TOTAL (test code = 2606) 1.38 NG/ML PSA, [id number] 00:00:00 Test Item Value Reference Range Interpretation Comments PSA, TOTAL (test code = 2606) 1.38 NG/ML HIV 1/2 4TH GEN, RFLX [id number] 04:36:58 Test Item Value Reference Range Interpretation Comments HIV 1/2 4TH GEN, NON-REACTIVE NON-REACTIVE UNLESS OTH ERWISE RFLX CONF (test INDICATED, A LL TESTING code = 3514) PERFORMED ATCLI NICAL PATHOLOGY [facility] [email or web address], [employer]. [address] [place] [address] ARCELIA CRUMP DIRECTOR: Porfirio MORANIA NUMBER [id number] CAP ACCREDITATION N O. [id number] HIV AB/AG COMBO RFLX [id number] 00:00:00 Test Item Value Reference Range Interpretation Comments HIV 1/2 4TH GEN, RFLX CONF (test NON-REACTIVE code = 3514) HIV AB/AG COMBO RFLX [id number] 00:00:00 Test Item Value Reference Range Interpretation Comments HIV 1/2 4TH GEN, RFLX CONF (test NON-REACTIVE code = 3514) LIPID [id number] 02:49:15 Test Item Value Reference Range Interpretation [...] AT [email or web address] RISK RATIO LDL/HDL 2.48 RATIO <3.55 (test code = 2238) COMPREHENSIVE METABOLIC [id number] 02:49:15 Test Item Value Reference Range Interpretation Comments GLUCOSE (test code = 97 MG/DL 70-99 2216) BUN (test code = 21 MG/DL 6-20 H 2207) CREATININE (test 1.28 MG/DL 0.80-1.40 code = 2214) eGFR (2020 CKD-EPI) 67 ML/MIN/1.73 >60 (test code = 58940) CALC BUN/CREAT (test 16 RATIO 6-28 code = 2235) SODIUM (test code = 141 MEQ/L 872-858 3971) POTASSIUM (test code 4.3 MEQ/L 3.5-5.4 = 2228) CHLORIDE (test code [...] PHOSPHATASE 102 U/L 40-121 (test code = 220) AST (test code = 28 U/L 9-50 2217) ALT (test code = 26 U/L 5-50 2218) LIPID [id number] 00:00:00 Test Item Value Reference Range Interpretation Comments CHOLESTEROL (test code = 2210) 147 MG/DL TRIGLYCERIDES (test code = 2232) 228 MG/DL HDL CHOLESTEROL (test code = 2220) 33 MG/DL CALC LDL CHOL (test code = 2237) 82 MG/DL RISK RATIO LDL/HDL (test code = 2.48 RATIO 8) COMPREHENSIVE METABOLIC [id number] 00:00:00 Test Item Value Reference Range Interpretation Comments GLUCOSE (test code = 2217) 97 MG/DL BUN (test code = 2208) 21 MG/DL CREATININE (test code = 2214) 1.28 MG/DL eGFR (2020 CKD-EPI) (test code 67 ML/MIN/1.73 = 86967) CALC BUN/CREAT (test code = 16 RATIO [...] (test code = 2219) 26 U/L LIPID [id number] 00:00:00 Test Item Value Reference Range Interpretation Comments CHOLESTEROL (test code = 2210) 147 MG/DL TRIGLYCERIDES (test code = 2232) 228 MG/DL HDL CHOLESTEROL (test code = 2220) 33 MG/DL CALC LDL CHOL (test code = 2237) 82 MG/DL RISK RATIO LDL/HDL (test code = 2.48 RATIO 2238) COMPREHENSIVE METABOLIC [id number] 00:00:00 Test Item Value Reference Range Interpretation Comments GLUCOSE (test code = 2217) 97 MG/DL BUN (test code = 2208) 21 MG/DL CREATININE (test code = 2214) 1.28 MG/DL eGFR (2020 CKD-EPI) (test code 67 ML/MIN/1.73 = 16291) CALC BUN/CREAT (test code = 16 RATIO [...] ALT (test code = 2219) 26 U/L HEMOGLOBIN [id number] 05:50:17 Test Item Value Reference Range Interpretation Comments HEMOGLOBIN A1c (test 6.7 % 4.2-5.6 H AMERIC AN DIABETES code = 82383) ASSOCIATION IDE[employer] FOR HGB A1C: PREDIABETES/INC REASED RISK . . . . . . . 5.7 -6.4% DIAGNOSIS OF DI ABETES . . . . . . . . . >=6 .5% WITH CONFIRMATION OR APPROPRIATE SYMPTOMS NOTE: ASSAY MAY BE AFFECTED BY HEMOGLOBINOPATH IES (SICKLE CELL ANEMIA, S- C DISEASE, OTHERS) OR JOE FICIALLY LOWERED BY DEC REASED RED CELL SURVIVAL ( HEMOLYTIC ANEMIAS, BLOOD LOSS, ETC.). CONSIDER ALTERN ATE TESTING OR LABORATORY C ONSULTATION. HEMOGLOBIN [id number] 00:00:00 Test Item Value Reference Range Interpretation Comments HEMOGLOBIN A1c (test code = 25945) 6.7 % HEMOGLOBIN [id number] 00:00:00 Test Item Value Reference Range Interpretation Comments HEMOGLOBIN A1c (test code = 87274) 6.7 % HEMOGLOBIN [id number] 00:00:00 Test Item Value Reference Range Interpretation Comments HEMOGLOBIN A1c (test code = 10375) 6.7 % HEMOGLOBIN [id number] 00:00:00 Test Item Value Reference Range Interpretation Comments HEMOGLOBIN A1c (test code = 53655) 6.7 % SARS-CoV-2 (COVID-19), RT-[id number] 15:44:19 Test Item Value Reference Interpretation Comments Range SARS-CoV-2 POSITIVE SEE NOTE A SARS-CoV-2 RNA INTERPRETATION DETECTEDPosit bruce results (test code = 07963) are bety cative of the presence of [...] code = NOT SPECIFIED Note: [place] [address]) Fabian Stephania Kate l-Time RT-PCR. The exp [...] provided by met hod given in report:https:// [email or web address]/clinician s/client-c ommunications/ Alternatively, see downloadable PD F fact sheet at:https://www. [employer].Next[employer] m/QYPNN-06-VO-P CR UNLESS OTHERWISE INDIC ATED, ALL TESTING PERFORM ED ATCLINICAL PATH OLOGY LABORATORIES, [facility]. [address] [place] [address] LABORATORY DIRE CTOR: Svitlana MORAN. CLIA NUMBER [id number] CAP ACCREDITATION N O. [id number] SARS-CoV-2 (COVID-19) by RT-PCR (HIGH RISK)2021-10-08 00:00:00 Test Item Value Reference Range Interpretation Comments SARS-CoV-2 INTERPRETATION (test POSITIVE code = 78426) SOURCE (test code = 30755) NOT SPECIFIED SARS-CoV-2 (COVID-19) by RT-PCR (HIGH RISK)2021-10-08 00:00:00 Test Item Value Reference Range Interpretation Comments SARS-CoV-2 INTERPRETATION (test POSITIVE code = 66092) SOURCE (test code = 68569) NOT SPECIFIED MICROALBUMIN/CREATININE, RANDOM AND [id number] 00:00:00 Test Item Value Reference Range Interpretation Comments CREATININE, URINE, CONC. (test 163.8 MG/DL code = 2072) ALBUMIN, URINE, RANDOM (test code 5.2 MG/DL = 26487) CALC ALBUMIN/CREAT, RND (test 32 MG/G code = 71709) MICROALBUMIN/CREATININE, RANDOM AND [id number] 00:00:00 Test Item Value Reference Range Interpretation Comments CREATININE, URINE, CONC. (test 163.8 MG/DL code = 2072) ALBUMIN, URINE, RANDOM (test code 5.2 MG/DL = 04454) CALC ALBUMIN/CREAT, RND (test 32 MG/G code = 01621) LIPID [id number] 00:00:00 Test Item Value Reference Range Interpretation Comments CHOLESTEROL (test code = 2210) 123 MG/DL TRIGLYCERIDES (test code = 2232) 230 MG/DL HDL CHOLESTEROL (test code = 2220) 28 MG/DL CALC LDL CHOL (test code = 2237) 66 MG/DL RISK RATIO LDL/HDL (test code = 2.36 RATIO 2238) COMPREHENSIVE METABOLIC [id number] 00:00:00 Test Item Value Reference Range Interpretation Comments GLUCOSE (test code = 2217) 129 MG/DL BUN (test code = 2208) 23 MG/DL CREATININE (test code = 2214) 1.26 MG/DL eGFR AMER. (test code 75 ML/MIN/1.73 = 80427) eGFR NON- AMER. (test 65 ML/MIN/1.73 code = 49280) CALC BUN/CREAT (test code = 18 RATIO [...] A/G RATIO (test code = 1.5 RATIO 4) BILIRUBIN, TOTAL (test code = 0.6 MG/DL 2206) ALKALINE PHOSPHATASE (test 72 U/L code = 2204) AST (test code = 2218) 24 U/L ALT (test code = 2219) 22 U/L LIPID [id number] 00:00:00 Test Item Value Reference Range Interpretation Comments CHOLESTEROL (test code = 2210) 123 MG/DL TRIGLYCERIDES (test code = 2232) 230 MG/DL HDL CHOLESTEROL (test code = 2220) 28 MG/DL CALC LDL CHOL (test code = 2237) 66 MG/DL RISK RATIO LDL/HDL (test code = 2.36 RATIO 2238) COMPREHENSIVE METABOLIC [id number] 00:00:00 Test Item Value Reference Range Interpretation Comments GLUCOSE (test code = 2217) 129 MG/DL BUN (test code = 2208) 23 MG/DL CREATININE (test code = 2214) 1.26 MG/DL eGFR AMER. (test code 75 ML/MIN/1.73 = 06864) eGFR NON- AMER. (test 65 ML/MIN/1.73 code = 05372) CALC BUN/CREAT (test code = 18 RATIO 2235) SODIUM (test code = 2231) 140 MEQ/L POTASSIUM (test code = 2228) 4.5 MEQ/L CHLORIDE (test code = 2215) 103 MEQ/L CARBON DIOXIDE (test code = 22 MEQ/L 220) CALCIUM (test code = 2209) 9.8 MG/DL PROTEIN, TOTAL (test code = 7.6 G/DL 2228) ALBUMIN (test code = 2201) 4.6 G/DL CALC GLOBULIN (test code = 3.0 G/DL 2240) CALC A/G RATIO (test code = 1.5 RATIO 2233) BILIRUBIN, TOTAL (test code = 0.6 MG/DL 2206) ALKALINE PHOSPHATASE (test 72 U/L code = 2204) AST (test code = 2218) 24 U/L ALT (test code = 2219) 22 U/L CBC W/AUTO [id number] 00:00:00 Test Item Value Reference Range Interpretation [...] NUCLEATED RBCS (test code = 0.00 K/UL 91161) CBC W/AUTO [id number] 00:00:00 Test Item Value Reference Range Interpretation [...] NUCLEATED RBCS (test code = 0.00 K/UL 38265) HEMOGLOBIN [id number] 00:00:00 Test Item Value Reference Range Interpretation Comments HEMOGLOBIN A1c (test code = 04593) 6.3 % HEMOGLOBIN [id number] 00:00:00 Test Item Value Reference Range Interpretation Comments HEMOGLOBIN A1c (test code = 58188) 6.3 % CBC W/AUTO [id number] 00:00:00 Test Item Value Reference Range Interpretation [...] NUCLEATED RBCS (test code = 0.00 K/UL 02342) CBC W/AUTO [id number] 00:00:00 Test Item Value Reference Range Interpretation [...] NUCLEATED RBCS (test code = 0.00 K/UL 39889) HEMOGLOBIN [id number] 00:00:00 Test Item Value Reference Range Interpretation Comments HEMOGLOBIN A1c (test code = 50182) 6.3 % HEMOGLOBIN [id number] 00:00:00 Test Item Value Reference Range Interpretation Comments HEMOGLOBIN A1c (test code = 15637) 6.3 % SARS-CoV-2 (COVID-19) by RT-PCR (HIGH RISK)2020-05-12 00:00:00 Test Item Value Reference Range Interpretation Comments SARS-CoV-2 INTERPRETATION (test POSITIVE code = 35909) SOURCE (test code = 41952) NOT SPECIFIED SARS-CoV-2 (COVID-19) by RT-PCR (HIGH RISK)2020-05-12 00:00:00 Test Item Value Reference Range Interpretation Comments SARS-CoV-2 INTERPRETATION (test POSITIVE code = 49835) SOURCE (test code = 35199) NOT SPECIFIED SARS-CoV-2 (COVID-19) by RT-PCR (HIGH RISK)2020-04-16 00:00:00 Test Item Value Reference Range Interpretation Comments SARS-CoV-2 INTERPRETATION (test POSITIVE code = 56782) SOURCE (test code = 75927) NOT SPECIFIED SARS-CoV-2 (COVID-19) by RT-PCR (HIGH RISK)2020-04-16 00:00:00 Test Item Value Reference Range Interpretation Comments SARS-CoV-2 INTERPRETATION (test POSITIVE code = 61398) SOURCE (test code = 49906) NOT SPECIFIED SARS-CoV-2 (COVID-19) by RT-PCR (HIGH RISK)2020-04-13 00:00:00 Test Item Value Reference Range Interpretation Comments SARS-CoV-2 INTERPRETATION (test POSITIVE code = 87480) SOURCE (test code = 62539) NOT SPECIFIED SARS-CoV-2 (COVID-19) by RT-PCR (HIGH RISK)2020-04-13 00:00:00 Test Item Value Reference Range Interpretation Comments SARS-CoV-2 INTERPRETATION (test POSITIVE code = 78530) SOURCE (test code = 07695) NOT SPECIFIED SARS-CoV-2 (COVID-19) by RT-PCR (HIGH RISK)2020-04-01 00:00:00 Test Item Value Reference Range Interpretation Comments SARS-CoV-2 INTERPRETATION (test POSITIVE code = 87336) SOURCE (test code = 20476) NOT SPECIFIED SARS-CoV-2 (COVID-19) by RT-PCR (HIGH RISK)2020-04-01 00:00:00 Test Item Value Reference Range Interpretation Comments SARS-CoV-2 INTERPRETATION (test POSITIVE code = 72752) SOURCE (test code = 97401) NOT SPECIFIED COMPREHENSIVE METABOLIC [id number] 00:00:00 Test Item Value Reference Range Interpretation Comments GLUCOSE (test code = 2217) 149 MG/DL BUN (test code = 2208) 25 MG/DL CREATININE (test code = 2214) 1.12 MG/DL eGFR AMER. (test code 87 ML/MIN/1.73 = 71645) eGFR NON- AMER. (test 75 ML/MIN/1.73 code = 70961) CALC BUN/CREAT (test code = 22 RATIO [...] (test code = 2219) 20 U/L LIPID [id number] 00:00:00 Test Item Value Reference Range Interpretation Comments CHOLESTEROL (test code = 2210) 171 MG/DL TRIGLYCERIDES (test code = 2232) 269 MG/DL HDL CHOLESTEROL (test code = 2220) 29 MG/DL CALC LDL CHOL (test code = 2237) 104 MG/DL RISK RATIO LDL/HDL (test code = 3.59 RATIO 2238) [id number] 00:00:00 Test Item Value Reference Range Interpretation Comments TSH, THIRD GENERATION (test code 1.090 UIU/ML = 2821) [id number] 00:00:00 Test Item Value Reference Range Interpretation Comments TSH, THIRD GENERATION (test code 1.090 UIU/ML = 2821) PSA, [id number] 00:00:00 Test Item Value Reference Range Interpretation Comments PSA, TOTAL (test code = 2606) 1.59 NG/ML PSA, [id number] 00:00:00 Test Item Value Reference Range Interpretation Comments PSA, TOTAL (test code = 2606) 1.59 NG/ML COMPREHENSIVE METABOLIC [id number] 00:00:00 Test Item Value Reference Range Interpretation Comments GLUCOSE (test code = 2217) 149 MG/DL BUN (test code = 2208) 25 MG/DL CREATININE (test code = 2214) 1.12 MG/DL eGFR AMER. (test code 87 ML/MIN/1.73 = 83059) eGFR NON- AMER. (test 75 ML/MIN/1.73 code = 33471) CALC BUN/CREAT (test code = 22 RATIO [...] (test code = 2219) 20 U/L LIPID [id number] 00:00:00 Test Item Value Reference Range Interpretation Comments CHOLESTEROL (test code = 2210) 171 MG/DL TRIGLYCERIDES (test code = 2232) 269 MG/DL HDL CHOLESTEROL (test code = 2220) 29 MG/DL CALC LDL CHOL (test code = 2237) 104 MG/DL RISK RATIO LDL/HDL (test code = 3.59 RATIO 2238) [id number] 00:00:00 Test Item Value Reference Range Interpretation Comments TSH, THIRD GENERATION (test code 1.090 UIU/ML = 2821) [id number] 00:00:00 Test Item Value Reference Range Interpretation Comments TSH, THIRD GENERATION (test code 1.090 UIU/ML = 2821) PSA, [id number] 00:00:00 Test Item Value Reference Range Interpretation Comments PSA, TOTAL (test code = 2606) 1.59 NG/ML PSA, [id number] 00:00:00 Test Item Value Reference Range Interpretation Comments PSA, TOTAL (test code = 2606) 1.59 NG/ML HEMOGLOBIN [id number] 00:00:00 Test Item Value Reference Range Interpretation Comments HEMOGLOBIN A1c (test code = 61698) 5.8 % HEMOGLOBIN [id number] 00:00:00 Test Item Value Reference Range Interpretation Comments HEMOGLOBIN A1c (test code = 47762) 5.8 % HEMOGLOBIN [id number] 00:00:00 Test Item Value Reference Range Interpretation Comments HEMOGLOBIN A1c (test code = 22586) 5.8 % HEMOGLOBIN [id number] 00:00:00 Test Item Value Reference Range Interpretation Comments HEMOGLOBIN A1c (test code = 80746) 5.8 % COMPREHENSIVE METABOLIC [id number] 00:00:00 Test Item Value Reference Range Interpretation Comments GLUCOSE (test code = TEST NOT PERFORMED 7) MG/DL BUN (test code = 2208) TEST NOT PERFORMED MG/DL CREATININE (test code = TEST NOT PERFORMED 2214) MG/DL eGFR AMER. (test TEST NOT PERFORMED code = 36446) ML/MIN/1.73 eGFR NON- AMER. TEST NOT PERFORMED (test code = 80785) ML/MIN/1.73 CALC BUN/CREAT (test TEST NOT PERFORMED code = 2235) RATIO SODIUM (test code = TEST NOT [...] = 2203) U/L AST (test code = 2217) TEST NOT PERFORMED U/L ALT (test code = 2218) TEST NOT PERFORMED U/L COMPREHENSIVE METABOLIC [id number] 00:00:00 Test Item Value Reference Range Interpretation Comments GLUCOSE (test code = TEST NOT PERFORMED 2216) MG/DL BUN (test code = 2207) TEST NOT PERFORMED MG/DL CREATININE (test code = TEST NOT PERFORMED 2213) MG/DL eGFR AMER. (test TEST NOT PERFORMED code = 60322) ML/MIN/1.73 eGFR NON- AMER. TEST NOT PERFORMED (test code = 99038) ML/MIN/1.73 CALC BUN/CREAT (test TEST NOT PERFORMED [...] = 2203) U/L AST (test code = 2217) TEST NOT PERFORMED U/L ALT (test code = 221) TEST NOT PERFORMED U/L HEMOGLOBIN [id number] 00:00:00 Test Item Value Reference Range Interpretation Comments HEMOGLOBIN A1c (test code = 19172) 6.2 % HEMOGLOBIN [id number] 00:00:00 Test Item Value Reference Range Interpretation Comments HEMOGLOBIN A1c (test code = 72192) 6.2 % HEMOGLOBIN [id number] 00:00:00 Test Item Value Reference Range Interpretation Comments HEMOGLOBIN A1c (test code = 39947) 6.2 % HEMOGLOBIN [id number] 00:00:00 Test Item Value Reference Range Interpretation Comments HEMOGLOBIN A1c (test code = 66093) 6.2 %"
--- NOTE | 2022-04-30 01:17 | ER ---
Nurse's Notes [facility] Name: Quintin Koenig Age: 56 yrs Sex: Male : 1965 Arrival Date: 04/29/2022 Time: 23:46 Bed Treatment Private MD: Diagnosis: Generalized anxiety disorder Presentation: 04/30 00:09 Chief complaint: Patient states: Pt reports increased anxiety since this afternoon. kb3 Coronavirus screen: Vaccine status: Patient reports receiving the 2nd dose of the covid vaccine. Client denies travel out of the [place] in the last 14 days. At this time, the client does not indicate any symptoms associated with coronavirus-19. Ebola Screen: Patient negative for fever greater than or equal to 101.5 degrees Fahrenheit, and additional compatible Ebola Virus Disease symptoms Patient denies exposure to infectious person. Patient denies travel to an Ebola-affected area in the 21 days before illness onset. No symptoms or risks identified at this time. Initial Sepsis Screen: Does the patient meet any 2 criteria? No. Patient's initial sepsis screen is negative. Does the patient have a suspected source of infection? No. Patient's initial sepsis screen is negative. Risk Assessment: Do you want to hurt yourself or someone else? Patient reports no desire to harm self or others. Onset of symptoms was April 29, 2022 at 12:00. 00:09 Method Of Arrival: Ambulatory kb3 00:09 Acuity: MIGUEL 3 kb3 Triage Assessment: 00:11 General: Appears in no apparent distress. comfortable, Behavior is calm, cooperative. kb3 Pain: Denies pain. Historical: - Home Meds: 00:11 atorvastatin Oral [Active]; Lisinopril 15 mg Oral once daily [Active]; metformin 500 mg kb3 Oral Tb24 1 tab 2 times per day [Active]; Risperdal 1 mg Oral tab 1 tab 2 times per day [Active]; trazodone 150 mg Oral Tb24 1 tab once daily [Active]; hydrochlorothiazide 12.5 mg Oral cap 1 cap once daily [Active]; :27 Hydrocodone-Acetaminophen 300 mg - 30 mg Oral 1 cap every 4-6 hours [Active]; kd3 metronidazole 500 mg Oral tab 1 tab every 6 hours [Active]; - PMHx: :27 Hypertension; Diabetes - NIDDM; abscess on my testicles; Bipolar disorder; kd3 - Immunization history:: Adult Immunizations up to date, Client reports receiving the 2nd dose of the Covid vaccine, Last tetanus immunization: up to date. - Social history:: Smoking status: Patient denies any tobacco usage or history of. Patient/guardian denies using alcohol, street drugs. Screenin:27 Abuse screen: Denies threats or abuse. Denies injuries from another. Nutritional kd3 screening: No deficits noted. Tuberculosis screening: No symptoms or risk factors identified. Fall Risk None identified. Vital Signs: 00:09 BP 121 / 91; Pulse 74; Resp 20; Temp 97.9; Pulse Ox 98% ; Weight 104.33 kg; Height 5 kb3 ft. 10 in. (177.80 cm); Pain 0/10; 00:09 Body Mass Index 33.00 (104.33 kg, 177.80 cm) kb3 Anu Coma Score: 01:23 Eye Response: spontaneous(4). Verbal Response: oriented(5). Motor Response: obeys snw commands(6). Total: 15. ED Course: 04/29 23:46 Patient arrived in ED. ja2 04/30 00:11 Triage completed. kb3 00:14 Arm band placed on right wrist. Patient notified of wait time. kb3 00:40 Kiersten Dunn, RN is Primary Nurse. kd3 01:14 Freddy Danielson MD is Attending Physician. [facility] 01:27 No provider procedures requiring assistance completed. Patient did not have IV access kd3 during this emergency room visit. 01:28 Patient has correct armband on for positive identification. kd3 Administered Medications: 01:27 Drug: hydrOXYzine 25 mg Route: PO; kd3 01:27 Follow up: Response: No adverse reaction kd3 Medication: :28 VIS not applicable for this client. kd3 Outcome: 01:16 Discharge ordered by . snw 01:27 Discharged to home ambulatory. kd3 :27 Condition: stable 01:27 Discharge instructions given to patient, Instructed on discharge instructions, follow up and referral plans. Demonstrated understanding of instructions, follow-up care, Prescriptions given X 01:28 Patient left the ED. kd3 Signatures: Shonna Virk, BRAND COMMUNICATIONS MANAGER-C BRAND COMMUNICATIONS MANAGER-Csnw Freddy Danielson MD MD 7 Humera Pearl Kyli RN RN kd3 Lupe Suarez RN RN kb3 Corrections: (The following items were deleted from the chart) 00:13 00:11 Home Meds: Hydrocodone-Acetaminophen 300 mg - 30 mg Oral 1 cap every 4-6 hours; kb3 kb3 00:13 00:11 Home Meds: metronidazole 500 mg Oral tab 1 tab every 6 hours; kb3 kb3
--- NOTE | 2022-04-30 01:17 | EDPHYS ---
Physician Documentation [facility] Name: Quintin Koenig Age: 56 yrs Sex: Male : 1965 Arrival Date: 04/29/2022 Time: 23:46 Bed Treatment Private MD: ED Physician Freddy Danielson HPI: 04/30 01:26 This 56 yrs old Male presents to ER via Ambulatory with complaints of Anxiety. snw 01:26 The patient presents to the emergency department with anxiety, change in medications. snw Onset: The symptoms/episode began/occurred gradually. Past psychiatric history: Prior diagnosis: anxiety , Primary psychiatric physician: [facility]. Severity of symptoms: At their worst the symptoms were moderate today. The patient has experienced similar episodes in the past, chronically, but today's symptoms are worse. tomorrow. Historical: - Home Meds: 00:11 atorvastatin Oral [Active]; Lisinopril 15 mg Oral once daily [Active]; metformin 500 mg kb3 Oral Tb24 1 tab 2 times per day [Active]; Risperdal 1 mg Oral tab 1 tab 2 times per day [Active]; trazodone 150 mg Oral Tb24 1 tab once daily [Active]; hydrochlorothiazide 12.5 mg Oral cap 1 cap once daily [Active]; 01:27 Hydrocodone-Acetaminophen 300 mg - 30 mg Oral 1 cap every 4-6 hours [Active]; kd3 metronidazole 500 mg Oral tab 1 tab every 6 hours [Active]; - PMHx: 01:27 Hypertension; Diabetes - NIDDM; abscess on my testicles; Bipolar disorder; kd3 - Immunization history:: Adult Immunizations up to date, Client reports receiving the 2nd dose of the Covid vaccine, Last tetanus immunization: up to date. - Social history:: Smoking status: Patient denies any tobacco usage or history of. Patient/guardian denies using alcohol, street drugs. ROS: 01:25 Constitutional: Negative for fever, chills, and weight loss, Eyes: Negative for injury, snw pain, redness, and discharge, ENT: Negative for injury, pain, and discharge, Neck: Negative for injury, pain, and swelling, Cardiovascular: Negative for chest pain, palpitations, and edema, Respiratory: Negative for shortness of breath, cough, wheezing, and pleuritic chest pain, Abdomen/GI: Negative for abdominal pain, nausea, vomiting, diarrhea, and constipation, Back: Negative for injury and pain, : Negative for injury, bleeding, discharge, and swelling, MS/Extremity: Negative for injury and deformity, Skin: Negative for injury, rash, and discoloration, Neuro: Negative for headache, weakness, numbness, tingling, and seizure, Allergy/Immunology: Negative for hives, rash, and allergies. 01:25 Psych: Positive for anxiety, insomnia, Negative for homicidal ideation, suicide gesture, suicidal ideation. Exam: 01:23 Constitutional: This is a well developed, well nourished patient who is awake, alert, snw and in no acute distress. Head/Face: Normocephalic, atraumatic. Eyes: Pupils equal round and reactive to light, extra-ocular motions intact. Lids and lashes normal. Conjunctiva and sclera are non-icteric and not injected. Cornea within normal limits. Periorbital areas with no swelling, redness, or edema. ENT: Nares patent. No nasal discharge, no septal abnormalities noted. Tympanic membranes are normal and external auditory canals are clear. Oropharynx with no redness, swelling, or masses, exudates, or evidence of obstruction, uvula midline. Mucous membranes moist. Neck: Trachea midline, no thyromegaly or masses palpated, and no cervical lymphadenopathy. Supple, full range of motion without nuchal rigidity, or vertebral point tenderness. No Meningismus. Chest/axilla: Normal chest wall appearance and motion. Nontender with no deformity. No lesions are appreciated. Cardiovascular: Regular rate and rhythm with a normal S1 and S2. No gallops, murmurs, or rubs. Normal PMI, no JVD. No pulse deficits. Respiratory: Lungs have equal breath sounds bilaterally, clear to auscultation and percussion. No rales, rhonchi or wheezes noted. No increased work of breathing, no retractions or nasal flaring. Abdomen/GI: Soft, non-tender, with normal bowel sounds. No distension or tympany. No guarding or rebound. No evidence of tenderness throughout. Back: No spinal tenderness. No costovertebral tenderness. Full range of motion. Skin: Warm, dry with normal turgor. Normal color with no rashes, no lesions, and no evidence of cellulitis. MS/ Extremity: Pulses equal, no cyanosis. Neurovascular intact. Full, normal range of motion. Neuro: Awake and alert, GCS 15, oriented to person, place, time, and situation. Cranial nerves II-XII grossly intact. Motor strength 5/5 in all extremities. Sensory grossly intact. Cerebellar exam normal. Normal gait. 01:23 Psych: Behavior/mood is pleasant, cooperative, anxious, Affect is calm, Oriented to person, place, time, Patient has no thoughts/intents to harm self or others. Judgement / Insight is normal. Pt was on [place] and Risperdal. Had renal failure so had to stop [place]. Pt states no [place] x 2 months. Kidneys recovered but pt states his anxiety has been worsening. Pt has appt with [facility] tomorrow at 9am. Vital Signs: 00:09 BP 121 / 91; Pulse 74; Resp 20; Temp 97.9; Pulse Ox 98% ; Weight 104.33 kg; Height 5 kb3 ft. 10 in. (177.80 cm); Pain 0/10; 00:09 Body Mass Index 33.00 (104.33 kg, 177.80 cm) kb3 Clinton Coma Score: 01:23 Eye Response: spontaneous(4). Verbal Response: oriented(5). Motor Response: obeys snw commands(6). Total: 15. MDM: 01:16 Patient medically screened. snw 01:22 Data reviewed: vital signs, nurses notes. Data interpreted: Pulse oximetry: on room air snw is 98 %. Interpretation: normal. Counseling: I had a detailed discussion with the patient and/or guardian regarding: the historical points, exam findings, and any diagnostic results supporting the discharge/admit diagnosis, the presence of at least one elevated blood pressure reading (>120/80) during this emergency department visit, the need for outpatient follow up, for definitive care, to return to the emergency department if symptoms worsen or persist or if there are any questions or concerns that arise at home. Special discussion: I have referred the patient to see his PCP for further evaluation of high blood pressure. Based on the history and exam findings, there is no indication for further emergent testing or inpatient evaluation. [facility] - appt at 0900. Administered Medications: 01:27 Drug: hydrOXYzine 25 mg Route: PO; kd3 01:27 Follow up: Response: No adverse reaction kd3 Disposition: 06:55 Co-signature as Attending Physician, Freddy Danielson MD. [email or web address] Disposition Summary: 04/30/22 01:16 Discharge Ordered Location: Home snw Condition: Stable snw Diagnosis - Generalized anxiety disorder snw Followup: snw - With: Emergency Department - When: As needed - Reason: Worsening of condition Followup: snw - With: Private Physician - When: Tomorrow - Reason: Recheck today's complaints, Continuance of care, Re-evaluation by your physician Discharge Instructions: - Discharge Summary Sheet snw - Generalized Anxiety Disorder, Adult snw - Managing Anxiety, Adult snw Forms: - Medication Reconciliation Form snw - Thank You Letter snw - Antibiotic Education snw - Prescription Opioid Use snw Signatures: Shonna Virk FNP-C PIPE FITTER SUPERVISOR-Csnw Freddy Danielson MD MD [email or web address] Kiersten Dunn RN RN kd3 Lupe Suarez RN RN kb3 Corrections: (The following items were deleted from the chart) 00:13 00:11 Home Meds: Hydrocodone-Acetaminophen 300 mg - 30 mg Oral 1 cap every 4-6 hours; kb3 kb3 00:13 00:11 Home Meds: metronidazole 500 mg Oral tab 1 tab every 6 hours; kb3 kb3
[2022-04-30] MEDS ORDERED: hydrOXYzine HCL 25 MG TAB ONE (01:32)
[2022-04-30 05:22] VITALS: BP 121/91; TEMP 97.9; O2SAT 98
== END 2022-04-30 01:28 | disposition home or self-care (01) ==
LOC: ER 23:44
DX: F41.1 Generalized anxiety disorder (principal); E11.9 Type 2 diabetes mellitus without complications; I10 Essential (primary) hypertension
CPT/HCPCS: 99283

== ENCOUNTER 2024-11-14 16:41 | Emergency (ER) | payer SELFPAY ==
--- OUTSIDE RECORDS SUMMARY | 2024-11-14 16:50 | XMS REPORT | Continuity of Care Document ---
Author Name Unknown Address [address] [facility] [address] [place] [address] [facility] thconnect Address [address] [facility] [address] [place] [address] Care Team Providers Care Hearing Screener Name Role Phone Hilario Castillo [facility], [facility] Physician Esau Whitten MD Attending Clinician [phone] John Matthew Attending Clinician Unavailable Doctor Unassigned, [place] Attending Clinician U RUKHSANA Prajapati Attending Clinician Unavailable Rukhsana Miles Attending Clinician [phone] Nasreen Tolbert Attending Clinician [phone] NASREEN CHEUNG Attending Clinician Unavailable RUKHSANA REMY Admitting Clinician Unavailable Payers Payer Name Policy Type Policy Number Effective Date Expirati on Date Source MEDICAID [place] PENDING PENDING 2022 00:00:00 Problems Condition Name Condition Details Condition Category Status Onset Date Resolution Date Last Treatment Date Treating Clinician Comments Source No known active problems No known active problems Disease [facility] Allergies, Adverse Reactions, Alerts Allergy Name Allergy Type Status Severity Reaction(s) Onset Date Inactive Date Treating Clinician Comments Source No Known Drug Allergie s DA Active U 9-05 00:00: 00 [facility] No Known Drug Allergie s DA Active U 02-03 00:00: 00 [facility] NO KNOWN ALLERGIE S Drug Class Active [facility] Social History Social Habit Start Date Stop Date Quantity Comments Source Exposure to SARS-CoV-2 (event) 2022-03-29 00:00:00 2022-04-08 17:24:00 Not sure [facility] Tobacco use and exposure 2015-01-15 00:00:00 2015-01-15 00:00:00 Smokeless tobacco non-user [facility] Sex Assigned At 1965 00:00:00 1965 00:00:00 [facility] Smoking Status Start Date Stop Date Source Never smoked tobacco [facility] Medications Ordered Medication Name Filled Medication Name Start Date Stop Date Current Medication? Ordering Clinician Indication Dosage Frequency Signature (SIG) Comments Components Source terbinafine HCl 250 mg tablet 2023-09 00:00: 00 Yes 1mg Hilario Bhakta lisinopril 10 mg tablet 2023-09 00:00: 00 Yes 1mg Hilario Bhakta atorvastati n 80 mg tablet 2023-09 0- 00:00: 00 Yes 1mg Hilario Bhakta metformin 500 mg tablet -24 00:00: 00 Yes 1mg Hilario Bhakta clotrimazol e 1 % topical cream - 00:00: 00 Yes 1% Hilario Bhakta lisinopril 10 mg tablet - 00:00: 00 Yes 1mg Hilario Bhakta metformin 500 mg tablet - 00:00: 00 Yes 1mg Hilario Bhakta atorvastati n 80 mg tablet - 00:00: 00 Yes 1mg Hilario Bhakta TAKE 1 TABLET BY MOUTH ONCE DAILY AT BEDTIME NEEDED 2024-0 3-06 00:00: 00 Yes Hilario F Yony TAKE 1 TABLET TWICE DAILY WITH FOOD. 1-12 00:00: 00 Yes 500 Hilario F Yony TAKE 1 TABLET BY MOUTH DAILY 1-12 00:00: 00 Yes 10 Hilario F Yony TAKE 1 TABLET AT BEDTIME. 1-12 00:00: 00 Yes 80 Hilario F Yony TAKE 1 TABLET EVERY 4 TO 6 HOURS NEEDED. 2022-09 2-15 00:00: 00 01-16 00:00 :00 No 500 Hilario F Yony TAKE 1 TABLET TWICE DAILY. 2022-09 2-15 00:00: 00 01-16 00:00 :00 No [id number] Hilario F Yony TAKE 1 TABLET BY MOUTH ONCE DAILY AT BEDTIME NEEDED 2022-09 2-13 00:00: 00 Yes Hilario F Yony TAKE 1 TABLET BY MOUTH DAILY 2022-09 0-12 00:00: 00 Yes 10 Hilario F Yony TAKE 1 TABLET TWICE DAILY WITH FOOD. 2022-09 0-12 00:00: 00 01-16 00:00 :00 No 500 Hilario F Yony TAKE 1 TABLET AT BEDTIME. 2022-09 0-12 00:00: 00 01-16 00:00 :00 No 80 Hilario F Yony TAKE 1 TABLET BY MOUTH AT BEDTIME NEEDED 6-26 00:00: 00 01-16 00:00 :00 No Hilaroi F Yony TAKE 1 TABLET AT BEDTIME. 616 00:00: 00 01-16 00:00 :00 No 80 Hilario F Yony TAKE 1 TABLET TWICE DAILY WITH FOOD. 6-16 00:00: 00 01-16 00:00 :00 No 500 Hilario F Yony TAKE 1 TABLET BY MOUTH DAILY 6-16 00:00: 00 01-16 00:00 :00 No 10 Hilario F Yony TAKE 1 TABLET BY MOUTH DAILY 5-10 00:00: 00 01-16 00:00 :00 No 10 Hilario F Yony TAKE 1 TABLET BY MOUTH ONCE DAILY AT BEDTIME NEEDED 4-04 00:00: 00 01-16 00:00 :00 No Hilario Anna Bhakta TAKE 1 TABLET DAILY. 10-09 00:00: 00 01-16 00:00 :00 No 10 Hilario F Yony TAKE 1 TABLET AT BEDTIME. 10-09 00:00: 00 01-16 00:00 :00 No 80 Hilario F Yony TAKE 1 TABLET TWICE DAILY WITH FOOD. 10-09 00:00: 00 01-16 00:00 :00 No 500 Hilario F Yony TAKE 1 TABLET DAILY. 09-24 00:00: 00 01-16 00:00 :00 No 10 Hilario F Yony TAKE 1 TABLET BY MOUTH AT BEDTIME NEEDED 09-24 00:00: 00 01-16 00:00 :00 No Hilario F Yony TAKE 1 TABLET TWICE DAILY WITH FOOD. 2021-09 00:00: 00 01-16 00:00 :00 No 500 Hilario F Yony Dose Unknown 06-12 00:00: 00 No Dose Unknown 06-12 00:00: 00 01-16 00:00 :00 No Hilario F Yony TAKE 1 TABLET AT BEDTIME. 06-12 00:00: 00 01-16 00:00 :00 No 80 Hilario F Yony TAKE 1 TABLET BY MOUTH ONCE DAILY AT BEDTIME NEEDED 06-11 00:00: 00 01-16 00:00 :00 No Hilario F Yony TAKE 1 TABLET BY MOUTH TWICE DAILY NEEDED 06-09 00:00: 00 No TAKE 1 TABLET BY MOUTH TWICE DAILY NEEDED 06-09 00:00: 00 01-16 00:00 :00 No Hilario F Yony TAKE 1 CAPSULE BY MOUTH ONCE DAILY 05-10 00:00: 00 Yes 125 Hilario F Yony TAKE 1 TABLET BY MOUTH TWICE DAILY NEEDED 05-10 00:00: 00 Yes 5 Hilario F Yony TAKE 1 CAPSULE BY MOUTH ONCE DAILY 05-10 00:00: 00 No 125 TAKE 1 TABLET BY MOUTH TWICE DAILY NEEDED 05-10 00:00: 00 No 5 ondansetron (ZOFRAN-ODT ) disintegrat ing tablet 4 mg 04-09 01:45: 00 04-09 00:44 :00 No 4mg 4 mg, Oral, ONCE, 1 dose, On Sat04/08/22 at 2045, Routine [facility] levoFLOXaci n (LEVAQUIN) tablet 500 mg 04-09 00:45: 00 04-09 00:44 :00 No 500mg 500 mg, Oral, ONCE, 1 dose, On Sat04/08/22 at 1945, ANJANA
Re ason for Anti-Infec tive: Documented Infection< br>Documen jerrod Infection Site: Pelvic
Duration of Therapy: 7 days [facility] iopamidol (ISOVUE 300-500 mL) injection 54 mL 04-09 00:30: 00 04-08 23:10 :00 No [id number] 54mL 54 mL, Intravenou s, ONCE, 1 dose, On Sat04/08/22 at 1930, Routine [facility] NaCl 0.9% (NS) bolus infusion 1,000 mL 04-08 23:45: 00 04-09 00:27 :00 No 1000mL at 999 mL/hr, 1,000 mL, IV Infusion, ONCE, 1 dose, On Sat04/08/22 at 1845, ANJANA [facility] ondansetron (ZOFRAN (PF)) injection 4 mg 04-08 22:45: 00 04-08 22:49 :00 No 4mg 4 mg, Slow IV Push, ONCE, 1 dose, On Sat04/08/22 at 1745, ANJANA [facility] ondansetron 4 mg disintegrat ing tablet 04-08 00:00: 00 Yes [id number] 4mg Take 1 tablet by mouth every 8 (eight) hours as needed for Nausea and Vomiting (N/V). [facility] levoFLOXaci n (LEVAQUIN) 500 mg tablet 04-08 00:00: 00 05-09 04:59 :00 No [id number] 500mg Take 1 tablet by mouth every 24 (twenty-fo ur) hours for 30 days. [facility] magnesium citrate solution 04-08 00:00: 00 04-09 04:59 :00 No [id number] 300mL Take 300 mL by mouth once now for 1 dose. [facility] TAKE 1 TABLET BY MOUTH ONCE DAILY 03-31 00:00: 00 01-16 00:00 :00 No Hilario Bhakta TAKE 1 TABLET BY MOUTH BEFORE MEAL(S) AND AT BEDTIME 03-31 00:00: 00 01-16 00:00 :00 No Hilario Bhakta DISSOLVE 1 TABLET IN MOUTH EVERY 6 HOURS NEEDED FOR NAUSEA AND VOMITING 03-31 00:00: 00 01-16 00:00 :00 No Hilario Bhakta TAKE 1 TABLET 3 TIMES DAILY WITH FOOD NEEDED. 03-29 00:00: 00 Yes 800 Hilario Bhakta Dose Unknown 03-29 00:00: 00 Yes Hilario Bhakta TAKE 1 TABLET EVERY 8 HOURS NEEDED FOR NAUSEA AND VOMITING. 03-29 00:00: 00 Yes 8 Hilario Bhakta TAKE 1 TABLET 3 TIMES DAILY WITH FOOD NEEDED. 03-29 00:00: 00 No 800 Dose Unknown 03-29 00:00: 00 No TAKE 1 TABLET EVERY 8 HOURS NEEDED FOR NAUSEA AND VOMITING. 03-29 00:00: 00 No 8 TAKE 1 TABLET 3 TIMES DAILY WITH FOOD NEEDED. 03-29 00:00: 00 No 800 Dose Unknown 03-29 00:00: 00 No TAKE 1 TABLET EVERY 8 HOURS NEEDED FOR NAUSEA AND VOMITING. 03-29 00:00: 00 No 8 TAKE 1 TABLET DAILY. 03-16 00:00: 00 Yes 250 Hilario Bhakta TAKE 1 TABLET DAILY. 03-16 00:00: 00 No 250 TAKE 1 TABLET DAILY. 03-16 00:00: 00 No 250 triamcinolo ne acetonide 0.1 % topical cream 01-30 00:00: 00 Yes 1% Hilario F Yony Risperdal 0.5 mg tablet 2-0 -17 00:00: 00 Yes 1mg Hilario Bhakta triamcinolo ne acetonide 0.1 % topical cream 2-0 5-17 00:00: 00 No 1% Risperdal 0.5 mg tablet 2-0 5-17 00:00: 00 No 1mg triamcinolo ne acetonide 0.1 % topical cream 2-0 5-17 00:00: 00 No 1% Risperdal 0.5 mg tablet 2-0 -17 00:00: 00 No 1mg Seroquel 200 mg tablet 2-0 5-05 00:00: 00 Yes 1mg Hilario Bhakta Dose Unknown 2021-0 5-05 00:00: 00 Yes Hilario Bhakta Seroquel 200 mg tablet 2021-0 5-05 00:00: 00 No 1mg Dose Unknown 2-0 5-05 00:00: 00 No Seroquel 200 mg tablet 2-0 5-05 00:00: 00 No 1mg Dose Unknown 2-0 5-05 00:00: 00 No Dose Unknown 2-0 5-02 00:00: 00 Yes Hilario Bhakta Dose Unknown 2-0 5-02 00:00: 00 No Dose Unknown 2-0 5-02 00:00: 00 No Dose Unknown 2-0 5-01 00:00: 00 Yes Hilario Bhakta Dose Unknown 2021-0 5-01 00:00: 00 No Dose Unknown 2-0 5-01 00:00: 00 No Seroquel 100 mg tablet 2-0 -27 00:00: 00 Yes 1mg Hilario Bhakta Seroquel 100 mg tablet 2021-0 -27 00:00: 00 No 1mg Seroquel 100 mg tablet 2-0 -27 00:00: 00 No 1mg triamcinolo ne acetonide 0.1 % topical cream 2021-0 - 00:00: 00 Yes 1% Hilario Bhakta ezetimibe 10 mg tablet 2021-0 4- 00:00: 00 Yes 1mg Hilario Bhakta metformin 500 mg tablet 2021-0 - 00:00: 00 Yes 1mg Hilario Bhakta lisinopril 10 mg tablet 01-09 00:00: 00 Yes 1mg Hilario Bhakta hydrochloro thiazide 12.5 mg capsule 01-09 00:00: 00 Yes 1mg Hilario Bhakta triamcinolo ne acetonide 0.1 % topical cream 01-09 00:00: 00 No 1% ezetimibe 10 mg tablet 0 01-09 00:00: 00 No 1mg metformin 500 mg tablet 01-09 00:00: 00 No 1mg lisinopril 10 mg tablet 01-09 00:00: 00 No 1mg hydrochloro thiazide 12.5 mg capsule 01-09 00:00: 00 No 1mg triamcinolo ne acetonide 0.1 % topical cream 01-09 00:00: 00 No 1% ezetimibe 10 mg tablet 01-09 00:00: 00 No 1mg metformin 500 mg tablet 01-09 00:00: 00 No 1mg lisinopril 10 mg tablet 01-09 00:00: 00 No 1mg hydrochloro thiazide 12.5 mg capsule 01-09 00:00: 00 No 1mg tamsulosin 0.4 mg capsule 0 12-16 00:00: 00 Yes 1mg Hilario Bhakta tamsulosin 0.4 mg capsule 12-16 00:00: 00 No 1mg tamsulosin 0.4 mg capsule 0 12-16 00:00: 00 No 1mg Dose Unknown 0 12-07 00:00: 00 Yes Hilario Bhakta Dose Unknown 0 3 00:00: 00 No Dose Unknown 0 324 00:00: 00 No Dose Unknown 0 3 00:00: 00 Yes Hilario Bhakta Dose Unknown 0 3 00:00: 00 No Dose Unknown 0 3 00:00: 00 No metformin 500 mg tablet 2021-0 3- 00:00: 00 Yes 1mg Hilario Bhakta hydroxyzine HCl 25 mg tablet 2022-0 3-19 00:00: 00 Yes 1mg Hilario Bhakta Dose Unknown 0 319 00:00: 00 Yes Hilario Bhakta hydrochloro thiazide 12.5 mg capsule 0 19 00:00: 00 Yes 1mg Hilario Bhakta Dose Unknown 0 12-02 00:00: 00 Yes Hilario Bhakta Dose Unknown 0 12-02 00:00: 00 Yes Hilario Bhakta Dose Unknown 0 12-02 00:00: 00 Yes Hilario Bhakta Dose Unknown 0 12-02 00:00: 00 No Dose Unknown 0 12-02 00:00: 00 No Dose Unknown 0 12-02 00:00: 00 No Dose Unknown 0 12-02 00:00: 00 No Dose Unknown 0 12-02 00:00: 00 No Dose Unknown 0 12-02 00:00: 00 No metformin 500 mg tablet 2021-0 12-02 00:00: 00 No 1mg hydroxyzine HCl 25 mg tablet 0 12-02 00:00: 00 No 1mg Dose Unknown 0 12-02 00:00: 00 No hydrochloro thiazide 12.5 mg capsule 0 319 00:00: 00 No 1mg Dose Unknown 0 19 00:00: 00 No Dose Unknown 0 19 00:00: 00 No Dose Unknown 0 19 00:00: 00 No metformin 500 mg tablet 2021-0 3-19 00:00: 00 No 1mg hydroxyzine HCl 25 mg tablet 2021-0 19 00:00: 00 No 1mg Dose Unknown 0 19 00:00: 00 No hydrochloro thiazide 12.5 mg capsule 2021-0 3-19 00:00: 00 No 1mg metformin 500 mg tablet 2021-0 3-19 00:00: 00 No 1mg hydroxyzine HCl 25 mg tablet 2021-0 3-19 00:00: 00 No 1mg Dose Unknown 0 3-19 00:00: 00 No hydrochloro thiazide 12.5 mg capsule 2021-0 3-19 00:00: 00 No 1mg Dose Unknown 0 3-15 00:00: 00 Yes Hilario Bhakta Dose Unknown 2022-0 3-15 00:00: 00 Yes Hilario Bhakta Dose Unknown 2-0 3-15 00:00: 00 Yes Hilario Bhakta Dose Unknown 2022-0 3-15 00:00: 00 No Dose Unknown 2022-0 3-15 00:00: 00 No Dose Unknown 2-0 3-15 00:00: 00 No Dose Unknown 2-0 3-15 00:00: 00 No Dose Unknown 2022-0 3-15 00:00: 00 No Dose Unknown 2-0 3-15 00:00: 00 No Dose Unknown 2021-0 3-15 00:00: 00 No Dose Unknown 2-0 3-15 00:00: 00 No Dose Unknown 2021-0 3-15 00:00: 00 No lisinopril 10 mg tablet 2-0 3-05 00:00: 00 Yes 1mg Hilario Bhakta lisinopril 10 mg tablet 2-0 3-05 00:00: 00 No 1mg lisinopril 10 mg tablet 2-0 3-05 00:00: 00 No 1mg lisinopril 10 mg tablet 2-0 3-05 00:00: 00 No 1mg lisinopril 10 mg tablet 2-0 2-19 00:00: 00 Yes 1mg Hilario Bhakta metformin 500 mg tablet 2021-0 2-19 00:00: 00 Yes 1mg Hilario Bhakta Dose Unknown 2021-0 2-19 00:00: 00 Yes Hilario Bhakta hydrochloro thiazide 12.5 mg capsule 2-0 2-19 00:00: 00 Yes 1mg Hilario Bhakta lisinopril 10 mg tablet 2-0 2-19 00:00: 00 No 1mg metformin 500 mg tablet 2-0 2-19 00:00: 00 No 1mg Dose Unknown 2-0 2-19 00:00: 00 No hydrochloro thiazide 12.5 mg capsule 2-0 2-19 00:00: 00 No 1mg lisinopril 10 mg tablet 2-0 2-19 00:00: 00 No 1mg metformin 500 mg tablet 2-0 2-19 00:00: 00 No 1mg Dose Unknown 2-0 2-19 00:00: 00 No hydrochloro thiazide 12.5 mg capsule 2021-0 2-19 00:00: 00 No 1mg lisinopril 10 mg tablet 2021-0 2-19 00:00: 00 No 1mg metformin 500 mg tablet 0 2-19 00:00: 00 No 1mg Dose Unknown 0 2- 00:00: 00 No hydrochloro thiazide 12.5 mg capsule 2021-0 2- 00:00: 00 No 1mg Dose Unknown 2020-09 2 00:00: 00 Yes Hilario Bhakta Dose Unknown 2020-09 2 00:00: 00 Yes Hilario Bhakta Dose Unknown 2020-09 2 00:00: 00 Yes Hilario Bhakta Dose Unknown 2020-09 2 00:00: 00 Yes Hilario Bhakta Dose Unknown 2020-09 2 00:00: 00 No Dose Unknown 2020-09 2 00:00: 00 No Dose Unknown 2020-09 2 00:00: 00 No Dose Unknown 2020-09 2 00:00: 00 No Dose Unknown 2020-09 2 00:00: 00 No Dose Unknown 2020-09 2 00:00: 00 No Dose Unknown 2020-09 2 00:00: 00 No Dose Unknown 2020-09 2 00:00: 00 No Dose Unknown 2020-09 2 00:00: 00 No Dose Unknown 2020-09 2 00:00: 00 No Dose Unknown 2020-09 2 00:00: 00 No Dose Unknown 2020-09 2 00:00: 00 No lisinopril 10 mg tablet 06-08 00:00: 00 Yes 1mg Hilario Bhakta metformin 500 mg tablet 06-08 00:00: 00 Yes 1mg Hilario Bhakta atorvastati n 80 mg tablet 06-08 00:00: 00 Yes 1mg Hilario Bhakta hydrochloro thiazide 12.5 mg capsule 06-08 00:00: 00 Yes 1mg Hilario Bhakta lisinopril 10 mg tablet 06-08 00:00: 00 No 1mg metformin 500 mg tablet 06-08 00:00: 00 No 1mg atorvastati n 80 mg tablet 06-08 00:00: 00 No 1mg hydrochloro thiazide 12.5 mg capsule 06-08 00:00: 00 No 1mg lisinopril 10 mg tablet 06-08 00:00: 00 No 1mg metformin 500 mg tablet 06-08 00:00: 00 No 1mg atorvastati n 80 mg tablet 06-08 00:00: 00 No 1mg hydrochloro thiazide 12.5 mg capsule 06-08 00:00: 00 No 1mg lisinopril 10 mg tablet 06-08 00:00: 00 No 1mg metformin 500 mg tablet 06-08 00:00: 00 No 1mg atorvastati n 80 mg tablet 06-08 00:00: 00 No 1mg hydrochloro thiazide 12.5 mg capsule 06-08 00:00: 00 No 1mg atorvastati n 80 mg tablet 03-07 00:00: 00 Yes 1mg Hilario Bhakta atorvastati n 80 mg tablet 03-07 00:00: 00 No 1mg atorvastati n 80 mg tablet 03-07 00:00: 00 No 1mg atorvastati n 80 mg tablet 03-07 00:00: 00 No 1mg atorvastati n 20 mg tablet 03-04 00:00: 00 Yes 1mg Hilario Bhakta lisinopril 10 mg tablet 03-04 00:00: 00 Yes 1mg Hilario Bhakta metformin 500 mg tablet 03-04 00:00: 00 Yes 1mg Hilario Bhakta lisinopril 5 mg tablet 03-04 00:00: 00 Yes 1mg Hilario Bhakta hydrochloro thiazide 12.5 mg capsule 03-04 00:00: 00 Yes 1mg Hilario Bhakta atorvastati n 20 mg tablet 03-04 00:00: 00 No 1mg lisinopril 10 mg tablet 03-04 00:00: 00 No 1mg metformin 500 mg tablet 03-04 00:00: 00 No 1mg lisinopril 5 mg tablet 03-04 00:00: 00 No 1mg hydrochloro thiazide 12.5 mg capsule 03-04 00:00: 00 No 1mg atorvastati n 20 mg tablet 03-04 00:00: 00 No 1mg lisinopril 10 mg tablet 03-04 00:00: 00 No 1mg metformin 500 mg tablet 03-04 00:00: 00 No 1mg lisinopril 5 mg tablet 03-04 00:00: 00 No 1mg hydrochloro thiazide 12.5 mg capsule 03-04 00:00: 00 No 1mg atorvastati n 20 mg tablet 03-04 00:00: 00 No 1mg lisinopril 10 mg tablet 03-04 00:00: 00 No 1mg metformin 500 mg tablet 03-04 00:00: 00 No 1mg lisinopril 5 mg tablet 03-04 00:00: 00 No 1mg hydrochloro thiazide 12.5 mg capsule 03-04 00:00: 00 No 1mg lisinopril 10 mg tablet 2019-09 00:00: 00 Yes 1mg Hilario Bhakta atorvastati n 20 mg tablet 2019-09 00:00: 00 Yes 1mg Hilario Bhakta metformin 500 mg tablet 2019-09- 00:00: 00 Yes 1mg Hilario Bhakta ibuprofen 600 mg tablet 2019-09- 00:00: 00 Yes 1mg Hilario Bhakta lisinopril 5 mg tablet 2019-09- 00:00: 00 Yes 1mg Hilario Bhakta hydrochloro thiazide 12.5 mg capsule 2019-09- 00:00: 00 Yes 1mg Hilario Bhakta lisinopril 10 mg tablet 2019-09- 00:00: 00 No 1mg atorvastati n 20 mg tablet 2019-09 2- 00:00: 00 No 1mg metformin 500 mg tablet 2019-09 2- 00:00: 00 No 1mg ibuprofen 600 mg tablet 2019-09- 00:00: 00 No 1mg lisinopril 5 mg tablet 2019-09 2- 00:00: 00 No 1mg hydrochloro thiazide 12.5 mg capsule 2019-09 2- 00:00: 00 No 1mg lisinopril 10 mg tablet 2019-09 2 00:00: 00 No 1mg atorvastati n 20 mg tablet 2019-09 2- 00:00: 00 No 1mg metformin 500 mg tablet 2019-09 2- 00:00: 00 No 1mg ibuprofen 600 mg tablet 2019-09 2- 00:00: 00 No 1mg lisinopril 5 mg tablet 2019-09 2- 00:00: 00 No 1mg hydrochloro thiazide 12.5 mg capsule 2019-09 2- 00:00: 00 No 1mg lisinopril 10 mg tablet 2019-09 00:00: 00 No 1mg atorvastati n 20 mg tablet 2019-09 2- 00:00: 00 No 1mg metformin 500 mg tablet 2019-09 00:00: 00 No 1mg ibuprofen 600 mg tablet 2019-09 00:00: 00 No 1mg lisinopril 5 mg tablet 2019-09 2- 00:00: 00 No 1mg hydrochloro thiazide 12.5 mg capsule 2019-09 00:00: 00 No 1mg lisinopril 5 mg tablet 2019-09 0- 00:00: 00 Yes 1mg Hilario Bhakta lisinopril 5 mg tablet 2019-09 0- 00:00: 00 No 1mg lisinopril 5 mg tablet 2019-09 0- 00:00: 00 No 1mg lisinopril 5 mg tablet 2019-09 019 00:00: 00 No 1mg doxycycline monohydrate 100 mg capsule 05-18 00:00: 00 Yes 1mg Hilario Bhakta doxycycline monohydrate 100 mg capsule 05-18 00:00: 00 No 1mg doxycycline monohydrate 100 mg capsule 05-18 00:00: 00 No 1mg doxycycline monohydrate 100 mg capsule 05-18 00:00: 00 No 1mg Zofran 4 mg tablet 8-07 00:00: 00 Yes 1mg Hilario Bhakta Zofran 4 mg tablet 0 8-07 00:00: 00 No 1mg Zofran 4 mg tablet 2019-0 8-07 00:00: 00 No 1mg Zofran 4 mg tablet 2019-0 8-07 00:00: 00 No 1mg lisinopril 10 mg tablet 2019-0 6-10 00:00: 00 Yes 1mg Hilario Bhakta hydrochloro thiazide 12.5 mg capsule 2019-0 6-10 00:00: 00 Yes 1mg Hilario Bhakta lisinopril 10 mg tablet 0 6-10 00:00: 00 No 1mg hydrochloro thiazide 12.5 mg capsule 2019-0 6-10 00:00: 00 No 1mg lisinopril 10 mg tablet 2019-0 6- 00:00: 00 No 1mg hydrochloro thiazide 12.5 mg capsule 2019-0 6- 00:00: 00 No 1mg lisinopril 10 mg tablet 2019-0 6- 00:00: 00 No 1mg hydrochloro thiazide 12.5 mg capsule 2019-0 6- 00:00: 00 No 1mg atorvastati n 20 mg tablet 2019-0 6-09 00:00: 00 Yes 1mg Hilario Bhakta atorvastati n 20 mg tablet 2019-0 6- 00:00: 00 No 1mg atorvastati n 20 mg tablet 0 6 00:00: 00 No 1mg atorvastati n 20 mg tablet 2019-0 6- 00:00: 00 No 1mg lisinopril 10 mg-hydrochl orothiazide 12.5 mg tablet 2019-0 6- 00:00: 00 Yes 1mg Hilario Bhakta metformin 500 mg tablet 0 6-06 00:00: 00 Yes 1mg Hilario Bhakta cyclobenzap rine 10 mg tablet 2019-0 6-06 00:00: 00 Yes 1mg Hilario Bhakta lisinopril 5 mg tablet 2019-0 6- 00:00: 00 Yes 1mg Hilario Bhakta lisinopril 10 mg-hydrochl orothiazide 12.5 mg tablet 2019-0 6-06 00:00: 00 No 1mg metformin 500 mg tablet 2019-0 6- 00:00: 00 No 1mg cyclobenzap rine 10 mg tablet 0 02-19 00:00: 00 No 1mg lisinopril 5 mg tablet 0 02-19 00:00: 00 No 1mg lisinopril 10 mg-hydrochl orothiazide 12.5 mg tablet 0 02-19 00:00: 00 No 1mg metformin 500 mg tablet 0 02-19 00:00: 00 No 1mg cyclobenzap rine 10 mg tablet 0 02-19 00:00: 00 No 1mg lisinopril 5 mg tablet 02-19 00:00: 00 No 1mg lisinopril 10 mg-hydrochl orothiazide 12.5 mg tablet 02-19 00:00: 00 No 1mg metformin 500 mg tablet 02-19 00:00: 00 No 1mg cyclobenzap rine 10 mg tablet 02-19 00:00: 00 No 1mg lisinopril 5 mg tablet 0 02-19 00:00: 00 No 1mg gabapentin 600 mg tablet 0 15 00:00: 00 Yes 1mg Hilariosoco Bhakta cyclobenzap rine 10 mg tablet 0 -15 00:00: 00 Yes 1mg Hilario Anna Yony ibuprofen 600 mg tablet 0 5-15 00:00: 00 Yes 1mg Hilario Anna Yony gabapentin 600 mg tablet 0 -15 00:00: 00 No 1mg cyclobenzap rine 10 mg tablet 0 -15 00:00: 00 No 1mg ibuprofen 600 mg tablet 0 -15 00:00: 00 No 1mg gabapentin 600 mg tablet 0 -15 00:00: 00 No 1mg cyclobenzap rine 10 mg tablet 0 -15 00:00: 00 No 1mg ibuprofen 600 mg tablet 0 -15 00:00: 00 No 1mg gabapentin 600 mg tablet 0 -15 00:00: 00 No 1mg cyclobenzap rine 10 mg tablet 0 -15 00:00: 00 No 1mg ibuprofen 600 mg tablet 0 5-15 00:00: 00 No 1mg cyclobenzap rine 10 mg tablet 0 5-04 00:00: 00 Yes 1mg Hilario Anna Bhakta cyclobenzap rine 10 mg tablet 0 5-04 00:00: 00 No 1mg cyclobenzap rine 10 mg tablet 2019-0 5-04 00:00: 00 No 1mg cyclobenzap rine 10 mg tablet 2019-0 5- 00:00: 00 No 1mg cyclobenzap rine 7.5 mg tablet 0 01-10 00:00: 00 Yes 1mg Hilario Bhakta ibuprofen 600 mg tablet 0 01-10 00:00: 00 Yes 1mg Hilario Bhakta gabapentin 300 mg capsule 0 01-10 00:00: 00 Yes 1mg Hilario Bhakta cyclobenzap rine 7.5 mg tablet 01-10 00:00: 00 No 1mg ibuprofen 600 mg tablet 01-10 00:00: 00 No 1mg gabapentin 300 mg capsule 01-10 00:00: 00 No 1mg cyclobenzap rine 7.5 mg tablet 01-10 00:00: 00 No 1mg ibuprofen 600 mg tablet 01-10 00:00: 00 No 1mg gabapentin 300 mg capsule 01-10 00:00: 00 No 1mg cyclobenzap rine 7.5 mg tablet 01-10 00:00: 00 No 1mg ibuprofen 600 mg tablet 01-10 00:00: 00 No 1mg gabapentin 300 mg capsule 0 01-10 00:00: 00 No 1mg Voltaren 1 % topical gel 0 18 00:00: 00 Yes 1% Hilario Bhakta cyclobenzap rine 10 mg tablet 0 -18 00:00: 00 Yes 1mg Hilario Bhakta Voltaren 1 % topical gel 0 -18 00:00: 00 No 1% cyclobenzap rine 10 mg tablet 0 -18 00:00: 00 No 1mg Voltaren 1 % topical gel 0 -18 00:00: 00 No 1% cyclobenzap rine 10 mg tablet 0 -18 00:00: 00 No 1mg Voltaren 1 % topical gel 0 -18 00:00: 00 No 1% cyclobenzap rine 10 mg tablet 0 -18 00:00: 00 No 1mg tamsulosin 0.4 mg capsule 2018-09 00:00: 00 Yes 1mg Hilario Bhakta tamsulosin 0.4 mg capsule 2018-09 00:00: 00 No 1mg tamsulosin 0.4 mg capsule 2018-09 00:00: 00 No 1mg tamsulosin 0.4 mg capsule 2018-09 00:00: 00 No 1mg lisinopril 10 mg-hydrochl orothiazide 12.5 mg tablet 2018-09 00:00: 00 Yes 1mg Hilario Bhakta metformin 500 mg tablet 2018-09 00:00: 00 Yes 1mg Hilario Bhakta lisinopril 5 mg tablet 2018-09 00:00: 00 Yes 1mg Hilario Bhakta lisinopril 10 mg-hydrochl orothiazide 12.5 mg tablet 2018-09 00:00: 00 No 1mg metformin 500 mg tablet 2018-09 00:00: 00 No 1mg lisinopril 5 mg tablet 2018-09 00:00: 00 No 1mg lisinopril 10 mg-hydrochl orothiazide 12.5 mg tablet 2018-09 00:00: 00 No 1mg metformin 500 mg tablet 2018-09 00:00: 00 No 1mg lisinopril 5 mg tablet 2018-09 00:00: 00 No 1mg lisinopril 10 mg-hydrochl orothiazide 12.5 mg tablet 2018-09 00:00: 00 No 1mg metformin 500 mg tablet 2018-09 00:00: 00 No 1mg lisinopril 5 mg tablet 2018-09 00:00: 00 No 1mg Trileptal 300 mg tablet 01-20 00:00: 00 Yes 1mg Hilario Bhakta Risperdal 2 mg tablet 01-20 00:00: 00 Yes 1mg Hilario Bhakta lisinopril 10 mg-hydrochl orothiazide 12.5 mg tablet 01-20 00:00: 00 Yes 1mg Hilario Bhakta metformin 500 mg tablet 01-20 00:00: 00 Yes 1mg Hilario Bhakta lisinopril 5 mg tablet 01-20 00:00: 00 Yes 1mg Hilario Bhakta hydroxyzine HCl 25 mg tablet 01-20 00:00: 00 Yes 1mg Hilario Bhakta fluoxetine 40 mg capsule 01-20 00:00: 00 Yes 1mg Hilario Bhakta Trileptal 300 mg tablet 01-20 00:00: 00 No 1mg Risperdal 2 mg tablet 01-20 00:00: 00 No 1mg lisinopril 10 mg-hydrochl orothiazide 12.5 mg tablet 01-20 00:00: 00 No 1mg metformin 500 mg tablet 01-20 00:00: 00 No 1mg lisinopril 5 mg tablet 01-20 00:00: 00 No 1mg hydroxyzine HCl 25 mg tablet 01-20 00:00: 00 No 1mg fluoxetine 40 mg capsule 01-20 00:00: 00 No 1mg Trileptal 300 mg tablet 01-20 00:00: 00 No 1mg Risperdal 2 mg tablet 01-20 00:00: 00 No 1mg lisinopril 10 mg-hydrochl orothiazide 12.5 mg tablet 01-20 00:00: 00 No 1mg metformin 500 mg tablet 01-20 00:00: 00 No 1mg lisinopril 5 mg tablet 01-20 00:00: 00 No 1mg hydroxyzine HCl 25 mg tablet 01-20 00:00: 00 No 1mg fluoxetine 40 mg capsule 01-20 00:00: 00 No 1mg Trileptal 300 mg tablet 01-20 00:00: 00 No 1mg Risperdal 2 mg tablet 01-20 00:00: 00 No 1mg lisinopril 10 mg-hydrochl orothiazide 12.5 mg tablet 01-20 00:00: 00 No 1mg metformin 500 mg tablet 01-20 00:00: 00 No 1mg lisinopril 5 mg tablet 01-20 00:00: 00 No 1mg hydroxyzine HCl 25 mg tablet 01-20 00:00: 00 No 1mg fluoxetine 40 mg capsule 01-20 00:00: 00 No 1mg lisinopril 10 mg-hydrochl orothiazide 12.5 mg tablet 2017-09 00:00: 00 Yes 1mg Hilario Bhakta metformin 500 mg tablet 2017-09 00:00: 00 Yes 1mg Hilario Bhakta lisinopril 5 mg tablet 2017-09 00:00: 00 Yes 1mg Hilario Bhakta lisinopril 10 mg-hydrochl orothiazide 12.5 mg tablet 2017-09 00:00: 00 No 1mg metformin 500 mg tablet 2017-09 00:00: 00 No 1mg lisinopril 10 mg-hydrochl orothiazide 12.5 mg tablet 2017-09 00:00: 00 No 1mg metformin 500 mg tablet 2017-09 00:00: 00 No 1mg lisinopril 5 mg tablet 2017-09 00:00: 00 No 1mg lisinopril 5 mg tablet 2017-09 00:00: 00 No 1mg lisinopril 10 mg-hydrochl orothiazide 12.5 mg tablet 2017-09 00:00: 00 No 1mg metformin 500 mg tablet 2017-09 00:00: 00 No 1mg lisinopril 5 mg tablet 2017-09 00:00: 00 No 1mg lisinopril 10 mg-hydrochl orothiazide 12.5 mg tablet 06-10 00:00: 00 Yes 1mg Hilario Bhakta metformin 500 mg tablet 06-10 00:00: 00 Yes 1mg Hilario Bhakta lisinopril 5 mg tablet 06-10 00:00: 00 Yes 1mg Hilario Bhakta lisinopril 10 mg-hydrochl orothiazide 12.5 mg tablet 06-10 00:00: 00 No 1mg metformin 500 mg tablet 06-10 00:00: 00 No 1mg lisinopril 5 mg tablet 06-10 00:00: 00 No 1mg lisinopril 10 mg-hydrochl orothiazide 12.5 mg tablet 06-10 00:00: 00 No 1mg metformin 500 mg tablet 06-10 00:00: 00 No 1mg lisinopril 5 mg tablet 06-10 00:00: 00 No 1mg lisinopril 10 mg-hydrochl orothiazide 12.5 mg tablet 06-10 00:00: 00 No 1mg metformin 500 mg tablet 06-10 00:00: 00 No 1mg lisinopril 5 mg tablet 06-10 00:00: 00 No 1mg lisinopril 10 mg-hydrochl orothiazide 12.5 mg tablet 03-11 00:00: 00 Yes 1mg Hilario Bhakta metformin 500 mg tablet 03-11 00:00: 00 Yes 1mg Hilario Bhakta lisinopril 10 mg tablet 03-11 00:00: 00 Yes 1mg Hilario Bhakta lisinopril 5 mg tablet 03-11 00:00: 00 Yes 1mg Hilario Bhakta hydrochloro thiazide 12.5 mg capsule 03-11 00:00: 00 Yes 1mg Hilario Bhakta lisinopril 10 mg-hydrochl orothiazide 12.5 mg tablet 03-11 00:00: 00 No 1mg metformin 500 mg tablet 03-11 00:00: 00 No 1mg lisinopril 10 mg tablet 03-11 00:00: 00 No 1mg lisinopril 5 mg tablet 03-11 00:00: 00 No 1mg hydrochloro thiazide 12.5 mg capsule 03-11 00:00: 00 No 1mg lisinopril 10 mg-hydrochl orothiazide 12.5 mg tablet 03-11 00:00: 00 No 1mg metformin 500 mg tablet 03-11 00:00: 00 No 1mg lisinopril 10 mg tablet 03-11 00:00: 00 No 1mg lisinopril 10 mg-hydrochl orothiazide 12.5 mg tablet 03-11 00:00: 00 No 1mg metformin 500 mg tablet 03-11 00:00: 00 No 1mg lisinopril 10 mg tablet 03-11 00:00: 00 No 1mg lisinopril 5 mg tablet 03-11 00:00: 00 No 1mg hydrochloro thiazide 12.5 mg capsule 03-11 00:00: 00 No 1mg lisinopril 5 mg tablet 03-11 00:00: 00 No 1mg hydrochloro thiazide 12.5 mg capsule 03-11 00:00: 00 No 1mg ALPRAZolam (XANAX) 0.5 mg tablet 01-16 13:03: 16 Yes .5mg Take 0.5 mg by mouth 3 (three) times daily as needed (anxiety). [facility] aspirin 81 mg chewable tablet 01-16 00:00: 00 Yes 81mg Take 1 Tab by mouth daily. [facility] amLODIPine (NORVASC) 5 mg tablet 01-16 00:00: 00 Yes 5mg Take 1 Tab by mouth daily. [facility] Immunizations Ordered Immunization Name Filled Immunization Name Date Status Comments Source Fide COVID-19 Vaccine 2021-09-14 00:00:00 Completed [facility] COVID-19 Vaccine 2021-09-14 00:00:00 Completed [facility] COVID-19 Vaccine 2021-09-14 00:00:00 Completed [facility]ide COVID-19 Vaccine Fide COVID-19 Vaccine 2021-09-14 00:00:00 Completed Hilario Bhakta SARS-COV-2 COVID-19 FIDE/J&J VACCINE 2020-12-10 00:00:00 Completed [facility] SARS-COV-2 COVID-19 FIDE/J&J VACCINE 2020-12-10 00:00:00 Completed [facility] SARS-COV-2 COVID-19 FIDE/J&J VACCINE 2020-12-10 00:00:00 Completed [facility] SARS-COV-2 COVID-19 FIDE/J&J VACCINE 2020-12-10 00:00:00 Completed [facility] SARS-COV-2 COVID-19 FIDE/J&J VACCINE 2020-12-10 00:00:00 Completed [facility] Vital Signs Vital Name Observation Time Observation Value Comments Marlys moreno Systolic blood pressure 2022-04-09 00:00:00 118 mm[Hg] [facility] Diastolic blood pressure 2022-04-09 00:00:00 76 mm[Hg] [facility] Heart rate 2022-04-09 00:00:00 52 /min Unive [facility] Respiratory rate 2022-04-09 00:00:00 16 /min [facility] Oxygen saturation in Arterial blood by Pulse oximetry 2022-04-09 00:00:00 98 /min [facility] Body temperature 2022-04-08 22:32:00 36.94 Helen [facility] Body height 2022-04-08 22:32:00 180.3 cm [facility] Systolic blood pressure 2022-01-09 15:52:00 162 mm[Hg] [facility] Diastolic blood pressure 2022-01-09 15:52:00 82 mm[Hg] [facility] Heart rate 2022-01-09 15:52:00 75 /min [facility] Body temperature 2022-01-09 15:52:00 36.11 Helen [facility] Respiratory rate 2022-01-09 15:52:00 18 /min [facility] Body weight 2022-01-09 15:52:00 136.079 kg [facility] BMI 2022-01-09 15:52:00 41.84 kg/m2 [facility] Oxygen saturation in Arterial blood by Pulse oximetry 2022-01-09 15:52:00 75 /min [facility] BP Systolic 2024-07-06 08:11:00 131 mm[Hg] Step hen Anna Bhakta BP Diastolic 2024-07-06 08:11:00 78 mm[Hg] Rishi Bhakta Weight Measured 2024-07-06 08:11:00 248.20 pounds Hilario Bhakta Height Measured 2024-07-06 08:11:00 72.00 inches Hilario Bhakta Body Temperature 2024-07-06 08:11:00 208.21 degrees Hilario Bhakta Heart Rate 2024-07-06 08:11:00 52.00 /min Maryam en F [facility]ony Respiratory Rate 2024-07-06 08:11:00 16.00 /min Hilario Bhakta BP Systolic 2024-06-10 11:58:00 119 mm[Hg] Step hen F Yony BP Diastolic 2024-06-10 11:58:00 79 mm[Hg] Rishi phen F Yony Weight Measured 2024-06-10 11:58:00 247.20 pounds Hilario F Yony Height Measured 2024-06-10 11:58:00 72.00 inches Hilario F Yony Body Temperature 2024-06-10 11:58:00 93.30 degrees Hilario F Yony Heart Rate 2024-06-10 11:58:00 55.00 /min Maryam en [facility] Respiratory Rate 2024-06-10 11:58:00 18.00 /min Hilario F Yony BP Systolic 2024-06-09 16:45:00 118 mm[Hg] Step hen F Yony BP Diastolic 2024-06-09 16:45:00 71 mm[Hg] Rishi phen F Yony Weight Measured 2024-06-09 16:45:00 250.40 pounds Hilario F Yony Height Measured 2024-06-09 16:45:00 72.00 inches Hilario F Yony Body Temperature 2024-06-09 16:45:00 98.20 degrees Hilario F Yony Heart Rate 2024-06-09 16:45:00 64.00 /min Maryam en F Yony Respiratory Rate 2024-06-09 16:45:00 18.00 /min Hilario F Yony BP Systolic 2024-01-03 16:54:00 121 mm[Hg] Step hen F Yony BP Diastolic 2024-01-03 16:54:00 80 mm[Hg] Rishi phen F Yony Weight Measured 2024-01-03 16:54:00 247.20 pounds Hilario F Yony Height Measured 2024-01-03 16:54:00 72.00 inches Hilario F Yony Body Temperature 2024-01-03 16:54:00 98.30 degrees Hilario F Yony Heart Rate 2024-01-03 16:54:00 59.00 /min Maryam en F Yony Respiratory Rate 2024-01-03 16:54:00 18.00 /min Hilario F Yony BP Systolic 2023-09-27 08:21:00 115 mm[Hg] Step hen F Yony BP Diastolic 2023-09-27 08:21:00 74 mm[Hg] Rishi phen F Yony Weight Measured 2023-09-27 08:21:00 247.20 pounds Hilario F Yony Height Measured 2023-09-27 08:21:00 72.00 inches Hilario F Yony Body Temperature 2023-09-27 08:21:00 98.10 degrees Hilario F Yony Heart Rate 2023-09-27 08:21:00 53.00 /min Maryam en F Yony Respiratory Rate 2023-09-27 08:21:00 18.00 /min Hilario F Yony BP Systolic 2023-09-04 14:23:00 110 mm[Hg] Step hen F Yony BP Diastolic 2023-09-04 14:23:00 67 mm[Hg] Rishi phen F Yony Weight Measured 2023-09-04 14:23:00 243.40 pounds Hilario F Yony Height Measured 2023-09-04 14:23:00 72.00 inches Hilario F Yony Body Temperature 2023-09-04 14:23:00 98.30 degrees Hilario F Yony Heart Rate 2023-09-04 14:23:00 63.00 /min Maryam en F Yony Respiratory Rate 2023-09-04 14:23:00 Hilario F Yony BP Systolic 2023-09-02 16:53:00 103 mm[Hg] Step hen F Yony BP Diastolic 2023-09-02 16:53:00 69 mm[Hg] Rishi phen F Yony Weight Measured 2023-09-02 16:53:00 244.00 pounds Hilario F Yony Height Measured 2023-09-02 16:53:00 72.00 inches Hilario F Yony Body Temperature 2023-09-02 16:53:00 98.20 degrees Hilario F Yony Heart Rate 2023-09-02 16:53:00 60.00 /min Maryam en F Yony Respiratory Rate 2023-09-02 16:53:00 Hilario F Yony BP Systolic 2023-08-30 17:30:00 111 mm[Hg] Step hen F Yony BP Diastolic 2023-08-30 17:30:00 68 mm[Hg] Rishi phen F Yony Weight Measured 2023-08-30 17:30:00 244.20 pounds Hilario F Yony Height Measured 2023-08-30 17:30:00 72.00 inches Hilario F Yony Body Temperature 2023-08-30 17:30:00 98.30 degrees Hilario F Yony Heart Rate 2023-08-30 17:30:00 61.00 /min Maryam en F Yony Respiratory Rate 2023-08-30 17:30:00 18.00 /min Hilario F Yony BP Systolic 2023-06-27 15:44:00 108 mm[Hg] Step hen F Yony BP Diastolic 2023-06-27 15:44:00 72 mm[Hg] Rishi phen F Yony Weight Measured 2023-06-27 15:44:00 250.40 pounds Hilario F Yony Height Measured 2023-06-27 15:44:00 72.00 inches Hilario F Yony Body Temperature 2023-06-27 15:44:00 98.60 degrees Hilario F Yony Heart Rate 2023-06-27 15:44:00 63.00 /min Maryam en F Yony Respiratory Rate 2023-06-27 15:44:00 19.00 /min Hilario F Yony BP Systolic 2023-03-01 11:33:00 117 mm[Hg] Step hen F Yony BP Diastolic 2023-03-01 11:33:00 77 mm[Hg] Rishi phen F Yony Weight Measured 2023-03-01 11:33:00 238.20 pounds Hilario F Yony Height Measured 2023-03-01 11:33:00 72.00 inches Hilario F Yony Body Temperature 2023-03-01 11:33:00 98.20 degrees Hilario F Yony Heart Rate 2023-03-01 11:33:00 51.00 /min Maryam en F Yony Respiratory Rate 2023-03-01 11:33:00 Hilario F Yony BP Systolic 2023-03-01 11:11:00 117 mm[Hg] Step hen F Yony BP Diastolic 2023-03-01 11:11:00 77 mm[Hg] Rishi phen F Yony Weight Measured 2023-03-01 11:11:00 238.20 pounds Hilario F Yony Height Measured 2023-03-01 11:11:00 72.00 inches Hilario F Yony Body Temperature 2023-03-01 11:11:00 98.20 degrees Hilario F Yony Heart Rate 2023-03-01 11:11:00 51.00 /min Maryam en F Yony Respiratory Rate 2023-03-01 11:11:00 Hilario F Yony BP Systolic 2022-10-09 11:20:00 121 mm[Hg] Step hen F Yony BP Diastolic 2022-10-09 11:20:00 77 mm[Hg] Rishi phen F Yony Weight Measured 2022-10-09 11:20:00 223.20 pounds Hilario Bhakta Height Measured 2022-10-09 11:20:00 72.00 inches Hilario F Yony Body Temperature 2022-10-09 11:20:00 98.40 degrees Hilario F Yony Heart Rate 2022-10-09 11:20:00 58.00 /min Maryam en F Yony Respiratory Rate 2022-10-09 11:20:00 17.00 /min Hilario F Yony BP Systolic 2022-06-12 13:22:00 111 mm[Hg] Step soco F Yony BP Diastolic 2022-06-12 13:22:00 75 mm[Hg] Rishi phen F Yony Weight Measured 2022-06-12 13:22:00 227.60 pounds Hilario Bhakta Height Measured 2022-06-12 13:22:00 72.00 inches Hilario Anna Bhakta Body Temperature 2022-06-12 13:22:00 98.10 degrees Hilario F Yony Heart Rate 2022-06-12 13:22:00 66.00 /min Maryam en F Yony Respiratory Rate 2022-06-12 13:22:00 16.00 /min Hilario F Yony BP Systolic 2022-03-29 09:59:00 92 mm[Hg] BP Diastolic 2022-03-29 09:59:00 61 mm[Hg] Weight Measured 2022-03-29 09:59:00 229.00 pounds Height Measured 2022-03-29 09:59:00 72.00 inches Body Temperature 2022-03-29 09:59:00 97.90 degrees Heart Rate 2022-03-29 09:59:00 69.00 /min Respiratory Rate 2022-03-29 09:59:00 24.00 /min Respiratory Rate 2022-03-15 11:43:00 BP Systolic 2022-03-15 11:43:00 85 mm[Hg] BP Diastolic 2022-03-15 11:43:00 49 mm[Hg] Weight Measured 2022-03-15 11:43:00 242.40 pounds Height Measured 2022-03-15 11:43:00 72.00 inches Body Temperature 2022-03-15 11:43:00 98.90 degrees Heart Rate 2022-03-15 11:43:00 62.00 /min BP Systolic 2022-01-30 09:25:00 124 mm[Hg] BP [...] Procedure Date / Time Performed Performing Clinician Source NON [facility] FAC[facility] DOCUMENTATION 2022-05-21 05:01:00 Doctor Unassigned, [place] [facility] XR CHEST 1 VW 2022-04-09 00:13:[address] [facility] CT ABDOMEN PELVIS W CONTRAST 2022-04-08 23:21:00 Rukhsana Remy [facility] LIPASE 2022-04-08 22:48:00 Rukhsana Remy [facility] TROPONIN I 2022-04-08 22:48:00 Rukhsana Remy [facility] COMP. METABOLIC PANEL (29474) 2022-04-08 22:48:00 Rukhsana Remy [facility] CBC WITH DIFF 2022-04-08 22:48:[address] [facility] PROTHROMBIN TIME / INR 2022-04-08 22:48:00 Roxanna Remy [facility] URINALYSIS 2022-04-08 22:48:00 Rukhsana Remy [facility] N-TERMINAL PRO-BNP 2022-04-08 22:48:00 Payal Remy [facility] COVID-19 (ID NOW RAPID TESTING) 2022-04-08 22:48:00 Rukhsana Remy [facility] CONSENT/REFUSAL FOR DIAGNOSIS AND TREATMENT 2022-04-08 22:21:37 Doctor Unassigned, [place] [facility] CONSENT/REFUSAL FOR DIAGNOSIS AND TREATMENT 2022-01-09 15:34:31 Doctor Unassigned, [place] [facility] NOTICE OF PRIVACY PRACTICES 2022-01-09 15:34:19 Doctor Unassigned, [place] [facility] Ear Lavage 2019-05-04 00:00:00 Hilario Bhakta Plan of Care Planned Activity Planned Date Details Comments Source Goal Plan of Care Note [code = 72130-3] Goal Plan of Care Note [code = 05130-1] Goal Plan of Care Note [code = 89885-7] Goal Plan of Care Note [code = 53489-2] Goal Plan of Care Note [code = 08156-1] Goal Plan of Care Note [code = 73605-4] Goal Plan of Care Note [code = 58218-7] Goal Plan of Care Note [code = 21903-9] Goal Plan of Care Note [code = 25184-5] Goal Plan of Care Note [code = 91078-5] Goal Plan of Care Note [code = 15371-1] Goal Plan of Care Note [code = 47699-7] Goal Plan of Care Note [code = 10334-1] Goal Plan of Care Note [code = 35521-8] Goal Plan of Care Note [code = 41979-9] Goal Plan of Care Note [code = 59443-2] Goal Plan of Care Note [code = 04889-2] Goal Plan of Care Note [code = 17151-4] Goal Plan of Care Note [code = 58555-6] Goal Plan of Care Note [code = 63581-7] Goal Plan of Care Note [code = 23021-8] Goal Plan of Care Note [code = 59698-0] Goal Plan of Care Note [code = 46183-8] Goal Plan of Care Note [code = 28894-6] Goal Plan of Care Note [code = 22879-5] Goal Plan of Care Note [code = 66741-7] Goal Plan of Care Note [code = 79703-7] Goal Plan of Care Note [code = 02894-3] Goal Plan of Care Note [code = 34844-1] Goal Plan of Care Note [code = 90374-7] Goal Plan of Care Note [code = 88833-3] Goal Plan of Care Note [code = 75977-3] Goal Plan of Care Note [code = 71011-6] Goal Plan of Care Note [code = 41423-8] Goal Plan of Care Note [code = 93610-8] Goal Plan of Care Note [code = 85885-5] Goal Plan of Care Note [code = 70658-3] Goal Plan of Care Note [code = 69095-6] Goal Plan of Care Note [code = 50978-9] Goal Plan of Care Note [code = 70929-6] Goal Plan of Care Note [code = 45712-4] Goal Plan of Care Note [code = 84637-0] Goal Plan of Care Note [code = 72432-7] Goal Plan of Care Note [code = 69420-3] Goal Plan of Care Note [code = 49239-4] Goal Plan of Care Note [code = 88696-8] Goal Plan of Care Note [code = 52097-6] Goal Plan of Care Note [code = 14142-6] Goal Plan of Care Note [code = 04101-0] Goal Plan of Care Note [code = 41834-7] Goal Plan of Care Note [code = 32171-2] Goal Plan of Care Note [code = 77794-7] Goal Plan of Care Note [code = 07841-4] Goal Plan of Care Note [code = 03666-9] Goal Plan of Care Note [code = 39447-9] Goal Plan of Care Note [code = 88470-0] Goal Plan of Care Note [code = 19907-1] Goal Plan of Care Note [code = 29197-7] Goal Plan of Care Note [code = 43735-5] Goal Plan of Care Note [code = 99298-0] Goal Plan of Care Note [code = 22676-7] Goal Plan of Care Note [code = 74797-9] Goal Plan of Care Note [code = 50245-4] Goal Plan of Care Note [code = 20982-0] Goal Plan of Care Note [code = 26884-4] Goal Plan of Care Note [code = 25955-1] Goal Plan of Care Note [code = 35284-8] Goal Plan of Care Note [code = 37250-9] Goal Plan of Care Note [code = 73671-3] Goal Plan of Care Note [code = 40302-7] Goal Plan of Care Note [code = 21263-2] Goal Plan of Care Note [code = 81881-0] Goal Plan of Care Note [code = 12261-7] Goal Plan of Care Note [code = 71580-4] Goal Plan of Care Note [code = 41731-5] Goal Plan of Care Note [code = 13435-0] Goal Plan of Care Note [code = 57074-1] Goal Plan of Care Note [code = 21951-9] Goal Plan of Care Note [code = 28736-2] Goal Plan of Care Note [code = 85084-3] Goal Plan of Care Note [code = 16006-3] Goal Plan of Care Note [code = 45832-9] Goal Plan of Care Note [code = 62598-2] Goal Plan of Care Note [code = 55026-5] Goal Plan of Care Note [code = 27433-3] Goal Plan of Care Note [code = 21641-7] Goal Plan of Care Note [code = 16119-1] Goal Plan of Care Note [code = 31675-9] Goal Plan of Care Note [code = 38877-3] Goal Plan of Care Note [code = 87201-4] Goal Plan of Care Note [code = 48841-3] Goal Plan of Care Note [code = 38238-9] Goal Plan of Care Note [code = 43710-8] Goal Plan of Care Note [code = 73007-0] Goal Plan of Care Note [code = 97650-7] Goal Plan of Care Note [code = 47485-7] Goal Plan of Care Note [code = 05209-2] Goal Plan of Care Note [code = 95352-8] Goal Plan of Care Note [code = 80319-4] Goal Plan of Care Note [code = 89341-3] Goal Plan of Care Note [code = 02399-0] Goal Plan of Care Note [code = 11722-6] Goal Plan of Care Note [code = 29159-4] Goal Plan of Care Note [code = 10680-3] Goal Plan of Care Note [code = 45673-6] Goal Plan of Care Note [code = 16410-3] Goal Plan of Care Note [code = 86035-4] Goal Plan of Care Note [code = 01176-5] Goal Plan of Care Note [code = 32724-3] Goal Plan of Care Note [code = 89859-3] Goal Plan of Care Note [code = 31717-6] Goal Plan of Care Note [code = 94034-2] Goal Plan of Care Note [code = 71797-7] Goal Plan of Care Note [code = 64290-4] Goal Plan of Care Note [code = 69225-5] Goal Plan of Care Note [code = 26148-8] Goal Plan of Care Note [code = 23710-9] Goal Plan of Care Note [code = 86066-0] Goal Plan of Care Note [code = 16813-5] Goal Plan of Care Note [code = 85307-8] Goal Plan of Care Note [code = 26034-4] Goal Plan of Care Note [code = 57284-1] Goal Plan of Care Note [code = 71005-6] Goal Plan of Care Note [code = 47147-5] Goal Plan of Care Note [code = 79698-9] Goal Plan of Care Note [code = 24356-9] Goal Plan of Care Note [code = 56315-5] Goal Plan of Care Note [code = 64085-4] Goal Plan of Care Note [code = 48496-8] Goal Plan of Care Note [code = 00000-0] Goal Plan of Care Note [code = 04554-1] Goal Plan of Care Note [code = 62852-7] Goal Plan of Care Note [code = 29460-3] Goal Plan of Care Note [code = 33678-7] Goal Plan of Care Note [code = 20344-4] Goal Plan of Care Note [code = 54160-4] Goal Plan of Care Note [code = 43492-9] Goal Plan of Care Note [code = 20329-0] Goal Plan of Care Note [code = 52760-7] Goal Plan of Care Note [code = 80013-5] Goal Plan of Care Note [code = 30842-8] Goal Plan of Care Note [code = 26018-5] Goal Plan of Care Note [code = 39319-5] Goal Plan of Care Note [code = 88833-9] Goal Plan of Care Note [code = 52538-6] Goal Plan of Care Note [code = 46094-3] Goal Plan of Care Note [code = 92210-0] Goal Plan of Care Note [code = 61956-2] Goal Plan of Care Note [code = 62326-2] Goal Plan of Care Note [code = 02292-4] Goal Plan of Care Note [code = 05891-3] Goal Plan of Care Note [code = 30642-3] Goal Plan of Care Note [code = 94619-5] Goal Plan of Care Note [code = 40949-2] Goal Plan of Care Note [code = 28523-9] Goal Plan of Care Note [code = 05205-0] Goal Plan of Care Note [code = 80011-9] Goal Plan of Care Note [code = 17682-9] Goal Plan of Care Note [code = 95188-3] Goal Plan of Care Note [code = 80514-5] Goal Plan of Care Note [code = 67732-5] Goal Plan of Care Note [code = 49242-6] Encounters Start Date/Time End Date/Time Encounter Type Admission Type Attending [facility] Care Department Encounter ID Source 2022-02-03 12:36:00 Inpatient [facility] [id number] [facility] 2024-07-06 08:05:08 2024-07-06 08:05:08 Outpatient [facility] [id number] Hilario Bhakta 2024-07-06 00:00:00 2024-07-06 00:00:00 Outpatient Visit [facility] [id number] Hilario Bhakta 2024-06-10 11:52:50 2024-06-10 11:52:50 Outpatient [facility] [id number] Hilario Bhakta 2024-06-09 16:28:57 2024-06-09 16:28:57 Outpatient [facility] [id number] Hilario Bhakta 2024-01-10 08:43:39 2024-01-10 08:43:39 Outpatient [facility] [id number] Hilario Bhakta 2024-01-03 16:48:55 2024-01-03 16:48:55 Outpatient [facility] [id number] Hilario Bhakta 2024-01-03 00:00:00 2024-01-03 00:00:00 Outpatient Visit [facility] [id number] Hilario Bhakta 2023-12-06 14:21:33 2023-12-06 14:21:33 Outpatient [facility] [id number] Hilario Bhakta 2023-09-27 08:14:12 2023-09-27 08:14:12 Outpatient [facility] [id number] Hilario Bhakta 2023-09-04 14:17:26 2023-09-04 14:17:26 Outpatient [facility] [place] [id number] Hilario Bhakta 2023-09-02 16:51:39 2023-09-02 16:51:39 Outpatient [facility] [id number] Hilario Bhakta 2023-08-30 17:23:27 2023-08-30 17:23:27 Outpatient [facility] [place] [id number] Hilario Bhakta 2023-06-27 15:35:18 2023-06-27 15:35:18 Outpatient [facility] [id number] Hilario Bhakta 2023-03-01 11:09:21 2023-03-01 11:09:21 Outpatient [facility] [place] [id number] Hilario Bhakta 2022-10-09 11:13:26 2022-10-09 11:13:26 Outpatient [facility] [place] [id number] Hilario Bhakta 2022-10-08 09:36:21 2022-10-08 09:36:21 Outpatient [facility] [place] [id number] Hilario Bhakta 2022-06-12 00:00:00 2022-06-12 00:00:00 Outpatient Visit [id number] 2022-05-21 15:46:00 2022-05-21 23:59:00 Hospital Encounter Esau Whitten [facility] [id number] [facility] 2022-05-21 12:34:00 2022-05-21 12:34:00 Emergency [facility] [id number] [facility] 2022-05-21 12:34:00 2022-05-21 12:34:00 Emergency Emergency John Matthew [facility] [id number] [facility] 2022-05-21 00:00:00 2022-05-21 00:00:00 Orders Only Doctor Unassigned, [place] [facility] 1.2.840.114 350.1.13.10 4.2.7.2.686 [id number] [facility] 2022-04-08 17:38:00 2022-04-08 20:38:00 Emergency X INGA [facility] [id number] [facility] 2022-04-08 17:38:00 2022-04-08 20:38:00 Emergency Rukhsana Remy [facility] 1.2.840.114 350.1.13.10 4.2.7.2.686 [id number] [facility] 2022-04-08 00:00:00 2022-04-08 00:00:00 Orders Only Doctor Unassigned, [place] [facility] 1.2.840.114 350.1.13.10 4.2.7.2.686 [id number] [facility] 2022-03-29 00:00:00 2022-03-29 00:00:00 Outpatient Visit [id number] 2022-03-15 00:00:00 2022-03-15 00:00:00 Outpatient Visit [id number] 2022-02-03 12:36:00 2022-02-03 12:36:00 Emergency [facility] [id number] [facility] 2022-01-09 10:54:00 2022-01-09 12:08:00 Emergency Nasreen Cheung [facility] 1.2.840.114 350.1.13.10 4.2.7.2.686 [id number] [facility] 2022-01-09 10:54:00 2022-01-09 12:08:00 Emergency X NASREEN CHEUNG [facility] ERT [id number] [facility] Results Test Description Test Time Test Comments Results Result Co mments Source Hilario BhaktaCOMPREHENSIVE METABOLIC [id number] 00:00:00* Test Item Value Reference Range Interpretation Comme nts GLUCOSE (test code = 2217) 106 MG/DL BUN (test code = 2208) 20 MG/DL CREATININE (test code = 2214) 1.10 MG/DL eGFR (2020 CKD-EPI) (test co de = 79753) 78 ML/MIN/1.73 CALC BUN/CREAT (test code = 2235) 18 RATIO SODIUM (test code = 2231) 142 MEQ/L POTASSIUM (test code = 2228) 4.7 MEQ/L CHLORIDE (test code = 2215) 104 MEQ/L CARBON DIOXIDE (test code = 2206) 26 MEQ/L CALCIUM (test code = 2209) 9.0 MG/DL PROTEIN, TOTAL (test code = 2229) 7.0 G/DL ALBUMIN (test code = 2201) 4.2 G/DL CALC GLOBULIN (test code = 2240) 2.8 G/DL CALC A/G RATIO (test code = 2234) 1.5 RATIO BILIRUBIN, TOTAL (test code = 2207) 0.7 MG/DL ALKALINE PHOSPHATASE (test code = 2204) 83 U/L AST (test code = 2218) 23 U/L ALT (test code = 2219) 23 U/L Hilario BhaktaLIPID [id number] 00:00:00* Test Item Value Reference Range Interpretation Comme nts CHOLESTEROL (test code = 2210) 93 MG/DL TRIGLYCERIDES (test code = 2232) 117 MG/DL HDL CHOLESTEROL (test code = 2220) 37 MG/DL CALC LDL CHOL (test code = 2237) 36 MG/DL RISK RATIO LDL/HDL (test cod e = 2238) 0.97 RATIO Hilario BhaktaCOMPREHENSIVE METABOLIC [id number] 03:28:01* Test Item Value Reference Range Interpretation Comme nts GLUCOSE (test code = 2217) 99 MG/DL 70-99 BUN (test code = 2208) 23 MG/DL 6-20 H CREATININE (test code = 2214) 1.14 MG/DL 0.80-1.40 eGFR (2020 CKD-EPI) (test code = 01968) 75 ML/MIN/1.73 >60 CALC BUN/CREAT (test code = 2235) 20 RATIO 6-28 SODIUM (test code = 2231) 140 MEQ/L 133-146 POTASSIUM (test code = 2228) 4.7 MEQ/L 3.5-5.4 CHLORIDE (test code = 2215) 102 MEQ/L 95-107 CARBON DIOXIDE (test code = 2206) 24 MEQ/L 19-31 CALCIUM (test code = 2209) 9.6 MG/DL 8.5-10.5 PROTEIN, TOTAL (test code = 2229) 7.3 G/DL 6.1-8.3 ALBUMIN (test code = 2201) 4.7 G/DL 3.5-5.2 CALC GLOBULIN (test code = 2240) 2.6 G/DL 1.9-3.7 CALC A/G RATIO (test code = 2234) 1.8 RATIO 1.0-2.6 BILIRUBIN, TOTAL (test code = 2207) 0.8 MG/DL <=1.2 ALKALINE PHOSPHATASE (test code = 2204) 90 U/L 40-123 AST (test code = 2218) 29 U/L 9-50 ALT (test code = 2219) 23 U/L 5-50 UNLESS OTHERWISE INDICATED, ALL TESTING PERFORMED AT [facility] [address] [place] [address] [employer]: EVELIA STEPHEN M.D. CLIA NUMBER [id number] [place]. [id number] COMPREHENSIVE METABOLIC [id number] 00:00:00* Test Item Value Reference Range Interpretation Comme nts GLUCOSE (test code = 2217) 99 MG/DL BUN (test code = 2208) 23 MG/DL CREATININE (test code = 2214) 1.14 MG/DL eGFR (2020 CKD-EPI) (test co de = 65280) 75 ML/MIN/1.73 CALC BUN/CREAT (test code = 2235) 20 RATIO SODIUM (test code = 2231) 140 MEQ/L POTASSIUM (test code = 2228) 4.7 MEQ/L CHLORIDE (test code = 2215) 102 MEQ/L CARBON DIOXIDE (test code = 2206) 24 MEQ/L CALCIUM (test code = 2209) 9.6 MG/DL PROTEIN, TOTAL (test code = 2229) 7.3 G/DL ALBUMIN (test code = 2201) 4.7 G/DL CALC GLOBULIN (test code = 2240) 2.6 G/DL CALC A/G RATIO (test code = 2234) 1.8 RATIO BILIRUBIN, TOTAL (test code = 2207) 0.8 MG/DL ALKALINE PHOSPHATASE (test code = 2204) 90 U/L AST (test code = 2218) 29 U/L ALT (test code = 2219) 23 U/L Hilario BhaktaOccult Blood, Fecal, [id number] 00:00:00* Test Item Value Reference Range Interpretation Comme nts Occult Blood, Fecal, IA (josue t code = 24560-8) Negative Hilario Anna YonyCOMPREHENSIVE METABOLIC [id number] 00:00:00* Test Item Value Reference Range Interpretation Comme nts GLUCOSE (test code = 2217) 41 MG/DL BUN (test code = 2208) 26 MG/DL CREATININE (test code = 2214) 1.27 MG/DL eGFR (2020 CKD-EPI) (test co de = 92900) 66 ML/MIN/1.73 CALC BUN/CREAT (test code = 2235) 20 RATIO SODIUM (test code = 2231) 143 MEQ/L POTASSIUM (test code = 2228) >9.0 MEQ/L CHLORIDE (test code = 2215) 102 MEQ/L CARBON DIOXIDE (test code = 2206) 22 MEQ/L CALCIUM (test code = 2209) 9.8 MG/DL PROTEIN, TOTAL (test code = 2229) 7.8 G/DL ALBUMIN (test code = 2201) 5.0 G/DL CALC GLOBULIN (test code = 2240) 2.8 G/DL CALC A/G RATIO (test code = 2234) 1.8 RATIO BILIRUBIN, TOTAL (test code = 2207) 0.7 MG/DL ALKALINE PHOSPHATASE (test code = 2204) 88 U/L AST (test code = 2218) 27 U/L ALT (test code = 2219) 23 U/L Hilario BhaktaHEMOGLOBIN [id number] 00:00:00* Test Item Value Reference Range Interpretation Comme nts HEMOGLOBIN A1c (test code = 67270) 5.8 % Hilario BhaktaLIPID [id number] 00:00:00* Test Item Value Reference Range Interpretation Comme nts CHOLESTEROL (test code = 2210) 158 MG/DL TRIGLYCERIDES (test code = 2232) 202 MG/DL HDL CHOLESTEROL (test code = 2220) 43 MG/DL CALC LDL CHOL (test code = 2237) 86 MG/DL RISK RATIO LDL/HDL (test cod e = 2238) 2.00 RATIO Hilario BhaktaCOMPREHENSIVE METABOLIC [id number] 00:00:00* Test Item Value Reference Range Interpretation Comme nts GLUCOSE (test code = 2217) 41 MG/DL BUN (test code = 2208) 26 MG/DL CREATININE (test code = 2214) 1.27 MG/DL eGFR (2020 CKD-EPI) (test co de = 50946) 66 ML/MIN/1.73 CALC BUN/CREAT (test code = 2235) 20 RATIO SODIUM (test code = 2231) 143 MEQ/L POTASSIUM (test code = 2228) >9.0 MEQ/L CHLORIDE (test code = 2215) 102 MEQ/L CARBON DIOXIDE (test code = 2206) 22 MEQ/L CALCIUM (test code = 2209) 9.8 MG/DL PROTEIN, TOTAL (test code = 2229) 7.8 G/DL ALBUMIN (test code = 2201) 5.0 G/DL CALC GLOBULIN (test code = 2240) 2.8 G/DL CALC A/G RATIO (test code = 2234) 1.8 RATIO BILIRUBIN, TOTAL (test code = 2207) 0.7 MG/DL ALKALINE PHOSPHATASE (test code = 2204) 88 U/L AST (test code = 2218) 27 U/L ALT (test code = 2219) 23 U/L Hilario BhaktaHEMOGLOBIN [id number] 00:00:00* Test Item Value Reference Range Interpretation Comme nts HEMOGLOBIN A1c (test code = 47540) 5.8 % Hilario BhaktaLIPID [id number] 00:00:00* Test Item Value Reference Range Interpretation Comme nts CHOLESTEROL (test code = 2210) 158 MG/DL TRIGLYCERIDES (test code = 2232) 202 MG/DL HDL CHOLESTEROL (test code = 2220) 43 MG/DL CALC LDL CHOL (test code = 2237) 86 MG/DL RISK RATIO LDL/HDL (test cod e = 2238) 2.00 RATIO Hilario BhaktaLIPID [id number] 05:34:00* Test Item Value Reference Range Interpretation Comme nts CHOLESTEROL (test code = 2210) 98 MG/DL <200 TRIGLYCERIDES (test code = 2232) 85 MG/DL <150 HDL CHOLESTEROL (test code = 2220) 42 MG/DL >39 CALC LDL CHOL (test code = 2237) 39 MG/DL <100 NOTE: CALCULATED LDL IS BASED ON ARTHUR-WYNN METHOD WHICHINCLUDES ADJUSTABLE TRIGLYCERIDE:VLDL CHOLESTEROL RATIO.THIS FACTOR VARIES BY MEASURED TRIGLYCERIDE AND NON-HDLCHOLESTEROL CONCENTRATIONS WITH INCREASED CALCULATED LDL SEENIN HIGHER TRIGLYCERIDE OR LOWER NON-HDL SPECIMENS. FOR MOREINFORMATION, SEE CLIENT ANNOUNCEMENT AT [email or web address] RISK RATIO LDL/HDL (test code = 2238) 0.93 RATIO <3.55 COMPREHENSIVE METABOLIC [id number] 05:34:00* Test Item Value Reference Range Interpretation Comme nts GLUCOSE (test code = 2217) 100 MG/DL 70-99 H BUN (test code = 2208) 26 MG/DL 6-20 H CREATININE (test code = 2214) 1.17 MG/DL 0.80-1.40 eGFR (2020 CKD-EPI) (test co de = 55235) 73 ML/MIN/1.73 >60 CALC BUN/CREAT (test code = 2235) 22 RATIO 6-28 SODIUM (test code = 2231) 141 MEQ/L 133-146 POTASSIUM (test code = 2228) 4.3 MEQ/L 3.5-5.4 CHLORIDE (test code = 2215) 104 MEQ/L 95-107 CARBON DIOXIDE (test code = 2206) 23 MEQ/L 19-31 CALCIUM (test code = 2208) 9.3 MG/DL 8.5-10.5 PROTEIN, TOTAL (test code = 2228) 7.2 G/DL 6.1-8.3 ALBUMIN (test code = 2200) 4.7 G/DL 3.5-5.2 CALC GLOBULIN (test code = 2239) 2.5 G/DL 1.9-3.7 CALC A/G RATIO (test code = 2233) 1.9 RATIO 1.0-2.6 BILIRUBIN, TOTAL (test code = 2206) 0.9 MG/DL <=1.2 ALKALINE PHOSPHATASE (test code = 2203) 93 U/L 40-123 AST (test code = 2217) 25 U/L 9-50 ALT (test code = 2218) 24 U/L 5-50 CBC W/AUTO DIFF WITH [id number] 02:27:40* Test Item Value Reference Range Interpretation Comme nts WBC (test code = 1001) 7.0 K/UL 3.5-11.0 RBC (test code = 1002) 5.27 M/UL 4.50-6.10 HEMOGLOBIN (test code = 1003) 15.1 G/DL 13.5-17.0 HEMATOCRIT (test code = 1004) 45.5 % 40.0-51.0 MCV (test code = 1005) 86.3 fL 80.0-99.0 MCH (test code = 1006) 28.7 PG 25.0-33.0 MCHC (test code = 1007) 33.2 G/DL 31.0-36.0 RDW (test code = 1038) 13.0 % 11.5-15.0 NEUTROPHILS (test code = 1008) 63.1 % LYMPHOCYTES (test code = 1010) 22.6 % MONOCYTES (test code = 1011) 6.2 % EOSINOPHILS (test code = 1012) 6.9 % BASOPHILS (test code = 1013) 0.6 % IMMATURE GRANULOCYTES (test code = 1036) 0.6 % NUCLEATED RBCS (test code = 1065) 0.0 /100 WBC'S See_Comment [Automated message] The system which generated this result transmitted reference range: 0.0. The reference range was not used to interpret this result as normal/abnormal. PLATELET COUNT (test code = 1015) 157 K/UL 130-400 ABSOLUTE NEUTROPHILS (test code = 1066) 4.40 K/UL 1.50-7.50 ABSOLUTE LYMPHOCYTES (test code = 1067) 1.57 K/UL 1.00-4.00 ABSOLUTE MONOCYTES (test code = 1068) 0.43 K/UL 0.20-1.00 ABSOLUTE EOSINOPHILS (test code = 1040) 0.48 K/UL 0.00-0.50 ABSOLUTE BASOPHILS (test code = 1069) 0.04 K/UL 0.00-0.20 ABS IMMATURE GRANULOCYTES (test code = 1020) 0.04 K/UL 0.00-0.10 ABS NUCLEATED RBCS (test code = 53256) 0.00 K/UL 0.00-0.11 UNLESS OTHER GAN INDICATED, ALL TESTING PERFORMED AT [facility] [address] [place] [address] [employer]: EVELIA STEPHEN M.D. CLIA NUMBER [id number] [facility] [place]. [id number] LIPID [id number] 00:00:00* Test Item Value Reference Range Interpretation Comme nts CHOLESTEROL (test code = 2210) 98 MG/DL TRIGLYCERIDES (test code = 2232) 85 MG/DL HDL CHOLESTEROL (test code = 2220) 42 MG/DL CALC LDL CHOL (test code = 2237) 39 MG/DL RISK RATIO LDL/HDL (test cod e = 2238) 0.93 RATIO Hilario Castillo [facility] W/AUTO [id number] 00:00:00* Test Item Value Reference Range Interpretation Comme nts WBC (test code = 1001) 7.0 K/UL RBC (test code = 1002) 5.27 M/UL HEMOGLOBIN (test code = 1003) 15.1 G/DL HEMATOCRIT (test code = 1004) 45.5 % MCV (test code = 1005) 86.3 fL MCH (test code = 1006) 28.7 PG MCHC (test code = 1007) 33.2 G/DL RDW (test code = 1038) 13.0 % NEUTROPHILS (test code = 1008) 63.1 % LYMPHOCYTES (test code = 1010) 22.6 % MONOCYTES (test code = 1011) 6.2 % EOSINOPHILS (test code = 1012) 6.9 % BASOPHILS (test code = 1013) 0.6 % IMMATURE GRANULOCYTES (test code = 1036) 0.6 % NUCLEATED RBCS (test code = 1065) 0.0 /100WBC'S PLATELET COUNT (test code = 1015) 157 K/UL ABSOLUTE NEUTROPHILS (test c ode = 1066) 4.40 K/UL ABSOLUTE LYMPHOCYTES (test c ode = 1067) 1.57 K/UL ABSOLUTE MONOCYTES (test cod e = 1068) 0.43 K/UL ABSOLUTE EOSINOPHILS (test c ode = 1040) 0.48 K/UL ABSOLUTE BASOPHILS (test cod e = 1069) 0.04 K/UL ABS IMMATURE GRANULOCYTES (t est code = 1020) 0.04 K/UL ABS NUCLEATED RBCS (test cod e = 67488) 0.00 K/UL Hilario F YonyCOMPREHENSIVE METABOLIC [id number] 00:00:00* Test Item Value Reference Range Interpretation Comme nts GLUCOSE (test code = 2217) 100 MG/DL BUN (test code = 2208) 26 MG/DL CREATININE (test code = 2214) 1.17 MG/DL eGFR (2020 CKD-EPI) (test co de = 18231) 73 ML/MIN/1.73 CALC BUN/CREAT (test code = 2235) 22 RATIO SODIUM (test code = 2231) 141 MEQ/L POTASSIUM (test code = 2228) 4.3 MEQ/L CHLORIDE (test code = 2215) 104 MEQ/L CARBON DIOXIDE (test code = 2206) 23 MEQ/L CALCIUM (test code = 2209) 9.3 MG/DL PROTEIN, TOTAL (test code = 2229) 7.2 G/DL ALBUMIN (test code = 2201) 4.7 G/DL CALC GLOBULIN (test code = 2240) 2.5 G/DL CALC A/G RATIO (test code = 2234) 1.9 RATIO BILIRUBIN, TOTAL (test code = 2207) 0.9 MG/DL ALKALINE PHOSPHATASE (test code = 2204) 93 U/L AST (test code = 2218) 25 U/L ALT (test code = 2219) 24 U/L Hilario Castillo YonyLIPID [id number] 00:00:00* Test Item Value Reference Range Interpretation Comme nts CHOLESTEROL (test code = 2210) 98 MG/DL TRIGLYCERIDES (test code = 2232) 85 MG/DL HDL CHOLESTEROL (test code = 2220) 42 MG/DL CALC LDL CHOL (test code = 2237) 39 MG/DL RISK RATIO LDL/HDL (test cod e = 2238) 0.93 RATIO Hilario BhaktaC W/AUTO [id number] 00:00:00* Test Item Value Reference Range Interpretation Comme nts WBC (test code = 1001) 7.0 K/UL RBC (test code = 1002) 5.27 M/UL HEMOGLOBIN (test code = 1003) 15.1 G/DL HEMATOCRIT (test code = 1004) 45.5 % MCV (test code = 1005) 86.3 fL MCH (test code = 1006) 28.7 PG MCHC (test code = 1007) 33.2 G/DL RDW (test code = 1038) 13.0 % NEUTROPHILS (test code = 1008) 63.1 % LYMPHOCYTES (test code = 1010) 22.6 % MONOCYTES (test code = 1011) 6.2 % EOSINOPHILS (test code = 1012) 6.9 % BASOPHILS (test code = 1013) 0.6 % IMMATURE GRANULOCYTES (test code = 1036) 0.6 % NUCLEATED RBCS (test code = 1065) 0.0 /100WBC'S PLATELET COUNT (test code = 1015) 157 K/UL ABSOLUTE NEUTROPHILS (test c ode = 1066) 4.40 K/UL ABSOLUTE LYMPHOCYTES (test c ode = 1067) 1.57 K/UL ABSOLUTE MONOCYTES (test cod e = 1068) 0.43 K/UL ABSOLUTE EOSINOPHILS (test c ode = 1040) 0.48 K/UL ABSOLUTE BASOPHILS (test cod e = 1069) 0.04 K/UL ABS IMMATURE GRANULOCYTES (t est code = 1020) 0.04 K/UL ABS NUCLEATED RBCS (test cod e = 18237) 0.00 K/UL Hilario BhaktaCOMPREHENSIVE METABOLIC [id number] 00:00:00* Test Item Value Reference Range Interpretation Comme nts GLUCOSE (test code = 2217) 100 MG/DL BUN (test code = 2208) 26 MG/DL CREATININE (test code = 2214) 1.17 MG/DL eGFR (2020 CKD-EPI) (test co de = 12571) 73 ML/MIN/1.73 CALC BUN/CREAT (test code = 2235) 22 RATIO SODIUM (test code = 2231) 141 MEQ/L POTASSIUM (test code = 2228) 4.3 MEQ/L CHLORIDE (test code = 2215) 104 MEQ/L CARBON DIOXIDE (test code = 2206) 23 MEQ/L CALCIUM (test code = 2209) 9.3 MG/DL PROTEIN, TOTAL (test code = 2229) 7.2 G/DL ALBUMIN (test code = 2201) 4.7 G/DL CALC GLOBULIN (test code = 2240) 2.5 G/DL CALC A/G RATIO (test code = 2234) 1.9 RATIO BILIRUBIN, TOTAL (test code = 2207) 0.9 MG/DL ALKALINE PHOSPHATASE (test code = 2204) 93 U/L AST (test code = 2218) 25 U/L ALT (test code = 2219) 24 U/L Hilario Castillo AustinALBUMIN/CREATININE RATIO, RANDOM [id number] 00:00:00* Test Item Value Reference Range Interpretation Comme nts CREATININE, URINE, CONC. (te st code = 207) 283.5 MG/DL ALBUMIN, URINE, RANDOM (test code = 08385) 16.1 MG/DL CALC ALBUMIN/CREAT, RND (josue t code = 31597) 57 MG/G Hilario Castillo AustinHEMOGLOBIN [id number] 00:00:00* Test Item Value Reference Range Interpretation Comme nts HEMOGLOBIN A1c (test code = 26557) 5.7 % Hilario Castillo AustinALBUMIN/CREATININE RATIO, RANDOM [id number] 00:00:00* Test Item Value Reference Range Interpretation Comme nts CREATININE, URINE, CONC. (te st code = 2072) 283.5 MG/DL ALBUMIN, URINE, RANDOM (test code = 53174) 16.1 MG/DL CALC ALBUMIN/CREAT, RND (josue t code = 69845) 57 MG/G Hilario Castillo AustinHEMOGLOBIN [id number] 00:00:00* Test Item Value Reference Range Interpretation Comme nts HEMOGLOBIN A1c (test code = 28211) 5.7 % Hilario BhaktaLIPID [id number] 04:13:15* Test Item Value Reference Range Interpretation Comme nts CHOLESTEROL (test code = 2210) 91 MG/DL <200 TRIGLYCERIDES (test code = 2232) 87 MG/DL <150 HDL CHOLESTEROL (test code = 2220) 37 MG/DL >39 L CALC LDL CHOL (test code = 2237) 37 MG/DL <100 NOTE: CALCULATED LDL IS BASED ON ARTHUR-WYNN METHOD WHICHINCLUDES ADJUSTABLE TRIGLYCERIDE:VLDL CHOLESTEROL RATIO.THIS FACTOR VARIES BY MEASURED TRIGLYCERIDE AND NON-HDLCHOLESTEROL CONCENTRATIONS WITH INCREASED CALCULATED LDL SEENIN HIGHER TRIGLYCERIDE OR LOWER NON-HDL SPECIMENS. FOR MOREINFORMATION, SEE CLIENT ANNOUNCEMENT AT [email or web address] RISK RATIO LDL/HDL (test code = 2238) 1.00 RATIO <3.55 COMPREHENSIVE METABOLIC [id number] 04:13:15* Test Item Value Reference Range Interpretation Comme nts GLUCOSE (test code = 2217) 106 MG/DL 70-99 H BUN (test code = 2207) 15 MG/DL 6-20 CREATININE (test code = 221) 1.04 MG/DL 0.80-1.40 eGFR (2020 CKD-EPI) (test code = 40013) 85 ML/MIN/1.73 >60 CALC BUN/CREAT (test code = 2235) 14 RATIO 6-28 SODIUM (test code = 223) 139 MEQ/L 133-146 POTASSIUM (test code = 2228) 4.4 MEQ/L 3.5-5.4 CHLORIDE (test code = 2215) 102 MEQ/L 95-107 CARBON DIOXIDE (test code = 2206) 28 MEQ/L 19-31 CALCIUM (test code = 220) 9.0 MG/DL 8.5-10.5 PROTEIN, TOTAL (test code = 222) 7.0 G/DL 6.1-8.3 ALBUMIN (test code = 2201) 4.5 G/DL 3.5-5.2 CALC GLOBULIN (test code = 2240) 2.5 G/DL 1.9-3.7 CALC A/G RATIO (test code = 2234) 1.8 RATIO 1.0-2.6 BILIRUBIN, TOTAL (test code = 2207) 0.8 MG/DL See_Comment [Automated me ssage] The system which generated this result transmitted reference range: <=1.2. The reference range was not used to interpret this result as normal/abnormal. ALKALINE PHOSPHATASE (test code = 2204) 86 U/L 40-121 AST (test code = 2218) 23 U/L 9-50 ALT (test code = 2219) 22 U/L 5-50 UNLESS OTHERWISE INDICATED, ALL TESTING PERFORMED AT [facility] [address] [place] [address] [employer]: EVELIA STEPHEN M.D. [place] NUMBER [id number] [facility] [place]. [id number] HEMOGLOBIN [id number] 03:10:40* Test Item Value Reference Range Interpretation Comme nts HEMOGLOBIN A1c (test code = 22446) 5.6 % 4.2-5.6 CBC W/AUTO DIFF WITH [id number] 02:34:19* Test Item Value Reference Range Interpretation Comme nts WBC (test code = 1001) 7.5 K/UL 3.5-11.0 RBC (test code = 1002) 5.32 M/UL 4.50-6.10 HEMOGLOBIN (test code = 1003) 15.3 G/DL 13.5-17.0 HEMATOCRIT (test code = 1004) 46.0 % 40.0-51.0 MCV (test code = 1005) 86.5 fL 80.0-99.0 MCH (test code = 1006) 28.8 PG 25.0-33.0 MCHC (test code = 1007) 33.3 G/DL 31.0-36.0 RDW (test code = 1038) 12.9 % 11.5-15.0 NEUTROPHILS (test code = 1008) 66.3 % LYMPHOCYTES (test code = 1010) 21.7 % MONOCYTES (test code = 1011) 5.6 % EOSINOPHILS (test code = 1012) 5.6 % BASOPHILS (test code = 1013) 0.4 % IMMATURE GRANULOCYTES (test code = 1036) 0.4 % NUCLEATED RBCS (test code = 1065) 0.0 /100 WBC'S See_Comment [Automated messa ge] The system which generated this result transmitted reference range: 0.0. The reference range was not used to interpret this result as normal/abnormal. PLATELET COUNT (test code = 1015) 156 K/UL 130-400 ABSOLUTE NEUTROPHILS (test code = 1066) 4.94 K/UL 1.50-7.50 ABSOLUTE LYMPHOCYTES (test code = 1067) 1.62 K/UL 1.00-4.00 ABSOLUTE MONOCYTES (test code = 1068) 0.42 K/UL 0.2-3.8 ABSOLUTE EOSINOPHILS (test code = 1040) 0.42 K/UL 0.00-0.50 ABSOLUTE BASOPHILS (test code = 1069) 0.03 K/UL 0.00-0.20 ABS IMMATURE GRANULOCYTES (test code = 1020) 0.03 K/UL 0.00-0.10 ABS NUCLEATED RBCS (test code = 89530) 0.00 K/UL 0.00-0.11 HEMOGLOBIN [id number] 00:00:00* Test Item Value Reference Range Interpretation Comme nts HEMOGLOBIN A1c (test code = 11762) 5.6 % Hilario Castlilo AustinLIPID [id number] 00:00:00* Test Item Value Reference Range Interpretation Comme nts CHOLESTEROL (test code = 2210) 91 MG/DL TRIGLYCERIDES (test code = 2232) 87 MG/DL HDL CHOLESTEROL (test code = 2220) 37 MG/DL CALC LDL CHOL (test code = 2237) 37 MG/DL RISK RATIO LDL/HDL (test cod e = 2238) 1.00 RATIO Hilario BhaktaCOMPREHENSIVE METABOLIC [id number] 00:00:00* Test Item Value Reference Range Interpretation Comme nts GLUCOSE (test code = 2217) 106 MG/DL BUN (test code = 2208) 15 MG/DL CREATININE (test code = 2214) 1.04 MG/DL eGFR (2020 CKD-EPI) (test co de = 11400) 85 ML/MIN/1.73 CALC BUN/CREAT (test code = 2235) 14 RATIO SODIUM (test code = 2231) 139 MEQ/L POTASSIUM (test code = 2228) 4.4 MEQ/L CHLORIDE (test code = 2215) 102 MEQ/L CARBON DIOXIDE (test code = 2206) 28 MEQ/L CALCIUM (test code = 2209) 9.0 MG/DL PROTEIN, TOTAL (test code = 2229) 7.0 G/DL ALBUMIN (test code = 2201) 4.5 G/DL CALC GLOBULIN (test code = 2240) 2.5 G/DL CALC A/G RATIO (test code = 2234) 1.8 RATIO BILIRUBIN, TOTAL (test code = 2207) 0.8 MG/DL ALKALINE PHOSPHATASE (test code = 2204) 86 U/L AST (test code = 2218) 23 U/L ALT (test code = 2219) 22 U/L Hilario BhaktaCBC W/AUTO [id number] 00:00:00* Test Item Value Reference Range Interpretation Comme nts WBC (test code = 1001) 7.5 K/UL RBC (test code = 1002) 5.32 M/UL HEMOGLOBIN (test code = 1003) 15.3 G/DL HEMATOCRIT (test code = 1004) 46.0 % MCV (test code = 1005) 86.5 fL MCH (test code = 1006) 28.8 PG MCHC (test code = 1007) 33.3 G/DL RDW (test code = 1038) 12.9 % NEUTROPHILS (test code = 1008) 66.3 % LYMPHOCYTES (test code = 1010) 21.7 % MONOCYTES (test code = 1011) 5.6 % EOSINOPHILS (test code = 1012) 5.6 % BASOPHILS (test code = 1013) 0.4 % IMMATURE GRANULOCYTES (test code = 1036) 0.4 % NUCLEATED RBCS (test code = 1065) 0.0 /100WBC'S PLATELET COUNT (test code = 1015) 156 K/UL ABSOLUTE NEUTROPHILS (test c ode = 1066) 4.94 K/UL ABSOLUTE LYMPHOCYTES (test c ode = 1067) 1.62 K/UL ABSOLUTE MONOCYTES (test cod e = 1068) 0.42 K/UL ABSOLUTE EOSINOPHILS (test c ode = 1040) 0.42 K/UL ABSOLUTE BASOPHILS (test cod e = 1069) 0.03 K/UL ABS IMMATURE GRANULOCYTES (t est code = 1020) 0.03 K/UL ABS NUCLEATED RBCS (test cod e = 31604) 0.00 K/UL Hilario BhaktaHEMOGLOBIN [id number] 00:00:00* Test Item Value Reference Range Interpretation Comme nts HEMOGLOBIN A1c (test code = 24168) 5.6 % Hilario BhaktaLIPID [id number] 00:00:00* Test Item Value Reference Range Interpretation Comme nts CHOLESTEROL (test code = 2210) 91 MG/DL TRIGLYCERIDES (test code = 2232) 87 MG/DL HDL CHOLESTEROL (test code = 2220) 37 MG/DL CALC LDL CHOL (test code = 2237) 37 MG/DL RISK RATIO LDL/HDL (test cod e = 2238) 1.00 RATIO Hilario BhaktaCOMPREHENSIVE METABOLIC [id number] 00:00:00* Test Item Value Reference Range Interpretation Comme nts GLUCOSE (test code = 2217) 106 MG/DL BUN (test code = 2208) 15 MG/DL CREATININE (test code = 2214) 1.04 MG/DL eGFR (2020 CKD-EPI) (test co de = 93070) 85 ML/MIN/1.73 CALC BUN/CREAT (test code = 2235) 14 RATIO SODIUM (test code = 2231) 139 MEQ/L POTASSIUM (test code = 2228) 4.4 MEQ/L CHLORIDE (test code = 2215) 102 MEQ/L CARBON DIOXIDE (test code = 2206) 28 MEQ/L CALCIUM (test code = 2209) 9.0 MG/DL PROTEIN, TOTAL (test code = 2229) 7.0 G/DL ALBUMIN (test code = 2201) 4.5 G/DL CALC GLOBULIN (test code = 2240) 2.5 G/DL CALC A/G RATIO (test code = 2234) 1.8 RATIO BILIRUBIN, TOTAL (test code = 2207) 0.8 MG/DL ALKALINE PHOSPHATASE (test code = 2204) 86 U/L AST (test code = 2218) 23 U/L ALT (test code = 2219) 22 U/L Hilario BhaktaCBC W/AUTO [id number] 00:00:00* Test Item Value Reference Range Interpretation Comme nts WBC (test code = 1001) 7.5 K/UL RBC (test code = 1002) 5.32 M/UL HEMOGLOBIN (test code = 1003) 15.3 G/DL HEMATOCRIT (test code = 1004) 46.0 % MCV (test code = 1005) 86.5 fL MCH (test code = 1006) 28.8 PG MCHC (test code = 1007) 33.3 G/DL RDW (test code = 1038) 12.9 % NEUTROPHILS (test code = 1008) 66.3 % LYMPHOCYTES (test code = 1010) 21.7 % MONOCYTES (test code = 1011) 5.6 % EOSINOPHILS (test code = 1012) 5.6 % BASOPHILS (test code = 1013) 0.4 % IMMATURE GRANULOCYTES (test code = 1036) 0.4 % NUCLEATED RBCS (test code = 1065) 0.0 /100WBC'S PLATELET COUNT (test code = 1015) 156 K/UL ABSOLUTE NEUTROPHILS (test c ode = 1066) 4.94 K/UL ABSOLUTE LYMPHOCYTES (test c ode = 1067) 1.62 K/UL ABSOLUTE MONOCYTES (test cod e = 1068) 0.42 K/UL ABSOLUTE EOSINOPHILS (test c ode = 1040) 0.42 K/UL ABSOLUTE BASOPHILS (test cod e = 1069) 0.03 K/UL ABS IMMATURE GRANULOCYTES (t est code = 1020) 0.03 K/UL ABS NUCLEATED RBCS (test cod e = 70653) 0.00 K/UL Hilario Castillo AustinHEMOGLOBIN [id number] 10:23:00* Test Item Value Reference Range Interpretation Comme nts HEMOGLOBIN A1c (test code = 90860) 5.8 % 4.2-5.6 H LIPID [id number] 04:39:34* Test Item Value Reference Range Interpretation Comme nts CHOLESTEROL (test code = 2210) 125 MG/DL <200 TRIGLYCERIDES (test code = 2232) 136 MG/DL <150 HDL CHOLESTEROL (test code = 2220) 44 MG/DL >39 CALC LDL CHOL (test code = 2237) 59 MG/DL <100 NOTE: CALCULATED LDL IS BASED ON ARTHUR-WYNN METHOD WHICHINCLUDES ADJUSTABLE TRIGLYCERIDE:VLDL CHOLESTEROL RATIO.THIS FACTOR VARIES BY MEASURED TRIGLYCERIDE AND NON-HDLCHOLESTEROL CONCENTRATIONS WITH INCREASED CALCULATED LDL SEENIN HIGHER TRIGLYCERIDE OR LOWER NON-HDL SPECIMENS. FOR MOREINFORMATION, SEE CLIENT ANNOUNCEMENT AT [email or web address] [email or web address] RATIO LDL/HDL (test code = 2238) 1.34 RATIO <3.55 COMPREHENSIVE METABOLIC [id number] 04:39:34* Test Item Value Reference Range Interpretation Comme nts GLUCOSE (test code = 2217) 101 MG/DL 70-99 H BUN (test code = 2208) 19 MG/DL 6-20 CREATININE (test code = 2214) 1.24 MG/DL 0.80-1.40 eGFR (2020 CKD-EPI) (test code = 60937) 69 ML/MIN/1.73 >60 CALC BUN/CREAT (test code = 2235) 15 RATIO 6-28 SODIUM (test code = 223) 142 MEQ/L 133-146 POTASSIUM (test code = 2228) 4.5 MEQ/L 3.5-5.4 CHLORIDE (test code = 2215) 106 MEQ/L 95-107 CARBON DIOXIDE (test code = 2206) 26 MEQ/L 19-31 CALCIUM (test code = 220) 9.3 MG/DL 8.5-10.5 PROTEIN, TOTAL (test code = 222) 6.8 G/DL 6.1-8.3 ALBUMIN (test code = 220) 4.2 G/DL 3.5-5.2 CALC GLOBULIN (test code = 2240) 2.6 G/DL 1.9-3.7 CALC A/G RATIO (test code = 2234) 1.6 RATIO 1.0-2.6 BILIRUBIN, TOTAL (test code = 220) 0.3 MG/DL See_Comment [Automated me ssage] The system which generated this result transmitted reference range: <=1.2. The reference range was not used to interpret this result as normal/abnormal. ALKALINE PHOSPHATASE (test code = 2203) 77 U/L 40-121 AST (test code = 2218) 19 U/L 9-50 ALT (test code = 2219) 21 U/L 5-50 UNLESS OTHERWISE INDICATED, ALL TESTING PERFORMED [facility] [address] [place] [address] [employer] TEACHER: STORM FONTANEZ M.D. CLIA NUMBER [id number] [facility] [place]. [id number] LIPID [id number] 00:00:00* Test Item Value Reference Range Interpretation Comme nts CHOLESTEROL (test code = 2210) 125 MG/DL TRIGLYCERIDES (test code = 2232) 136 MG/DL HDL CHOLESTEROL (test code = 2220) 44 MG/DL CALC LDL CHOL (test code = 2237) 59 MG/DL RISK RATIO LDL/HDL (test cod e = 2238) 1.34 RATIO Hilario Anna YonyCOMPREHENSIVE METABOLIC [id number] 00:00:00* Test Item Value Reference Range Interpretation Comme nts GLUCOSE (test code = 2217) 101 MG/DL BUN (test code = 2208) 19 MG/DL CREATININE (test code = 2214) 1.24 MG/DL eGFR (2020 CKD-EPI) (test co de = 95565) 69 ML/MIN/1.73 CALC BUN/CREAT (test code = 2235) 15 RATIO SODIUM (test code = 2231) 142 MEQ/L POTASSIUM (test code = 2228) 4.5 MEQ/L CHLORIDE (test code = 2215) 106 MEQ/L CARBON DIOXIDE (test code = 2206) 26 MEQ/L CALCIUM (test code = 2209) 9.3 MG/DL PROTEIN, TOTAL (test code = 2229) 6.8 G/DL ALBUMIN (test code = 2201) 4.2 G/DL CALC GLOBULIN (test code = 2240) 2.6 G/DL CALC A/G RATIO (test code = 2234) 1.6 RATIO BILIRUBIN, TOTAL (test code = 2207) 0.3 MG/DL ALKALINE PHOSPHATASE (test code = 2204) 77 U/L AST (test code = 2218) 19 U/L ALT (test code = 2219) 21 U/L Hilario BhaktaHEMOGLOBIN [id number] 00:00:00* Test Item Value Reference Range Interpretation Comme nts HEMOGLOBIN A1c (test code = 26206) 5.8 % Hilario BhaktaLIPID [id number] 00:00:00* Test Item Value Reference Range Interpretation Comme nts CHOLESTEROL (test code = 2210) 125 MG/DL TRIGLYCERIDES (test code = 2232) 136 MG/DL HDL CHOLESTEROL (test code = 2220) 44 MG/DL CALC LDL CHOL (test code = 2237) 59 MG/DL RISK RATIO LDL/HDL (test cod e = 2238) 1.34 RATIO Hilario BhaktaCOMPREHENSIVE METABOLIC [id number] 00:00:00* Test Item Value Reference Range Interpretation Comme nts GLUCOSE (test code = 2217) 101 MG/DL BUN (test code = 2208) 19 MG/DL CREATININE (test code = 2214) 1.24 MG/DL eGFR (2020 CKD-EPI) (test co de = 52876) 69 ML/MIN/1.73 CALC BUN/CREAT (test code = 2235) 15 RATIO SODIUM (test code = 2231) 142 MEQ/L POTASSIUM (test code = 2228) 4.5 MEQ/L CHLORIDE (test code = 2215) 106 MEQ/L CARBON DIOXIDE (test code = 2206) 26 MEQ/L CALCIUM (test code = 2209) 9.3 MG/DL PROTEIN, TOTAL (test code = 2229) 6.8 G/DL ALBUMIN (test code = 2201) 4.2 G/DL CALC GLOBULIN (test code = 2240) 2.6 G/DL CALC A/G RATIO (test code = 2234) 1.6 RATIO BILIRUBIN, TOTAL (test code = 2207) 0.3 MG/DL ALKALINE PHOSPHATASE (test code = 2204) 77 U/L AST (test code = 2218) 19 U/L ALT (test code = 2219) 21 U/L Hilario Castillo AustinHEMOGLOBIN [id number] 00:00:00* Test Item Value Reference Range Interpretation Comme nts HEMOGLOBIN A1c (test code = 70993) 5.8 % Hilario Castillo AustinHEMOGLOBIN [id number] 00:00:00* Test Item Value Reference Range Interpretation Comme nts HEMOGLOBIN A1c (test code = 86892) 5.8 % LIPID [id number] 00:00:00* Test Item Value Reference Range Interpretation Comme nts CHOLESTEROL (test code = 2210) 125 MG/DL TRIGLYCERIDES (test code = 2232) 136 MG/DL HDL CHOLESTEROL (test code = 2220) 44 MG/DL CALC LDL CHOL (test code = 2237) 59 MG/DL RISK RATIO LDL/HDL (test cod e = 2238) 1.34 RATIO COMPREHENSIVE METABOLIC [id number] 00:00:00* Test Item Value Reference Range Interpretation Comme nts GLUCOSE (test code = 2217) 101 MG/DL BUN (test code = 2208) 19 MG/DL CREATININE (test code = 2214) 1.24 MG/DL eGFR (2020 CKD-EPI) (test co de = 53027) 69 ML/MIN/1.73 CALC BUN/CREAT (test code = 2235) 15 RATIO SODIUM (test code = 2231) 142 MEQ/L POTASSIUM (test code = 2228) 4.5 MEQ/L CHLORIDE (test code = 2215) 106 MEQ/L CARBON DIOXIDE (test code = 2206) 26 MEQ/L CALCIUM (test code = 2209) 9.3 MG/DL PROTEIN, TOTAL (test code = 2229) 6.8 G/DL ALBUMIN (test code = 2201) 4.2 G/DL CALC GLOBULIN (test code = 2240) 2.6 G/DL CALC A/G RATIO (test code = 2234) 1.6 RATIO BILIRUBIN, TOTAL (test code = 2207) 0.3 MG/DL ALKALINE PHOSPHATASE (test code = 2204) 77 U/L AST (test code = 2218) 19 U/L ALT (test code = 2219) 21 U/L UA, Urinalysis Rflx Cult/[id number] 13:30:00* Test Item Value Reference Range Interpretation Comme nts Color,Urine (test code = UCOL) Yellow Yellow Clarity,Urine (test code = UCLAR) Clear Clear Ph, Urine (test code = UPH) 6.5 5.0-9.0 N Specific [place],Urine (test code = USG) 1.010 1.005-1.030 N Blood,Urine (test code = UBLD) Negative mg/dL Negative Protein,Urine (test code = UPRO) Negative mg/dL Negative Glucose,Urine (UA) (test cod e = UGLU) Negative mg/dL Negative Ketones,Urine (test code = UKET) Negative mg/dL Negative Nitrate,Urine (test code = UNIT) Negative Negative Bilirubin,Urine (test code = UBIL) Negative mg/dL Negative Urobilinogen,Urine (test cod e = UURO) 0.2 E.U./dL Normal Leukocyte Esterase,Urine (te st code = ULEU) Negative mg/dL Negative Complete Blood Count Auto [id number] 13:30:00* Test Item Value Reference Range Interpretation Comme nts White Blood Count (test code = WBCT) 8.1 x10 3/uL 4.4-10.5 N Red Blood Count (test code = RBC) 5.28 x10 6/uL 4.10-5.70 N Hemoglobin (test code = HGBT) 14.7 g/dL 13.4-17.4 N Hematocrit (test code = HCTT) 44.7 % 38.7-52.0 N Mean Corpuscular Volume (josue t code = MCV) 84.70 fL 80.00-100.00 N Mean Corpuscular Hemoglobin (test code = MCH) 27.8 pg 27.0-32.5 N Mean Corpuscular HGB Conc (test code = MCHC) 32.90 g/dL 32.00-37.50 N RDW Coefficient of Variation (test code = RDWCV) 12.5 % 11.5-14.5 N Platelet Count (test code = PLTT) 166.0 x10 3/uL 140.0-440.0 N Mean Platelet Volume (test code = MPV) 10.8 fL Immature Granulocytes % (Aut o) (test code = IMMGRAN%) 0.5 % 0.0-5.0 N Neutrophils % (Auto) (test code = NE%) 65.0 % 36.0-70.0 N Lymphocytes % (Auto) (test code = LY%) 25.8 % 12.0-44.0 N Monocytes % (Auto) (test cod e = MO%) 6.3 % 0.0-11.0 N Eosinophils % (Auto) (test code = EO%) 2.0 % 0.0-7.0 N Basophils % (Auto) (test cod e = BA%) 0.4 % 0.0-2.0 N Immature Granulocytes # (Aut o) (test code = IMMGRAN#) 0.04 x10 3/uL Neutrophils # (Auto) (test code = NE#) 5.3 x10 3/uL 1.6-7.4 N Lymphocytes # (Auto) (test code = LY#) 2.09 x10 3/uL 0.50-4.60 N Monocytes # (Auto) (test cod e = MO#) 0.51 x10 3/uL 0.00-1.20 N Eosinophils # (Auto) (test code = EO#) 0.16 x10 3/uL 0.00-0.74 N Basophils # (Auto) (test cod e = BA#) 0.03 x10 3/uL 0.00-0.21 N nRBC Abs (test code = NRBCA) 0 nRBC Pct (test code = NRBCP) 0 % Comprehensive Metabolic [id number] 13:30:00* Test Item Value Reference Range Interpretation Comme nts SODIUM (test code = NA) 137.0 mmol/L 136.0-145.0 N Potassium,K (test code = K) 4.1 mmol/L 3.0-5.1 N Chloride (test code = CL) 104 mmol/L 98-107 N Carbon Dioxide (test code = CO2) 23 mmol/L 20-31 N Anion Gap (test code = GAP) 10 mmol/L 5-15 N Blood Urea Nitrogen (test co de = BUN) 20 mg/dL 9-23 N Creatinine (test code = CREATT) 0.98 mg/dL 0.55-1.02 N Creatinine Clr Calc Pharmacy (test code = CRCLPHA) 99.19 mL/min Estimated GFR ( Ameri ca (test code = EGFRAA) > 60 mL/min/1.73m2 Estimated GFR (Non Afr Ameri ca (test code = EGFRNAA) > 60 mL/min/1.73m2 BUN/Creatinine Ratio (test c ode = BCRATIO) 20 ratio 10-20 N Glucose (test code = GLU) 98 mg/dL 74-106 N Osmolality,Calculated (test code = OSMOC) 286.1 Calcium (test code = CA) 9.2 mg/dL 8.3-10.6 N Bilirubin,Total (test code = BILIT) 1.0 mg/dL 0.2-1.1 N Aspartate Amino Transferase (test code = AST) 20 U/L 0-34 N Alanine Aminotransferase (te st code = ALT) 13 U/L 10-49 N Total Protein (test code = TP) 6.9 g/dL 5.7-8.2 N Albumin Level (test code = ALB) 4.3 g/dL 3.2-4.8 N Globulin (test code = GLOB) 2.6 mg/dL 2.3-3.5 N Albumin/Globulin Ratio (test code = AGRATIO) 1.7 ratio 0.8-2.0 N Alkaline Phosphatase (test c ode = ALP) 69 U/L 46-116 N Ethanol [id number] 13:30:00* Test Item Value Reference Range Interpretation Comme nts Ethanol (test code = ETOH) < 3 mg/dL The pharmacologi renee response to blood alcohol levels mayvary from individual to individual. The fatal concentrationhas been reported to be >400mg/dL. Drug Screen,[id number] 13:30:00* Test Item Value Reference Range Interpretation Comme nts PCP Phencyclidine Screen,Uri ne (test code = PCPU) Negative Negative Amphetamine Screen,Urine (te st code = AMPU) Negative Negative Methadone Screen,Urine (test code = METHU) Negative Negative Opiate Screen,Urine (test co de = UOPIS) Negative Negative Barbituates Screen,Urine (te st code = BARBU) Negative Negative Benzodiazepines Screen,Urine (test code = UBENZS) Negative Negative Cocaine Screen,Urine (test c ode = UCOCS) Negative Negative Cannabinoid Screen,Urine (te st code = UTHCS) Negative Negative Propoxyphene Screen, Urine ( test code = UPROP) Negative Negative TROPONIN [id number] 23:22:56* Test Item Value Reference Range Interpretation Comments TROPONIN I (test code = 5559932911) 0.001 ng/mL See_Comment [Automated message] The system which generated this result transmitted reference range: <=0.034. The reference range was not used to interpret this result as normal/abnormal. JOSE (test code = JOSE) Reference (Normal) [...] to patient's use of biotin. Lab Interpretation (test code = 17963-0) [id number] 23:20:10* Test Item Value Reference Range Interpretation Comme nts NT-proBNP (test code = 0321068610) 91 pg/mL See_Comment [Automated message] The system which generated this result transmitted reference range: <=125. The reference range was not used to interpret this result as normal/abnormal. JOSE (test code = JOSE) Biotin has been reported to cause a negative bias, interpret results relative to patient's use of biotin. Lab Interpretation (test code = 54840-4) [facility] (71919[facility]2022-[facility]-08 23:13:34* Test Item Value Reference Range Interpretation Comme nts NA (test code = 3192380073) 134 mmol/L 135-145 L K (test code = 3720959388) 4.0 mmol/L 3.5-5 CL (test code = 3033078619) 98 mmol/L 98-108 CO2 TOTAL (test code = 3645700054) 22 mmol/L 23-31 L AGAP (test code = 1140580937) 2-16 BUN (test code = 8767249652) 22 mg/dL 7-23 GLUCOSE (test code = 6145182616) 128 mg/dL 70-110 H CREATININE (test code = 6882171330) 1.26 mg/dL 0.6-1.25 H TOTAL BILI (test code = 7232496179) 1.4 mg/dL 0.1-1.1 H CALCIUM (test code = 1808689031) 9.9 mg/dL 8.6-10.6 T PROTEIN (test code = 3450076768) 8.1 g/dL 6.3-8.2 ALBUMIN (test code = 9326290780) 4.7 g/dL 3.5-5 ALK PHOS (test code = 8925112268) 107 U/L 34-122 ALTv (test code = 1742-6) 17 U/L 5-50 AST(SGOT) (test code = 4607327411) 26 U/L 13-40 eGFR (test code = 0192126595) mL/min/1.73m2 JOSE (test code = JOSE) Association of [...] or abnormalities in imaging tests). Lab Interpretation (test code = 18832-4) [facility]normal [facility] 23:13:14* Test Item Value Reference Range Interpretation Comme nts LIPASE (test code = 0192771722) 233 U/L 0-220 H Lab Interpretation (test cod e = 14215-6) Abnormal [facility]PROT[facility] / [id number] 23:09:32* Test Item Value Reference Range Interpretation Comme nts PROTIME PATIENT (test code = 5964-2) See_Comment [Automated [employer]] The system which generated this result transmitted reference range: 12.0 - 14.7 Seconds. The reference range was not used to interpret this result as normal/abnormal. INR (test code = 6301-6) Normal INR <1.1; Warfarin Therapeutic range 2.0 to 3.0 or 2.5 to 3.5, depending upon the indications. Lab Interpretation (test code = 95940-2) Normal [facility] HospitalCBC WITH [id number] 22:58:35* Test Item Value Reference Range Interpretation Comme nts WBC (test code = 6690-2) See_Comment [Automated [employer]] The system which generated this result transmitted reference range: 4.20 - 10.70 10*3/?L. The reference range was not used to interpret this result as normal/abnormal. RBC (test code = 789-8) See_Comment [Automated [employer]] The system which generated this result transmitted reference range: 4.26 - 5.52 10*6/?L. The reference range was not used to interpret this result as normal/abnormal. HGB (test code = 718-7) 15.2 g/dL 12.2-16.4 HCT (test code = 4544-3) 45.1 % 38.4-49.3 MCV (test code = 787-2) 84.1 fL 81.7-95.6 MCH (test code = 785-6) 28.4 pg 26.1-32.7 MCHC (test code = 786-4) 33.7 g/dL 31.2-35 RDW-SD (test code = 78564-8) 35.7 fL 38.5-51.6 L RDW-CV (test code = 788-0) 11.8 % 12.1-15.4 L PLT (test code = 777-3) See_Comment [Automated messa ge] The system which generated this result transmitted reference range: 150 - 328 10*3/?L. The reference range was not used to interpret this result as normal/abnormal. MPV (test code = 38610-2) 11.5 fL 9.8-13 NRBC/100 WBC (test code = 2638632476) See_Comment [Automated [employer] ssage] The system which generated this result transmitted reference range: 0.0 - 10.0 /100 WBCs. The reference range was not used to interpret this result as normal/abnormal. NRBC x10^3 (test code = 8800152629) See_Comment [Automated [employer]] The system which generated this result transmitted reference range: 10*3/?L. The reference range was not used to interpret this result as normal/abnormal. GRAN MAT (NEUT) % (test code = 770-8) 79.6 % IMM GRAN % (test code = 9761553629) 0.40 % LYMPH % (test code = 736-9) 12.1 % MONO % (test code = 5905-5) 5.4 % EOS % (test code = 713-8) 2.1 % BASO % (test code = 706-2) 0.4 % GRAN MAT x10^3(ANC) (test code = 6773152997) 7.36 10*3/uL 1.99-6.95 H IMM GRAN x10^3 (test code = 8405071484) 0.04 10*3/uL 0-0.06 LYMPH x10^3 (test code = 731-0) 1.12 10*3/uL 1.09-3.23 MONO x10^3 (test code = 742-7) 0.50 10*3/uL 0.36-1.02 EOS x10^3 (test code = 711-2) 0.19 10*3/uL 0.06-0.53 BASO x10^3 (test code = 704-7) 0.04 10*3/uL 0.01-0.09 Lab Interpretation (test code = 57248-2) Abnormal [facility] (BREATH)2022-03-30 12:15:29* Test Item Value Reference Range Interpretation Comme nts H. PYLORI (BREATH) (test code = 49200) NEGATIVE NEGATIVE UNLESS OTHER GAN INDICATED, ALL TESTING PERFORMED [facility] [employer] [address] [place] [address] [employer] TE[employer]ER: STORM FONTANEZ M.D. CLIA NUMBER [id number] [facility] [place]. [id number] H. PYLORI (BREATH)2022-03-30 00:00:00* Test Item Value Reference Range Interpretation Comme nts H. PYLORI (BREATH) (test cod e = 34185) NEGATIVE Hilario Castillo AustinH. PYLORI (BREATH)2022-03-30 00:00:00* Test Item Value Reference Range Interpretation Comme nts H. PYLORI (BREATH) (test cod e = 59822) NEGATIVE Hilario F AustinH. PYLORI (BREATH)2022-03-30 00:00:00* Test Item Value Reference Range Interpretation Comme nts H. PYLORI (BREATH) (test cod e = 16965) NEGATIVE Comprehensive Metabolic [id number] 13:08:00* Test Item Value Reference Range Interpretation Comme nts SODIUM (test code = NA) 137.0 mmol/L 136.0-145.0 N Potassium,K (test code = K) 4.4 mmol/L 3.0-5.1 N Chloride (test code = CL) 104 mmol/L 98-107 N Carbon Dioxide (test code = CO2) 27 mmol/L 20-31 N Anion Gap (test code = GAP) 6 mmol/L 5-15 N Blood Urea Nitrogen (test co de = BUN) 21 mg/dL 9-23 N Creatinine (test code = CREATT) 1.13 mg/dL 0.55-1.02 H Creatinine Clr Calc Pharmacy (test code = CRCLPHA) 91.56 mL/min Estimated GFR ( Ameri ca (test code = EGFRAA) > 60 mL/min/1.73m2 Estimated GFR (Non Afr Ameri ca (test code = EGFRNAA) > 60 mL/min/1.73m2 BUN/Creatinine Ratio (test c ode = BCRATIO) 19 ratio 10-20 N Glucose (test code = GLU) 92 mg/dL 74-106 N Osmolality,Calculated (test code = OSMOC) 286.5 Calcium (test code = CA) 8.7 mg/dL 8.3-10.6 N Bilirubin,Total (test code = BILIT) 0.6 mg/dL 0.2-1.1 N Aspartate Amino Transferase (test code = AST) 40 U/L 0-34 H Alanine Aminotransferase (te st code = ALT) 38 U/L 10-49 N Total Protein (test code = TP) 6.7 g/dL 5.7-8.2 N Albumin Level (test code = ALB) 4.3 g/dL 3.2-4.8 N Globulin (test code = GLOB) 2.4 mg/dL 2.3-3.5 N Albumin/Globulin Ratio (test code = AGRATIO) 1.8 ratio 0.8-2.0 N Alkaline Phosphatase (test c ode = ALP) 88 U/L 46-116 N Ethanol [id number] 13:08:00* Test Item Value Reference Range Interpretation Comme nts Ethanol (test code = ETOH) < 3 mg/dL The pharmacologi renee response to blood alcohol levels mayvary from individual to individual. The fatal concentrationhas been reported to be >400mg/dL. Drug Screen,[id number] 13:08:00* Test Item Value Reference Range Interpretation Comme nts PCP Phencyclidine Screen,Uri ne (test code = PCPU) Negative Negative Amphetamine Screen,Urine (te st code = AMPU) Negative Negative Methadone Screen,Urine (test code = METHU) Negative Negative Opiate Screen,Urine (test co de = UOPIS) Negative Negative Barbituates Screen,Urine (te st code = BARBU) Negative Negative Benzodiazepines Screen,Urine (test code = UBENZS) Negative Negative Cocaine Screen,Urine (test c ode = UCOCS) Negative Negative Cannabinoid Screen,Urine (te st code = UTHCS) Negative Negative Propoxyphene Screen, Urine ( test code = UPROP) Negative Negative Sars-CoV-2/FLU A/B RSV [id number] 13:08:00* Test Item Value Reference Range Interpretation Comme nts Sars-CoV-2/FLU A/B RSV PCR (test code = SARSFLURSVPCR) For use under Emergency Use Authorization (EUA) only. Sars-CoV-2/FLU A/B RSV PCR (test code = SARSFLURSVPCR1.1) Reference Range: Negative Influenza A PCR: (test code = Influenza A PCR:) Negative by Nucleic Acid Amplification Influenza B PCR: (test code = Influenza B PCR:) Negative by Nucleic Acid Amplification RSV PCR Result: (test code = RSV PCR Result:) Negative by Nucleic Acid Amplification SARS-CoV-2 PCR Result: (test code = SARS-CoV-2 PCR Result:) Negative by RT-PCR UA, Urinalysis Rflx Cult/[id number] 13:08:00* Test Item Value Reference Range Interpretation Comme nts Color,Urine (test code = UCOL) Yellow Yellow Clarity,Urine (test code = UCLAR) Clear Clear Ph, Urine (test code = UPH) 5.5 5.0-9.0 N Specific [place],Urine (test code = USG) <= 1.005 1.005-1.030 N Blood,Urine (test code = UBLD) Negative mg/dL Negative Protein,Urine (test code = UPRO) Negative mg/dL Negative Glucose,Urine (UA) (test cod e = UGLU) Negative mg/dL Negative Ketones,Urine (test code = UKET) Negative mg/dL Negative Nitrate,Urine (test code = UNIT) Negative Negative Bilirubin,Urine (test code = UBIL) Negative mg/dL Negative Urobilinogen,Urine (test cod e = UURO) 0.2 E.U./dL Normal Leukocyte Esterase,Urine (te st code = ULEU) Negative mg/dL Negative Complete Blood Count Auto [id number] 13:08:00* Test Item Value Reference Range Interpretation Comme nts White Blood Count (test code = WBCT) 8.1 x10 3/uL 4.4-10.5 N Red Blood Count (test code = RBC) 4.90 x10 6/uL 4.10-5.70 N Hemoglobin (test code = HGBT) 14.1 g/dL 13.4-17.4 N Hematocrit (test code = HCTT) 44.1 % 38.7-52.0 N Mean Corpuscular Volume (josue t code = MCV) 90.00 fL 80.00-100.00 N Mean Corpuscular Hemoglobin (test code = MCH) 28.8 pg 27.0-32.5 N Mean Corpuscular HGB Conc (test code = MCHC) 32.00 g/dL 32.00-37.50 N RDW Coefficient of Variation (test code = RDWCV) 12.8 % 11.5-14.5 N Platelet Count (test code = PLTT) 182.0 x10 3/uL 140.0-440.0 N Mean Platelet Volume (test code = MPV) 11.7 fL Immature Granulocytes % (Aut o) (test code = IMMGRAN%) 0.4 % 0.0-5.0 N Neutrophils % (Auto) (test code = NE%) 62.2 % 36.0-70.0 N Lymphocytes % (Auto) (test code = LY%) 25.2 % 12.0-44.0 N Monocytes % (Auto) (test cod e = MO%) 7.5 % 0.0-11.0 N Eosinophils % (Auto) (test code = EO%) 4.5 % 0.0-7.0 N Basophils % (Auto) (test cod e = BA%) 0.2 % 0.0-2.0 N Immature Granulocytes # (Aut o) (test code = IMMGRAN#) 0.03 x10 3/uL Neutrophils # (Auto) (test code = NE#) 5.0 x10 3/uL 1.6-7.4 N Lymphocytes # (Auto) (test code = LY#) 2.03 x10 3/uL 0.50-4.60 N Monocytes # (Auto) (test cod e = MO#) 0.60 x10 3/uL 0.00-1.20 N Eosinophils # (Auto) (test code = EO#) 0.36 x10 3/uL 0.00-0.74 N Basophils # (Auto) (test cod e = BA#) 0.02 x10 3/uL 0.00-0.21 N nRBC Abs (test code = NRBCA) 0 nRBC Pct (test code = NRBCP) 0 % COMPREHENSIVE METABOLIC [id number] 06:48:21* Test Item Value Reference Range Interpretation Comme nts GLUCOSE (test code = 7) 110 MG/DL 70-99 H BUN (test code = 2207) 18 MG/DL 6-20 CREATININE (test code = 2214) 1.09 MG/DL 0.80-1.40 eGFR (2020 CKD-EPI) (test code = 02574) 81 ML/MIN/1.73 >60 CALC BUN/CREAT (test code = 2235) 17 RATIO 6-28 SODIUM (test code = 223) 140 MEQ/L 133-146 POTASSIUM (test code = 2228) 4.2 MEQ/L 3.5-5.4 CHLORIDE (test code = 2215) 101 MEQ/L 95-107 CARBON DIOXIDE (test code = 2206) 24 MEQ/L 19-31 CALCIUM (test code = 2209) 8.9 MG/DL 8.5-10.5 PROTEIN, TOTAL (test code = 2229) 7.2 G/DL 6.1-8.3 ALBUMIN (test code = 2201) 4.4 G/DL 3.5-5.2 CALC GLOBULIN (test code = 2240) 2.8 G/DL 1.9-3.7 CALC A/G RATIO (test code = 2234) 1.6 RATIO 1.0-2.6 BILIRUBIN, TOTAL (test code = 2207) 0.6 MG/DL See_Comment [Automated me ssage] The system which generated this result transmitted reference range: <=1.2. The reference range was not used to interpret this result as normal/abnormal. ALKALINE PHOSPHATASE (test code = 2204) 76 U/L 40-121 AST (test code = 2218) 40 U/L 9-50 ALT (test code = 2219) 36 U/L 5-50 LIPID [id number] 06:48:21* Test Item Value Reference Range Interpretation Comme nts CHOLESTEROL (test code = 2210) 114 MG/DL <200 TRIGLYCERIDES (test code = 2232) 89 MG/DL <150 HDL CHOLESTEROL (test code = 2220) 36 MG/DL >39 L CALC LDL CHOL (test code = 2237) 61 MG/DL <100 NOTE: CALCULATED LDL IS BASED ON ARTHUR-WYNN METHOD WHICHINCLUDES ADJUSTABLE TRIGLYCERIDE:VLDL CHOLESTEROL RATIO.THIS FACTOR VARIES BY MEASURED TRIGLYCERIDE AND NON-HDLCHOLESTEROL CONCENTRATIONS WITH INCREASED CALCULATED LDL SEENIN HIGHER TRIGLYCERIDE OR LOWER NON-HDL SPECIMENS. FOR MOREINFORMATION, SEE CLIENT ANNOUNCEMENT AT [email or web address] RISK RATIO LDL/HDL (test code = 2238) 1.69 RATIO <3.55 HEMOGLOBIN [id number] 05:43:11* Test Item Value Reference Range Interpretation Comme nts HEMOGLOBIN A1c (test code = 23401) 6.3 % 4.2-5.6 H UNLESS OTHERWISE INDICATED, ALL TESTING [facility]MED [facility] [employer] [address] [place] [address] [employer]: STORM FONTANEZ M.D. CLIA NUMBER [id number] [facility] [place]. [id number] LIPID [id number] 00:00:00* Test Item Value Reference Range Interpretation Comme nts CHOLESTEROL (test code = 2210) 114 MG/DL TRIGLYCERIDES (test code = 2232) 89 MG/DL HDL CHOLESTEROL (test code = 2220) 36 MG/DL CALC LDL CHOL (test code = 2237) 61 MG/DL RISK RATIO LDL/HDL (test cod e = 2238) 1.69 RATIO Hilario Castillo [place] [id number] 00:00:00* Test Item Value Reference Range Interpretation Comme nts HEMOGLOBIN A1c (test code = 75564) 6.3 % Hilario Castillo [place]PREHENSIVE METABOLIC [id number] 00:00:00* Test Item Value Reference Range Interpretation Comme nts GLUCOSE (test code = 2217) 110 MG/DL BUN (test code = 2208) 18 MG/DL CREATININE (test code = 2214) 1.09 MG/DL eGFR (2020 CKD-EPI) (test co de = 43917) 81 ML/MIN/1.73 CALC BUN/CREAT (test code = 2235) 17 RATIO SODIUM (test code = 2231) 140 MEQ/L POTASSIUM (test code = 2228) 4.2 MEQ/L CHLORIDE (test code = 2215) 101 MEQ/L CARBON DIOXIDE (test code = 2206) 24 MEQ/L CALCIUM (test code = 2209) 8.9 MG/DL PROTEIN, TOTAL (test code = 2229) 7.2 G/DL ALBUMIN (test code = 2201) 4.4 G/DL CALC GLOBULIN (test code = 2240) 2.8 G/DL CALC A/G RATIO (test code = 2234) 1.6 RATIO BILIRUBIN, TOTAL (test code = 2207) 0.6 MG/DL ALKALINE PHOSPHATASE (test code = 2204) 76 U/L AST (test code = 2218) 40 U/L ALT (test code = 2219) 36 U/L Hilario BhaktaLIPID [id number] 00:00:00* Test Item Value Reference Range Interpretation Comme nts CHOLESTEROL (test code = 2210) 114 MG/DL TRIGLYCERIDES (test code = 2232) 89 MG/DL HDL CHOLESTEROL (test code = 2220) 36 MG/DL CALC LDL CHOL (test code = 2237) 61 MG/DL RISK RATIO LDL/HDL (test cod e = 2238) 1.69 RATIO Hilario BhaktaHEMOGLOBIN [id number] 00:00:00* Test Item Value Reference Range Interpretation Comme nts HEMOGLOBIN A1c (test code = 01488) 6.3 % Hilario BhaktaCOMPREHENSIVE METABOLIC [id number] 00:00:00* Test Item Value Reference Range Interpretation Comme nts GLUCOSE (test code = 2217) 110 MG/DL BUN (test code = 2208) 18 MG/DL CREATININE (test code = 2214) 1.09 MG/DL eGFR (2020 CKD-EPI) (test co de = 88840) 81 ML/MIN/1.73 CALC BUN/CREAT (test code = 2235) 17 RATIO SODIUM (test code = 2231) 140 MEQ/L POTASSIUM (test code = 2228) 4.2 MEQ/L CHLORIDE (test code = 2215) 101 MEQ/L CARBON DIOXIDE (test code = 2206) 24 MEQ/L CALCIUM (test code = 2209) 8.9 MG/DL PROTEIN, TOTAL (test code = 2229) 7.2 G/DL ALBUMIN (test code = 2201) 4.4 G/DL CALC GLOBULIN (test code = 2240) 2.8 G/DL CALC A/G RATIO (test code = 2234) 1.6 RATIO BILIRUBIN, TOTAL (test code = 2207) 0.6 MG/DL ALKALINE PHOSPHATASE (test code = 2204) 76 U/L AST (test code = 2218) 40 U/L ALT (test code = 2219) 36 U/L Hilario BhaktaCOMPREHENSIVE METABOLIC [id number] 00:00:00* Test Item Value Reference Range Interpretation Comme nts GLUCOSE (test code = 2217) 110 MG/DL BUN (test code = 2208) 18 MG/DL CREATININE (test code = 2214) 1.09 MG/DL eGFR (2020 CKD-EPI) (test co de = 85117) 81 ML/MIN/1.73 CALC BUN/CREAT (test code = 2235) 17 RATIO SODIUM (test code = 2231) 140 MEQ/L POTASSIUM (test code = 2228) 4.2 MEQ/L CHLORIDE (test code = 2215) 101 MEQ/L CARBON DIOXIDE (test code = 2206) 24 MEQ/L CALCIUM (test code = 2209) 8.9 MG/DL PROTEIN, TOTAL (test code = 2229) 7.2 G/DL ALBUMIN (test code = 2201) 4.4 G/DL CALC GLOBULIN (test code = 2240) 2.8 G/DL CALC A/G RATIO (test code = 2234) 1.6 RATIO BILIRUBIN, TOTAL (test code = 2207) 0.6 MG/DL ALKALINE PHOSPHATASE (test code = 2204) 76 U/L AST (test code = 2218) 40 U/L ALT (test code = 2219) 36 U/L LIPID [id number] 00:00:00* Test Item Value Reference Range Interpretation Comme nts CHOLESTEROL (test code = 2210) 114 MG/DL TRIGLYCERIDES (test code = 2232) 89 MG/DL HDL CHOLESTEROL (test code = 2220) 36 MG/DL CALC LDL CHOL (test code = 2237) 61 MG/DL RISK RATIO LDL/HDL (test cod e = 2238) 1.69 RATIO HEMOGLOBIN [id number] 00:00:00* Test Item Value Reference Range Interpretation Comme nts HEMOGLOBIN A1c (test code = 17453) 6.3 % COMPREHENSIVE METABOLIC [id number] 00:00:00* Test Item Value Reference Range Interpretation Comme nts GLUCOSE (test code = 2217) 110 MG/DL BUN (test code = 2208) 18 MG/DL CREATININE (test code = 2214) 1.09 MG/DL eGFR (2020 CKD-EPI) (test co de = 92832) 81 ML/MIN/1.73 CALC BUN/CREAT (test code = 2235) 17 RATIO SODIUM (test code = 2231) 140 MEQ/L POTASSIUM (test code = 2228) 4.2 MEQ/L CHLORIDE (test code = 2215) 101 MEQ/L CARBON DIOXIDE (test code = 2206) 24 MEQ/L CALCIUM (test code = 2209) 8.9 MG/DL PROTEIN, TOTAL (test code = 2229) 7.2 G/DL ALBUMIN (test code = 2201) 4.4 G/DL CALC GLOBULIN (test code = 2240) 2.8 G/DL CALC A/G RATIO (test code = 2234) 1.6 RATIO BILIRUBIN, TOTAL (test code = 2207) 0.6 MG/DL ALKALINE PHOSPHATASE (test code = 2204) 76 U/L AST (test code = 2218) 40 U/L ALT (test code = 2219) 36 U/L LIPID [id number] 00:00:00* Test Item Value Reference Range Interpretation Comme nts CHOLESTEROL (test code = 2210) 114 MG/DL TRIGLYCERIDES (test code = 2232) 89 MG/DL HDL CHOLESTEROL (test code = 2220) 36 MG/DL CALC LDL CHOL (test code = 2237) 61 MG/DL RISK RATIO LDL/HDL (test cod e = 2238) 1.69 RATIO HEMOGLOBIN [id number] 00:00:00* Test Item Value Reference Range Interpretation Comme nts HEMOGLOBIN A1c (test code = 37055) 6.3 % COMPREHENSIVE METABOLIC [id number] 00:00:00* Test Item Value Reference Range Interpretation Comme nts GLUCOSE (test code = 2217) 110 MG/DL BUN (test code = 2208) 18 MG/DL CREATININE (test code = 2214) 1.09 MG/DL eGFR (2020 CKD-EPI) (test co de = 22938) 81 ML/MIN/1.73 CALC BUN/CREAT (test code = 2235) 17 RATIO SODIUM (test code = 2231) 140 MEQ/L POTASSIUM (test code = 2228) 4.2 MEQ/L CHLORIDE (test code = 2215) 101 MEQ/L CARBON DIOXIDE (test code = 2206) 24 MEQ/L CALCIUM (test code = 2209) 8.9 MG/DL PROTEIN, TOTAL (test code = 2229) 7.2 G/DL ALBUMIN (test code = 2201) 4.4 G/DL CALC GLOBULIN (test code = 2240) 2.8 G/DL CALC A/G RATIO (test code = 2234) 1.6 RATIO BILIRUBIN, TOTAL (test code = 2207) 0.6 MG/DL ALKALINE PHOSPHATASE (test code = 2204) 76 U/L AST (test code = 2218) 40 U/L ALT (test code = 2219) 36 U/L LIPID [id number] 00:00:00* Test Item Value Reference Range Interpretation Comme nts CHOLESTEROL (test code = 2210) 114 MG/DL TRIGLYCERIDES (test code = 2232) 89 MG/DL HDL CHOLESTEROL (test code = 2220) 36 MG/DL CALC LDL CHOL (test code = 2237) 61 MG/DL RISK RATIO LDL/HDL (test cod e = 2238) 1.69 RATIO HEMOGLOBIN [id number] 00:00:00* Test Item Value Reference Range Interpretation Comme nts HEMOGLOBIN A1c (test code = 10666) 6.3 % PSA, [id number] 01:49:26* Test Item Value Reference Range Interpretation Comme nts PSA, TOTAL (test code = 2606) 1.38 NG/ML See_Comment NOTE: Methodolog y is Fabian Stephania Electrochemiluminescence Immunoassay traceable to WHO reference standard 96/760. UNLESS OTHERWISE INDICATED, ALL TESTING PERFORMED [facility] [address] [place] [address] [employer]ER: STORM FONTANEZ M.D. CLIA NUMBER [id number] [facility] [place]. [id number] [Automated message] The system which generated this result transmitted reference range: <=4.00. The reference range was not used to interpret this result as normal/abnormal. PSA, [id number] 00:00:00* Test Item Value Reference Range Interpretation Comme nts PSA, TOTAL (test code = 2606) 1.38 NG/ML Hilario WhiteA, [id number] 00:00:00* Test Item Value Reference Range Interpretation Comme nts PSA, TOTAL (test code = 2606) 1.38 NG/ML Hilario BhaktaPSA, [id number] 00:00:00* Test Item Value Reference Range Interpretation Comme nts PSA, TOTAL (test code = 2606) 1.38 NG/ML PSA, [id number] 00:00:00* Test Item Value Reference Range Interpretation Comme nts PSA, TOTAL (test code = 2606) 1.38 NG/ML PSA, [id number] 00:00:00* Test Item Value Reference Range Interpretation Comme nts PSA, TOTAL (test code = 2606) 1.38 NG/ML HIV 1/2 4TH GEN, RFLX [id number] 04:36:58* Test Item Value Reference Range Interpretation Comme nts HIV 1/2 4TH GEN, RFLX CONF (test code = 3514) NON-REACTIVE NON-REACTIVE UNLESS OTHERWISE INDICATED, ALL TESTING PERFORMED [facility] [address] [place] [address] [employer]: STORM FONTANEZ M.D. CLIA NUMBER [id number] [place]. [id number] HIV AB/AG COMBO RFLX [id number] 00:00:00* Test Item Value Reference Range Interpretation Comme nts HIV 1/2 4TH GEN, RFLX CONF ( test code = 3514) NON-REACTIVE Hilario F AustinHIV AB/AG COMBO RFLX [id number] 00:00:00* Test Item Value Reference Range Interpretation Comme nts HIV 1/2 4TH GEN, RFLX CONF ( test code = 3514) NON-REACTIVE Hilario F AustinHIV AB/AG COMBO RFLX [id number] 00:00:00* Test Item Value Reference Range Interpretation Comme nts HIV 1/2 4TH GEN, RFLX CONF ( test code = 3514) NON-REACTIVE HIV AB/AG COMBO RFLX [id number] 00:00:00* Test Item Value Reference Range Interpretation Comme nts HIV 1/2 4TH GEN, RFLX CONF ( test code = 3514) NON-REACTIVE HIV AB/AG COMBO RFLX [id number] 00:00:00* Test Item Value Reference Range Interpretation Comme nts HIV 1/2 4TH GEN, RFLX CONF ( test code = 3514) NON-REACTIVE LIPID [id number] 02:49:15* Test Item Value Reference Range Interpretation Comme nts CHOLESTEROL (test code = 2210) 147 MG/DL <200 TRIGLYCERIDES (test code = 2232) 228 MG/DL <150 H HDL CHOLESTEROL (test code = 2220) 33 MG/DL >39 L CALC LDL CHOL (test code = 2237) 82 MG/DL <100 NOTE: CALCULATED LDL IS BASED ON ARTHUR-WYNN METHOD WHICHINCLUDES ADJUSTABLE TRIGLYCERIDE:VLDL CHOLESTEROL RATIO.THIS FACTOR VARIES BY MEASURED TRIGLYCERIDE AND NON-HDLCHOLESTEROL CONCENTRATIONS WITH INCREASED CALCULATED LDL SEENIN HIGHER TRIGLYCERIDE OR LOWER NON-HDL SPECIMENS. FOR MOREINFORMATION, SEE CLIENT ANNOUNCEMENT AT [email or web address] RISK RATIO LDL/HDL (test code = 2238) 2.48 RATIO <3.55 COMPREHENSIVE METABOLIC [id number] 02:49:15* Test Item Value Reference Range Interpretation Comme nts GLUCOSE (test code = 2217) 97 MG/DL 70-99 BUN (test code = 2208) 21 MG/DL 6-20 H CREATININE (test code = 2214) 1.28 MG/DL 0.80-1.40 eGFR (2020 CKD-EPI) (test code = 37472) 67 ML/MIN/1.73 >60 CALC BUN/CREAT (test code = 2235) 16 RATIO 6-28 SODIUM (test code = 223) 141 MEQ/L 133-146 POTASSIUM (test code = 2228) 4.3 MEQ/L 3.5-5.4 CHLORIDE (test code = 2215) 101 MEQ/L 95-107 CARBON DIOXIDE (test code = 2206) 22 MEQ/L 19-31 CALCIUM (test code = 2209) 9.4 MG/DL 8.5-10.5 PROTEIN, TOTAL (test code = 222) 7.9 G/DL 6.1-8.3 ALBUMIN (test code = 220) 4.6 G/DL 3.5-5.2 CALC GLOBULIN (test code = 2240) 3.3 G/DL 1.9-3.7 CALC A/G RATIO (test code = 2234) 1.4 RATIO 1.0-2.6 BILIRUBIN, TOTAL (test code = 2207) 0.5 MG/DL See_Comment [Automated me ssage] The system which generated this result transmitted reference range: <=1.2. The reference range was not used to interpret this result as normal/abnormal. ALKALINE PHOSPHATASE (test code = 2204) 102 U/L 40-121 AST (test code = 2218) 28 U/L 9-50 ALT (test code = 2219) 26 U/L 5-50 LIPID [id number] 00:00:00* Test Item Value Reference Range Interpretation Comme nts CHOLESTEROL (test code = 2210) 147 MG/DL TRIGLYCERIDES (test code = 2232) 228 MG/DL HDL CHOLESTEROL (test code = 2220) 33 MG/DL CALC LDL CHOL (test code = 2237) 82 MG/DL RISK RATIO LDL/HDL (test cod e = 2238) 2.48 RATIO Hilario F YonyCOMPREHENSIVE METABOLIC [id number] 00:00:00* Test Item Value Reference Range Interpretation Comme nts GLUCOSE (test code = 2217) 97 MG/DL BUN (test code = 2208) 21 MG/DL CREATININE (test code = 2214) 1.28 MG/DL eGFR (2020 CKD-EPI) (test co de = 19365) 67 ML/MIN/1.73 CALC BUN/CREAT (test code = 2235) 16 RATIO SODIUM (test code = 2231) 141 MEQ/L POTASSIUM (test code = 2228) 4.3 MEQ/L CHLORIDE (test code = 2215) 101 MEQ/L CARBON DIOXIDE (test code = 2206) 22 MEQ/L CALCIUM (test code = 2209) 9.4 MG/DL PROTEIN, TOTAL (test code = 2229) 7.9 G/DL ALBUMIN (test code = 2201) 4.6 G/DL CALC GLOBULIN (test code = 2240) 3.3 G/DL CALC A/G RATIO (test code = 2234) 1.4 RATIO BILIRUBIN, TOTAL (test code = 2207) 0.5 MG/DL ALKALINE PHOSPHATASE (test code = 2204) 102 U/L AST (test code = 2218) 28 U/L ALT (test code = 2219) 26 U/L Hilario Castillo AustinLIPID [id number] 00:00:00* Test Item Value Reference Range Interpretation Comme nts CHOLESTEROL (test code = 2210) 147 MG/DL TRIGLYCERIDES (test code = 2232) 228 MG/DL HDL CHOLESTEROL (test code = 2220) 33 MG/DL CALC LDL CHOL (test code = 2237) 82 MG/DL RISK RATIO LDL/HDL (test cod e = 2238) 2.48 RATIO Hilario BhaktaCOMPREHENSIVE METABOLIC [id number] 00:00:00* Test Item Value Reference Range Interpretation Comme nts GLUCOSE (test code = 2217) 97 MG/DL BUN (test code = 2208) 21 MG/DL CREATININE (test code = 2214) 1.28 MG/DL eGFR (2020 CKD-EPI) (test co de = 45176) 67 ML/MIN/1.73 CALC BUN/CREAT (test code = 2235) 16 RATIO SODIUM (test code = 2231) 141 MEQ/L POTASSIUM (test code = 2228) 4.3 MEQ/L CHLORIDE (test code = 2215) 101 MEQ/L CARBON DIOXIDE (test code = 2206) 22 MEQ/L CALCIUM (test code = 2209) 9.4 MG/DL PROTEIN, TOTAL (test code = 2229) 7.9 G/DL ALBUMIN (test code = 2201) 4.6 G/DL CALC GLOBULIN (test code = 2240) 3.3 G/DL CALC A/G RATIO (test code = 2234) 1.4 RATIO BILIRUBIN, TOTAL (test code = 2207) 0.5 MG/DL ALKALINE PHOSPHATASE (test code = 2204) 102 U/L AST (test code = 2218) 28 U/L ALT (test code = 2219) 26 U/L Hilario BhaktaLIPID [id number] 00:00:00* Test Item Value Reference Range Interpretation Comme nts CHOLESTEROL (test code = 2210) 147 MG/DL TRIGLYCERIDES (test code = 2232) 228 MG/DL HDL CHOLESTEROL (test code = 2220) 33 MG/DL CALC LDL CHOL (test code = 2237) 82 MG/DL RISK RATIO LDL/HDL (test cod e = 2238) 2.48 RATIO COMPREHENSIVE METABOLIC [id number] 00:00:00* Test Item Value Reference Range Interpretation Comme nts GLUCOSE (test code = 2217) 97 MG/DL BUN (test code = 2208) 21 MG/DL CREATININE (test code = 2214) 1.28 MG/DL eGFR (2020 CKD-EPI) (test co de = 29974) 67 ML/MIN/1.73 CALC BUN/CREAT (test code = 2235) 16 RATIO SODIUM (test code = 2231) 141 MEQ/L POTASSIUM (test code = 2228) 4.3 MEQ/L CHLORIDE (test code = 2215) 101 MEQ/L CARBON DIOXIDE (test code = 2206) 22 MEQ/L CALCIUM (test code = 2209) 9.4 MG/DL PROTEIN, TOTAL (test code = 2229) 7.9 G/DL ALBUMIN (test code = 2201) 4.6 G/DL CALC GLOBULIN (test code = 2240) 3.3 G/DL CALC A/G RATIO (test code = 2234) 1.4 RATIO BILIRUBIN, TOTAL (test code = 2207) 0.5 MG/DL ALKALINE PHOSPHATASE (test code = 2204) 102 U/L AST (test code = 2218) 28 U/L ALT (test code = 2219) 26 U/L LIPID [id number] 00:00:00* Test Item Value Reference Range Interpretation Comme nts CHOLESTEROL (test code = 2210) 147 MG/DL TRIGLYCERIDES (test code = 2232) 228 MG/DL HDL CHOLESTEROL (test code = 2220) 33 MG/DL CALC LDL CHOL (test code = 2237) 82 MG/DL RISK RATIO LDL/HDL (test cod e = 2238) 2.48 RATIO COMPREHENSIVE METABOLIC [id number] 00:00:00* Test Item Value Reference Range Interpretation Comme nts GLUCOSE (test code = 2217) 97 MG/DL BUN (test code = 2208) 21 MG/DL CREATININE (test code = 2214) 1.28 MG/DL eGFR (2020 CKD-EPI) (test co de = 03584) 67 ML/MIN/1.73 CALC BUN/CREAT (test code = 2235) 16 RATIO SODIUM (test code = 2231) 141 MEQ/L POTASSIUM (test code = 2228) 4.3 MEQ/L CHLORIDE (test code = 2215) 101 MEQ/L CARBON DIOXIDE (test code = 2206) 22 MEQ/L CALCIUM (test code = 2209) 9.4 MG/DL PROTEIN, TOTAL (test code = 2229) 7.9 G/DL ALBUMIN (test code = 2201) 4.6 G/DL CALC GLOBULIN (test code = 2240) 3.3 G/DL CALC A/G RATIO (test code = 2234) 1.4 RATIO BILIRUBIN, TOTAL (test code = 2207) 0.5 MG/DL ALKALINE PHOSPHATASE (test code = 2204) 102 U/L AST (test code = 2218) 28 U/L ALT (test code = 2219) 26 U/L LIPID [id number] 00:00:00* Test Item Value Reference Range Interpretation Comme nts CHOLESTEROL (test code = 2210) 147 MG/DL TRIGLYCERIDES (test code = 2232) 228 MG/DL HDL CHOLESTEROL (test code = 2220) 33 MG/DL CALC LDL CHOL (test code = 2237) 82 MG/DL RISK RATIO LDL/HDL (test cod e = 2238) 2.48 RATIO COMPREHENSIVE METABOLIC [id number] 00:00:00* Test Item Value Reference Range Interpretation Comme nts GLUCOSE (test code = 2217) 97 MG/DL BUN (test code = 2208) 21 MG/DL CREATININE (test code = 2214) 1.28 MG/DL eGFR (2020 CKD-EPI) (test co de = 31284) 67 ML/MIN/1.73 CALC BUN/CREAT (test code = 2235) 16 RATIO SODIUM (test code = 2231) 141 MEQ/L POTASSIUM (test code = 2228) 4.3 MEQ/L CHLORIDE (test code = 2215) 101 MEQ/L CARBON DIOXIDE (test code = 2206) 22 MEQ/L CALCIUM (test code = 2209) 9.4 MG/DL PROTEIN, TOTAL (test code = 2229) 7.9 G/DL ALBUMIN (test code = 2201) 4.6 G/DL CALC GLOBULIN (test code = 2240) 3.3 G/DL CALC A/G RATIO (test code = 2234) 1.4 RATIO BILIRUBIN, TOTAL (test code = 2207) 0.5 MG/DL ALKALINE PHOSPHATASE (test code = 2204) 102 U/L AST (test code = 2218) 28 U/L ALT (test code = 2219) 26 U/L HEMOGLOBIN [id number] 05:50:17* Test Item Value Reference Range Interpretation Comme [facility] HEMOGLOBIN A1c (test code = 96634) 6.7 % 4.2-5.6 H [employer] GUIDELINES FOR HGB A1C: PREDIABETES/INCREASED RISK . . . . . . . 5.7-6.4% DIAGNOSIS OF DIABETES . . . . . . . . . >=6.5% WITH CONFIRMATION OR APPROPRIATE SYMPTOMS NOTE: ASSAY MAY BE AFFECTED BY HEMOGLOBINOPATHIES (SICKLE CELL ANEMIA, S-C DISEASE, OTHERS) OR ARTIFICIALLY LOWERED BY DECREASED RED CELL SURVIVAL (HEMOLYTIC ANEMIAS, BLOOD LOSS, ETC.). CONSIDER ALTERNATE TESTING OR LABORATORY CONSULTATION. HEMOGLOBIN [id number] 00:00:00* Test Item Value Reference Range Interpretation Comme [facility] HEMOGLOBIN A1c (test code = 50907) 6.7 % Hilario Castillo AustinHEMOGLOBIN [id number] 00:00:00* Test Item Value Reference Range Interpretation Comme [facility] HEMOGLOBIN A1c (test code = 71800) 6.7 % Hilario Castillo AustinHEMOGLOBIN [id number] 00:00:00* Test Item Value Reference Range Interpretation Comme [facility] HEMOGLOBIN A1c (test code = 05483) 6.7 % HEMOGLOBIN [id number] 00:00:00* Test Item Value Reference Range Interpretation Comme [facility] HEMOGLOBIN A1c (test code = 71161) 6.7 % HEMOGLOBIN [id number] 00:00:00* Test Item Value Reference Range Interpretation Comme [facility] HEMOGLOBIN A1c (test code = 47372) 6.7 % SARS-CoV-2 (COVID-19), RT-PCR/[id number] 15:44:19* Test Item Value Reference Range Interpretation Comments SARS-CoV-2 INTERPRETATION (test code = 06663) POSITIVE SEE NOTE A SARS-CoV-2 R NA DETECTEDPositive results are indicative of the presence of SARS-CoV-2 RNA;clinical correlation with patient history and other diagnosticinformation is necessary to determine patient infection status.Positive results do not rule out bacterial infection or co-infectionwith other viruses. Positive and negative predictive values oftesting are highly dependent on prevalence. SOURCE (test code = 54873) NOT SPECIFIED Note: Methodolog y is Fabian Stephania Real-Time RT-PCR. The expected result or reference range is NEGATIVE (Not Detected). For more information regarding COVID-19 testing to include clinicalinformation, methodology detail, intended use, FDA authorization andrecommended fact sheets for patients or healthcare providers, see [facility] Announcement: SARS-CoV-2 (COVID-19) by NAAT at URL below (note,fact sheets are provided by method given in report:[email or web address] Alternatively, see downloadable PDF fact sheet at:[email or web address] [email or web address] UNLESS OTHERWISE INDICATED, ALL TESTING PERFORMED [facility] [place], [facility]. [address] [place] [address] [employer]: STORM FONTANEZ M.D. CLIA NUMBER [id number] [facility] [place]. [id number] SARS-CoV-2 (COVID-19) by RT-PCR (HIGH RISK)2021-10-08 00:00:00* Test Item Value Reference Range Interpretation Comme nts SARS-CoV-2 INTERPRETATION (t est code = 31599) POSITIVE SOURCE (test code = 34337) NOT SPECIFIED Hilario Castillo [id number] (COVID-19) by RT-PCR (HIGH RISK)2021-10-08 00:00:00* Test Item Value Reference Range Interpretation Comme nts SARS-CoV-2 INTERPRETATION (t est code = 02708) POSITIVE SOURCE (test code = 84287) NOT SPECIFIED Hilario Castillo [id number] (COVID-19) by RT-PCR (HIGH RISK)2021-10-08 00:00:00* Test Item Value Reference Range Interpretation Comme nts SARS-CoV-2 INTERPRETATION (t est code = 29061) POSITIVE SOURCE (test code = 49308) NOT SPECIFIED SARS-CoV-2 (COVID-19) by RT-PCR (HIGH RISK)2021-10-08 00:00:00* Test Item Value Reference Range Interpretation Comme nts SARS-CoV-2 INTERPRETATION (t est code = 26243) POSITIVE SOURCE (test code = 61874) NOT SPECIFIED SARS-CoV-2 (COVID-19) by RT-PCR (HIGH RISK)2021-10-08 00:00:00* Test Item Value Reference Range Interpretation Comme nts SARS-CoV-2 INTERPRETATION (t est code = 15333) POSITIVE SOURCE (test code = 40390) NOT SPECIFIED MICROALBUMIN/CREATININE, RANDOM AND [id number] 00:00:00* Test Item Value Reference Range Interpretation Comme nts CREATININE, URINE, CONC. (te st code = 2071) 163.8 MG/DL ALBUMIN, URINE, RANDOM (test code = 06068) 5.2 MG/DL CALC ALBUMIN/CREAT, RND (josue t code = 34113) 32 MG/G Hilario F AustinMICROALBUMIN/CREATININE, RANDOM AND [id number] 00:00:00* Test Item Value Reference Range Interpretation Comme nts CREATININE, URINE, CONC. (te st code = 2071) 163.8 MG/DL ALBUMIN, URINE, RANDOM (test code = 52466) 5.2 MG/DL CALC ALBUMIN/CREAT, RND (josue t code = 03438) 32 MG/G Hilraio F AustinMICROALBUMIN/CREATININE, RANDOM AND [id number] 00:00:00* Test Item Value Reference Range Interpretation Comme nts CREATININE, URINE, CONC. (te st code = 2071) 163.8 MG/DL ALBUMIN, URINE, RANDOM (test code = 19587) 5.2 MG/DL CALC ALBUMIN/CREAT, RND (josue t code = 10528) 32 MG/G MICROALBUMIN/CREATININE, RANDOM AND [id number] 00:00:00* Test Item Value Reference Range Interpretation Comme nts CREATININE, URINE, CONC. (te st code = 2071) 163.8 MG/DL ALBUMIN, URINE, RANDOM (test code = 67950) 5.2 MG/DL CALC ALBUMIN/CREAT, RND (josue t code = 45988) 32 MG/G MICROALBUMIN/CREATININE, RANDOM AND [id number] 00:00:00* Test Item Value Reference Range Interpretation Comme nts CREATININE, URINE, CONC. (te st code = 2071) 163.8 MG/DL ALBUMIN, URINE, RANDOM (test code = 66845) 5.2 MG/DL CALC ALBUMIN/CREAT, RND (josue t code = 32659) 32 MG/G LIPID [id number] 00:00:00* Test Item Value Reference Range Interpretation Comme nts CHOLESTEROL (test code = 2210) 123 MG/DL TRIGLYCERIDES (test code = 2232) 230 MG/DL HDL CHOLESTEROL (test code = 2220) 28 MG/DL CALC LDL CHOL (test code = 2237) 66 MG/DL RISK RATIO LDL/HDL (test cod e = 2238) 2.36 RATIO Hilario Castillo AustinCOMPREHENSIVE METABOLIC [id number] 00:00:00* Test Item Value Reference Range Interpretation Comme nts GLUCOSE (test code = 2217) 129 MG/DL BUN (test code = 2208) 23 MG/DL CREATININE (test code = 2214) 1.26 MG/DL eGFR AMER. (test cod e = 00224) 75 ML/MIN/1.73 eGFR NON- AMER. (test code = 11258) 65 ML/MIN/1.73 CALC BUN/CREAT (test code = 2235) 18 RATIO SODIUM (test code = 2231) 140 MEQ/L POTASSIUM (test code = 2228) 4.5 MEQ/L CHLORIDE (test code = 2215) 103 MEQ/L CARBON DIOXIDE (test code = 2206) 22 MEQ/L CALCIUM (test code = 2209) 9.8 MG/DL PROTEIN, TOTAL (test code = 2229) 7.6 G/DL ALBUMIN (test code = 2201) 4.6 G/DL CALC GLOBULIN (test code = 2240) 3.0 G/DL CALC A/G RATIO (test code = 2234) 1.5 RATIO BILIRUBIN, TOTAL (test code = 2207) 0.6 MG/DL ALKALINE PHOSPHATASE (test code = 2204) 72 U/L AST (test code = 2218) 24 U/L ALT (test code = 2219) 22 U/L Hilario Castillo AustinLIPID [id number] 00:00:00* Test Item Value Reference Range Interpretation Comme nts CHOLESTEROL (test code = 2210) 123 MG/DL TRIGLYCERIDES (test code = 2232) 230 MG/DL HDL CHOLESTEROL (test code = 2220) 28 MG/DL CALC LDL CHOL (test code = 2237) 66 MG/DL RISK RATIO LDL/HDL (test cod e = 2238) 2.36 RATIO Hilario Castillo AustinCOMPREHENSIVE METABOLIC [id number] 00:00:00* Test Item Value Reference Range Interpretation Comme nts GLUCOSE (test code = 2217) 129 MG/DL BUN (test code = 2208) 23 MG/DL CREATININE (test code = 2214) 1.26 MG/DL eGFR AMER. (test cod e = 60638) 75 ML/MIN/1.73 eGFR NON- AMER. (test code = 15457) 65 ML/MIN/1.73 CALC BUN/CREAT (test code = 2235) 18 RATIO SODIUM (test code = 2231) 140 MEQ/L POTASSIUM (test code = 2228) 4.5 MEQ/L CHLORIDE (test code = 2215) 103 MEQ/L CARBON DIOXIDE (test code = 2206) 22 MEQ/L CALCIUM (test code = 2209) 9.8 MG/DL PROTEIN, TOTAL (test code = 2229) 7.6 G/DL ALBUMIN (test code = 2201) 4.6 G/DL CALC GLOBULIN (test code = 2240) 3.0 G/DL CALC A/G RATIO (test code = 2234) 1.5 RATIO BILIRUBIN, TOTAL (test code = 2207) 0.6 MG/DL ALKALINE PHOSPHATASE (test code = 2204) 72 U/L AST (test code = 2218) 24 U/L ALT (test code = 2219) 22 U/L Hilario F AustinLIPID [id number] 00:00:00* Test Item Value Reference Range Interpretation Comme nts CHOLESTEROL (test code = 2210) 123 MG/DL TRIGLYCERIDES (test code = 2232) 230 MG/DL HDL CHOLESTEROL (test code = 2220) 28 MG/DL CALC LDL CHOL (test code = 2237) 66 MG/DL RISK RATIO LDL/HDL (test cod e = 2238) 2.36 RATIO COMPREHENSIVE METABOLIC [id number] 00:00:00* Test Item Value Reference Range Interpretation Comme nts GLUCOSE (test code = 2217) 129 MG/DL BUN (test code = 2208) 23 MG/DL CREATININE (test code = 2214) 1.26 MG/DL eGFR AMER. (test cod e = 52878) 75 ML/MIN/1.73 eGFR NON- AMER. (test code = 87531) 65 ML/MIN/1.73 CALC BUN/CREAT (test code = 2235) 18 RATIO SODIUM (test code = 223) 140 MEQ/L POTASSIUM (test code = 2228) 4.5 MEQ/L CHLORIDE (test code = 2215) 103 MEQ/L CARBON DIOXIDE (test code = 2206) 22 MEQ/L CALCIUM (test code = 2209) 9.8 MG/DL PROTEIN, TOTAL (test code = 2229) 7.6 G/DL ALBUMIN (test code = 2201) 4.6 G/DL CALC GLOBULIN (test code = 2240) 3.0 G/DL CALC A/G RATIO (test code = 2234) 1.5 RATIO BILIRUBIN, TOTAL (test code = 2207) 0.6 MG/DL ALKALINE PHOSPHATASE (test code = 2204) 72 U/L AST (test code = 2218) 24 U/L ALT (test code = 2219) 22 U/L LIPID [id number] 00:00:00* Test Item Value Reference Range Interpretation Comme nts CHOLESTEROL (test code = 2210) 123 MG/DL TRIGLYCERIDES (test code = 2232) 230 MG/DL HDL CHOLESTEROL (test code = 2220) 28 MG/DL CALC LDL CHOL (test code = 2237) 66 MG/DL RISK RATIO LDL/HDL (test cod e = 2238) 2.36 RATIO COMPREHENSIVE METABOLIC [id number] 00:00:00* Test Item Value Reference Range Interpretation Comme nts GLUCOSE (test code = 2217) 129 MG/DL BUN (test code = 2208) 23 MG/DL CREATININE (test code = 2214) 1.26 MG/DL eGFR AMER. (test cod e = 52116) 75 ML/MIN/1.73 eGFR NON- AMER. (test code = 98305) 65 ML/MIN/1.73 CALC BUN/CREAT (test code = 2235) 18 RATIO SODIUM (test code = 2231) 140 MEQ/L POTASSIUM (test code = 2228) 4.5 MEQ/L CHLORIDE (test code = 2215) 103 MEQ/L CARBON DIOXIDE (test code = 2206) 22 MEQ/L CALCIUM (test code = 2209) 9.8 MG/DL PROTEIN, TOTAL (test code = 2229) 7.6 G/DL ALBUMIN (test code = 2201) 4.6 G/DL CALC GLOBULIN (test code = 2240) 3.0 G/DL CALC A/G RATIO (test code = 2234) 1.5 RATIO BILIRUBIN, TOTAL (test code = 2207) 0.6 MG/DL ALKALINE PHOSPHATASE (test code = 2204) 72 U/L AST (test code = 2218) 24 U/L ALT (test code = 2219) 22 U/L LIPID [id number] 00:00:00* Test Item Value Reference Range Interpretation Comme nts CHOLESTEROL (test code = 2210) 123 MG/DL TRIGLYCERIDES (test code = 2232) 230 MG/DL HDL CHOLESTEROL (test code = 2220) 28 MG/DL CALC LDL CHOL (test code = 2237) 66 MG/DL RISK RATIO LDL/HDL (test cod e = 2238) 2.36 RATIO COMPREHENSIVE METABOLIC [id number] 00:00:00* Test Item Value Reference Range Interpretation Comme nts GLUCOSE (test code = 2217) 129 MG/DL BUN (test code = 2208) 23 MG/DL CREATININE (test code = 2214) 1.26 MG/DL eGFR AMER. (test cod e = 79011) 75 ML/MIN/1.73 eGFR NON- AMER. (test code = 34204) 65 ML/MIN/1.73 CALC BUN/CREAT (test code = 2235) 18 RATIO SODIUM (test code = 2231) 140 MEQ/L POTASSIUM (test code = 2228) 4.5 MEQ/L CHLORIDE (test code = 2215) 103 MEQ/L CARBON DIOXIDE (test code = 2206) 22 MEQ/L CALCIUM (test code = 2209) 9.8 MG/DL PROTEIN, TOTAL (test code = 2229) 7.6 G/DL ALBUMIN (test code = 2201) 4.6 G/DL CALC GLOBULIN (test code = 2240) 3.0 G/DL CALC A/G RATIO (test code = 2234) 1.5 RATIO BILIRUBIN, TOTAL (test code = 2207) 0.6 MG/DL ALKALINE PHOSPHATASE (test code = 2204) 72 U/L AST (test code = 2218) 24 U/L ALT (test code = 2219) 22 U/L HEMOGLOBIN [id number] 00:00:00* Test Item Value Reference Range Interpretation Comme nts HEMOGLOBIN A1c (test code = 01309) 6.3 % Hilario F AustinCBC W/AUTO [id number] 00:00:00* Test Item Value Reference Range Interpretation Comme nts WBC (test code = 1001) 7.8 K/UL [...] = 1013) 0.6 % IMMATURE GRANULOCYTES (test code = 1036) 0.8 % NUCLEATED RBCS (test code = 1065) 0.0 /100WBC'S PLATELET COUNT (test code = 1015) 179 K/UL ABSOLUTE NEUTROPHILS (test c ode = 1066) 5.16 K/UL ABSOLUTE LYMPHOCYTES (test c ode = 1067) 2.00 K/UL ABSOLUTE MONOCYTES (test cod e = 1068) 0.30 K/UL ABSOLUTE EOSINOPHILS (test c ode = 1040) 0.21 K/UL ABSOLUTE BASOPHILS (test cod e = 1069) 0.05 K/UL ABS IMMATURE GRANULOCYTES (t est code = 1020) 0.06 K/UL ABS NUCLEATED RBCS (test cod e = 74680) 0.00 K/UL Hilario BhaktaHEMOGLOBIN [id number] 00:00:00* Test Item Value Reference Range Interpretation Comme nts HEMOGLOBIN A1c (test code = 58741) 6.3 % Hilario Castillo AustinCBC W/AUTO [id number] 00:00:00* Test Item Value Reference Range Interpretation Comme nts WBC (test code = 1001) 7.8 K/UL [...] = 1013) 0.6 % IMMATURE GRANULOCYTES (test code = 1036) 0.8 % NUCLEATED RBCS (test code = 1065) 0.0 /100WBC'S PLATELET COUNT (test code = 1015) 179 K/UL ABSOLUTE NEUTROPHILS (test c ode = 1066) 5.16 K/UL ABSOLUTE LYMPHOCYTES (test c ode = 1067) 2.00 K/UL ABSOLUTE MONOCYTES (test cod e = 1068) 0.30 K/UL ABSOLUTE EOSINOPHILS (test c ode = 1040) 0.21 K/UL ABSOLUTE BASOPHILS (test cod e = 1069) 0.05 K/UL ABS IMMATURE GRANULOCYTES (t est code = 1020) 0.06 K/UL ABS NUCLEATED RBCS (test cod e = 26606) 0.00 K/UL Hilario Castillo [facility] W/AUTO [id number] 00:00:00* Test Item Value Reference Range Interpretation Comme nts WBC (test code = 1001) 7.8 K/UL [...] = 1013) 0.6 % IMMATURE GRANULOCYTES (test code = 1036) 0.8 % NUCLEATED RBCS (test code = 1065) 0.0 /100WBC'S PLATELET COUNT (test code = 1015) 179 K/UL ABSOLUTE NEUTROPHILS (test c ode = 1066) 5.16 K/UL ABSOLUTE LYMPHOCYTES (test c ode = 1067) 2.00 K/UL ABSOLUTE MONOCYTES (test cod e = 1068) 0.30 K/UL ABSOLUTE EOSINOPHILS (test c ode = 1040) 0.21 K/UL ABSOLUTE BASOPHILS (test cod e = 1069) 0.05 K/UL ABS IMMATURE GRANULOCYTES (t est code = 1020) 0.06 K/UL ABS NUCLEATED RBCS (test cod e = 49175) 0.00 K/UL HEMOGLOBIN [id number] 00:00:00* Test Item Value Reference Range Interpretation Comme nts HEMOGLOBIN A1c (test code = 96886) 6.3 % CBC W/AUTO [id number] 00:00:00* Test Item Value Reference Range Interpretation Comme nts WBC (test code = 1001) 7.8 K/UL [...] = 1013) 0.6 % IMMATURE GRANULOCYTES (test code = 1036) 0.8 % NUCLEATED RBCS (test code = 1065) 0.0 /100WBC'S PLATELET COUNT (test code = 1015) 179 K/UL ABSOLUTE NEUTROPHILS (test c ode = 1066) 5.16 K/UL ABSOLUTE LYMPHOCYTES (test c ode = 1067) 2.00 K/UL ABSOLUTE MONOCYTES (test cod e = 1068) 0.30 K/UL ABSOLUTE EOSINOPHILS (test c ode = 1040) 0.21 K/UL ABSOLUTE BASOPHILS (test cod e = 1069) 0.05 K/UL ABS IMMATURE GRANULOCYTES (t est code = 1020) 0.06 K/UL ABS NUCLEATED RBCS (test cod e = 81606) 0.00 K/UL HEMOGLOBIN [id number] 00:00:00* Test Item Value Reference Range Interpretation Comme nts HEMOGLOBIN A1c (test code = 54215) 6.3 % CBC W/AUTO [id number] 00:00:00* Test Item Value Reference Range Interpretation Comme nts WBC (test code = 1001) 7.8 K/UL [...] = 1013) 0.6 % IMMATURE GRANULOCYTES (test code = 1036) 0.8 % NUCLEATED RBCS (test code = 1065) 0.0 /100WBC'S PLATELET COUNT (test code = 1015) 179 K/UL ABSOLUTE NEUTROPHILS (test c ode = 1066) 5.16 K/UL ABSOLUTE LYMPHOCYTES (test c ode = 1067) 2.00 K/UL ABSOLUTE MONOCYTES (test cod e = 1068) 0.30 K/UL ABSOLUTE EOSINOPHILS (test c ode = 1040) 0.21 K/UL ABSOLUTE BASOPHILS (test cod e = 1069) 0.05 K/UL ABS IMMATURE GRANULOCYTES (t est code = 1020) 0.06 K/UL ABS NUCLEATED RBCS (test cod e = 77627) 0.00 K/UL HEMOGLOBIN [id number] 00:00:00* Test Item Value Reference Range Interpretation Comme nts HEMOGLOBIN A1c (test code = 33903) 6.3 % SARS-CoV-2 (COVID-19) by RT-PCR (HIGH RISK)2020-05-12 00:00:00* Test Item Value Reference Range Interpretation Comme nts SARS-CoV-2 INTERPRETATION (t est code = 28734) POSITIVE SOURCE (test code = 33061) NOT SPECIFIED Hilario OliverRS-CoV-2 (COVID-19) by RT-PCR (HIGH RISK)2020-05-12 00:00:00* Test Item Value Reference Range Interpretation Comme nts SARS-CoV-2 INTERPRETATION (t est code = 07008) POSITIVE SOURCE (test code = 65022) NOT SPECIFIED Hilario Castillo [id number] (COVID-19) by RT-PCR (HIGH RISK)2020-05-12 00:00:00* Test Item Value Reference Range Interpretation Comme nts SARS-CoV-2 INTERPRETATION (t est code = 87981) POSITIVE SOURCE (test code = 45177) NOT SPECIFIED SARS-CoV-2 (COVID-19) by RT-PCR (HIGH RISK)2020-05-12 00:00:00* Test Item Value Reference Range Interpretation Comme nts SARS-CoV-2 INTERPRETATION (t est code = 02860) POSITIVE SOURCE (test code = 62936) NOT SPECIFIED SARS-CoV-2 (COVID-19) by RT-PCR (HIGH RISK)2020-05-12 00:00:00* Test Item Value Reference Range Interpretation Comme nts SARS-CoV-2 INTERPRETATION (t est code = 29989) POSITIVE SOURCE (test code = 05948) NOT SPECIFIED SARS-CoV-2 (COVID-19) by RT-PCR (HIGH RISK)2020-04-16 00:00:00* Test Item Value Reference Range Interpretation Comme nts SARS-CoV-2 INTERPRETATION (t est code = 25841) POSITIVE SOURCE (test code = 73892) NOT SPECIFIED Hilario F [id number] (COVID-19) by RT-PCR (HIGH RISK)2020-04-16 00:00:00* Test Item Value Reference Range Interpretation Comme nts SARS-CoV-2 INTERPRETATION (t est code = 58981) POSITIVE SOURCE (test code = 23065) NOT SPECIFIED Hilario F [id number] (COVID-19) by RT-PCR (HIGH RISK)2020-04-16 00:00:00* Test Item Value Reference Range Interpretation Comme nts SARS-CoV-2 INTERPRETATION (t est code = 01750) POSITIVE SOURCE (test code = 99539) NOT SPECIFIED SARS-CoV-2 (COVID-19) by RT-PCR (HIGH RISK)2020-04-16 00:00:00* Test Item Value Reference Range Interpretation Comme nts SARS-CoV-2 INTERPRETATION (t est code = 39998) POSITIVE SOURCE (test code = 69183) NOT SPECIFIED SARS-CoV-2 (COVID-19) by RT-PCR (HIGH RISK)2020-04-16 00:00:00* Test Item Value Reference Range Interpretation Comme nts SARS-CoV-2 INTERPRETATION (t est code = 43821) POSITIVE SOURCE (test code = 34536) NOT SPECIFIED SARS-CoV-2 (COVID-19) by RT-PCR (HIGH RISK)2020-04-13 00:00:00* Test Item Value Reference Range Interpretation Comme nts SARS-CoV-2 INTERPRETATION (t est code = 62596) POSITIVE SOURCE (test code = 06553) NOT SPECIFIED Hilario Castillo [id number] (COVID-19) by RT-PCR (HIGH RISK)2020-04-13 00:00:00* Test Item Value Reference Range Interpretation Comme nts SARS-CoV-2 INTERPRETATION (t est code = 93165) POSITIVE SOURCE (test code = 02733) NOT SPECIFIED Hilario F [id number] (COVID-19) by RT-PCR (HIGH RISK)2020-04-13 00:00:00* Test Item Value Reference Range Interpretation Comme nts SARS-CoV-2 INTERPRETATION (t est code = 61309) POSITIVE SOURCE (test code = 73463) NOT SPECIFIED SARS-CoV-2 (COVID-19) by RT-PCR (HIGH RISK)2020-04-13 00:00:00* Test Item Value Reference Range Interpretation Comme nts SARS-CoV-2 INTERPRETATION (t est code = 04474) POSITIVE SOURCE (test code = 57626) NOT SPECIFIED SARS-CoV-2 (COVID-19) by RT-PCR (HIGH RISK)2020-04-13 00:00:00* Test Item Value Reference Range Interpretation Comme nts SARS-CoV-2 INTERPRETATION (t est code = 18891) POSITIVE SOURCE (test code = 84343) NOT SPECIFIED SARS-CoV-2 (COVID-19) by RT-PCR (HIGH RISK)2020-04-01 00:00:00* Test Item Value Reference Range Interpretation Comme nts SARS-CoV-2 INTERPRETATION (t est code = 82380) POSITIVE SOURCE (test code = 30955) NOT SPECIFIED Hilario F [id number]-2 (COVID-19) by RT-PCR (HIGH RISK)2020-04-01 00:00:00* Test Item Value Reference Range Interpretation Comme nts SARS-CoV-2 INTERPRETATION (t est code = 03934) POSITIVE SOURCE (test code = 58318) NOT SPECIFIED Hilario OliverRS-CoV-2 (COVID-19) by RT-PCR (HIGH RISK)2020-04-01 00:00:00* Test Item Value Reference Range Interpretation Comme nts SARS-CoV-2 INTERPRETATION (t est code = 14031) POSITIVE SOURCE (test code = 41957) NOT SPECIFIED SARS-CoV-2 (COVID-19) by RT-PCR (HIGH RISK)2020-04-01 00:00:00* Test Item Value Reference Range Interpretation Comme nts SARS-CoV-2 INTERPRETATION (t est code = 92636) POSITIVE SOURCE (test code = 86715) NOT SPECIFIED SARS-CoV-2 (COVID-19) by RT-PCR (HIGH RISK)2020-04-01 00:00:00* Test Item Value Reference Range Interpretation Comme nts SARS-CoV-2 INTERPRETATION (t est code = 68428) POSITIVE SOURCE (test code = 16427) NOT SPECIFIED COMPREHENSIVE METABOLIC [id number] 00:00:00* Test Item Value Reference Range Interpretation Comme nts GLUCOSE (test code = 2217) 149 MG/DL BUN (test code = 2208) 25 MG/DL CREATININE (test code = 2214) 1.12 MG/DL eGFR AMER. (test cod e = 71674) 87 ML/MIN/1.73 eGFR NON- AMER. (test code = 30473) 75 ML/MIN/1.73 CALC BUN/CREAT (test code = 2235) 22 RATIO SODIUM (test code = 2231) 141 MEQ/L POTASSIUM (test code = 2228) 4.3 MEQ/L CHLORIDE (test code = 2215) 102 MEQ/L CARBON DIOXIDE (test code = 2206) 22 MEQ/L CALCIUM (test code = 2209) 9.1 MG/DL PROTEIN, TOTAL (test code = 2229) 7.2 G/DL ALBUMIN (test code = 2201) 4.7 G/DL CALC GLOBULIN (test code = 2240) 2.5 G/DL CALC A/G RATIO (test code = 2234) 1.9 RATIO BILIRUBIN, TOTAL (test code = 2207) 0.6 MG/DL ALKALINE PHOSPHATASE (test code = 2204) 59 U/L AST (test code = 2218) 21 U/L ALT (test code = 2219) 20 U/L Hilario BhaktaLIPID [id number] 00:00:00* Test Item Value Reference Range Interpretation Comme nts CHOLESTEROL (test code = 2210) 171 MG/DL TRIGLYCERIDES (test code = 2232) 269 MG/DL HDL CHOLESTEROL (test code = 2220) 29 MG/DL CALC LDL CHOL (test code = 2237) 104 MG/DL RISK RATIO LDL/HDL (test cod e = 2238) 3.59 RATIO Hilario [id number] 00:00:00* Test Item Value Reference Range Interpretation Comme nts TSH, THIRD GENERATION (test code = 2821) 1.090 UIU/ML Hilario BhaktaPSA, [id number] 00:00:00* Test Item Value Reference Range Interpretation Comme nts PSA, TOTAL (test code = 2606) 1.59 NG/ML Hilario BhaktaCOMPREHENSIVE METABOLIC [id number] 00:00:00* Test Item Value Reference Range Interpretation Comme nts GLUCOSE (test code = 2217) 149 MG/DL BUN (test code = 2208) 25 MG/DL CREATININE (test code = 2214) 1.12 MG/DL eGFR AMER. (test cod e = 39154) 87 ML/MIN/1.73 eGFR NON- AMER. (test code = 30818) 75 ML/MIN/1.73 CALC BUN/CREAT (test code = 2235) 22 RATIO SODIUM (test code = 2231) 141 MEQ/L POTASSIUM (test code = 2228) 4.3 MEQ/L CHLORIDE (test code = 2215) 102 MEQ/L CARBON DIOXIDE (test code = 2206) 22 MEQ/L CALCIUM (test code = 2209) 9.1 MG/DL PROTEIN, TOTAL (test code = 2229) 7.2 G/DL ALBUMIN (test code = 2201) 4.7 G/DL CALC GLOBULIN (test code = 2240) 2.5 G/DL CALC A/G RATIO (test code = 2234) 1.9 RATIO BILIRUBIN, TOTAL (test code = 2207) 0.6 MG/DL ALKALINE PHOSPHATASE (test code = 2204) 59 U/L AST (test code = 2218) 21 U/L ALT (test code = 2219) 20 U/L Hilario BhaktaLIPID [id number] 00:00:00* Test Item Value Reference Range Interpretation Comme nts CHOLESTEROL (test code = 2210) 171 MG/DL TRIGLYCERIDES (test code = 2232) 269 MG/DL HDL CHOLESTEROL (test code = 2220) 29 MG/DL CALC LDL CHOL (test code = 2237) 104 MG/DL RISK RATIO LDL/HDL (test cod e = 2238) 3.59 RATIO Hilario [id number] 00:00:00* Test Item Value Reference Range Interpretation Comme nts TSH, THIRD GENERATION (test code = 2821) 1.090 UIU/ML Hilario BhaktaPSA, [id number] 00:00:00* Test Item Value Reference Range Interpretation Comme nts PSA, TOTAL (test code = 2606) 1.59 NG/ML Hilario BhaktaCOMPREHENSIVE METABOLIC [id number] 00:00:00* Test Item Value Reference Range Interpretation Comme nts GLUCOSE (test code = 2217) 149 MG/DL BUN (test code = 2208) 25 MG/DL CREATININE (test code = 2214) 1.12 MG/DL eGFR AMER. (test cod e = 23524) 87 ML/MIN/1.73 eGFR NON- AMER. (test code = 71165) 75 ML/MIN/1.73 CALC BUN/CREAT (test code = 2235) 22 RATIO SODIUM (test code = 2231) 141 MEQ/L POTASSIUM (test code = 2228) 4.3 MEQ/L CHLORIDE (test code = 2215) 102 MEQ/L CARBON DIOXIDE (test code = 2206) 22 MEQ/L CALCIUM (test code = 2209) 9.1 MG/DL PROTEIN, TOTAL (test code = 2229) 7.2 G/DL ALBUMIN (test code = 2201) 4.7 G/DL CALC GLOBULIN (test code = 2240) 2.5 G/DL CALC A/G RATIO (test code = 2234) 1.9 RATIO BILIRUBIN, TOTAL (test code = 2207) 0.6 MG/DL ALKALINE PHOSPHATASE (test code = 2204) 59 U/L AST (test code = 2218) 21 U/L ALT (test code = 2219) 20 U/L LIPID [id number] 00:00:00* Test Item Value Reference Range Interpretation Comme nts CHOLESTEROL (test code = 2210) 171 MG/DL TRIGLYCERIDES (test code = 2232) 269 MG/DL HDL CHOLESTEROL (test code = 2220) 29 MG/DL CALC LDL CHOL (test code = 2237) 104 MG/DL RISK RATIO LDL/HDL (test cod e = 2238) 3.59 RATIO [id number] 00:00:00* Test Item Value Reference Range Interpretation Comme nts TSH, THIRD GENERATION (test code = 2821) 1.090 UIU/ML PSA, [id number] 00:00:00* Test Item Value Reference Range Interpretation Comme nts PSA, TOTAL (test code = 2606) 1.59 NG/ML COMPREHENSIVE METABOLIC [id number] 00:00:00* Test Item Value Reference Range Interpretation Comme nts GLUCOSE (test code = 2217) 149 MG/DL BUN (test code = 2208) 25 MG/DL CREATININE (test code = 2214) 1.12 MG/DL eGFR AMER. (test cod e = 16704) 87 ML/MIN/1.73 eGFR NON- AMER. (test code = 76962) 75 ML/MIN/1.73 CALC BUN/CREAT (test code = 2235) 22 RATIO SODIUM (test code = 2231) 141 MEQ/L POTASSIUM (test code = 2228) 4.3 MEQ/L CHLORIDE (test code = 2215) 102 MEQ/L CARBON DIOXIDE (test code = 2206) 22 MEQ/L CALCIUM (test code = 2209) 9.1 MG/DL PROTEIN, TOTAL (test code = 2229) 7.2 G/DL ALBUMIN (test code = 2201) 4.7 G/DL CALC GLOBULIN (test code = 2240) 2.5 G/DL CALC A/G RATIO (test code = 2234) 1.9 RATIO BILIRUBIN, TOTAL (test code = 2207) 0.6 MG/DL ALKALINE PHOSPHATASE (test code = 2204) 59 U/L AST (test code = 2218) 21 U/L ALT (test code = 2219) 20 U/L LIPID [id number] 00:00:00* Test Item Value Reference Range Interpretation Comme nts CHOLESTEROL (test code = 2210) 171 MG/DL TRIGLYCERIDES (test code = 2232) 269 MG/DL HDL CHOLESTEROL (test code = 2220) 29 MG/DL CALC LDL CHOL (test code = 2237) 104 MG/DL RISK RATIO LDL/HDL (test cod e = 2238) 3.59 RATIO [id number] 00:00:00* Test Item Value Reference Range Interpretation Comme nts TSH, THIRD GENERATION (test code = 2821) 1.090 UIU/ML PSA, [id number] 00:00:00* Test Item Value Reference Range Interpretation Comme nts PSA, TOTAL (test code = 2606) 1.59 NG/ML COMPREHENSIVE METABOLIC [id number] 00:00:00* Test Item Value Reference Range Interpretation Comme nts GLUCOSE (test code = 2217) 149 MG/DL BUN (test code = 2208) 25 MG/DL CREATININE (test code = 2214) 1.12 MG/DL eGFR AMER. (test cod e = 79327) 87 ML/MIN/1.73 eGFR NON- AMER. (test code = 66123) 75 ML/MIN/1.73 CALC BUN/CREAT (test code = 2235) 22 RATIO SODIUM (test code = 2231) 141 MEQ/L POTASSIUM (test code = 2228) 4.3 MEQ/L CHLORIDE (test code = 2215) 102 MEQ/L CARBON DIOXIDE (test code = 2206) 22 MEQ/L CALCIUM (test code = 2209) 9.1 MG/DL PROTEIN, TOTAL (test code = 2229) 7.2 G/DL ALBUMIN (test code = 2201) 4.7 G/DL CALC GLOBULIN (test code = 2240) 2.5 G/DL CALC A/G RATIO (test code = 2234) 1.9 RATIO BILIRUBIN, TOTAL (test code = 2207) 0.6 MG/DL ALKALINE PHOSPHATASE (test code = 2204) 59 U/L AST (test code = 2218) 21 U/L ALT (test code = 2219) 20 U/L LIPID [id number] 00:00:00* Test Item Value Reference Range Interpretation Comme nts CHOLESTEROL (test code = 2210) 171 MG/DL TRIGLYCERIDES (test code = 2232) 269 MG/DL HDL CHOLESTEROL (test code = 2220) 29 MG/DL CALC LDL CHOL (test code = 2237) 104 MG/DL RISK RATIO LDL/HDL (test cod e = 2238) 3.59 RATIO [id number] 00:00:00* Test Item Value Reference Range Interpretation Comme nts TSH, THIRD GENERATION (test code = 2821) 1.090 UIU/ML PSA, [id number] 00:00:00* Test Item Value Reference Range Interpretation Comme nts PSA, TOTAL (test code = 2606) 1.59 NG/ML HEMOGLOBIN [id number] 00:00:00* Test Item Value Reference Range Interpretation Comme nts HEMOGLOBIN A1c (test code = 91246) 5.8 % Hilario Castillo AustinHEMOGLOBIN [id number] 00:00:00* Test Item Value Reference Range Interpretation Comme [facility] HEMOGLOBIN A1c (test code = 52885) 5.8 % Hilario Castillo AustinHEMOGLOBIN [id number] 00:00:00* Test Item Value Reference Range Interpretation Comme nts HEMOGLOBIN A1c (test code = 99165) 5.8 % HEMOGLOBIN [id number] 00:00:00* Test Item Value Reference Range Interpretation Comme nts HEMOGLOBIN A1c (test code = 95949) 5.8 % HEMOGLOBIN [id number] 00:00:00* Test Item Value Reference Range Interpretation Comme nts HEMOGLOBIN A1c (test code = 38627) 5.8 % COMPREHENSIVE METABOLIC [id number] 00:00:00* Test Item Value Reference Range Interpretation Comme nts GLUCOSE (test code = 2217) TEST NOT PERFORMED MG/DL BUN (test code = 2208) TEST NOT PERFORME D MG/DL CREATININE (test code = 2214) TEST NOT PERFORMED MG/DL eGFR AMER. (test code = 52115) TEST NOT PERFORMED ML/MIN/1.73 eGFR NON- AMER. (test code = 48898) TEST NOT PERFORMED ML/MIN/1.73 CALC BUN/CREAT (test code = 2235) TEST NOT PERFORMED RATIO SODIUM (test code = 2231) TEST NOT PERFORMED MEQ/L POTASSIUM (test code = 2228) TEST NOT PERFORMED MEQ/L CHLORIDE (test code = 2215) TEST NOT PERFORMED MEQ/L CARBON DIOXIDE (test code = 2206) TEST NOT PERFORMED MEQ/L CALCIUM (test code = 2209) TEST NOT PERFORMED MG/DL PROTEIN, TOTAL (test code = 2229) TEST NOT PERFORMED G/DL ALBUMIN (test code = 2201) TEST NOT PERFORMED G/DL CALC GLOBULIN (test code = 2240) TEST NOT PERFORMED G/DL CALC A/G RATIO (test code = 2234) TEST NOT PERFORMED RATIO BILIRUBIN, TOTAL (test code = 2207) TEST NOT PERFORMED MG/DL ALKALINE PHOSPHATASE (test code = 2204) TEST NOT PERFORMED U/L AST (test code = 2218) TEST NOT PERFORME D U/L ALT (test code = 2219) TEST NOT PERFORME D U/L Hilario F AustinCOMPREHENSIVE METABOLIC [id number] 00:00:00* Test Item Value Reference Range Interpretation Comme nts GLUCOSE (test code = 2217) TEST NOT PERFORMED MG/DL BUN (test code = 2208) TEST NOT PERFORME D MG/DL CREATININE (test code = 2214) TEST NOT PERFORMED MG/DL eGFR AMER. (test code = 61577) TEST NOT PERFORMED ML/MIN/1.73 eGFR NON- AMER. (test code = 00981) TEST NOT PERFORMED ML/MIN/1.73 CALC BUN/CREAT (test code = 2235) TEST NOT PERFORMED RATIO SODIUM (test code = 2231) TEST NOT PERFORMED MEQ/L POTASSIUM (test code = 2228) TEST NOT PERFORMED MEQ/L CHLORIDE (test code = 2215) TEST NOT PERFORMED MEQ/L CARBON DIOXIDE (test code = 2206) TEST NOT PERFORMED MEQ/L CALCIUM (test code = 2209) TEST NOT PERFORMED MG/DL PROTEIN, TOTAL (test code = 2229) TEST NOT PERFORMED G/DL ALBUMIN (test code = 2201) TEST NOT PERFORMED G/DL CALC GLOBULIN (test code = 2240) TEST NOT PERFORMED G/DL CALC A/G RATIO (test code = 2234) TEST NOT PERFORMED RATIO BILIRUBIN, TOTAL (test code = 2207) TEST NOT PERFORMED MG/DL ALKALINE PHOSPHATASE (test code = 2204) TEST NOT PERFORMED U/L AST (test code = 2218) TEST NOT PERFORME D U/L ALT (test code = 2219) TEST NOT PERFORME D U/L Hilario F AustinCOMPREHENSIVE METABOLIC [id number] 00:00:00* Test Item Value Reference Range Interpretation Comme nts GLUCOSE (test code = 2217) TEST NOT PERFORMED MG/DL BUN (test code = 2208) TEST NOT PERFORME D MG/DL CREATININE (test code = 2214) TEST NOT PERFORMED MG/DL eGFR AMER. (test code = 06637) TEST NOT PERFORMED ML/MIN/1.73 eGFR NON- AMER. (test code = 32133) TEST NOT PERFORMED ML/MIN/1.73 CALC BUN/CREAT (test code = 2235) TEST NOT PERFORMED RATIO SODIUM (test code = 2231) TEST NOT PERFORMED MEQ/L POTASSIUM (test code = 2228) TEST NOT PERFORMED MEQ/L CHLORIDE (test code = 2215) TEST NOT PERFORMED MEQ/L CARBON DIOXIDE (test code = 2206) TEST NOT PERFORMED MEQ/L CALCIUM (test code = 2209) TEST NOT PERFORMED MG/DL PROTEIN, TOTAL (test code = 2229) TEST NOT PERFORMED G/DL ALBUMIN (test code = 2201) TEST NOT PERFORMED G/DL CALC GLOBULIN (test code = 2240) TEST NOT PERFORMED G/DL CALC A/G RATIO (test code = 2234) TEST NOT PERFORMED RATIO BILIRUBIN, TOTAL (test code = 2207) TEST NOT PERFORMED MG/DL ALKALINE PHOSPHATASE (test code = 2204) TEST NOT PERFORMED U/L AST (test code = 2218) TEST NOT PERFORME D U/L ALT (test code = 2219) TEST NOT PERFORME D U/L COMPREHENSIVE METABOLIC [id number] 00:00:00* Test Item Value Reference Range Interpretation Comme nts GLUCOSE (test code = 2217) TEST NOT PERFORMED MG/DL BUN (test code = 2208) TEST NOT PERFORME D MG/DL CREATININE (test code = 2214) TEST NOT PERFORMED MG/DL eGFR AMER. (test code = 61705) TEST NOT PERFORMED ML/MIN/1.73 eGFR NON- AMER. (test code = 67405) TEST NOT PERFORMED ML/MIN/1.73 CALC BUN/CREAT (test code = 2235) TEST NOT PERFORMED RATIO SODIUM (test code = 2231) TEST NOT PERFORMED MEQ/L POTASSIUM (test code = 2228) TEST NOT PERFORMED MEQ/L CHLORIDE (test code = 2215) TEST NOT PERFORMED MEQ/L CARBON DIOXIDE (test code = 2206) TEST NOT PERFORMED MEQ/L CALCIUM (test code = 2209) TEST NOT PERFORMED MG/DL PROTEIN, TOTAL (test code = 2229) TEST NOT PERFORMED G/DL ALBUMIN (test code = 2201) TEST NOT PERFORMED G/DL CALC GLOBULIN (test code = 2240) TEST NOT PERFORMED G/DL CALC A/G RATIO (test code = 2234) TEST NOT PERFORMED RATIO BILIRUBIN, TOTAL (test code = 2207) TEST NOT PERFORMED MG/DL ALKALINE PHOSPHATASE (test code = 2204) TEST NOT PERFORMED U/L AST (test code = 2218) TEST NOT PERFORME D U/L ALT (test code = 2219) TEST NOT PERFORME D U/L COMPREHENSIVE METABOLIC [id number] 00:00:00* Test Item Value Reference Range Interpretation Comme nts GLUCOSE (test code = 2217) TEST NOT PERFORMED MG/DL BUN (test code = 2208) TEST NOT PERFORME D MG/DL CREATININE (test code = 2214) TEST NOT PERFORMED MG/DL eGFR AMER. (test code = 59792) TEST NOT PERFORMED ML/MIN/1.73 eGFR NON- AMER. (test code = 99065) TEST NOT PERFORMED ML/MIN/1.73 CALC BUN/CREAT (test code = 2235) TEST NOT PERFORMED RATIO SODIUM (test code = 2231) TEST NOT PERFORMED MEQ/L POTASSIUM (test code = 2228) TEST NOT PERFORMED MEQ/L CHLORIDE (test code = 2215) TEST NOT PERFORMED MEQ/L CARBON DIOXIDE (test code = 2206) TEST NOT PERFORMED MEQ/L CALCIUM (test code = 2209) TEST NOT PERFORMED MG/DL PROTEIN, TOTAL (test code = 2229) TEST NOT PERFORMED G/DL ALBUMIN (test code = 2201) TEST NOT PERFORMED G/DL CALC GLOBULIN (test code = 2240) TEST NOT PERFORMED G/DL CALC A/G RATIO (test code = 2234) TEST NOT PERFORMED RATIO BILIRUBIN, TOTAL (test code = 2207) TEST NOT PERFORMED MG/DL ALKALINE PHOSPHATASE (test code = 2204) TEST NOT PERFORMED U/L AST (test code = 2218) TEST NOT PERFORME D U/L ALT (test code = 2219) TEST NOT PERFORME D U/L HEMOGLOBIN [id number] 00:00:00* Test Item Value Reference Range Interpretation Comme nts HEMOGLOBIN A1c (test code = 43867) 6.2 % Hilario F AustinHEMOGLOBIN [id number] 00:00:00* Test Item Value Reference Range Interpretation Comme nts HEMOGLOBIN A1c (test code = 56544) 6.2 % Hilario BhaktaHEMOGLOBIN [id number] 00:00:00* Test Item Value Reference Range Interpretation Comme nts HEMOGLOBIN A1c (test code = 49249) 6.2 % HEMOGLOBIN [id number] 00:00:00* Test Item Value Reference Range Interpretation Comme nts HEMOGLOBIN A1c (test code = 24591) 6.2 % HEMOGLOBIN [id number] 00:00:00* Test Item Value Reference Range Interpretation Comme nts HEMOGLOBIN A1c (test code = 11949) 6.2 % Notes ||| Date/Time Note Provider Source Hilario Hogan [facility]2024-04-19 00:00:00||| Hilario Hogan [facility]"
[2024-11-14] MEDS ORDERED: LIDOCAINE 1% 20 ML MDV ONE (16:58)
--- NOTE | 2024-11-14 17:35 | ER ---
Nurse's Notes [facility] Name: Quintin Koenig Age: 59 yrs Sex: Male : 1965 Arrival Date: 11/14/2024 Time: 16:41 Bed 2 Private MD: Diagnosis: Laceration without foreign body of right hand Presentation: 11/14 16:50 Chief complaint: Patient states: small laceration noted to R index finger. Pt reports ss he was using a jewel bearing grinder and it jumped and got his finger. No active bleeding noted at this time. Coronavirus screen: Client denies travel out of the [place] in the last 14 days. Ebola Screen: Patient denies exposure to infectious person. Patient denies travel to an Ebola-affected area in the 21 days before illness onset. Complicating Factors: There are no complicating factors for this patient. Initial Sepsis Screen: Does the patient meet any 2 criteria? No. Patient's initial sepsis screen is negative. Does the patient have a suspected source of infection? No. Patient's initial sepsis screen is negative. Risk Assessment: Do you want to hurt yourself or someone else? Patient reports no desire to harm self or others. Onset of symptoms was November 14, 2024. 16:50 Method Of Arrival: Ambulatory ss 16:50 Acuity: MIGUEL 4 ss Historical: - Allergies: 16:51 No Known Allergies; ss - PMHx: 16:51 abscess on my testicles; Bipolar disorder; Diabetes - NIDDM; Hypertension; ss - Immunization history:: Last tetanus immunization: unknown. - Infectious Disease History:: Denies. - Social history:: Smoking status: unknown. Screenin:[address] [facility] ED Fall Risk Assessment (Adult) History of falling in the last 3 months, aa5 including since admission No falls in past 3 months (0 pts) Confusion or Disorientation No (0 pts) Intoxicated or Sedated No (0 pts) Impaired Gait No (0 pts) Mobility Assist Device Used No (0 pt) Altered Elimination No (0 pt) Score/Fall Risk Level 0 - 2 = Low Risk Oriented to surroundings, Maintained a safe environment, Educated pt \T\ family on fall prevention, incl call for assistance when getting out of bed, Assessed \T\ reinforced patient's understanding of fall precautions. Abuse screen: Denies threats or abuse. Nutritional screening: No deficits noted. Tuberculosis screening: No symptoms or risk factors identified. Assessment: 17:00 General: Appears comfortable, Behavior is calm, cooperative. Pain: Complains of pain in aa5 dorsal aspect of proximal phalanx of right index finger. Neuro: Level of Consciousness is awake, alert, obeys commands, Oriented to person, place, time, situation. Cardiovascular: Patient's skin is warm and dry. Respiratory: Airway is patent Respiratory effort is even, unlabored, Respiratory pattern is regular, symmetrical. GI: No signs and/or symptoms were reported involving the gastrointestinal system. : No signs and/or symptoms were reported regarding the genitourinary system. EENT: No signs and/or symptoms were reported regarding the EENT system. Derm: Skin is pink, warm \T\ dry. Musculoskeletal: Range of motion: intact in all extremities. Injury Description: Laceration sustained to dorsal aspect of proximal phalanx of right index finger is clean, 0.5 to 2.5 cm long, not bleeding, was sustained 30-60 minutes ago. Vital Signs: 16:50 BP 146 / 77; Pulse 57; Resp 17; Temp 98.1(TE); Pulse Ox 97% on R/A; Weight 115.67 kg; ss Height 5 ft. 10 in. ; Pain 7/10; 16:50 Body Mass Index 36.59 (115.67 kg, 177.8 cm) ss 16:50 Pain Scale: Adult ss ED Course: 16:41 Patient arrived in ED. im 16:49 Prabha Hayden, SHAWNA is Primary Nurse. aa5 16:51 Triage completed. ss 16:51 Arm band placed on right wrist. ss 16:52 Carlton Maciel FNP-C [facility]. [facility]5 16:52 Danny Evans MD is Attending Physician. dr5 17:00 Patient has correct armband on for positive identification. Bed in low position. Call aa5 light in reach. Side rails up X 1. 17:20 Assist provider with laceration repair on dorsal aspect of proximal phalanx of right aa5 index finger that was 2.5 cm. or less using sutures. Set up tray. Performed by Carlton SLOAN Patient tolerated well. 17:55 Patient did not have IV access during this emergency room visit. iw Administered Medications: 17:20 Drug: Lidocaine Infiltration (1 %) 20 ml 20 ml Infiltration once; to bedside {Note: aa5 administered by COTTON BREEDER during laceration repair. .} Volume: 20 ml; Route: Infiltration; Medication: 17:47 VIS not applicable for this client. aa5 Outcome: 17:34 Discharge ordered by . dr5 17:55 Discharged to home ambulatory, iw 17:55 Condition: good 17:55 Discharge instructions given to patient, Instructed on discharge instructions, follow up and referral plans. medication usage, Demonstrated understanding of instructions, follow-up care, medications, Prescriptions given X 1, 17:55 Patient left the ED. iw Signatures: Ivory Holden RN RN Prabha Hayden RN RN aa5 Yamile Jamison, SHAWNA RN Joellen Rodney Dustin, LAW PROFESSOR-C LAW PROFESSOR-Cdr5
--- NOTE | 2024-11-14 17:35 | EDPHYS ---
Physician Documentation [facility] Name: Quintin Koenig Age: 59 yrs Sex: Male : 1965 Arrival Date: 11/14/2024 Time: 16:41 Bed 2 Private MD: ED Physician Dnany Evans HPI: 11/14 17:13 This 59 yrs old Male presents to ER via Ambulatory with complaints of dr5 Laceration To Right Hand. 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 dr5 17:14 Patient is a 59-year-old male with history of bipolar, diabetes, hypertension coming in dr5 with laceration to right index finger that occurred 30 minutes prior to arrival. Patient was using a organ grinder when it slipped and cut his finger. Last tetanus unknown. Historical: - Allergies: 16:51 No Known Allergies; ss - PMHx: 16:51 abscess on my testicles; Bipolar disorder; Diabetes - NIDDM; Hypertension; ss - Immunization history:: Last tetanus immunization: unknown. - Infectious Disease History:: Denies. - Social history:: Smoking status: unknown. ROS: 17:14 Constitutional: as per hpi dr5 Exam: 17:14 Constitutional: This is a well developed, well nourished patient who is awake, alert, dr5 and in no acute distress. Head/Face: Normocephalic, atraumatic. Eyes: Pupils equal round and reactive to light, extra-ocular motions intact. Lids and lashes normal. Conjunctiva and sclera are non-icteric and not injected. Cornea within normal limits. Periorbital areas with no swelling, redness, or edema. Neck: Trachea midline, no thyromegaly or masses palpated, and no cervical lymphadenopathy. Supple, full range of motion without nuchal rigidity, or vertebral point tenderness. No Meningismus. Chest/axilla: Normal chest wall appearance and motion. Nontender with no deformity. No lesions are appreciated. Cardiovascular: Regular rate and rhythm with a normal S1 and S2. Normal PMI, no JVD. No pulse deficits. Back: No spinal tenderness. No costovertebral tenderness. Full range of motion. MS/ Extremity: Pulses equal, no cyanosis. Neurovascular intact. Full, normal range of motion. Psych: Awake, alert, with orientation to person, place and time. Behavior, mood, and affect are within normal limits. 17:14 Skin: injury, laceration(s), the wound is approximately 2 cm(s), with a depth of 1 cm(s), of the dorsal aspect of proximal phalanx of right index finger, 17:14 Musculoskeletal/extremity: Extremities: all appear grossly normal, with no appreciated dr5 pain with palpation, ROM: no acute changes, full active range of motion, Circulation is intact in all extremities. Sensation intact. Vital Signs: 16:50 BP 146 / 77; Pulse 57; Resp 17; Temp 98.1(TE); Pulse Ox 97% on R/A; Weight 115.67 kg; ss Height 5 ft. 10 in. ; Pain 7/10; 16:50 Body Mass Index 36.59 (115.67 kg, 177.8 cm) ss 16:50 Pain Scale: Adult ss Laceration: 17:14 Wound Repair of 2cm ( 0.8in ) subcutaneous laceration to dorsal aspect of proximal dr5 phalanx of right index finger. Linear shaped.. Distal neuro/vascular/tendon intact. Anesthesia: Local anesthetic administered with 3 mls of 1% lidocaine. Wound prep: Simple cleansing, Copious irrigation. Skin closed with 3 4-0 Prolene using simple sutures and sterile technique. Dressed with non-adherent dressing. Patient tolerated well. MDM: 16:52 Medical Screening Exam initiated dr5 17:14 Differential diagnosis: superficial laceration. dr5 17:14 Data reviewed: vital signs, nurses notes. I considered the following discharge dr5 prescriptions or medication management in the emergency department Medications were administered in the Emergency Department. See MAR. Care significantly affected by the following Social Determinants of Health: Poor access to healthcare and/or lack of insurance, Poor access to transportation, Inadequate housing. Counseling: I had a detailed discussion with the patient and/or guardian regarding the historical points, exam findings, and any diagnostic results supporting the discharge/admit diagnosis, the presence of at least one elevated blood pressure reading (>120/80) during this emergency department visit, the need for outpatient follow up, for definitive care, a family practitioner, to return to the emergency department if symptoms worsen or persist or if there are any questions or concerns that arise at home. ED course: . 17:38 ED course: Recommended patient keep wound warm and dry. Will give Keflex. dr5 03/01 17:00 Order name: Dressing - Wound; Complete Time: 17:41 dr5 11/14 17:00 Order name: Prolene, Sutures: 4-0; Complete Time: 17:41 dr5 11/14 17:00 Order name: Setup Suture Tray; Complete Time: 17:41 dr5 Administered Medications: 17:20 Drug: Lidocaine Infiltration (1 %) 20 ml 20 ml Infiltration once; to bedside {Note: aa5 administered by IT TELECOM TECHNICIAN during laceration repair. .} Volume: 20 ml; Route: Infiltration; Disposition Summary: 11/14/24 17:34 Discharge Ordered Notes: Location: Home dr5 Condition: Stable dr5 Diagnosis - Laceration without foreign body of right hand dr5 Followup: dr5 - With: Private Physician - When: 7 - 10 days - Reason: Staple/Suture removal Followup: dr5 - With: Emergency Department - When: As needed - Reason: Worsening of condition Discharge Instructions: - Discharge Summary Sheet dr5 - Laceration Care, Adult dr5 Forms: - Medication Reconciliation Form dr5 - Patient Portal Instructions dr5 - Leadership Thank You Letter dr5 Prescriptions: - Cephalexin 500 mg Oral Capsule - take 1 capsule ORAL route every 12 hours for 10 days; 20 capsule; Refills: 0, dr5 Product Selection Permitted Signatures: Ivory Holden RN RN iw Prabha Hayden RN RN aa5 Yamile Jamison RN RN ss Carlton Maciel, ECONOMIC GEOGRAPHER-C ECONOMIC GEOGRAPHER-Cdr5 Corrections: (The following items were deleted from the chart) 17:14 17:13 The patient has a laceration related to: dr5 dr5
[2024-11-14] MEDS ORDERED: TDAP (DIPHTH,PERTUSS(ACELL),TET VAC) 0.5 ML VIAL IMVAC ONE (17:47)
[2024-11-14 18:23] VITALS: BP 146/77; TEMP 98.1; O2SAT 97
== END 2024-11-14 17:55 | disposition home or self-care (01) ==
LOC: ER 16:41
DX: S61.210A Laceration without foreign body of right index finger without damage to nail, initial encounter (principal)
CPT/HCPCS: 12001; 99283; J2003